=== PATIENT | male | born 1970 | race Hispanic/Latino ===

== ENCOUNTER 2021-11-17 19:24 | Emergency (ER) | payer OTHER, SELFPAY ==
[2021-11-17 19:37] VITALS: BP 149/87; PULSE 86; RESP 18; TEMP 38.2; O2SAT 100
--- NOTE | 2021-11-17 20:00 | ED.URI ---
HPI - URI/Sore Throat General Chief Complaint: Upper Respiratory Infection Stated Complaint: Sore Throat Time Seen by Provider: 11/17/21 20:00 History of Present Illness HPI Narrative: Efrain Gonzalez is a 51 yo male with no PMH who comes to [facility] with complaints of ear pain and throat pain and a fever 105. He is not drinking because his throat hurts and he has been sick for the last 2 to 3 days Related Data Home Medications Medication Instructions Recorded Confirmed empagliflozin 10 mg tablet 10 mg PO DAILY 11/17/21 11/17/21 (Jardiance) loratadine 10 mg tablet 10 mg PO DAILY 11/17/21 11/17/21 losartan 50 mg tablet 50 mg PO DAILY 11/17/21 11/17/21 metformin 1,000 mg tablet 1,000 mg PO BID 11/17/21 11/17/21 Allergies Allergy/AdvReac Type Severity Reaction Status Date / Time No Known Allergies Allergy Verified 11/17/21 20:02 Review of Systems Review of Systems: CONSTITUTIONAL: Has fever, chills, sweats. EYES: Denies visual changes, redness, discharge. ENT: Denies rhinorrhea, congestion, has sore throat, bilateral otalgia. CARDIOVASCULAR: Denies chest pain, palpitations, edema. RESPIRATORY: Denies dyspnea, wheezing, cough GASTROINTESTINAL: Denies abdominal pain, nausea, vomiting, diarrhea. GENITOURINARY: Denies dysuria, hematuria, abnormal discharge SKIN: Denies rash or itching. NEUROLOGIC: Denies numbness, or focal weakness. PSYCHIATRIC: Denies anxiety or depression. PMFSH Comments At time of signature, I agree with nursing past medical, surgical, social and family history. There is no relevant family history pertinent to the presenting complaint. Exam Narrative: GENERAL: This is a well-nourished, well-developed patient, in moderate distress. He is febrile and looks ill HEAD: normocephalic, atraumatic. EYES: Sclera clear/white. Vision is grossly intact. EARS: External ears normal, auditory canals erythema and without drainage, TMs normal without perforation. Hearing grossly intact. NOSE: External nose normal without nasal discharge, nares without redness, has rhinorrhea. THROAT: Mucous membranes moist, posterior pharynx erythema with 1+ edema NECK: Neck supple, non-tender CARDIOVASCULAR: Regular rate and rhythm without murmurs, gallops, or rubs. RESPIRATORY: Clear to auscultation. Breath sounds equal bilaterally. No wheezes, rales, or rhonchi. GASTROINTESTINAL: Not done, SKIN: warm, intact with no suspicious lesions or rash, good texture and turgor. NEURO: awake, alert, and oriented to person, place and time. There were no obvious focal neurologic abnormalities. Steady gait EXTREMITIES: Normal range of motion. BACK: Nontender without deformity Course Course Level of Care: Express Care Visit Vital Signs Vital signs: Vital Signs Temperature 100.8 F H 11/17/21 19:37 Pulse Rate 86 11/17/21 19:37 Respiratory Rate 18 11/17/21 19:37 Blood Pressure 149/87 H 11/17/21 19:37 Pulse Oximetry 100 11/17/21 19:37 Oxygen Delivery Room Air 11/17/21 19:37 Temperature 100.8 F H 11/17/21 19:37 Pulse Rate 86 11/17/21 19:37 Respiratory Rate 18 11/17/21 19:37 Blood Pressure 149/87 H 11/17/21 19:37 Pulse Oximetry 100 11/17/21 19:37 Oxygen Delivery Room Air 11/17/21 19:37 MDM - URI/Sore Throat Differential Diagnosis Differential diagnosis: Likely upper respiratory infection, otitis media, sinusitis, viral infection, bronchitis, influenza, pharyngitis and other Critical Care Time Critical Care Time Critical Care Time: No Discharge Plan Discharge Clinical Impression: Bacterial pharyngitis Patient Disposition: Home, Self-Care Condition: Stable Instructions: Pharyngitis (ED) Additional Instructions: Drink fluids and rest Take medications as prescribed Prescriptions: New amoxicillin 500 mg capsule 500 mg PO Q8H Qty: 30 0RF prednisone 20 mg tablet 40 mg PO DAILY Qty: 6 0RF amoxicillin 500 mg capsule 500 mg PO Q8H Qty: 30 0RF
== END 2021-11-17 20:26 | disposition home or self-care (01) ==
PROVIDERS: Emergency Provider Nurse Practitioner; PCP Registered Nurse
DX: J02.9 Acute pharyngitis, unspecified (principal); I10 Essential (primary) hypertension; E11.9 Type 2 diabetes mellitus without complications
CPT/HCPCS: 99203; G0463

== ENCOUNTER 2024-03-16 11:50 | Emergency (ER) | payer OTHER, SELFPAY ==
--- NOTE | ~2024-03-16 | XR_ITS ---
EXAMINATION: XR chest 2V 03/16/2024 12:58 INDICATION: Productive cough PROCEDURE: 2 view chest COMPARISON: No prior studies for comparison. FINDINGS: The lungs are clear. The cardiomediastinal silhouette is within normal limits. There are no pleural effusions. There is no pneumothorax suspected. IMPRESSION: 1: NO ACUTE CARDIOPULMONARY DISEASE. Reviewed, dictated and finalized at location B. 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
--- NOTE | 2024-03-16 12:00 | ED.URI ---
HPI - URI/Sore Throat General Chief Complaint: Upper Respiratory Infection Stated Complaint: sore throat,bone aches,fever,cough Time Seen by Provider: 03/16/24 12:17 Source: patient, RN notes reviewed and old records reviewed Mode of arrival: ambulatory Limitations: no limitations History of Present Illness HPI Narrative: Patient presents with 2 day history of runny nose, body aches, chills, sweats. He reports a dry cough. Denies shortness of breath. He has been taking ibuprofen for his symptoms with moderate relief. He is not in any distress, including respiratory distress. Denies any injury or trauma. Voices no other concerns or complaints at this time Related Data Home Medications ?Medication ?Instructions ?Recorded ?Confirmed ?Last Taken ?Type empagliflozin 10 mg tablet 10 mg PO DAILY 11/17/21 03/16/24 Unknown History (Jardiance) loratadine 10 mg tablet 10 mg PO DAILY 11/17/21 03/16/24 Unknown History losartan 50 mg tablet 50 mg PO DAILY 11/17/21 03/16/24 Unknown History metformin 1,000 mg tablet 1,000 mg PO BID 11/17/21 03/16/24 Unknown History ammonium lactate 12 % lotion 1 applic topical DAILY 03/16/24 03/16/24 Unknown History fenofibrate 160 mg tablet mg 03/16/24 Unknown History fluticasone propionate 50 1 spray intranasal DAILY 03/16/24 03/16/24 Unknown History mcg/actuation nasal spray,suspension pravastatin 20 mg tablet 20 mg PO DAILY 03/16/24 03/16/24 Unknown History tamsulosin 0.4 mg capsule 0.4 mg PO Q24H 03/16/24 03/16/24 Unknown History Allergies Allergy/AdvReac Type Severity Reaction Status Date / Time No Known Allergies Allergy Verified 03/16/24 12:10 Review of Systems Review of Systems: All systems reviewed & are unremarkable except as noted in HPI and below Constitutional: Constitutional: Reports no additional constitutional complaints, Reports body ache(s), Reports chills and Reports lethargy ENT: Reports system reviewed and no additional complaints, except as documented, Reports nasal congestion, Reports nasal discharge and Reports sore throat Cardiovascular: Cardiovascular: Reports no additional cardiovascular complaints Respiratory: Respiratory: Reports no additional respiratory complaints and Reports cough Gastrointestinal: Gastrointestinal: Reports no additional gastrointestinal complaints PMFSH Comments At the time of my signature, I reviewed and agree with the nursing past medical, surgical, social, and family history. There is no relevant family history pertinent to the patient complaint. Exam Const: General: cooperative, no acute distress, alert, awake and uncomfortable Orientation/consciousness: oriented to person, oriented to place and oriented to time HENMT: Head: normal to inspection Ears: TM's normal bilaterally Mouth: Yes moist mucous membranes Throat: posterior oropharynx normal Resp: Effort & Inspection: normal respiratory effort and able to speak in complete sentences Auscultation: clear to auscultation bilaterally, no crackles, no rales, no rhonchi and no wheezes Cardio: Palpation: normal PMI Rate: regular rate Rhythm: regular rhythm Heart sounds: S1 normal heart sound present and S2 normal heart sound present Neuro: General: oriented to person, oriented to place and oriented to time Cranial nerves: Yes CN's II-XII intact bilaterally Psych: Appearance: grossly normal Thought process: Normal thought process present Insight: Good insight present (Psych) Judgement: Good judgement present (Psych) Course Course Level of Care: Express Care Visit Vital Signs Vital signs: Reviewed MDM - URI/Sore Throat MDM Narrative Medical decision making narrative: Negative COVID, negative flu, negative strep. Culture pending. Negative chest x-ray. Reassuring physical exam. Symptoms likely viral in origin, treat symptomatically. Patient nontoxic and stable for discharge home. Discharge instructions reviewed with patient, as well as provided in writing per nursing staff. The instructions also include specific and strict return/GO TO THE ER as well as f/u information. All questions have been answered, and the patient deny any further questions with discharge and discharge plan. Some parts of this dictation were generated by voice recognition software and may contain typographical and/or grammatical inaccuracies. Differential Diagnosis Differential diagnosis: Likely upper respiratory infection, sinusitis, viral infection, bronchitis, influenza and pharyngitis Medical Records Attestation: I reviewed the patient's medical records. Lab Data Attestation: I reviewed the patient's lab results. Imaging Data Attestation: I personally reviewed and interpreted this imaging study as follows: My impression: no acute findings Radiologist's impression: [facility] [address] [place] [address] XRay Report Signed Patient: Efrain Gonzalez : 1970 MR#: [id number] Age: 53 Acct:[id number] Loc: [facility] ADM Date: 03/16/24Attending Dr: Ordering Physician: Sandie Wei FNP Date of Service: 03/16/24 Procedure(s): XR chest 2V Accession Number(s): [id number] cc: Sandie Wei FNP; Carolina, Ajith JUAREZ~ EXAMINATION: XR chest 2V 03/16/2024 12:58 INDICATION: Productive cough PROCEDURE: 2 view chest COMPARISON: No prior studies for comparison. FINDINGS: The lungs are clear. The cardiomediastinal silhouette is within normal limits. There are no pleural effusions. There is no pneumothorax suspected. IMPRESSION: 1: NO ACUTE CARDIOPULMONARY DISEASE. Reviewed, dictated and finalized at location B. 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 It is intended for [id number] communication. It is written in medical language and may contain unfamiliar abbreviations or verbiage. Medical documents are intended to carry relevant information, facts as evident, and the clinical opinion of the practitioner at the time of the encounter. This report may have been done utilizing a voice recognition system. Attempts have been made to correct errors. However, there may be uncorrected grammatical, spelling, and recognition errors present. The file time of this note does not necessarily represent the time the patient was seen. Dictated By: Demetrius Coffey MD 03/16/24 1316 Signed By: <Electronically signed by Demetrius Coffey MD in OV> 03/16/24 1318 Discharge Plan Discharge Clinical Impression: Upper respiratory infection Qualifiers: URI type: unspecified viral URI Qualified Code(s): J06.9 - Acute upper respiratory infection, unspecified Patient Disposition: Home, Self-Care Condition: Stable Instructions: Antibiotic Form, Cold Symptoms (ED) Additional Instructions: Take medications as prescribed. Follow with primary care provider. Emergency department for any new or worse symptoms Patient Language: Telugu Prescriptions: New albuterol sulfate [Ventolin HFA] 90 mcg/actuation HFA aerosol inhaler 2 puff inhalation QID PRN (Reason: shortness of breath or wheezing) Qty: 8.5 0RF benzonatate 200 mg capsule 200 mg PO TID PRN (Reason: cough) Qty: 30 0RF No Action losartan 50 mg tablet 50 mg PO DAILY metformin 1,000 mg tablet 1,000 mg PO BID loratadine 10 mg tablet 10 mg PO DAILY Jardiance 10 mg tablet 10 mg PO DAILY ammonium lactate 12 % lotion 1 applic TOPICAL DAILY fluticasone propionate 50 mcg/actuation spray,suspension 1 spray INTRANASAL DAILY fenofibrate 160 mg tablet pravastatin 20 mg tablet 20 mg PO DAILY tamsulosin 0.4 mg capsule 0.4 mg PO Q24H Follow-up/Referrals: Carolina,DINAH Canseco [Primary Care Provider] - 2 Weeks Stand Alone Forms: Work/School Release IP Time of Disposition: 13:26
[2024-03-16 12:01] VITALS: BP 128/77; PULSE 70; RESP 16; TEMP 36.6; O2SAT 99
[2024-03-16 12:32] LABS: Glucose Point of Care 181 mg/dl (65-105)
[2024-03-16 12:41] LABS: EDINFLUASCREEN Negative (Negative); EDINFLUBSCREEN Negative (Negative); EDSTREPNEGPOS1 Negative (Negative)
[2024-03-16 13:57] LABS: EDCOVIDSCREEN Negative (Negative)
== END 2024-03-16 13:34 | disposition home or self-care (01) ==
PROVIDERS: Emergency Provider Nurse Practitioner Family; PCP Registered Nurse
DX: J06.9 Acute upper respiratory infection, unspecified (principal); Z79.899 Other long term (current) drug therapy; Z79.84 Long term (current) use of oral hypoglycemic drugs; Z20.822 Contact with and (suspected) exposure to COVID-19
CPT/HCPCS: 71046; 82948; 87081; 87426; 87804; 87880; 99213; G0463

== ENCOUNTER 2025-01-01 21:39 | Emergency (ER) | payer OTHER, SELFPAY ==
--- NOTE | ~2025-01-01 | XR_ITS ---
Examination: XR chest 1V portable Clinical History: sob, cough Comparison: 03/16/2024 Technique: Portable AP Findings: Heart size normal. Mild bibasilar opacities. No acute bony abnormality. IMPRESSION: 1. Suspect bibasilar atelectasis and/or airspace disease. Recommend PA and lateral films with deep inspiration. Reviewed, dictated and finalized at location R. IMPRESSION: 1. Suspect bibasilar atelectasis and/or airspace disease. Recommend PA and lat eral films with deep inspiration.
--- NOTE | 2025-01-01 21:47 | ECG_ITS ---
Test Date: 2025-01-01 22:00:28 Measurements Intervals [place] Rate: 105 P: 23 NH: 142 QRS: 15 QRSD: 89 T: 11 QT: 317 QTc: 420 Interpretive Statements SINUS TACHYCARDIA DELAYED PRECORDIAL R/S TRANSITION BORDERLINE ECG No previous ECG available for comparison Electronically Signed On 01-02-2025 05:56:04 CDT by Bobby Ding D.O.
--- OUTSIDE RECORDS SUMMARY | 2025-01-01 21:54 | XMS_ITS | Clinical Summary ---
Author Organization [facility] Address [address] [place] [address] Care Team Providers Care 3D Modeler Name Role Phone Ajith Figueroa ZIPPER SLIDE ATTACHER Primary Care Provider [phone] Allergies No known active allergies Medications alcohol swabs (Alcohol Prep Pads) pads, medicated Alcohol Prep Pads clean area prior to blood sugar testing Active lancets (OneTouch Delica Plus Lancet) 33 gauge misc OneTouch Delica Plus Lancet 33 gauge USE DIRECTED Active ammonium lactate (LAC-HYDRIN) 12 % lotion ammonium lactate 12 % lotion Active clotrimazole 1 % cream Apply topically 3 (three) times a day Active fenofibrate (TRIGLIDE) 160 mg tablet Take 160 mg by mouth daily 2 Active loratadine (CLARITIN) 10 mg tablet Take 10 mg by mouth daily 2 Active losartan (COZAAR) 50 mg tablet losartan 50 mg tablet Active metFORMIN (GLUCOPHAGE) 1,000 mg tablet metformin 1,000 mg tablet TAKE 1 TABLET BY MOUTH TWICE DAILY WITH MEALS Active pravastatin (PRAVACHOL) 20 mg tablet pravastatin 20 mg tablet TAKE 1 TABLET BY MOUTH ONCE DAILY IN THE EVENING Active tamsulosin (FLOMAX) 0.4 mg extended release capsule Take 0.4 mg by mouth daily 7 Active erythromycin (ILOTYCIN) ophthalmic ointment Place 1/2 inch ribbon in both eyes four times a day. 3.5 g 2 Active naproxen (NAPROSYN) 500 mg tablet Take 1 tablet (500 mg total) by mouth 2 (two) times a day with meals 30 tablet 3 Active ketorolac (TORADOL) 10 mg tablet Take 1 tablet (10 mg total) by mouth every 6 (six) hours as needed for pain 20 tablet 3 Active methylPREDNISol one (Medrol, Jim,) 4 mg Dosepack follow package directions 1 packet 3 Active Active Problems No known active problems Immunizations Immunization Administration Dates Next Due Tdap 06/02/2021 Surgical History Surgery Date Site/Laterality Comments NO PAST SURGERIES Medical History Medical History Date Comments Diabetes mellitus Uses Qatari as primary spoken language Social History Tobacco Use Types Packs/Day Years Used Date Smoking Tobacco: Never Smokeless Tobacco: Never Tobacco Cessation:Counseling Given: Not Answered Alcohol Use Standard Drinks/Week Comments Never 0 (1 standard drink = 0.6 oz pur e alcohol) Personal Safety Answer Date Recorded Have you ever been in or are you currently in a harmful physical or emotional relationship or is someone making you feel afraid or unsafe? 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 Gender Identity Not on file Sexual Orientation Not on file Obstetrics History Last Filed Vital Signs Vital Sign Reading Time Taken Comments Blood Pressure 148/98 03/01/2023 2:02 PM FLAT SPRING ASSEMBLER Pulse 76 03/01/2023 2:02 PM FLAT SPRING ASSEMBLER Temperature 37.1 C (98.7 F) 03/01/2023 2:02 PM FLAT SPRING ASSEMBLER Respiratory Rate 15 03/01/2023 2:02 PM FLAT SPRING ASSEMBLER Oxygen Saturation 99% 03/01/2023 2:02 PM FLAT SPRING ASSEMBLER Inhaled Oxygen Concentration - - Weight 81.6 kg (180 lb) 03/01/2023 2:02 PM FLAT SPRING ASSEMBLER Height 165.1 cm (5' 5) 03/01/2023 2:02 PM FLAT SPRING ASSEMBLER Body Mass Index 29.95 03/01/2023 2:02 PM FLAT SPRING ASSEMBLER Plan of Treatment Health Maintenance Due Date Last Done Comments Colon Cancer Screening-Colonoscopy 1970 Depression Screening 1970 Hepatitis C Screening 1970 Prostate Cancer Screening-PSA 1970 Regular Well Visit/Exam 18-64 05/06/1987 Zoster Vaccine (1 of 2) 05/06/2019 Covid-19 Vaccine ( - season) 2024 03/14/2021, 06/24/2020, 05/27/2020 Influenza Vaccine (#1) 2024 3, 02/09/2022, 11/18/2020, Additional history exists DTaP/Tdap/Td Vaccine (3 - Td or Tdap) 06/03/2031 06/02/2021, 02/10/2016 Hepatitis B Screening Completed 12/16/2022, 023 Pneumococcal vaccine <65 Aged Out 12/16/2022, 03/07 No longer eligible based on patient's age to complete this topic Insurance Care Teams 3D Modeler Relationship Specialty Start Date End Date Ajith Figueroa NP [address] [place] [address] PCP - General Nurse Practitioner 03/01/23
--- OUTSIDE RECORDS SUMMARY | 2025-01-01 21:55 | XMS_ITS | Data Portability ---
Author Organization Shirin CONNER Address [address] [place] [address] Care Team Providers Care Personal Care Service Provider Name Role Phone AJITH VERAS Primary Care Provider Assessment No assessment recorded. 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 Veras, [facility] KNITTER-Bc Not available Not available Not available Lab CBC w/ auto diff 2024 025 [facility], [address] [place] [address], [address], [place], [address], 11/21/2024 12:12:58 albumi n/crea tinine , mass ratio, urine 2024 025 [facility], [address] [facility], [address], [place], [address], 11/21/2024 12:20:20 lipid panel, serum 2024 025 [facility], [address] [facility], [address], [place], [address], 11/21/2024 12:12:58 TSH, ultra- sensit lauri, serum 2024 025 [facility], [address] [facility], [address], [place], [address], 11/21/2024 12:20:22 urinal ysis, comple te 2024 [facility], [address], [address], [place], [address], 11/21/2024 12:20:21 PSA, total, serum or plasma 2024 [facility], [address], [address], [place], [address], 11/21/2024 12:20:23 CBC w/ auto diff 2024 [facility], [address] [facility] [address], [address], [place], [address], 11/20/2024 13:17:24 albumi n/crea tinine , mass ratio, urine 2024 [email or web address], [address], [address], [place], [address], 11/20/2024 13:17:52 lipid panel, serum 2024 [email or web address], [address], [address], [place], [address], 11/20/2024 13:18:01 TSH, ultra- sensit lauri, serum 2024 [employer] [facility], [address], [address], [place], [address], 11/20/2024 13:18:08 urinal ysis, comple te 2024 [email or web address], [address], [address], [place], [address], 11/20/2024 13:18:23 HbA1c (hemog lobin A1c), blood 2024 025 [facility] In-Office Order, Internal Use Only DO Not Attach Compendium DO Not Attach Compendium, Do Not Delete/merge, 11/14/2024 15:33:27 glucos e, finger stick, blood 2024 025 [facility] In-Office Order, Internal Use Only DO Not Attach Compendium DO Not Attach Compendium, Do Not Delete/merge, 11/14/2024 15:33:27 PSA, total, serum or plasma 2024 025 [facility], [address] [place] [address], [address], [place], [address], 11/20/2024 13:18:16 HbA1c (hemog lobin A1c), blood 2024 025 [email or web address] In-Office Order, Internal Use Only DO Not Attach Compendium DO Not Attach Compendium, Do Not Delete/merge, 06/20/2024 15:57:02 glucos e, finger stick, blood 2024 025 [email or web address] In-Office Order, Internal Use Only DO Not Attach Compendium DO Not Attach Compendium, Do Not Delete/merge, 06/20/2024 15:57:02 HbA1c (hemog lobin A1c), blood 2024 025 [facility] In-Office Order, Internal Use Only DO Not Attach Compendium DO Not Attach Compendium, Do Not Delete/merge, 03/09/2024 16:25:28 glucos e, finger stick, blood 2024 025 [facility] In-Office Order, Internal Use Only DO Not Attach Compendium DO Not Attach Compendium, Do Not Delete/merge, 03/09/2024 16:25:27 HbA1c (hemog lobin A1c), blood 2023 024 yar[facility]z In-Office Order, Internal Use Only DO Not Attach Compendium DO Not Attach Compendium, Do Not Delete/merge, [id number] 12/06/2023 16:58:08 glucos e, finger stick, blood 2023 024 maria m In-Office Order, Internal Use Only DO Not Attach Compendium DO Not Attach Compendium, Do Not Delete/merge, [id number] 12/06/2023 16:58:10 Referral None record ed. Procedures None record ed. Surgeries None record ed. Imaging XR, should er, 2 or more view 2023 [facility] ([facility]), [address] [facility] , [place], [address], 11/06/2024 09:55:12 Medication Orders flutic asone propio gina 50 mcg/ac tuatio n nasal spray, suspen kinjal 2024 025 [facility], [facility], [address] [place] [address], [address], 11/14/2024 15:33:22 lorata dine 10 mg tablet 2024 025 [facility], [facility], [facility] [place], [address], 11/14/2024 15:33:23 fenofi brate 160 mg tablet 2024 025 [facility], [facility], [facility] [place], [address], 11/14/2024 15:33:23 pravas tatin 20 mg tablet 2024 025 [facility], [facility], [facility] [place], [address], 11/14/2024 15:33:23 losart an 50 mg tablet 2024 025 [facility], [facility], [facility] [place], [address], 11/14/2024 15:33:22 tamsul osin 0.4 mg capsul e 2024 [place] [address], [address] [place] [address], [address], 11/14/2024 15:33:22 seleni um sulfid e 2.5 % lotion 2024 [place] [address], [address] [place] [address], [address], 11/14/2024 15:33:23 Bactri m DS 800 mg-160 mg tablet [address] [place] [address], [address] [place] [address], [address], 12/01/2024 05:02:00 fluoro uracil 5 % topica l cream [address] [place] [address], [address] [place] [address], [address], 11/14/2024 15:33:23 silden afil 100 mg tablet [address] [place] [address], [address] [place], [place], [id number], 11/14/2024 15:51:02 ammoni um lactat e 12 % lotion 2024 025 [place] [address], [address] [place] [address], [address], 11/14/2024 15:33:22 metfor min 1,000 mg tablet [address] [place] [address], [address] [place] [address], [address], 11/14/2024 15:33:23 Jardia nce 10 mg tablet [address] [place] [address], [address] [place] [address], [address], 11/14/2024 15:33:23 flutic asone propio gina 50 mcg/ac tuatio n nasal spray, suspen kinjal 2024 [facility], [address] [place] [address], [address], 06/20/2024 15:57:11 lorata dine 10 mg tablet 2024 [facility], [address] [place] [address], [address], 06/20/2024 15:57:12 hydroc ortiso ne 2.5 % topica l cream 2024 [facility], [address] [place] [address], [address], 06/20/2024 15:57:12 fenofi brate 160 mg tablet 2024 025 [facility], [address] [place] [address], [address], 06/20/2024 15:57:13 pravas tatin 20 mg tablet 2024 025 [facility], [address] [place] [address], [address], 06/20/2024 15:57:09 losart an 50 mg tablet 2024 025 [facility], [address] [place] [address], [address], 06/20/2024 15:57:11 Jardia nce 10 mg tablet 2024 025 [facility], [address] [place] [address], [address], 06/20/2024 15:57:13 metfor min 1,000 mg tablet 2024 [facility], [address] [place], [address], 06/20/2024 15:57:11 tamsul osin 0.4 mg capsul e 2024 [facility], [address] [place], [address], 06/20/2024 15:57:13 flutic asone propio gina 50 mcg/ac tuatio n nasal spray, suspen kinjal 2024 [facility], [address] [place] [address], [address], 03/09/2024 16:25:39 lorata dine 10 mg tablet 2024 [facility], [address] [place] [address], [address], 03/09/2024 16:25:40 silden afil 100 mg tablet 2024 025 [facility], [address] [place], [place], [id number], 03/09/2024 17:01:16 fenofi brate 160 mg tablet 2024 [facility], [address] [place] [address], [address], 03/09/2024 16:25:38 pravas tatin 20 mg tablet 2024 025 [facility], [address] [place] [address], [address], 03/09/2024 16:25:36 ammoni um lactat e 12 % lotion 2024 025 [facility], [address] [place] [address], [address], 03/09/2024 16:25:37 metfor min 1,000 mg tablet 2024 [facility], [address] [place], [address], 03/09/2024 16:25:41 Jardia nce 10 mg tablet 2024 maria m [facility], [address] [place], [address], 03/09/2024 16:26:41 losart an 50 mg tablet 2024 [facility], [address] [place] [address], [address], 03/09/2024 16:25:41 tamsul osin 0.4 mg capsul e 2024 [facility], [address] [place] [address], [address], 03/09/2024 16:25:40 flutic asone propio gina 50 mcg/ac tuatio n nasal spray, suspen kinjal 2023 024 [facility], [address] [place] [address], [address], 12/06/2023 16:58:17 lorata dine 10 mg tablet 2023 024 [facility], [address] [place] [address], [address], 12/06/2023 16:58:16 flucon azole 150 mg tablet 2023 025 [facility], [address] [place] [address], [address], 03/09/2024 16:04:19 ketoco nazole 2 % topica l cream 2023 024 [facility], [address] [place] [address], [address], 12/06/2023 16:58:16 fenofi brate 160 mg tablet 2023 [facility], [address] [place] [address], [address], 12/06/2023 16:58:16 pravas tatin 20 mg tablet 2023 [facility], [address] [place] [address], [address], 12/06/2023 16:58:15 Medrol (Jim) 4 mg tablet s in a dose pack 2023 025 [facility], [address] [place] [address], [address], 03/09/2024 16:04:24 losart an 50 mg tablet 2023 [facility] [address], [address] [place] [address], [address], 12/06/2023 16:58:14 tamsul osin 0.4 mg capsul e 2023 024 [facility], [address] [place] [address], [address], 12/06/2023 16:58:16 silden afil 100 mg tablet 2023 [facility], [address] [place], [place], [id number], 12/06/2023 17:23:33 ammoni um lactat e 12 % lotion 2023 024 [facility], [address] [place] [address], [address], 12/06/2023 16:58:15 metfor min 1,000 mg tablet 2023 024 [facility], [address] [place] [address], [address], 12/06/2023 16:58:13 Jardia nce 10 mg tablet 2023 024 maria m [facility], [address] [facility], [place], [address], 12/06/2023 17:24:57 Patient TargetsNo targets recorded. Patient Instructions Encounter Date Encounter Id Patient Instructions Last Modified By Organization Details Last Modified Time 12/06/2023 [id number] aprenda sobre la presi n arterial jose - [learning about high blood pressure] y[facility]auz Not available 12/06/2023 16:58:02 hiperplasia pros t vahe benigna: instrucciones de cuidado - [benign prostatic hyperplasia: care instructions] yarauz Not available 12/06/2023 16:58:01 vacuna contra la influenza (gripe): instrucciones de cuidado - [influenza (flu) vaccine: care instructions] yarauz Not available 12/06/2023 16:58:01 enfermedad de reflujo gastroesof gico (GERD): instrucciones de cuidado - [gastroesophageal reflux disease (GERD): care instructions] yarauz Not available 12/06/2023 16:58:01 aprenda acerca del peso saludable - [learning about healthy weight] yarauz Not available 12/06/2023 16:58:01 Diabetes de tipo 2: Instrucciones de cuidado - [Type 2 Diabetes: Care Instructions] yarauz Not available 12/06/2023 16:58:02 aprenda acerca del peso saludable - [learning about healthy weight] yarauz Not available 12/06/2023 16:58:01 ndice de masa corporal: instrucciones de cuidado - [body mass index: care instructions] yarauz Not available 12/06/2023 16:58:02 Uncontrolled Diabetes Mellitus complications , blindness, kidney failure, amputations etc. Take your diabetes medication daily check blood sugars fasting and post prandial --keep a log--bring to next appointment stop concentrated sugars--follow 1500 meal plan exercise 50-60 minutes daily on most days check your feet for sores, cuts, etc., see eye doctor once a year see dentist every 6 months make appointment with inverter and clipper DIRECTOR OF COMMUNICATIONS test results vaccine yarauz Not available 12/06/2023 16:55:21 03/09/2024 [id number] enfermedad de reflujo gastroesof gico (GERD): instrucciones de cuidado - [gastroesophageal reflux disease (GERD): care instructions] yarauz Not available 03/09/2024 16:25:28 Diabetes de tipo 2: Instrucciones de cuidado - [Type 2 Diabetes: Care Instructions] yarauz Not available 03/09/2024 16:25:28 aprenda sobre la presi n arterial jose - [learning about high blood pressure] yarauz Not available 03/09/2024 16:25:28 hiperplasia pros t vahe benigna: instrucciones de cuidado - [benign prostatic hyperplasia: care instructions] yarauz Not available 03/09/2024 16:25:28 aprenda acerca del peso saludable - [learning about healthy weight] yarauz Not available 03/09/2024 16:25:28 ndice de masa corporal: instrucciones de cuidado - [body mass index: care instructions] yarauz Not available 03/09/2024 16:25:28 Uncontrolled Diabetes Mellitus complications , blindness, kidney failure, amputations etc. Take your diabetes medication daily check blood sugars fasting and post prandial --keep a log--bring to next appointment stop concentrated sugars--follow 1500 meal plan exercise 50-60 minutes daily on most days check your feet for sores, cuts, etc., see eye doctor once a year see dentist every 6 months make appointment with inverter and clipper DIRECTOR OF COMMUNICATIONS yarauz Not available 03/09/2024 16:30:43 06/20/2024 [id number] aprenda sobre la presi n arterial jose - [learning about high blood pressure] [email or web address] Not available 06/20/2024 15:57:01 Diabetes de tipo 2: Instrucciones de cuidado - [Type 2 Diabetes: Care Instructions] [email or web address] Not available 06/20/2024 15:57:02 hiperplasia pros t vahe benigna: instrucciones de cuidado - [benign prostatic hyperplasia: care instructions] [email or web address] Not available 06/20/2024 15:57:02 aprenda acerca del peso saludable - [learning about healthy weight] [email or web address] Not available 06/20/2024 15:57:01 ndice de masa corporal: instrucciones de cuidado - [body mass index: care instructions] [email or web address] Not available 06/20/2024 15:57:02 11/14/2024 [id number] aprenda sobre la presi n arterial jose - [learning about high blood pressure] yarauz Not available 11/14/2024 15:33:22 hiperplasia pros t vahe benigna: instrucciones de cuidado - [benign prostatic hyperplasia: care instructions] yarauz Not available 11/14/2024 15:33:22 enfermedad de reflujo gastroesof gico (GERD): instrucciones de cuidado - [gastroesophageal reflux disease (GERD): care instructions] yarauz Not available 11/14/2024 15:33:22 Diabetes de tipo 2: Instrucciones de cuidado - [Type 2 Diabetes: Care Instructions] yarauz Not available 11/14/2024 15:33:22 detecci n del c ncer de pr stata: instrucciones de cuidado - [prostate cancer screening: care instructions] yarauz Not available 11/14/2024 15:33:23 prueba del ANT gabbie prost mattie espec fico: acerca de esta prueba - [prostate-specifi c antigen (PSA) test: about this test] yarauz Not available 11/14/2024 15:33:23 aprenda acerca del peso saludable - [learning about healthy weight] yarauz Not available 11/14/2024 15:33:22 ndice de masa corporal: instrucciones de cuidado - [body mass index: care instructions] yarauz Not available 11/14/2024 15:33:22 Uncontrolled Diabetes Mellitus complications , blindness, kidney failure, amputations etc. Take your diabetes medication daily check blood sugars fasting and post prandial --keep a log--bring to next appointment stop concentrated sugars--follow 1500 meal plan exercise 50-60 minutes daily on most days check your feet for sores, cuts, etc., see eye doctor once a year see dentist every 6 months make appointment with inverter and clipper DINAH franz Not available 11/14/2024 15:08:54 Reason for Referral None Reported. Results Created Date Observation Date Name Description Value Unit Range Abnormal Flag Note LastModifiedBy Organization Detail LastModifiedTime 12/06/1912/06/2023 HbA1c (hemo globi n A1c), blood HbA1c 6.7 Not Available In-Office Order Internal Use Only DO Not Attach Compendium DO Not Attach Compendium, Do Not Delete/merge, 12/06/2023 16:07:45 12/06/1912/06/2023 gluco se, finge rstic k, blood Blood Glucose: mg/dl 104 Not Available In-Off ice Order Internal Use Only DO Not Attach Compendium DO Not Attach Compendium, Do Not Delete/merge, 12/06/2023 16:07:45 03/09/1903/09/2024 HbA1c (hemo globi n A1c), blood HbA1c 7.3 Not Available In-Office Order Internal Use Only DO Not Attach Compendium DO Not Attach Compendium, Do Not Delete/merge, 03/09/2024 15:54:57 03/09/1903/09/2024 gluco se, finge rstic k, blood Blood Glucose: mg/dl 145 Not Available In-Off ice Order Internal Use Only DO Not Attach Compendium DO Not Attach Compendium, Do Not Delete/merge, 03/09/2024 15:54:58 06/21/1906/20/2024 HbA1c (hemo globi n A1c), blood HbA1c 7.7 Not Available In-Office Order Internal Use Only DO Not Attach Compendium DO Not Attach Compendium, Do Not Delete/merge, 06/20/2024 15:25:05 06/21/19 25 06/20/2024 gluco se, finge rstic k, blood Blood Glucose: mg/dl 177 Not Available In-Off ice Order Internal Use Only DO Not Attach Compendium DO Not Attach Compendium, Do Not Delete/merge, [id number] 06/20/2024 15:25:06 11/15/1911/14/2024 HbA1c (hemo globi n A1c), blood HbA1C 7.7 % Not Available In-Office Order Internal Use Only DO Not Attach Compendium DO Not Attach Compendium, Do Not Delete/merge, 11/14/2024 14:45:43 11/15/1911/14/2024 gluco se, finge rstic k, blood Blood Glucose: mg/dl 146 Not Available In-Off ice Order Internal Use Only DO Not Attach Compendium DO Not Attach Compendium, Do Not Delete/merge, 11/14/2024 14:45:50 11/21/1911/20/2024 LIPID PANEL cholesterol, total 153 mg/dL 100-[address] [facility] [address] [place], [address], 11/20/2024 21:08:57 11/21/1911/20/2024 LIPID PANEL triglyceride s 150 mg/dL 0-149 above high normal Not Available [facility] [address] [place], [address], 11/20/2024 21:08:57 11/21/1911/20/2024 LIPID PANEL HDL cholesterol 40 mg/dL 40-999 Not Available [facility] [address] [place], [address], 11/20/2024 21:08:57 11/21/1911/20/2024 LIPID PANEL VLDL cholesterol delfina 30 mg/dL 5-40 Not Available [facility] [address] [place], [address], 11/20/2024 21:08:57 11/21/1911/20/2024 LIPID PANEL LDL chol calc ([facility]) 105 mg/dL 0-99 above high normal Not Available [facility] [address] [place], [address], 11/20/2024 21:08:57 11/21/1911/20/2024 CBC WITH DIFFE RENTI AL/PL ATELE T WBC 5.3 x10e3 /uL 3.4-[address] [facility] [address] [place], [address], 11/20/2024 21:08:58 11/21/1911/20/2024 CBC WITH DIFFE RENTI AL/PL ATELE T RBC 5.03 x10e6 /uL 4.14-[address] [facility] [address] [place], [address], 11/20/2024 21:08:58 11/21/1911/20/2024 CBC WITH DIFFE RENTI AL/PL ATELE T hemoglobin 15.6 g/dL 13.0-[address] [facility] [address] [place], [address], 11/20/2024 21:08:58 11/21/1911/20/2024 CBC WITH DIFFE RENTI AL/PL ATELE T hematocrit 46.4 % 37.5-[address] [facility] [address] [place], [address], 11/20/2024 21:08:58 11/21/1911/20/2024 CBC WITH DIFFE RENTI AL/PL ATELE T MCV 92 fL 79-[address] [facility] [address] [place], [address], 11/20/2024 21:08:58 11/21/1911/20/2024 CBC WITH DIFFE RENTI AL/PL ATELE T MCH 31.0 pg 26.6-[address] [facility] [address] [place], [address], 11/20/2024 21:08:58 11/21/1911/20/2024 CBC WITH DIFFE RENTI AL/PL ATELE T MCHC 33.6 g/dL 31.5-[address] [facility] [address] [place], [address], 11/20/2024 21:08:58 11/21/1911/20/2024 CBC WITH DIFFE RENTI AL/PL ATELE T RDW 12.2 % 11.5-[address] [facility] [address] [place], [address], 11/20/2024 21:08:58 11/21/1911/20/2024 CBC WITH DIFFE RENTI AL/PL ATELE T platelets 218 x10e3 /uL 150-[address] [facility] [address] [place], [address], 11/20/2024 21:08:58 11/21/1911/20/2024 CBC WITH DIFFE RENTI AL/PL ATELE T neutrophils 53 % notest b. Not Available [facility] [address] [place], [address], 11/20/2024 21:08:58 11/21/1911/20/2024 CBC WITH DIFFE RENTI AL/PL ATELE T lymphs 35 % notest b. Not Available [facility] [address] [place], [address], 11/20/2024 21:08:58 11/21/1911/20/2024 CBC WITH DIFFE RENTI AL/PL ATELE T monocytes 8 % notest b. Not Available [facility] [address] [place], [address], 11/20/2024 21:08:58 11/21/1911/20/2024 CBC WITH DIFFE RENTI AL/PL ATELE T eos 3 % notest b. Not Available [facility] [address] [place], [address], 11/20/2024 21:08:58 11/21/19 25 11/20/2024 CBC WITH DIFFE RENTI AL/PL ATELE T basos 1 % notest b. Not Available [facility] [address] [place], [address], 11/20/2024 21:08:58 11/21/19 25 11/20/2024 CBC WITH DIFFE RENTI AL/PL ATELE T neutrophils (absolute) 2.8 x10e3 /uL 1.4-7. [address] [facility] [address] [place], [address], 11/20/2024 21:08:58 11/21/1911/20/2024 CBC WITH DIFFE RENTI AL/PL ATELE T lymphs (absolute) 1.8 x10e3 /uL 0.7-3. [address] [facility] [address] [place], [address], 11/20/2024 21:08:58 11/21/19 25 11/20/2024 CBC WITH DIFFE RENTI AL/PL ATELE T monocytes(ab solute) 0.4 x10e3 /uL 0.1-0. [address] [facility] [address] [place], [address], 11/20/2024 21:08:58 11/21/1911/20/2024 CBC WITH DIFFE RENTI AL/PL ATELE T eos (absolute) 0.2 x10e3 /uL 0.0-0. [address] [facility] [address] [place], [address], 11/20/2024 21:08:58 11/21/19 25 11/20/2024 CBC WITH DIFFE RENTI AL/PL ATELE T baso (absolute) 0.1 x10e3 /uL 0.0-0. [address] [facility] [address] [place], [address], 11/20/2024 21:08:58 11/21/19 25 11/20/2024 CBC WITH DIFFE RENTI AL/PL ATELE T immature granulocytes 0.4 % notest b. Not Available [facility] [address] [place], [address], 11/20/2024 21:08:58 11/21/19 25 11/20/2024 CBC WITH DIFFE RENTI AL/PL ATELE T immature grans (abs) 0.0 x10e3 /uL 0.0-0. [address] [facility] [address] [place], [address], 11/20/2024 21:08:58 11/21/19 25 11/20/2024 CBC WITH DIFFE RENTI AL/PL ATELE T NRBC 0 % 0-[address] [facility] [address] [place], [address], 11/20/2024 21:08:58 11/21/19 25 11/21/2024 ALBUM IN/CR EATIN INE RATIO ,URIN E creatinine, urine 132.8 mg/dL notest ab. Not Available [facility] ([facility]) [address] [place], [address], 11/21/2024 12:20:20 11/21/19 25 11/21/2024 ALBUM IN/CR EATIN INE RATIO ,URIN E albumin, urine 10.8 ug/mL notest ab. Not Available [facility] ([facility]) [address] [place], [address], 11/21/2024 12:20:20 11/21/19 25 11/21/2024 ALBUM IN/CR EATIN INE RATIO ,URIN E alb/creat ratio 8 mg/g_ creat 0-29 Celia l: 0 - 29 Moder ately incre ased: 30 - 300 Sever colton incre ased: >300 Not Available [facility] ([facility]) [address] [place], [address], 11/21/2024 12:20:20 11/21/19 25 11/21/2024 URINA LYSIS , COMPL ETE specific gravity 1.020 1.005- 1.030 Not Available [facility] ([facility]) [address] [place], [address], 11/21/2024 12:20:21 11/21/19 25 11/21/2024 URINA LYSIS , COMPL ETE pH 5.5 5.0-7. 5 Not Available [facility] ([facility]) [address] [place], [address], 11/21/2024 12:20:21 11/21/19 25 11/21/2024 URINA LYSIS , COMPL ETE urine-color YELLOW yellow Not Available [facility] ([facility]) [address] [place], [address], 11/21/2024 12:20:21 11/21/19 25 11/21/2024 URINA LYSIS , COMPL ETE appearance CLEAR clear Not Available [facility] ([facility]) [address] [place], [address], 11/21/2024 12:20:21 11/21/19 25 11/21/2024 URINA LYSIS , COMPL ETE WBC esterase NEGATI VE negati ve Not Available [facility] ([facility]) [address] [place], [address], 11/21/2024 12:20:21 11/21/19 25 11/21/2024 URINA LYSIS , COMPL ETE protein NEGATI VE negati ve/tra ce Not Available [facility] ([facility]) [address] [place], [address], 11/21/2024 12:20:21 11/21/19 25 11/21/2024 URINA LYSIS , COMPL ETE glucose NEGATI VE negati ve Not Available [facility] ([facility]) [address] [facility], [place], [address], 11/21/2024 12:20:21 11/21/19 25 11/21/2024 URINA LYSIS , COMPL ETE ketones NEGATI VE negati ve Not Available [facility] ([facility]) [address] [facility], [place], [address], 11/21/2024 12:20:21 11/21/19 25 11/21/2024 URINA LYSIS , COMPL ETE occult blood NEGATI VE negati ve Not Available [facility] ([facility]) [address] [facility], [place], [address], 11/21/2024 12:20:21 11/21/19 25 11/21/2024 URINA LYSIS , COMPL ETE bilirubin NEGATI VE negati ve Not Available [facility] ([facility]) [address] [facility], [place], [address], 11/21/2024 12:20:21 11/21/19 25 11/21/2024 URINA LYSIS , COMPL ETE urobilinogen ,semi-qn 0.2 mg/dL 0.2-1. 0 Not Available [facility] ([facility]) [address] [facility], [place], [address], 11/21/2024 12:20:21 11/21/1911/21/2024 URINA LYSIS , COMPL ETE nitrite, urine NEGATI VE negati ve Not Available [facility] ([facility]) [address] [facility], [place], [address], 11/21/2024 12:20:21 11/21/19 25 11/21/2024 URINA LYSIS , COMPL ETE microscopic examination COMMEN T Micro scopi c follo ws if indic ated. Not Available [facility] ([facility]) [address] [place], [address], 11/21/2024 12:20:21 11/21/19 25 11/21/2024 URINA LYSIS , COMPL ETE microscopic examination SEE BELOW: Micro scopi c was indic ated and was perfo rmed. Not Available [facility] ([facility]) [address] [facility], [place], [address], 11/21/2024 12:20:21 11/21/19 25 11/21/2024 MICRO SCOPI C EXAMI NATIO N WBC None seen /hpf 0-5 Not Available [facility] ([facility]) [address] [facility], [place], [address], 11/21/2024 12:20:21 11/21/19 25 11/21/2024 MICRO SCOPI C EXAMI NATIO N RBC None seen /hpf 0-2 Not Available [facility] ([facility]) [address] [facility], [place], [address], 11/21/2024 12:20:21 11/21/19 25 11/21/2024 MICRO SCOPI C EXAMI NATIO N epithelial cells (non renal) None seen /hpf 0-10 Not Available [facility] ([facility]) [address] [facility], [place], [address], 11/21/2024 12:20:21 11/21/19 25 11/21/2024 MICRO SCOPI C EXAMI NATIO N casts None seen /lpf nonese en Not Available [facility] ([facility]) [address] [facility], [place], [address], 11/21/2024 12:20:21 11/21/19 25 11/21/2024 MICRO SCOPI C EXAMI NATIO N bacteria None seen nonese en/few Not Available [facility] ([facility]) [address] [facility], [place], [address], 11/21/2024 12:20:21 11/21/19 25 11/21/2024 TSH RFX ON ABNOR MAL TO FREE T4 TSH 1.590 uIU/m L 0.450- 4.500 Not Available [facility] ([facility]) [address] [facility], [place], [address], 11/21/2024 12:20:22 11/21/19 25 11/21/2024 PROST ATE-S PECIF IC AG prostate specific Ag 0.9 NG/mL 0.0-4. 0 Vivian ECLIA metho dolog y. Accor ding to the Ameri can [employer]o g[employer] Ass[employer] iatio n, Serum PSA shoul d decre ase and remai n at undet ectab le level s after radic al prost atect can. The AUA defin es bioch emica l recur rence as an initi al PSA value 0.2 ng/mL or great er follo wed by a subse quent confi rmato ry PSA value 0.2 ng/mL or great er. Value s obtai suraj with diffe rent assay metho ds or kits canno t be used inter hawthorne eably . Resul ts canno t be inter prete d as absol qasim evide nce of the prese nce or absen ce of fortunato saab se. Not Available [facility] ([facility]) [address] [facility], [place], [address], 11/21/2024 12:20:23 03/16/19 25 03/16/2024 XR, chest , 2 view No observ ation record ed. [facility] [address], [place], [address], 03/20/2024 10:57:06 Result Notes None recorded. 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 32173510 Active Not Available [facility] 4 22:50:17 Neuropath y due to diabetes mellitus 045217794 Active Not Available [facility] 4 22:50:17 Gastroeso phageal reflux disease 755476692 Active Not Available [facility] 4 22:50:17 Serous otitis media 03751346 Completed 06/30/2016 Abbey Graham RN null, [place] - [facility] 7 14:33:37 Complaini ng of nasal congestio n Completed 08/18/2020 Abbey Graham [place] [facility] 1 16:25:44 Onychomyc osis 556936560 Completed 03/17/2018 Abbey Graham [place] [facility] 9 15:46:57 Backache 098883675 Completed 06/30/2016 Abbey Graham [place] [facility] 7 14:33:41 Reduced libido 3219416 Completed 201608/18/2020 Abbey Graham [place] [facility] 1 16:26:03 Testoster one level below reference range 727405617 Completed 201608/18/2020 Abbey Graham [place] [facility] 1 16:25:52 Benign prostatic hyperplas ia 092653189 Active 2017 Not Available [facility] 4 22:50:17 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 242293400 Active 2017 Not Available [facility] 4 22:50:17 Scalp folliculi tis 455204818 Active 2021 Not Available [facility] 4 22:50:17 Vitamin D deficienc y 85588826 Active 2021 Not Available [facility] 4 22:50:17 Body mass index 30+ - obesity 808694038 Active 2021 RAMU Yu Attn: [place], [address] , [facility] 4 16:02:43 Screening for malignant neoplasm of colon Active 2022 Not Available [facility] 4 22:50:17 Fall from ladder Active 2022 Not Available [facility] 4 22:50:17 Obesity 763364045 [facility]: Accounting ,[address] [facility], [place], [address] , [facility] 4 16:50:40 Pain of left shoulder joint 29632498662 804685 Active 2023 [facility]: Accounting ,[address] [facility], [place], [address] , [facility] 4 16:52:26 Problem Notes None recorded. Medical Equipment None Reported. Allergies No known drug allergies Medications Name Sig Start Date Stop Date Status Note LastModified by Organization Details LastModified Time losartan 50 mg tablet TAKE 1 TABLET BY MOUTH ONCE DAILY active Not Available Not Available No t Available amoxicillin 500 mg capsule TAKE 1 CAPSULE BY MOUTH EVERY 8 HOURS 01/12 completed Not Available Not Available Not Available metformin 500 mg tablet Take 1 tablet twice a day by oral route. 11/29 completed Not Available Not Available Not Available ammonium lactate 12 % lotion APPLY LOTION TOPICALLY ONCE DAILY active Not Available Not Available No t Available pravastatin 40 mg tablet Take 1 tablet every day by oral route. 03/11 completed Not Available Not Available Not Available fluconazole 150 mg tablet TAKE 1 TABLET BY MOUTH ONCE DAILY 03/09 completed Not Available Not Available Not Available prednisone 20 mg tablet TAKE 3 TABS BY MOUTH ONCE DAILY FOR 3 DAYS, THEN TAKE 2 TABS BY MOUTH ONCE DAILY FOR 3 DAYS, THEN TAKE 1 TAB BY MOUTH ONCE DAILY FOR 3 DAYS 04/15 completed Not Available Not Available Not Available fluorouraci l 5 % topical cream Apply by topical route for 20 days. 2024 active Not Available Not Available Not Avai lable ciprofloxac in 500 mg tablet Take 1 tablet every 12 hours by oral route as directed. 07/11 completed Not Available Not Available Not Available sildenafil 100 mg tablet Take 1 tablet as needed by oral route as needed, for ED. 2024 active Not Available Not Available Not Avai lable ondansetron 8 mg disintegrat ing tablet Place 1 tablet twice a day by transling ual route. 03/18 completed Not Available Not Available Not Available ketorolac 10 mg tablet TAKE 1 TABLET BY MOUTH EVERY 6 HOURS NEEDED FOR PAIN 03/01 completed Not Available Not Available Not Available terbinafine HCl 250 mg tablet Take 1 tablet every day by oral route. 07/11 completed Not Available Not Available Not Available amoxicillin 875 mg tablet Take 1 tablet every 12 hours by oral route for 10 days. 03/18 completed Not Available Not Available Not Available tamsulosin 0.4 mg capsule TAKE 1 CAPSULE BY MOUTH ONCE DAILY active Not Available Not Available No t Available Anterra EnergyTouch Ultra Test strips USE 1 STRIP TO CHECK GLUCOSE TWICE DAILY active Not Available Not Available No t Available erythromyci n 5 mg/gram (0.5 %) eye ointment PLACE 1/2 INCH RIBBON INTO EACH EYE 4 TIMES DAILY 09/14 completed Not Available Not Available Not Available metformin 1,000 mg tablet TAKE 1 TABLET BY MOUTH TWICE DAILY WITH MEALS FOR 30 DAYS active Not Available Not Available No t Available Gentle Laxative (bisacodyl) 5 mg tablet,nanci yed release AT 2 PM THE DAY BEFORE THE COLONOSCO PY, TAKE ALL 4 TABLETS OF DULCOLAX BY MOUTH AT ONE TIME WITH 8 OUNCES OF WATER 12/05 completed Not Available Not Available Not Available ibuprofen 400 mg tablet Take 1 tablet every 4 hours by oral route. 11/17 completed Not Available Not Available Not Available hydrocortis one 2.5 % topical cream APPLY THIN LAYER TO AFFECTED AREA TWICE DAILY active Not Available Not Available No t Available pravastatin 20 mg tablet TAKE 1 TABLET BY MOUTH ONCE DAILY IN THE EVENING active Not Available Not Available No t Available ergocalcife rol (vitamin D2) 1,250 mcg (50,000 unit) capsule TAKE 1 CAPSULE BY MOUTH ONCE A WEEK 01/12 completed Not Available Not Available Not Available Pepcid 20 mg tablet Take 1 tablet twice a day by oral route. 12/05 completed Not Available Not Available Not Available polyethylen e glycol 3350 17 gram/dose oral powder IN A PITCHER, MIX ENTIRE BOTTLE OF MIRALAX IN ONE 64 OUNCE BOTTLE OF YELLOW OR GREEN GATORADE. BEGINNING AT 5 PM THE EVENING BEFORE COLONOSCO PY, DRINK ONE 8 OUNCE GLASS EVERY 15 MINUTES UNTIL COMPLETED . DRINK 4 GLASSES OF WATER AFTER FINISHING THIS 12/05 completed Not Available Not Available Not Available methylpredn isolone 4 mg tablets in a dose pack TAKE BY MOUTH DIRECTED ON INSIDE OF PACKAGE 03/09 completed Not Available Not Available Not Available albuterol sulfate HFA 90 mcg/actuati on aerosol inhaler active Not Available Not Available Not Available ketoconazol e 2 % topical cream APPLY 1 GRAM TOPICALLY TO GROIN ONCE DAILY active Not Available Not Available No t Available fluocinonid e 0.05 % topical cream APPLY CREAM EXTERNALL Y TO AFFECTED AREA TWICE DAILY active Not Available Not Available No t Available fluticasone propionate 50 mcg/actuati on nasal spray,suspe nsion USE 1 SPRAY(S) IN EACH NOSTRIL ONCE DAILY FOR NASAL CONGESTIO N active Not Available Not Available No t Available metformin ER 500 mg tablet,exte nded release 24 hr TAKE 2 TABLETS BY MOUTH ONCE DAILY 03/14 completed Not Available Not Available Not Available clotrimazol e 1 % topical cream APPLY TO THE AFFECTED AND SURROUNDI NG AREAS OF SKIN BY TOPICAL ROUTE 2 TIMES PER DAY IN THE MORNING AND EVENING 11/17 completed Not Available Not Available Not Available loratadine 10 mg tablet TAKE 1 TABLET BY MOUTH ONCE DAILY FOR NASAL CONGESTIO N active Not Available Not Available No t Available naproxen 500 mg tablet TAKE 1 TABLET BY MOUTH TWICE DAILY WITH MEALS 06/20 completed Not Available Not Available Not Available Microlet Lancet inject 1 by topical route every day 08/18 completed Not Available Not Available Not Available amoxicillin 875 mg-potassiu m clavulanate 125 mg tablet Take 1 tablet every 12 hours by oral route. active Not Available Not Available No t Available Bactrim DS 800 mg-160 mg tablet Take 1 tablet every 12 hours by oral route for 10 days. 12/01 completed Not Available Not Available Not Available fenofibrate 160 mg tablet TAKE 1 TABLET BY MOUTH ONCE DAILY active Not Available Not Available No t Available Alcohol Prep Pads clean area prior to blood sugar testing active Not Available Not Available No t Available diclofenac 1 % topical gel Apply by topical route for 20 days. active Not Available Not Available No t Available Jardiance 10 mg tablet TAKE 1 TABLET BY MOUTH ONCE DAILY active Not Available Not Available No t Available selenium sulfide 2.5 % lotion APPLY TO WET SCALP TOPICALLY ONCE WEEKLY. WORK INTO A FULL LATHER, LEAVE ON SCALP FOR 2-3 MINUTES, RINSE THOROUGHL Y, THEN PAT DRY active Not Available Not Available No t Available Procto-Med HC 2.5 % topical cream perineal applicator APPLY A THIN LAYER OF CREAM TOPICALLY TO AFFECTED AREA(S) 2 4 TIMES DAILY 03/18 completed Not Available Not Available Not Available OneTouch Ultra Blue Test Strip USE 1 STRIP TO CHECK GLUCOSE TWICE DAILY 03/18 completed Not Available Not Available Not Available OneTouch Delica Plus Lancet 33 gauge USE DIRECTED active Not Available Not Available No t Available Vitals Date Recorded Body height Provider Name an d Address Organization Details Last Updated DateTime 03/09/2024 165.1 cm Abbey Graham RN [facility] 2024 15:48:08 Date Recorded Body temperature Body mass index (BMI) Body weight Oxygen saturation Oxygen saturation in Arterial blood by Pulse oximetry Heart rate Systolic And Diastolic Provider Name and Address Organization Details Last Updated DateTime 5 98.3 [degF] 29.5 kg/m2 95826.6 5 g 98 % 98 % 68 /min 112/70 mm[Hg] Larissa pepper MA [place] - [facility] 5 16:00:04 Date Recorded Body height Body temperature Heart rate Oxygen saturation Oxygen saturation in Arterial blood by Pulse oximetry Body mass index (BMI) Body weight Systolic And Diastolic Provider Name and Address Organization Details Last Updated DateTime 5 165.1 cm 97.7 [degF] 68 /min 97 % 97 % 29.5 kg/m2 96795.6 5 g 110/74 mm[Hg] Abbey Graham RN [place] - [facility] 15:32:51 Date Recorded Body height Body mass index (BMI) Body weight Oxygen saturation Oxygen saturation in Arterial blood by Pulse oximetry Heart rate Body temperature Systolic And Diastolic Provider Name and Address Organization Details Last Updated DateTime 5 165.1 cm 29.1 kg/m2 52901.6 6 g 96 % 96 % 70 /min 98.5 [degF] 120/80 mm[Hg] Larissa pepper MA [facility] 5 14:51:40 Date Recorded Body height Provider Name an d Address Organization Details Last Updated DateTime 11/20/2024 165.1 cm Rodrickaxel [facility] 11/20/2024 13:15:25 Date Recorded Body height Provider Name an d Address Organization Details Last Updated DateTime 12/06/2023 165.1 cm [facility] 12/06/2023 16:06:50 Date Recorded Body mass index (BMI) Body weight Body temperature Oxygen saturation Oxygen saturation in Arterial blood by Pulse oximetry Heart rate Systolic And Diastolic Provider Name and Address Organization Details Last Updated DateTime 28.1 kg/m2 28452.7 1 g 98.2 [degF] 98 % 98 % 70 /min 102/70 mm[Hg] Larissa pepper MA [facility] 16:14:59 Social History Question Answer Notes LastModified by Organizat ion Details LastModified Time Tobacco Smoking Status Never Smoker KAZ Chavarria, [facility] 07/11/2014 16:23:26 Do You Have An Advance Directive? No Information not available 04/13/2019 Are You Blind Or Do You Have Difficulty Seeing? No Information not available 08/18/2020 What Is Your Level Of Caffeine Consumption? Occasional [email or web address] Information not available 07/11/2014 How Much Tobacco Do You Chew? None [email or web address] Information not available 07/11/2014 In The 14 Days Before Symptom Onset, Have You Had Close Contact With A Laboratory-confir med COVID-19 While That Case Was Ill? No Information not available 04/13/2019 If Patient Spent Time In [facility] - Does The Patient Live In [facility]? No Information not available 04/13/2019 In The 14 Days Before Symptom Onset, Have You Had Close Contact With A Person Who Is Under Investigation For COVID-19 While That Person Was Ill? No Information not available 04/13/2019 In The 14 Days Before Symptom Onset, Did The Patient Spend Time In [facility]? No Information not available 04/13/2019 Have You Been To An Area Known To Be High Risk For COVID-19? No Information not available 08/18/2020 Are You Deaf Or Do You Have Serious Difficulty Hearing? No Information not available 08/18/2020 What Type Of Diet Are You Following? REGULAR [email or web address] Information not available 07/11/2014 Education Less Than 8th Grade [email or web address] Information not available 07/11/2014 Are There Any Guns Present In Your Home? No [email or web address] Information not available 07/11/2014 Hard Of Hearing Or Deaf In One Or Both Ears? No [email or web address] Information not available 07/11/2014 Legally Blind In One Or Both Eyes? No Information no t available 07/11/2014 Marital Status [email or web address] Informatio n not available 07/11/2014 What Was The Date Of Your Most Recent Tobacco Screening? 11/14/2024 Information not available 11/14/2024 Do You Use Protection During Sex? No Information not available 05/14/2022 What Is Your Relationship Status? Information not available 11/18/2020 Do You Use Your Seat Belt Or Car Seat Routinely? Yes Information not available 08/18/2020 Seat Belts Used Routinely Yes [email or web address] Information not available 07/11/2014 Are You Sexually Active? Yes Information not available 05/14/2022 Smoke Alarm In Home Yes Information not available 07/11/2014 Do You Have Smoke And Carbon Monoxide Detectors In Your Home? Yes Information not available 08/18/2020 Are You Passively Exposed To Smoke? No Information no t available 08/18/2020 How Much Tobacco Do You Smoke? No [email or web address] Information not available 07/11/2014 General Stress Level Low [email or web address] Information not available 09/05/2015 Do You Use Sunscreen Routinely? No Information not available 11/18/2020 Has Tobacco Cessation Counseling Been Provided? No Information not available 08/05/2023 Sex: Male Functional Status Question Answer Note LastModified by Organizat ion Details LastModified Time Do you use any illicit or recreational drugs? No Information not available 08/18/2020 Do you or have you ever used any other forms of tobacco or nicotine? No Information not available 08/18/2020 What is your level of alcohol consumption? None [email or web address] Information not available 07/11/2014 Do you or have you ever used smokeless tobacco? Never used smokeless tobacco Information not available 04/13/2019 Are you currently employed? Yes Information not available 11/18/2020 Are you able to care for yourself independently? 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 Never used electronic cigarettes Information not available 04/13/2019 What is your exercise level? Occasional [email or web address] Information not available 07/11/2014 Mental Status Question Answer Note LastModified by Organization D etails LastModified Time Do you feel stressed (tense, restless, nervous, or anxious, or unable to sleep at night)? [id number] Information not available 05/14/2022 Family History Relationship Description Onset Age of this Age Resolved Age Notes LastModified by Organization Details LastModified Time Sister Diabetes mellitus Not available 2015 15:01:39 Daughter Suicide 21 22 [email or web address] Not available 07/11/2017 16:12:07 Daughter Depressive disorder 21 [email or web address] Not available 2017 12:38:01 Notes:Mother giving bir th to him. Medical History Condition Response Other High Blood Pressure Y Diabetes Y Allergies Y High Cholesterol Y Immunizations Vaccine Type Date Status Note Provider Nam e and Address Organization Details Recorded Time COVID-19, mRNA, LNP-S, PF, 100 mcg/0.5mL dose or 50 mcg/0.25mL dose 2 completed Not Available [facility] 04/27/2023 22:50:17 Influenza, split virus, quadrivalent, preservative 6 completed Not Available [facility] 03/24/2019 02:42:30 Tdap 6 completed Not Available [facility] 03/24/2019 02:40:27 pneumococcal polysaccharide PPV23 2 completed Not Available [facility] 04/27/2023 22:50:17 Influenza, split virus, quadrivalent, preservative 7 completed Not Available [facility] 03/24/2019 02:33:58 Tdap 2 completed Not Available [facility] 11/14/2024 14:40:56 Influenza, split virus, quadrivalent, PF 8 completed Not Available [facility] 03/24/2019 02:35:59 Influenza, split virus, quadrivalent, preservative 9 completed Not Available [facility] 03/24/2019 02:42:38 Influenza, split virus, quadrivalent, preservative 0 completed Reynold [place], [place] [facility] 02/15/2020 10:36:23 COVID-19, mRNA, LNP-S, PF, 100 mcg/0.5mL dose or 50 mcg/0.25mL dose 1 completed Simon Todd RN [place], [place] [facility] 05/27/2020 12:28:39 COVID-19, mRNA, LNP-S, PF, 100 mcg/0.5mL dose or 50 mcg/0.25mL dose 1 completed Marcus Medina [place], [place] [facility] 06/24/2020 15:58:30 Influenza, split virus, quadrivalent, PF 1 completed Reynold Cronin [place] [facility] 11/19/2020 10:33:48 Influenza, recombinant, quadrivalent, PF 2 completed Larissa Whitting[place], [place] [facility] 02/09/2022 17:41:16 Hep B, adult 3 completed RAMU Yu Attn: Accounting,[address] [facility], [place], [address], [facility] 08/24/2022 14:38:02 Hep B, adult 3 completed RAMU Yu Attn: Accounting[address] [facility], [place], [place], [address] [place] [address], [facility] - [facility] 12/16/2022 17:59:52 Influenza, split virus, quadrivalent, preservative 3 completed RAMU Yu Attn: Accounting[address] [facility], [place], [address], [facility] - [facility] 12/16/2022 17:59:52 Pneumococcal conjugate PCV 13 3 completed RAMU Yu Attn: Accounting[address] [facility], [place], [address], [facility] - [facility] 12/16/2022 17:59:52 Influenza, split virus, trivalent, preservative 4 completed BERE [place], [place] - [facility] 12/06/2023 17:05:22 Influenza, split virus, trivalent, PF 5 completed BERE [place], [place] - [facility] 11/14/2024 15:37:33 Past Encounters Encounter ID Performer Location Encounter Start Date Encounter Closed Date Diagnosis/Indication Diagnosis SNOMED-CT Code Diagnosis ICD10 Code Diagnosis IMO Codes Diagnosis Note [id number] Aleksander Diaz MD [facility] [address] [address] 07/11/2014 16:07:54 07/19/2014 16:24:37 Obstructive sleep apnea of adult 2279666747 103 Essential hypertension 00068821 Type 2 ab betes mellitus without complication 397983560 Gastroesop hageal reflux disease 145540226 Has noticed some nausea after taking medication s Advised to take medication s with a cracker or something solid Advised not to lay down immediatel y after taking medication s Serous otitis media 35807949 Complainin g of nasal congestion 956206456 Neuropathy due to diabetes mellitus 453923579 He is not taking Gabapentin as it made him sleepy [id number] [facility] [address] [address] 4 10/11/2014 15:09:30 10/18/2014 11:24:30 Essential hypertension 27491107 Neuropathy due to diabetes mellitus 752223910 Reolved for now, reports feeling well Type 2 ab betes mellitus without complication 456402889 see opthalmolo gist Complainin g of nasal congestion 971034709 Obstructiv e sleep apnea of adult 2275819110 103 stable Onychomycosis 467113877 no alcohol [id number] [facility] [address] [address] 4 09/05/2015 14:40:09 09/09/2015 18:07:29 Essential hypertension 31124956 I10 Type 2 ab betes mellitus without complication 957013524 E11.9 see opthalmolo gist Complainin g of nasal congestion 078372096 R09.81 Obstructiv e sleep apnea of adult 1582252118 103 G47.33 stable Onychomycosis 309211634 B35.1 resolved Backache 439904868 M54.9 [id number] [facility] [address] [address] 4 09/09/2015 09:41:03 09/09/2015 18:13:02 Type 2 diabetes mellitus without complication 267993076 E11.9 [id number] Aleksander Diaz MD [facility] [address] [place] [address] 4 02/10/2016 16:02:30 02/13/2016 13:59:11 Essential hypertension 27380575 I10 Polyneurop athy due to diabetes mellitus 83954855 E11.42 maintain blood sugars wnl Type 2 ab betes mellitus without complication 901340065 E11.9 see eye doctor--gi ve eye list Gastroesop hageal reflux disease 859685687 K21.9 Has noticed some nausea after taking medication s Advised to take medication s with a cracker or something solid Advised not to lay down immediatel y after taking medication s Obstructiv e sleep apnea of adult 1309591729 103 G47.33 stable Tinea cruris 251034784 B 35.6 Reduced libido 2110241 R 68.82 Xerosis du e to atopic dermatitis 064947109 L85.3 Onychomycosis 621578673 B35.1 resolved Allergic rhinitis 849630 04 J30.9 Delay when starting to pass urine 8186300 R39.11 Patient agrees to Prostate screening [id number] Aleksander Diaz MD [facility] [address] [place] [address] 06/30/2016 14:23:49 07/02/2016 16:00:28 Obesity 229540783 E66.9 HIV screening 006418743 Z11.4 Reduced libido 5369469 R 68.82 patient to see Urology Testostero ne level below reference range 428303979 R79.89 patient to see Urology Obstructiv e sleep apnea of adult 0090439362 103 G47.33 stable Essential hypertension 94281167 I10 Type 2 ba betes mellitus without complication 849596737 E11.9 see eye doctor--gi ve eye list Allergic rhinitis 397757 04 J30.9 [id number] Aleksander Diaz MD [facility] [address] [place] [address] 11/05/2016 16:04:13 11/25/2016 14:25:39 Essential hypertension 16265652 I10 Obesity 572641940 E66.9 Type 2 ab betes mellitus without complication 310011743 E11.9 see eye doctor--gi ve eye list Reduced libido 7484699 R 68.82 patient to see Urology Testostero ne level below reference range 601079475 R79.89 patient to see Urology Obstructiv e sleep apnea of adult 7120877911 103 G47.33 stable Allergic rhinitis 839673 04 J30.9 Low back pain 315057261 M54.5 Dysuria 15722917 R30.0 [id number] Aleksander Diaz MD [facility] [address] [place] [address] 03/11/2017 15:03:04 03/11/2017 16:16:57 Xerosis due to atopic dermatitis 981331283 L85.3 Type 2 ab betes mellitus without complication 535963730 E11.9 continue to monitor blood sugars patient to continue Metformin 1000mg 1/2 tab daily keep bs logs Obstructiv e sleep apnea of adult 2669481250 103 G47.33 stable Essential hypertension 70965566 I10 Gastroesop hageal reflux disease 563062889 K21.9 Has noticed some nausea after taking medication s Advised to take medication s with a cracker or something solid Advised not to lay down immediatel y after taking medication s Allergic rhinitis 066273 04 J30.9 Benign pro static hyperplasia 820318083 N40.0 continue Tamsulosin 0.4mg per urology follow up with urology as directed Reduced libido 8964986 R 68.82 patient to see Urology T level is 244 will give patient urologists phone number to make f/u appt [phone] Dr. Brittany Thakkar Otitis media 09654761 H6 5.02 [id number] Aleksander Diaz MD [facility] [address] [address] 07/11/2017 15:35:00 07/13/2017 12:46:07 Type 2 diabetes mellitus without complication 119740438 E11.9 continue to monitor blood sugars patient to continue Metformin 500mg tab daily keep bs logs Essential hypertension 69111302 I10 Gastroesop hageal reflux disease 065432413 K21.9 Has noticed some nausea after taking medication s Advised to take medication s with a cracker or something solid Advised not to lay down immediatel y after taking medication s Obstructiv e sleep apnea of adult 1105120380 103 G47.33 stable Testostero ne level below reference range 315046779 R79.89 patient voices feeling better will not return to Urology Benign pro static hyperplasia 088440200 N40.0 continue Tamsulosin 0.4mg per urology Allergic rhinitis 822849 04 J30.9 Xerosis du e to atopic dermatitis 332784780 L85.3 [id number] Aleksander Diaz MD [facility] [address] [address] 11/17/2017 15:28:48 11/18/2017 17:45:57 Type 2 diabetes mellitus without complication 289783202 E11.9 last HA1C 7.1 continue to monitor blood sugars patient to continue Metformin 500mg tab twice daily keep bs logs Essential hypertension 39384848 I10 Gastroesop hageal reflux disease 320886509 K21.9 Has noticed some nausea after taking medication s Advised to take medication s with a cracker or something solid Advised not to lay down immediatel y after taking medication s Obstructiv e sleep apnea of adult 7705181583 103 G47.33 stable Testostero ne level below reference range 246064577 R79.89 patient voices feeling better will not return to Urology Benign pro static hyperplasia 185657511 N40.0 continue Tamsulosin 0.4mg per urology Allergic rhinitis 512924 04 J30.9 Xerosis du e to atopic dermatitis 890636922 L85.3 Mixed hypercholesterolemia and hypertriglyceridemia 508178797 E78.2 Hemorrhoids 00466912 K64 .9 [id number] Aleksander Diaz MD [facility] [address] [address] 03/17/2018 15:34:03 03/24/2018 12:18:05 Type 2 diabetes mellitus without complication 246479285 E11.9 last HA1C 7.5 continue to monitor blood sugars patient to continue Metformin 500mg tab twice daily keep bs logs Obstructiv e sleep apnea of adult 9617986006 103 G47.33 stable continue to use CPAP Essential hypertension 48229474 I10 Gastroesop hageal reflux disease 476080152 K21.9 Has noticed some nausea after taking medication s Advised to take medication s with a cracker or something solid Advised not to lay down immediatel y after taking medication s Testostero ne level below reference range 433442402 R79.89 patient voices feeling better will not return to Urology Benign pro static hyperplasia 023128841 N40.0 continue Tamsulosin 0.4mg per urology Allergic rhinitis 088801 04 J30.9 Xerosis du e to atopic dermatitis 236062092 L85.3 Mixed hypercholesterolemia and hypertriglyceridemia 996332524 E78.2 Hemorrhoids 34518072 K64 .9 [id number] Aleksander Diaz MD [facility] [address] [place] [address] 07/14/2018 16:22:25 07/17/2018 10:22:50 Type 2 diabetes mellitus without complication 811433330 E11.9 last HA1C 8.7 continue to monitor blood sugars-was only taking one pill at noon patient to increase Metformin ER 500mg 2 tab once daily in the am keep bs logs Essential hypertension 71282290 I10 Obstructiv e sleep apnea of adult 3853929963 103 G47.33 stable continue to use CPAP Gastroesop hageal reflux disease 270197183 K21.9 Has noticed some nausea after taking medication s Advised to take medication s with a cracker or something solid Advised not to lay down immediatel y after taking medication s Benign pro static hyperplasia 039145414 N40.0 continue Tamsulosin 0.4mg per urology Allergic rhinitis 398409 04 J30.9 Xerosis du e to atopic dermatitis 037038634 L85.3 Mixed hypercholesterolemia and hypertriglyceridemia 294593791 E78.2 Diabetic p eripheral neuropathy 059864054 E11.40 Body mass index 30+ - obesity 740351493 Z68.31 BMI 31 [id number] Aleksander Diaz MD [facility] [address] [place], [place] [address] 11/29/2018 14:42:07 11/30/2018 18:09:01 Essential hypertension 11839634 I10 Type 2 ab betes mellitus without complication 298902662 E11.9 last HA1C 6.9 continue to monitor blood sugars patient to continue Metformin ER 500mg 2 tab once daily in the am keep bs logs Gastroesop hageal reflux disease 884810864 K21.9 Has noticed some nausea after taking medication s Advised to take medication s with a cracker or something solid Advised not to lay down immediatel y after taking medication s Obstructiv e sleep apnea of adult 3432032629 103 G47.33 stable continue to use CPAP Benign pro static hyperplasia 695726447 N40.0 continue Tamsulosin 0.4mg per urology Allergic rhinitis 318535 04 J30.9 Xerosis du e to atopic dermatitis 594234277 L85.3 Mixed hypercholesterolemia and hypertriglyceridemia 891908416 E78.2 Hemorrhoids 78677325 K64 .9 [id number] Aleksander Diaz MD [facility] [address] [place] [address] 04/13/2019 15:10:48 04/16/2019 08:56:02 Mixed hypercholesterolemia and hypertriglyceridemia 268981728 E78.2 Type 2 ab betes mellitus without complication 231290439 E11.9 last HA1C 8.3 continue to monitor blood sugars patient to continue Metformin ER 500mg 2 tab once daily in the am keep bs logs Essential hypertension 46041476 I10 Gastroesop hageal reflux disease 750681249 K21.9 Has noticed some nausea after taking medication s Advised to take medication s with a cracker or something solid Advised not to lay down immediatel y after taking medication s Obstructiv e sleep apnea of adult 3388230709 103 G47.33 stable continue to use CPAP Has been on CPAP for 10 years same machine Benign pro static hyperplasia 441328569 N40.0 continue Tamsulosin 0.4mg per urology Allergic rhinitis 868811 04 J30.9 Xerosis du e to atopic dermatitis 712291397 L85.3 Hemorrhoids 53415194 K64 .9 [id number] Trey [address] [facility] [address] [place] [address] 07/16/2019 08:04:22 08/01/2019 15:41:30 Obstructive sleep apnea syndrome 36234084 G47.33 Continue using cpap nightlyOrd ering new cpap machine and compliancy reportCurr ently at 9 cm H2O, Cpap titration to assess if he requires a change in pressure Essential hypertension 60337749 I10 Managed in primary care. Continue to monitor blood pressure. Encourage low salt diet and exercise. Gastroesop hageal reflux disease 776698274 K21.9 Continue medication s as prescribed -Educated pt on importance of dietary modificati ons: Raise the head of the bed, avoid acid-reflu x inducing foods, avoid late meals. [id number] Aleksander Diaz MD [facility] [address] [place] [address] 10/10/2019 15:34:19 10/11/2019 07:04:18 Type 2 diabetes mellitus without complication 315279823 E11.9 last HA1C 8.3 continue to monitor blood sugars voices polyghagia patient to stop Metformin ER 500mg as pharmacy not covering it and start metformin 1000 mg bid-- keep bs logs Essential hypertension 02451620 I10 Mixed hypercholesterolemia and hypertriglyceridemia 587720596 E78.2 Gastroesop hageal reflux disease 240037198 K21.9 Has noticed some nausea after taking medication s Advised to take medication s with a cracker or something solid Advised not to lay down immediatel y after taking medication s Obstructiv e sleep apnea of adult 6734467542 103 G47.33 stable continue to use CPAP Has been on CPAP for 10 years same machine Has now seen DIRECTOR OF COMMUNICATIONS at [facility]-had new machine ordered Benign pro static hyperplasia 635570708 N40.0 continue Tamsulosin 0.4mg per urology Allergic rhinitis 177888 04 J30.9 Xerosis du e to atopic dermatitis 041054516 L85.3 Hemorrhoids 65805898 K64 .9 [id number] Riya Da Silva MD [facility] [address] [place] [address] 02/13/2020 15:19:32 02/14/2020 14:54:12 Type 2 diabetes mellitus without complication 780116826 E11.9 last HA1C 8.3 continue to monitor blood sugars Essential hypertension 04378312 I10 Mixed hypercholesterolemia and hypertriglyceridemia 128582840 E78.2 Gastroesop hageal reflux disease 413492208 K21.9 Has noticed some nausea after taking medication s Advised to take medication s with a cracker or something solid Advised not to lay down immediatel y after taking medication s Benign pro static hyperplasia 830299426 N40.0 continue Tamsulosin 0.4mg per urology Allergic rhinitis 386746 04 J30.9 Needs infl uenza immunization 882663391 Z28.3 [id number] Riya Da Silva MD [facility] [address] [address] 02/15/2020 10:12:34 02/19/2020 16:21:24 Type 2 diabetes mellitus without complication 615711921 E11.9 last HA1C 8.3 continue to monitor blood sugars Administra tion of influenza vaccine 30415004 Z23 [id number] Trey Razo MD [facility] [address] [place] [address] 03/14/2020 14:23:18 03/17/2020 10:49:47 Obstructive sleep apnea syndrome 82769989 G47.33 Continue using cpap nightly . Currently at 9 cm H2O, Clinically benefittin g from usage. Essential hypertension 04861522 I10 Managed in primary care. Continue to monitor blood pressure. Encourage low salt diet and exercise. Gastroesop hageal reflux disease 434794577 K21.9 Continue medication s as prescribed -Educated pt on importance of dietary modificati ons: Raise the head of the bed, avoid acid-reflu x inducing foods, avoid late meals. [id number] MD Linda Alonso [address] [facility] [place] [address] 05/27/2020 10:02:47 05/28/2020 12:48:24 Administration of SARS-CoV-2 antigen vaccine 391378911 Z23 [id number] MD Linda Alonso 14 IM [address] [facility] [place] [address] 06/24/2020 15:40:57 06/25/2020 09:45:20 Administration of SARS-CoV-2 antigen vaccine 815706986 Z23 [id number] Aleksander Diaz MD [facility] [address] [address] 08/18/2020 16:18:48 08/19/2020 14:11:49 Type 2 diabetes mellitus without complication 054741508 E11.9 last HA1C 6.9 continue to monitor blood sugars voices polyghagia patient to continue metformin 1000 mg bid-- keep bs logs Essential hypertension 48945304 I10 Mixed hypercholesterolemia and hypertriglyceridemia 194453688 E78.2 Gastroesop hageal reflux disease 536770993 K21.9 Has noticed some nausea after taking medication s Advised to take medication s with a cracker or something solid Advised not to lay down immediatel y after taking medication s Obstructiv e sleep apnea of adult 0245639470 103 G47.33 stable continue to use CPAP Has been on CPAP for 10 years same machine Has now seen DIRECTOR OF COMMUNICATIONS at [facility]-had new machine ordered Benign pro static hyperplasia 787594733 N40.0 continue Tamsulosin 0.4mg was started per urology has not returned to urology feels med helps him Allergic rhinitis 626152 04 J30.9 Xerosis du e to atopic dermatitis 022228871 L85.3 Hemorrhoids 45888014 K64 .9 Screening for malignant neoplasm of colon 469150429 Z12.11 50 y/o HM needs a screening colonoscop y . Depression screening 171 490199 Z13.31 negative [id number] Aleksander Diaz MD [facility] [address] [place] [address] 11/18/2020 16:01:54 11/19/2020 09:47:05 Essential hypertension 02315488 I10 BP Goal: Less than 150/90BP Controlled : yes; per the JNC8 guidelines in the absence of renal disease and DMHealthy Weight: 5'5= 115-149 lbsDiscuss ed: Low sodium balanced diet, moderate exercise at least 3-4 times per week for an average of 40 minutesNex t Visit: 3month(s) Type 2 ab betes mellitus without complication 888541621 E11.9 HA1C 7 continue to monitor blood sugars voices polyghagia patient to continue metformin 1000 mg bid-- keep bs logs Mixed hypercholesterolemia and hypertriglyceridemia 725865290 E78.2 Gastroesop hageal reflux disease 515098863 K21.9 Has noticed some nausea after taking medication s Advised to take medication s with a cracker or something solid Advised not to lay down immediatel y after taking medication s Obstructiv e sleep apnea of adult 7261470871 103 G47.33 stable continue to use CPAP Has been on CPAP for 10 years same machine Has now seen DIRECTOR OF COMMUNICATIONS at [facility]-had new machine ordered Benign pro static hyperplasia 561609265 N40.0 continue Tamsulosin 0.4mg was started per urology has not returned to urology feels med helps him Allergic rhinitis 088899 04 J30.9 Xerosis du e to atopic dermatitis 300020515 L85.3 Hemorrhoids 61312331 K64 .9 Screening for malignant neoplasm of colon 660099937 Z12.11 50 y/o HM needs a screening colonoscop y . Administra tion of influenza vaccine 26352312 Z23 Scalp folliculitis 08246 8003 L73.8 [id number] Aleksander Diaz MD [facility] [address] [place] [address] 02/02/2021 12:04:27 02/03/2021 06:34:56 Acute otitis media 5346374 H66.92 take tylenol 325mg 2 tabs every 4-6 hours for discomfort Acute gastroenteritis 69 271685 K52.9 [id number] MADHURI SIMONS [facility] [address] [place] [address] 03/18/2021 14:55:37 03/19/2021 06:06:21 Type 2 diabetes mellitus without complication 265773244 E11.9 -Most recent A1C: 7-Today's POC A1C: 7-Manageme nt as outlined-A 1C borderline ; Discussed TLCs during visit Essential hypertension 09203044 I10 BP Goal: Less than 140/90BP Controlled : yesHealthy Weight: 5'5= 115-149 lbsDiscuss ed: Low sodium balanced diet, moderate exercise at least 3-4 times per week for an average of 40 minutesNex t Visit: 3month(s) Mixed hypercholesterolemia and hypertriglyceridemia 758121436 E78.2 -Current regimen maintained -Pt reports symptoms controlled -Lipid panel to follow; ordered today Allergic rhinitis 280546 04 J30.9 -Current regimen maintained -Pt reports symptoms controlled -RFs as appropriat e [id number] Aleksander Diaz MD [facility] [address] [place] [address] 06/15/2021 15:37:55 06/16/2021 13:23:31 Essential hypertension 83932290 I10 BP Goal: Less than 150/90BP Controlled : yes; per the JNC8 guidelines in the absence of renal disease and DMHealthy Weight: 5'5= 115-149 lbsDiscuss ed: Low sodium balanced diet, moderate exercise at least 3-4 times per week for an average of 40 minutesNex t Visit: 3month(s) Type 2 ab betes mellitus without complication 933003219 E11.9 HA1C 7 continue to monitor blood sugars voices polyghagia patient to continue metformin 1000 mg bid-- keep bs logs Gastroesop hageal reflux disease 575879898 K21.9 Has noticed some nausea after taking medication s Advised to take medication s with a cracker or something solid Advised not to lay down immediatel y after taking medication s Mixed hypercholesterolemia and hypertriglyceridemia 623537215 E78.2 Obstructiv e sleep apnea of adult 8681648289 103 G47.33 stable continue to use CPAP Has been on CPAP for 10 years same machine Has now seen DIRECTOR OF COMMUNICATIONS at [facility]-had new machine ordered Benign pro static hyperplasia 202838916 N40.0 continue Tamsulosin 0.4mg was started per urology has not returned to urology feels med helps him Allergic rhinitis 275208 04 J30.9 Xerosis du e to atopic dermatitis 653936952 L85.3 Hemorrhoids 80049088 K64 .9 resolved for now Screening for malignant neoplasm of colon 068481660 Z12.11 50 y/o HM needs a screening colonoscop y .-sent at last visit Scalp folliculitis 99391 8003 L73.8 [id number] Aleksander Diaz MD [facility] [address] [place] [address] 09/14/2021 15:45:38 09/15/2021 14:51:43 Essential hypertension 41858290 I10 BP Goal: Less than 140/90BP Controlled : yes; per the JNC8 guidelines in the absence of renal disease and DMHealthy Weight: 5'5= 115-149 lbsDiscuss ed: Low sodium balanced diet, moderate exercise at least 3-4 times per week for an average of 40 minutesNex t Visit: 3month(s) Type 2 ba betes mellitus without complication 819874336 E11.9 HA1C 7.7 continue to monitor blood sugars voices polyphagia patient to continue metformin 1000 mg bid-- keep bs logswill add jardiance 10mg daily Gastroesop hageal reflux disease 984087098 K21.9 Has noticed some nausea after taking medication s Advised to take medication s with a cracker or something solid Advised not to lay down immediatel y after taking medication s Mixed hypercholesterolemia and hypertriglyceridemia 415539080 E78.2 06/15/2021 cho 157Trig 383HDL 35.3LDL 82Avoid all breads, potatoes, cereal, pasta, rice, margarine, refined sugars, milk yogurt, ice cream, juices, soda (including diet), beer, and man-made or manufactur ed desserts. Enjoy steak, fish, chicken (no skin), pork, butter, vegetables , beans, nuts, whole eggs, cheese (low fat or skim), cream in your coffee.con tinue pravachol 20mg dailyconti nue fenofibrat e 160mg daily Obstructiv e sleep apnea of adult 7133598780 103 G47.33 stable continue to use CPAP Has been on CPAP for 10 years same machine Has now seen DIRECTOR OF COMMUNICATIONS at [facility]-had new machine ordered Benign pro static hyperplasia 165004312 N40.0 continue Tamsulosin 0.4mg was started per urology has not returned to urology feels med helps him Allergic rhinitis 974434 04 J30.9 Xerosis du e to atopic dermatitis 438411059 L85.3 Screening for malignant neoplasm of colon 955592912 Z12.11 51 y/o HM needs a screening colonoscop y .-sent at last visitPer GI office noteThank you for the referral to [employer]. We have called your patient three times and lvm, plus sent a letter asking them to call so that we can schedule. To date the patient has not returned our calls. Please contact your patient and ask them to call [employer] at and press option 1 to schedule. Scalp folliculitis 48859 8003 L73.8 Vitamin D deficiency 347 13699 E55.9 Vitamin D 14.8buy otc vitamin D3 1000 IU once daily Body mass index 30+ - obesity 150516775 Z68.31 BMI 30Ht 5' 5 Healthy weight 115-149 Acute cont act dermatitis 807474929 L25.9 [id number] Aleksander Diaz MD [facility] [address] [address] 02/09/2022 15:03:01 02/10/2022 14:37:50 Type 2 diabetes mellitus without complication 938664515 E11.9 HA1C 7.2 continue to monitor blood sugars voices polyphagia patient to continue metformin 1000 mg bid-- keep bs logswill continue jardiance 10mg daily Essential hypertension 62705191 I10 BP Goal: Less than 140/90BP Controlled : yes; per the JNC8 guidelines in the absence of renal disease and DMHealthy Weight: 5'5= 115-149 lbsDiscuss ed: Low sodium balanced diet, moderate exercise at least 3-4 times per week for an average of 40 minutesNex t Visit: 3month(s) Mixed hypercholesterolemia and hypertriglyceridemia 947599096 E78.2 06/15/2021 cho 157Trig 383HDL 35.3LDL 82Avoid all breads, potatoes, cereal, pasta, rice, margarine, refined sugars, milk yogurt, ice cream, juices, soda (including diet), beer, and man-made or manufactur ed desserts. Enjoy steak, fish, chicken (no skin), pork, butter, vegetables , beans, nuts, whole eggs, cheese (low fat or skim), cream in your coffee.con tinue pravachol 20mg dailyconti nue fenofibrat e 160mg daily Gastroesop hageal reflux disease 258798320 K21.9 Has noticed some nausea after taking medication s Advised to take medication s with a cracker or something solid Advised not to lay down immediatel y after taking medication s Obstructiv e sleep apnea of adult 3001630141 103 G47.33 stable continue to use CPAP Has been on CPAP for 10 years same machine Has now seen DIRECTOR OF COMMUNICATIONS at [facility]-had new machine ordered Benign pro static hyperplasia 471485375 N40.0 continue Tamsulosin 0.4mg was started per urology has not returned to urology feels med helps him Allergic rhinitis 367833 04 J30.9 Xerosis du e to atopic dermatitis 574108581 L85.3 Vitamin D deficiency 347 45120 E55.9 Vitamin D 14.8buy otc vitamin D3 1000 IU once daily Screening for malignant neoplasm of colon 051111918 Z12.11 51 y/o HM needs a screening colonoscop y .-sent at last visitPer GI office noteThank you for the referral to [facility]. We have called your patient three times and lvm, plus sent a letter asking them to call so that we can schedule. To date the patient has not returned our calls. Please contact your patient and ask them to call [employer] at and press option 1 to schedule. Scalp folliculitis 94204 8003 L73.8 Body mass index 30+ - obesity 269292339 Z68.31 BMI 30Ht 5' 5 Healthy weight 115-149 Acute cont act dermatitis 090523330 L25.9 Administra tion of influenza vaccine 91348977 Z23 [id number] Aleksander Diaz MD [facility] [address] [address] 05/14/2022 15:49:39 05/19/2022 14:18:17 Body mass index 30+ - obesity 134214026 Z68.31 BMI 30.5Ht 5' 5 Healthy weight 115-149 Type 2 ab betes mellitus without complication 585987857 E11.9 HA1C 7.6 continue to monitor blood sugars voices polyphagia patient to continue metformin 1000 mg bid-- keep bs logswill continue jardiance 10mg daily Essential hypertension 92875446 I10 BP Goal: Less than 140/90BP Controlled : yes; per the JNC8 guidelines in the absence of renal disease and DMHealthy Weight: 5'5= 115-149 lbsDiscuss ed: Low sodium balanced diet, moderate exercise at least 3-4 times per week for an average of 40 minutesNex t Visit: 3month(s) Obesity 107755081 E66.9 Mixed hypercholesterolemia and hypertriglyceridemia 315936685 E78.2 06/15/2021 cho 157Trig 383HDL 35.3LDL 82Avoid all breads, potatoes, cereal, pasta, rice, margarine, refined sugars, milk yogurt, ice cream, juices, soda (including diet), beer, and man-made or manufactur ed desserts. Enjoy steak, fish, chicken (no skin), pork, butter, vegetables , beans, nuts, whole eggs, cheese (low fat or skim), cream in your coffee.con tinue pravachol 20mg dailyconti nue fenofibrat e 160mg daily Gastroesop hageal reflux disease 376732797 K21.9 Has noticed some nausea after taking medication s Advised to take medication s with a cracker or something solid Advised not to lay down immediatel y after taking medication s Obstructiv e sleep apnea of adult 0353270397 103 G47.33 stable continue to use CPAP Has been on CPAP for 10 years same machine Has now seen DIRECTOR OF COMMUNICATIONS at [facility]-had new machine ordered Benign pro static hyperplasia 044073915 N40.0 continue Tamsulosin 0.4mg was started per urology has not returned to urology feels med helps him Allergic rhinitis 412261 04 J30.9 Xerosis du e to atopic dermatitis 921519606 L85.3 Vitamin D deficiency 347 82006 E55.9 Vitamin D 14.8buy otc vitamin D3 1000 IU once daily Scalp folliculitis 95839 8003 L73.8 Acute cont act dermatitis 266158199 L25.9 Depression screening 171 721168 Z13.31 negative Mental hea [facility] screening 103073575 Z13.39 negative [id number] Aleksander Diaz MD [facility] [address] [place] [address] 05/19/2022 09:59:44 05/20/2022 13:36:13 Mixed hypercholesterolemia and hypertriglyceridemia 604555703 E78.2 06/15/2021 cho 157Trig 383HDL 35.3LDL 82Avoid all breads, potatoes, cereal, pasta, rice, margarine, refined sugars, milk yogurt, ice cream, juices, soda (including diet), beer, and man-made or manufactur ed desserts. Enjoy steak, fish, chicken (no skin), pork, butter, vegetables , beans, nuts, whole eggs, cheese (low fat or skim), cream in your coffee.con tinue pravachol 20mg dailyconti nue fenofibrat e 160mg daily [id number] Aleksander Diaz MD [facility] [address] [address] 08/17/2022 15:38:50 08/18/2022 13:35:53 Body mass index 30+ - obesity 497294371 Z68.31 BMI 30.5Ht 5' 5 Healthy weight 115-149 Type 2 ab betes mellitus without complication 555703538 E11.9 HA1C 7.6 continue to monitor blood sugars voices polyphagia patient to continue metformin 1000 mg bid-- keep bs logswill continue jardiance 10mg daily Vitamin D deficiency 347 00802 E55.9 Vitamin D 14.8buy otc vitamin D3 1000 IU once daily Essential hypertension 03943219 I10 BP Goal: Less than 140/90BP Controlled : yes; per the JNC8 guidelines in the absence of renal disease and DMHealthy Weight: 5'5= 115-149 lbsDiscuss ed: Low sodium balanced diet, moderate exercise at least 3-4 times per week for an average of 40 minutesNex t Visit: 3month(s) Obesity 386567662 E66.9 BMI 29.7Health y Weight: 5'5= 115-149 lbs Mixed hypercholesterolemia and hypertriglyceridemia 448352716 E78.2 06/15/2021 cho 157Trig 383HDL 35.3LDL 82 05/19/2022 ho 141trig 79HDL 49LDL 76Avoid all breads, potatoes, cereal, pasta, rice, margarine, refined sugars, milk yogurt, ice cream, juices, soda (including diet), beer, and man-made or manufactur ed desserts. Enjoy steak, fish, chicken (no skin), pork, butter, vegetables , beans, nuts, whole eggs, cheese (low fat or skim), cream in your coffee.con tinue pravachol 20mg dailyconti nue fenofibrat e 160mg daily Gastroesop hageal reflux disease 235886398 K21.9 Has noticed some nausea after taking medication s Advised to take medication s with a cracker or something solid Advised not to lay down immediatel y after taking medication s Obstructiv e sleep apnea of adult 0175465270 103 G47.33 stable continue to use CPAP Has been on CPAP for 10 years same machine Has now seen DIRECTOR OF COMMUNICATIONS at [facility]-had new machine ordered Benign pro static hyperplasia 880800785 N40.0 continue Tamsulosin 0.4mg was started per urology has not returned to urology feels med helps himrefuses PEPE or PSA labs Allergic rhinitis 669398 04 J30.9 Xerosis du e to atopic dermatitis 033092870 L85.3 Scalp folliculitis 66400 8003 L73.8 Acute cont act dermatitis 891249757 L25.9 Depression screening 171 740202 Z13.31 negative Mental hea lth screening 709778983 Z13.39 negative Requires c ourse of hepatitis B vaccination 675042861 Z28.39 Patient has DM2Hep B1 08/17/2022 [id number] Aleksander Diaz MD [facility] [address] [place] [address] 12/16/2022 16:02:22 01/04/2023 11:29:56 Essential hypertension 06566509 I10 BP Goal: Less than 140/90BP Controlled : yes; per the JNC8 guidelines in the absence of renal disease and DMHealthy Weight: 5'5= 115-149 lbsDiscuss ed: Low sodium balanced diet, moderate exercise at least 3-4 times per week for an average of 40 minutesNex t Visit: 3month(s) Type 2 ab betes mellitus without complication 595232560 E11.9 HA1C 7.2 continue to monitor blood sugars voices polyphagia patient to continue metformin 1000 mg bid-- keep bs logswill continue jardiance 10mg daily Mixed hypercholesterolemia and hypertriglyceridemia 309600133 E78.2 06/15/2021 cho 157Trig 383HDL 35.3LDL 82 05/19/2022 ho 141trig 79HDL 49LDL 76Avoid all breads, potatoes, cereal, pasta, rice, margarine, refined sugars, milk yogurt, ice cream, juices, soda (including diet), beer, and man-made or manufactur ed desserts. Enjoy steak, fish, chicken (no skin), pork, butter, vegetables , beans, nuts, whole eggs, cheese (low fat or skim), cream in your coffee.con tinue pravachol 20mg dailyconti nue fenofibrat e 160mg daily Body mass index 30+ - obesity 577139061 Z68.31 BMI 30.5Ht 5' 5 Healthy weight 115-149 Benign pro static hyperplasia 532039371 N40.0 continue Tamsulosin 0.4mg was started per urology has not returned to urology feels med helps himrefuses PEPE or PSA labs Obesity 777839793 E66.9 BMI 29.7Health y Weight: 5'5= 115-149 lbs Vitamin D deficiency 347 42329 E55.9 Vitamin D 42buy otc vitamin D3 1000 IU once daily Gastroesop hageal reflux disease 270856269 K21.9 Has noticed some nausea after taking medication sAdvised to take medication s with a cracker or something solidAdvis ed not to lay down immediatel y after taking medication s Obstructiv e sleep apnea of adult 0250895741 103 G47.33 stable continue to use CPAP Has been on CPAP for 10 years same machine Has now seen DIRECTOR OF COMMUNICATIONS at [facility]-had new machine ordered Allergic rhinitis 615748 04 J30.9 Xerosis du e to atopic dermatitis 163770590 L85.3 Scalp folliculitis 47861 8003 L73.8 Acute cont act dermatitis 361718647 L25.9 Requires c ourse of hepatitis B vaccination 191732141 Z28.39 Patient has DM2Hep B1 08/17/2022 Depression screening 171 Z13.31 negative Mental hea lth screening 646210170 Z13.39 negative Administra tion of influenza vaccine 95704040 Z23 Administra tion of pneumococcal vaccine 77831041 Z23 [id number] Aleksander Diaz MD [facility] [address] [address] 02/15/2023 16:27:01 02/16/2023 12:28:34 Follow-up visit 737125672 Z09 52 y/o HM presents for follow up ER visit on 01/23/2023 following fall from an 8 foot ladder while cleaning his gutters. The patient fell from the 8th rung and landed on his chest. He was c/o submandibu lar pain, anterior chest wall pain, bilateral shoulder pain, abdominal pain and distal right pre-tibial pain. The patient had multiple xrays and labs. He was diagnosed with multiple contusions and sent home with naprosyn 2 tabs bid and tylenol prn.The patient voices concern as he continues to have qi shoulder pain and deltoid area pain which is worse at night interferin g with his sleep. He voices R facial cheek nodularity and swelling but other facial swelling is now gone. Reports pain is 3/10. Fall from ladder 4467343 8 W11.XXXD on 01/23/2023 while cleaning gutters and landed on chest Contusion of multiple sites 733297010 T07.XXXD Better Chest wall pain 36153236 6 R07.89 Better Abdominal pain 00015250 R10.9 resolved Facial swelling 96607416 6 R22.0 R cheek swelling and erythema Pain in ri ght lower limb 694093712 M79.604 resolved Bilateral shoulder joint pain 8788171965 5085401 M25.511 ongoing Depression screening 171 Z13.31 negative Mental hea lth screening 837579627 Z13.39 negative [id number] Aleksander Diaz MD [facility] [address] [address] 04/15/2023 16:12:40 04/18/2023 16:08:38 Type 2 diabetes mellitus without complication 292543813 E11.9 HA1C 9.2 was only taking Metformin 1000mg once daily and lost Jardiance bottle continue to monitor blood sugars voices polyphagia patient to continue metformin 1000 mg bid-- keep bs logswill continue jardiance 10mg daily Essential hypertension 64209185 I10 BP Goal: Less than 140/90BP Controlled : yes; per the JNC8 guidelines in the absence of renal disease and DMHealthy Weight: 5'5= 115-149 lbsDiscuss ed: Low sodium balanced diet, moderate exercise at least 3-4 times per week for an average of 40 minutesNex t Visit: 3month(s) Mixed hypercholesterolemia and hypertriglyceridemia 682897523 E78.2 06/15/2021 cho 157Trig 383HDL 35.3LDL 82 05/19/2022 ho 141trig 79HDL 49LDL 76Avoid all breads, potatoes, cereal, pasta, rice, margarine, refined sugars, milk yogurt, ice cream, juices, soda (including diet), beer, and man-made or manufactur ed desserts. Enjoy steak, fish, chicken (no skin), pork, butter, vegetables , beans, nuts, whole eggs, cheese (low fat or skim), cream in your coffee.con tinue pravachol 20mg dailyconti nue fenofibrat e 160mg daily Gastroesop hageal reflux disease 827389737 K21.9 Has noticed some nausea after taking medication sAdvised to take medication s with a cracker or something solidAdvis ed not to lay down immediatel y after taking medication s Benign pro static hyperplasia 072959824 N40.0 continue Tamsulosin 0.4mg was started per urology has not returned to urology feels med helps himrefuses PEPE agrees to PSA lab test Obesity 493248131 E66.9 BMI 29.6Health y Weight: 5'5= 115-149 lbs Body mass index 30+ - obesity 587019042 Z68.31 BMI 29.6Ht 5' 5 Healthy weight 115-149 Vitamin D deficiency 347 17134 E55.9 Vitamin D 42buy otc vitamin D3 1000 IU once daily Obstructiv e sleep apnea of adult 8741733498 103 G47.33 stable continue to use CPAP Has been on CPAP for 10 years same machine Has now seen DIRECTOR OF COMMUNICATIONS at [facility] office-had new machine ordered Allergic rhinitis 656458 04 J30.9 Xerosis du e to atopic dermatitis 242951828 L85.3 Scalp folliculitis 53738 8003 L73.8 Acute cont act dermatitis 103209006 L25.9 Depression screening 171 249442 Z13.31 negative Mental hea lt screening 626485126 Z13.39 negative [id number] Aleksander Diaz MD [facility] [address] [place] [address] 05/20/2023 10:18:37 05/30/2023 16:17:41 Mixed hypercholesterolemia and hypertriglyceridemia 926911349 E78.2 06/15/2021 cho 157Trig 383HDL 35.3LDL 82 05/19/2022 ho 141trig 79HDL 49LDL 76Avoid all breads, potatoes, cereal, pasta, rice, margarine, refined sugars, milk yogurt, ice cream, juices, soda (including diet), beer, and man-made or manufactur ed desserts. Enjoy steak, fish, chicken (no skin), pork, butter, vegetables , beans, nuts, whole eggs, cheese (low fat or skim), cream in your coffee.con tinue pravachol 20mg dailyconti nue fenofibrat e 160mg daily Benign pro static hyperplasia 889566111 N40.0 continue Tamsulosin 0.4mg was started per urology has not returned to urology feels med helps himrefuses PEPE agrees to PSA lab test [id number] Aleksander Diaz MD [facility] [address] [address] 08/05/2023 15:29:51 08/08/2023 11:28:13 Type 2 diabetes mellitus without complication 244382995 E11.9 HA1C 6.1 much better continue to monitor blood sugars patient to continue metformin 1000 mg bid-- keep bs logswill continue jardiance 10mg daily Essential hypertension 93723233 I10 BP Goal: Less than 140/90BP Controlled : yes; per the JNC8 guidelines in the absence of renal disease and DMHealthy Weight: 5'5= 115-149 lbsDiscuss ed: Low sodium balanced diet, moderate exercise at least 3-4 times per week for an average of 40 minutesNex t Visit: 3month(s) Vitamin D deficiency 347 36038 E55.9 Vitamin D 42buy otc vitamin D3 1000 IU once daily Mixed hypercholesterolemia and hypertriglyceridemia 232615949 E78.2 06/15/2021 cho 157Trig 383HDL 35.3LDL 82 05/19/2022 ho 141trig 79HDL 49LDL 76 4c ho 165trig 133HDL 47LDL 111Avoid all breads, potatoes, cereal, pasta, rice, margarine, refined sugars, milk yogurt, ice cream, juices, soda (including diet), beer, and man-made or manufactur ed desserts. Enjoy steak, fish, chicken (no skin), pork, butter, vegetables , beans, nuts, whole eggs, cheese (low fat or skim), cream in your coffee.con tinue pravachol 20mg dailyconti nue fenofibrat e 160mg daily Gastroesop hageal reflux disease 266548445 K21.9 Has noticed some nausea after taking medication sAdvised to take medication s with a cracker or something solidAdvis ed not to lay down immediatel y after taking medication s Benign pro static hyperplasia 333232572 N40.0 continue Tamsulosin 0.4mg was started per urology has not returned to urology feels med helps himrefuses DRE05/20/19 24 PSA 0.6 Obesity 209188691 E66.9 BMI 28.3Health y Weight: 5'5= 115-149 lbs Body mass index 30+ - obesity 591686532 Z68.31 BMI 28.3Ht 5' 5 Healthy weight 115-149 Obstructiv e sleep apnea of adult 0841768614 103 G47.33 stable continue to use CPAP Has been on CPAP for 10 years same machine Has now seen DIRECTOR OF COMMUNICATIONS at [facility] office-had new machine ordered Allergic rhinitis 052409 04 J30.9 Xerosis du e to atopic dermatitis 993430063 L85.3 Scalp folliculitis 63256 8003 L73.8 Acute cont act dermatitis 323005818 L25.9 Depression screening 171 499878 Z13.31 negative Screening for malignant neoplasm of colon 446024562 Z12.11 53 y/o HM needs a screening colonoscop y .-sent at last visitPer GI office noteThank you for the [facility] We have called your patient three times and lvm, plus sent a letter asking them to call so that we can schedule. To date the patient has not returned our calls. Please contact your patient and ask them to call [employer] at and press option 1 to schedule. Erectile dysfunction 860 954391 F52.[id number] [facility] [address] [place] [address] 08/23/2023 09:29:48 08/26/2023 08:42:39 Screening for malignant neoplasm of colon 345985806 Z12.11 First colonoscop y. No FH of colon cancer.CBC and CMP in chart 05/20/2023 [id number] Aleksander Diaz MD [facility] [address] [place] [address] 12/06/2023 16:00:55 12/09/2023 14:12:56 Essential hypertension 99573063 I10 BP Goal: Less than 140/90BP Controlled : yes; per the JNC8 guidelines in the absence of renal disease and DMHealthy Weight: 5'5= 115-149 lbsDiscuss ed: Low sodium balanced diet, moderate exercise at least 3-4 times per week for an average of 40 minutesNex t Visit: 3month(s) Type 2 ab betes mellitus without complication 662132207 E11.9 HA1C 6.7much better continue to monitor blood sugars patient to continue metformin 1000 mg bid-- keep bs logswill continue jardiance 10mg daily Body mass index 30+ - obesity 610980023 Z68.31 BMI 28.1Ht 5' 5 Healthy weight 115-149 Benign pro static hyperplasia 479889320 N40.0 continue Tamsulosin 0.4mg was started per urology has not returned to urology feels med helps himrefuses DRE05/20/19 24 PSA 0.6 Mixed hypercholesterolemia and hypertriglyceridemia 913330610 E78.2 06/15/2021 cho 157Trig 383HDL 35.3LDL 82 05/19/2022 ho 141trig 79HDL 49LDL 76 05/20/2023 ho 165trig 133HDL 47LDL 111Avoid all breads, potatoes, cereal, pasta, rice, margarine, refined sugars, milk yogurt, ice cream, juices, soda (including diet), beer, and man-made or manufactur ed desserts. Enjoy steak, fish, chicken (no skin), pork, butter, vegetables , beans, nuts, whole eggs, cheese (low fat or skim), cream in your coffee.con tinue pravachol 20mg dailyconti nue fenofibrat e 160mg daily Vitamin D deficiency 347 20840 E55.9 Vitamin D 42buy otc vitamin D3 1000 IU once daily Gastroesop hageal reflux disease 666297007 K21.9 stable no need for pepcid nowHas noticed some nausea after taking medication sAdvised to take medication s with a cracker or something solidAdvis ed not to lay down immediatel y after taking medication s Obstructiv e sleep apnea of adult 4045036376 103 G47.33 stable continue to use CPAP Has been on CPAP for 10 years same machine Has now seen DIRECTOR OF COMMUNICATIONS at [facility] office-had new machine ordered Allergic rhinitis 770798 04 J30.9 Xerosis du e to atopic dermatitis 431682179 L85.3 Scalp folliculitis 96909 8003 L73.8 resolved Erectile dysfunction 860 533747 F52.21 Pain of le ft shoulder joint 7999137972 2990812 M25.512 deltoid area painwakes him up at nighthad a fall 9 months ago from a ladder Body mass index 25-29 - overweight 469379978 Z68.28 BMI 28.3Health y Weight: 5'5= 115-149 lbs Candidal balanitis 69828 007 B37.42 Administra tion of influenza vaccine 19671768 Z23 [id number] Aleksander Diaz MD [facility] [address] [place] [address] 03/09/2024 15:36:14 03/12/2024 11:51:44 Essential hypertension 20554204 I10 BP Goal: Less than 140/90BP Controlled : yes; per the JNC8 guidelines in the absence of renal disease and DMHealthy Weight: 5'5= 115-149 lbsDiscuss ed: Low sodium balanced diet, moderate exercise at least 3-4 times per week for an average of 40 minutesNex t Visit: 3month(s) Type 2 ab betes mellitus without complication 407640363 E11.9 HA1C 6.7much better continue to monitor blood sugars patient to continue metformin 1000 mg bid-- keep bs logswill continue jardiance 10mg daily Body mass index 30+ - obesity 141939343 Z68.31 BMI 29.5Ht 5' 5 Healthy weight 115-149 Benign pro static hyperplasia 153155505 N40.0 continue Tamsulosin 0.4mg was started per urology has not returned to urology feels med helps himrefuses DRE05/20/19 24 PSA 0.6 Mixed hypercholesterolemia and hypertriglyceridemia 540070883 E78.2 06/15/2021 cho 157Trig 383HDL 35.3LDL 82 05/19/2022 ho 141trig 79HDL 49LDL 76 05/20/2023 ho 165trig 133HDL 47LDL 111Avoid all breads, potatoes, cereal, pasta, rice, margarine, refined sugars, milk yogurt, ice cream, juices, soda (including diet), beer, and man-made or manufactur ed desserts. Enjoy steak, fish, chicken (no skin), pork, butter, vegetables , beans, nuts, whole eggs, cheese (low fat or skim), cream in your coffee.con tinue pravachol 20mg dailyconti nue fenofibrat e 160mg daily Vitamin D deficiency 347 14388 E55.9 Vitamin D 42buy otc vitamin D3 1000 IU once daily Gastroesop hageal reflux disease 856079920 K21.9 stable no need for pepcid nowHas noticed some nausea after taking medication sAdvised to take medication s with a cracker or something solidAdvis ed not to lay down immediatel y after taking medication s Obstructiv e sleep apnea of adult 7874146841 103 G47.33 stable continue to use CPAP Has been on CPAP for 10 years same machine Has now seen DIRECTOR OF COMMUNICATIONS at [facility] office-had new machine ordered Allergic rhinitis 968353 04 J30.9 Pain of le ft shoulder joint 3743501783 3802121 M25.512 deltoid area painwakes him up at nighthad a fall 9 months ago from a ladder Erectile dysfunction 860 344449 F52.21 Xerosis du e to atopic dermatitis 232076897 L85.3 Body mass index 25-29 - overweight 292549380 Z68.28 BMI 29.5Health y Weight: 5'5= 115-149 lbs Pain of le ft shoulder region 7900515988 M25.512 Has resolved for nowdid not get xray [id number] Zach Rios MD [facility] [address] [place] [address] 06/20/2024 15:20:39 06/21/2024 15:46:04 Body mass index 30+ - obesity 483347930 Z68.31 Type 2 ab betes mellitus without complication 524802015 E11.9 I stress the importance of taking medication [id number] is up from 7.3 to 7.7 Essential hypertension 04489464 I10 B/P 110/74 today Benign pro static hyperplasia 007952619 N40.0 continue Tamsulosin 0.4mg was started per urology Mixed hypercholesterolemia and hypertriglyceridemia 703387428 E78.2 Avoid all breads, potatoes, cereal, pasta, rice, margarine, refined sugars, milk yogurt, ice cream, juices, soda (including diet), beer, and man-made or manufactur ed desserts. Enjoy steak, fish, chicken (no skin), pork, butter, vegetables , beans, nuts, whole eggs, cheese (low fat or skim), cream in your coffee.con tinue pravachol 20mg dailyconti nue fenofibrat e 160mg daily Allergic rhinitis 674355 04 J30.9 Body mass index 25-29 - overweight 100567455 Z68.28 BMI 29.5Health y Weight: 5'5= 115-149 lbs Acute cont act dermatitis 313075544 L25.9 [id number] Aleksander Diaz MD [facility] [address] [place] [address] 11/14/2024 14:40:30 11/16/2024 11:18:26 Body mass index 30+ - obesity 107865638 Z68.31 BMI 29.1Ht 5' 5 Healthy weight 115-149 Benign pro static hyperplasia 160745970 N40.0 continue Tamsulosin 0.4mg was started per urology has not returned to urology feels med helps himrefuses DRE05/20/19 24 PSA 0.6 Vitamin D deficiency 347 90668 E55.9 Vitamin D 42buy otc vitamin D3 1000 IU once daily Essential hypertension 85597574 I10 BP Goal: Less than 140/90BP Controlled : yes; per the JNC8 guidelines in the absence of renal disease and DMHealthy Weight: 5'5= 115-149 lbsDiscuss ed: Low sodium balanced diet, moderate exercise at least 3-4 times per week for an average of 40 minutesNex t Visit: 3month(s) Type 2 ab betes mellitus without complication 216250543 E11.9 HA1C 7.7worse continue to monitor blood sugars patient to continue metformin 1000 mg bid-- keep bs logswill continue jardiance 10mg daily Mixed hypercholesterolemia and hypertriglyceridemia 328573978 E78.2 06/15/2021 cho 157Trig 383HDL 35.3LDL 82 05/19/2022 ho 141trig 79HDL 49LDL 76 4c ho 165trig 133HDL 47LDL 111Avoid all breads, potatoes, cereal, pasta, rice, margarine, refined sugars, milk yogurt, ice cream, juices, soda (including diet), beer, and man-made or manufactur ed desserts. Enjoy steak, fish, chicken (no skin), pork, butter, vegetables , beans, nuts, whole eggs, cheese (low fat or skim), cream in your coffee.con tinue pravachol 20mg dailyconti nue fenofibrat e 160mg daily Gastroesop hageal reflux disease 464454509 K21.9 stable no need for pepcid nowHas noticed some nausea after taking medication sAdvised to take medication s with a cracker or something solidAdvis ed not to lay down immediatel y after taking medication s Obstructiv e sleep apnea of adult 9016275942 103 G47.33 stable continue to use CPAP Has been on CPAP for 10 years same machine Has now seen DIRECTOR OF COMMUNICATIONS at [facility] office-had new machine ordered Allergic rhinitis 661103 04 J30.9 Pain of le ft shoulder joint 0627324595 1093959 M25.512 deltoid area painwakes him up at nighthad a fall 9 months ago from a ladderbett er now Erectile dysfunction 860 980241 F52.21 Xerosis du e to atopic dermatitis 904818348 L85.3 Body mass index 25-29 - overweight 129197378 Z68.28 BMI 29.1Health y Weight: 5'5= 115-149 lbs Pain of le ft shoulder region 4325697961 M25.512 Has resolved for nowdid not get xray Requires i nfluenza virus vaccination 014618910 Z23 966042 Prostate s pecific antigen measurement 60002742 Z12.5 673450 05/20/2023 PSA 0.6 Scalp folliculitis 59293 8003 L73.8 return Seborrheic keratosis 394 794305 L82.1 27423 [id number] Aleksander Diaz MD [facility] [address] [address] 11/20/2024 09:51:16 11/22/2024 15:20:19 Essential hypertension 76580033 I10 03139 BP Goal: Less than 140/90BP Controlled : yes; per the JNC8 guidelines in the absence of renal disease and DMHealthy Weight: 5'5= 115-149 lbsDiscuss ed: Low sodium balanced diet, moderate exercise at least 3-4 times per week for an average of 40 minutesNex t Visit: 3month(s) Prostate s pecific antigen measurement [id number] Z12.5 [id number] 05/20/2023 PSA 0.6 Health Concerns Section Related Observation LastModified by Organization Detai ls LastModified Time None Recorded Concern Status LastModified by Organization Details LastModified Time None Recorded Advance Directives Directive N: Payers Insurance Date Sequence Insurance Name Policy Number Policy Marshall Covered Member ID Marshall Member ID Guarantor Name 06/20/2024 3 [place] [employer] [employer] Efrain Gonzalez [id number] Efrain Gonzalez 11/20/2024 1 [facility] - DOS ON OR AFTER 20 (MEDICAID REPLACEMENT - HMO) Efrain Gonzalez [id number] Efrain Gonzalez 06/20/2024 [facility] (MEDICAID HMO) [facility] Efrain Gonzalez [id number] Efrain Gonzalez 02/15/2023 SLIDING FEE SCHEDULE - DISCOUNT Efrain Gonzalez 06/15/2021 2 *SELF PAY* Ro tyrese Gonzalez 06/20/2024 1 [employer] (MEDICAID REPLACEMENT - HMO) Efrain Gonzalez [id number] Efrain Gonzalez 06/20/2024 1 [facility] - DOS PRIOR TO 2020 (MEDICAID REPLACEMENT - HMO) Efrain Gonzalez [id number] Efrain Gonzalez 06/20/2024 1 [facility] (MEDICAID HMO) [facility] Efrain Gonzalez [id number] Efrain Gonzalez 06/20/2024 1 [facility] - DOS ON OR AFTER 2020 (MEDICAID REPLACEMENT - HMO) Efrain Gonzalez [id number] Efrain Gonzalez 06/20/2024 2 [facility] (MEDICAID HMO) [id number] Efrain Gonzalez [id number] Efrain Gonzalez 06/20/2024 2 [place] [facility] Efrain Gonzalez [id number] Efrain Gonzalez Notes Date Note Type Note Provider Name and Address Organization Details Recorded Time 4 text/html Erectile DysfunctionReported by PatientHPIFor associated symptoms, patient reportsdecreased libidobut reportsno dysuriaandno penile discharge. For severity, patient reportsimproving. For context, patient reportsable to maintain a hard erectionandable to achieve penetration 100% of the time. Diabetes F/UReported by PatientHPIFor associated symptoms, patient reportsweight loss (8 lbs)but reportsno dizziness,no sweats,no headaches,no confusion,no increased thirst,no increased appetite,no increased urination,no blurred vision,no numbness of feet, andno calluses on feet. For review finger sticks, patient reportsfastin,post breakfast: 180, andpost dinner: ___. For labs, patient reportslast a1c result: 6.7. For context, patient reportsnormal range of home blood sugars (in the low 100s),seeing eye doctor regularly,checking feet regularly,taking aspirin daily,not missing doses of medications, andno side effects from medications. Hypertension F/UReported by PatientHPIFor associated symptoms, patient reportsno dizziness,no lightheadedness,no chest pain,no shortness of breath,no palpitations,no edema, andno calf pain with exertion. For lifestyle, patient reportsregular exerciseandlimiting/avoi ding salt. For medications, patient reportstaking medications as directedandno side effects from medication. Voiding DysfunctionReported by PatientHPIFor onset/timing, patient reportsepisodic,new onset, and>1 year. For quality, patient reportssensation of incomplete emptying,strain to empty, andsplit stream/spraying. For context, (improved with flomax).ROS as noted in the HPI 53y/o HM here because he needs refill medications. He is using CPAP machine without problems. He is still working days--He takes his antidiabetic pills as directed now. He is getting all his CPAP machine supplies without problems. He notices difference in his energy when he uses his cpap consistently. He occasionally feels right hand and RLE numbness and tingling. He is aware its diabetic neuropathy doesnt want to try Neurontin will try to get better bs control. The Lac Hydrin has helped with the skin dryness of his hands. He is requesting more rx . His hemorrhoids are stable there is no bleeding per rectum. Saw eye doctor no retinopathy. Reports the little red bumps on scalp have improved with shampoo ordered previously. He has not seen eye doctor this year. His BS have been a little elevated. He is c/o ED wants to continue viagra. He doesnt use nitroglycerine. He has been having penile itching and redness. He used his clotrimazole cream it helps but symptoms return. He has been having left deltoid area pain for a few months now. It wakes him up at night. He denies any injury but does remember falling off a ladder about 8-9 months ago and gripping onto a ladder step quite harshly as he came down. Reports he has crepitus of the L shoulder too. Patient wants influenza vaccine. He has no contraindications. JUAN Yu Attn: Accounting,[address] [facility], [place], [address], [facility] 12/06/2023 17:31:24 5 text/html Erectile DysfunctionReported by PatientHPIFor associated symptoms, patient reportsdecreased libidobut reportsno dysuriaandno penile discharge. For severity, patient reportsimproving. For context, patient reportsable to maintain a hard erectionandable to achieve penetration 100% of the time. Diabetes F/UReported by PatientHPIFor associated symptoms, patient reportsweight loss (8 lbs)but reportsno dizziness,no sweats,no headaches,no confusion,no increased thirst,no increased appetite,no increased urination,no blurred vision,no numbness of feet, andno calluses on feet. For review finger sticks, patient reportsfastin,post breakfast: 180, andpost dinner: ___. For labs, patient reportslast a1c result: 6.7. For context, patient reportsnormal range of home blood sugars (in the low 100s),seeing eye doctor regularly,checking feet regularly,taking aspirin daily,not missing doses of medications, andno side effects from medications. Hypertension F/UReported by PatientHPIFor associated symptoms, patient reportsno dizziness,no lightheadedness,no chest pain,no shortness of breath,no palpitations,no edema, andno calf pain with exertion. For lifestyle, patient reportsregular exerciseandlimiting/avoi ding salt. For medications, patient reportstaking medications as directedandno side effects from medication. Voiding DysfunctionReported by PatientHPIFor onset/timing, patient reportsepisodic,new onset, and>1 year. For quality, patient reportssensation of incomplete emptying,strain to empty, andsplit stream/spraying. For context, (improved with flomax).ROS as noted in the HPI 53y/o HM here because he needs refill medications. He is using CPAP machine without problems. He is still working days--He takes his antidiabetic pills as directed now. He is getting all his CPAP machine supplies without problems. He notices difference in his energy when he uses his cpap consistently. He occasionally feels right hand and RLE numbness and tingling. He is aware its diabetic neuropathy doesnt want to try Neurontin will try to get better bs control. The Lac Hydrin has helped with the skin dryness of his hands. He is requesting more rx . His hemorrhoids are stable there is no bleeding per rectum. Saw eye doctor no retinopathy. Reports the little red bumps on scalp have improved with shampoo ordered previously. He has not seen eye doctor this year. His BS have been a little elevated. He is c/o ED wants to continue viagra. He doesnt use nitroglycerine. He has been having penile itching and redness. He used his clotrimazole cream it helps but symptoms return. He has been having left deltoid area pain for a few months now. It wakes him up at night. He denies any injury but does remember falling off a ladder about 8-9 months ago and gripping onto a ladder step quite harshly as he came down. Reports he has crepitus of the L shoulder too. Ajith Veras, TOP KNITTER- Attn: Accounting,[address] [facility], [place], [address], [facility] 03/09/2024 16:31:05 5 text/html Diabetes F/UReported by PatientHPIFor associated symptoms, patient reportsweight loss (8 lbs)but reportsno dizziness,no sweats,no headaches,no confusion,no increased thirst,no increased appetite,no increased urination,no blurred vision,no numbness of feet, andno calluses on feet. For review finger sticks, patient reportsfastin,post breakfast: 180, andpost dinner: ___. For labs, patient reportslast a1c result: 6.7. For context, patient reportsnormal range of home blood sugars (in the low 100s),seeing eye doctor regularly,checking feet regularly,taking aspirin daily,not missing doses of medications, andno side effects from medications. Hypertension F/UReported by PatientHPIFor associated symptoms, patient reportsno dizziness,no lightheadedness,no chest pain,no shortness of breath,no palpitations,no edema, andno calf pain with exertion. For lifestyle, patient reportsregular exerciseandlimiting/avoi ding salt. For medications, patient reportstaking medications as directedandno side effects from medication. Voiding DysfunctionReported by PatientHPIFor onset/timing, patient reportsepisodic,new onset, and>1 year. For quality, patient reportssensation of incomplete emptying,strain to empty, andsplit stream/spraying. For context, (improved with flomax).ROS as noted in the HPI 54 yo male presented today for medication refill, patient is non compliant to medication regimen and diet, stats that he tries to take diabetes medication but it make him sick to his stomach. ALESHA Land NP Attn: Accounting,[address], [place], [address], [place] [facility] 06/20/2024 16:27:05 5 text/html Erectile DysfunctionReported by PatientHPIFor associated symptoms, patient reportsdecreased libidobut reportsno dysuriaandno penile discharge. For severity, patient reportsimproving. For context, patient reportsable to maintain a hard erectionandable to achieve penetration 100% of the time. Diabetes F/UReported by PatientHPIFor associated symptoms, patient reportsweight loss (8 lbs)but reportsno dizziness,no sweats,no headaches,no confusion,no increased thirst,no increased appetite,no increased urination,no blurred vision,no numbness of feet, andno calluses on feet. For review finger sticks, patient reportsfastin,post breakfast: 180, andpost dinner: ___. For labs, patient reportslast a1c result: 6.7. For context, patient reportsnormal range of home blood sugars (in the low 100s),seeing eye doctor regularly,checking feet regularly,taking aspirin daily,not missing doses of medications, andno side effects from medications. Hypertension F/UReported by PatientHPIFor associated symptoms, patient reportsno dizziness,no lightheadedness,no chest pain,no shortness of breath,no palpitations,no edema, andno calf pain with exertion. For lifestyle, patient reportsregular exerciseandlimiting/avoi ding salt. For medications, patient reportstaking medications as directedandno side effects from medication. Voiding DysfunctionReported by PatientHPIFor onset/timing, patient reportsepisodic,new onset, and>1 year. For quality, patient reportssensation of incomplete emptying,strain to empty, andsplit stream/spraying. For context, (improved with flomax).ROS as noted in the HPI 54y/o HM here because he needs refill medications. He is using CPAP machine without problems. He is still working days--He takes his antidiabetic pills as directed now. He is getting all his CPAP machine supplies without problems. He notices difference in his energy when he uses his cpap consistently. He occasionally feels right hand and RLE numbness and tingling. He is aware its diabetic neuropathy doesnt want to try Neurontin will try to get better bs control. The Lac Hydrin has helped with the skin dryness of his hands. He is requesting more rx . His hemorrhoids are stable there is no bleeding per rectum. Saw eye doctor no retinopathy. Reports the little red bumps on scalp have improved with shampoo ordered previously. He needs refill of this shampoo. He has not seen eye doctor this year. His BS have been a little elevated. He is c/o ED wants to continue viagra. He doesnt use nitroglycerine. He has been having left deltoid area pain for a few months now. It wakes him up at night. He denies any injury but does remember falling off a ladder about 8-9 months ago and gripping onto a ladder step quite harshly as he came down. Reports he has crepitus of the L shoulder too. Rerports shoulder pain better. He did not get xray done.He wants to get influenza vaccine. He has no contraindications. His stuck on R spiritism area brown wart is growing. He wants to try cream and if it doesnt work he will go to derm. Ajith Veras, TOP KNITTER- Attn: Accounting,[address] [facility], [place], [address], [place] [facility] 11/14/2024 15:34:47
--- OUTSIDE RECORDS SUMMARY | 2025-01-01 21:55 | XMS_ITS | Clinical Summary ---
Author Organization [facility] Address [address] [place] [address] Phone Care Team Providers Care [facility] Assist[facility] Teacher Name Role Phone Ajith Figueroa APRN Primary Care Provider [phone] Allergies No known active allergies Medications ammonium lactate (LAC-HYDRIN) 12 % Lotion Apply as needed. rub in to affected area well Active clotrimazole (LOTRIMIN) 1 % Cream Apply 3 times daily. Apply to affected area as directed. Active fluticasone (FLONASE) 50 MCG/ACT Suspension 1-2 Sprays by Nasal route daily. Use in each nostril as directed. Active ibuprofen (MOTRIN) 400 MG Tablet Take 400 mg by mouth every 8 hours as needed. Active losartan (COZAAR) 50 MG Tablet Take 50 mg by mouth daily. Active metFORMIN (GLUCOPHAGE) 1000 MG Tablet Take 1,000 mg by mouth 2 times daily (with meals). Active pravastatin (PRAVACHOL) 20 MG Tablet Take 20 mg by mouth daily. Active tamsulosin (FLOMAX) 0.4 MG CapsuleIndicati ons:BPH loc w urin obs/LUTS Take 1 Cap by mouth daily. 90 Cap 3 07/12/2016 Active Active Problems Problem Noted Date Diagnosed Date BPH loc w urin obs/LUTS 07/12/2016 Immunizations Immunization Administration Dates Next Due Influenza Vaccine greater than 3 yrs 02/10/2016 Pneumococcal Vaccine Adult - 23 Valent 2 TDAP Vaccine 02/10/2016 Family History Medical History Relation Name Comments Diabetes Neg Hx Social History Tobacco Use Types Packs/Day Years Used Date Smoking Tobacco: Never Smokeless Tobacco: Never Alcohol Use Standard Drinks/Week Comments No 0 (1 standard drink = 0.6 oz pur e alcohol) Sexually Active Control Partners Comments Never Female Sex and Gender Information Value Date Recorded Sex Assigned at Not on file 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 Gender Identity Not on file Sexual Orientation Not on file Last Filed Vital Signs Vital Sign Reading Time Taken Comments Blood Pressure 152/92 07/12/2016 3:35 PM CDT Pulse 77 07/12/2016 3:35 PM CDT Temperature 37.4 C (99.4 F) 07/12/2016 3:35 PM CDT Respiratory Rate 16 07/12/2016 3:35 PM CDT Oxygen Saturation 98% 07/12/2016 3:35 PM CDT Inhaled Oxygen Concentration - - Weight 81.6 kg (180 lb) 07/12/2016 3:35 PM CDT Height 165.1 cm (5' 5) 07/12/2016 3:35 PM CDT Body Mass Index 29.95 07/12/2016 3:35 PM CDT Plan of Treatment Health Maintenance Due Date Last Done Comments Hepatitis C Virus (HCV) Screening 1969 Hepatitis B Immunization (1 of 3 - 19+ 3-dose series) 1988 Cologuard 2014 Colonoscopy 2014 Colorectal Cancer Screening 2014 Immunochemical Fecal Occult Blood 2014 Pneumococcal Immunization (5 0+ years) (2 of 2 - PCV) 05/06/2019 03/23/2011 Zoster Immunization (1 of 2) 05/06/2019 Influenza Immunization (#1) 2024 02/10/2016 SARS-COV-2 Immunization ( season) 2024 Respiratory Syncytial Virus (RSV) Immunization (Adult) (1 - 1-dose 75+ series) 2044 Pneumococcal Immunization Combined Discontinued 2011 DTaP/Tdap/Td Immunization Discontinued 02/10/2016 Human Papillomavirus (HPV) Immunization Aged Out No longer eligible b ased on patient's age to complete this topic Meningococcal Immunization (ACWY) Aged Out No longer eligible based on patient's age to complete this topic Rotavirus Immunization Aged Out No lo nger eligible based on patient's age to complete this topic Insurance MEDICAID [place] [facility] Assist[facility] Teacher Relationship Specialty Start Date End Date Ajith Figueroa APRN [facility], [place] [address] PCP - General Advanced Practice Nurse 03/02/16
--- NOTE | 2025-01-01 21:57 | ED.GENADULT ---
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 Patient states that for the past day, he has been having diffuse body aches. Denies cough, shortness of breath. He believes he has been around some sick contacts at work. Denies nausea vomiting, chest pain. He does not check his blood sugar regularly. Related Data Home Medications ?Medication ?Instructions ?Recorded ?Confirmed ?Last Taken ?Type empagliflozin 10 mg tablet 10 mg PO DAILY 11/17/21 03/16/24 Unknown History (Jardiance) loratadine 10 mg tablet 10 mg PO DAILY 11/17/21 03/16/24 Unknown History losartan 50 mg tablet 50 mg PO DAILY 11/17/21 03/16/24 Unknown History metformin 1,000 mg tablet 1,000 mg PO BID 11/17/21 03/16/24 Unknown History ammonium lactate 12 % lotion 1 applic topical DAILY 03/16/24 03/16/24 Unknown History fenofibrate 160 mg tablet mg 03/16/24 Unknown History fluticasone propionate 50 1 spray intranasal DAILY 03/16/24 03/16/24 Unknown History mcg/actuation nasal spray,suspension pravastatin 20 mg tablet 20 mg PO DAILY 03/16/24 03/16/24 Unknown History tamsulosin 0.4 mg capsule 0.4 mg PO Q24H 03/16/24 03/16/24 Unknown History Allergies Allergy/AdvReac Type Severity Reaction Status Date / Time No Known Allergies Allergy Verified 03/16/24 12:10 Review of Systems Review of Systems: Gen.: As per HPI Eyes: Denies eye pain or visual change ENT: Denies congestion Respiratory: Denies shortness of breath or cough CV: Denies chest pain or palpitations GI: Denies abdominal pain nausea, emesis or diarrhea denies burning, urgency, frequency or hematuria Musculoskeletal: Denies back pain or muscle pain Neuro: Denies numbness, tingling, weakness or focal weakness Skin: Denies rash Except as documented, all other systems reviewed and negative Exam Narrative: APPEARANCE: No acute distress, nontoxic, resting in bed EYES: EOMI HEENT: Normocephalic, atraumatic, OMM RESPIRATORY: No respiratory distress Clear to auscultation bilaterally with no rhonchi wheezing or rales. CARDIOVASCULAR: Regular rate and rhythm without murmurs rubs or gallops. ABDOMINAL: Soft, nontender, nondistended, no rebound or guarding MUSCULOSKELETAl: Moves all extremities. No clubbing, cyanosis or edema. NEURO: Awake and alert. Following commands, speech normal, no focal deficits SKIN:: Warm, dry. No rashes lesions or abrasions PSYCHIATRIC: Normal affect/mood, Course Vital Signs Vital signs: Vital Signs Temperature 100.7 F H 01/01/25 22:05 Pulse Rate 102 H 01/01/25 22:05 Respiratory Rate 22 H 01/01/25 22:05 Blood Pressure 135/73 01/01/25 22:05 Pulse Oximetry 99 01/01/25 22:05 Oxygen Delivery Room Air 01/01/25 22:05 Temperature 98.6 F 01/01/25 23:56 Pulse Rate 97 01/01/25 23:56 Respiratory Rate 23 H 01/01/25 23:56 Blood Pressure 132/92 H 01/01/25 23:56 Pulse Oximetry 97 01/01/25 23:56 Oxygen Delivery Room Air 01/01/25 22:05 Medical Decision Making [facility] Narrative Medical decision making narrative: 54-year-old male Presenting for body pain with dysuria. On initial evaluation patient was in no acute distress afebrile, hemodynamic stable. Differentials include but are not limited to: UTI, viral syndrome, influenza, COVID Notable exam findings: Heart and lungs clear. Abdomen soft and nontender. Notable lab findings: CBC and CMP without significant abnormalities. UA consistent with a UTI. COVID/flu/RSV negative. Notable imaging findings: Chest x-ray showed no acute process. Patient was given Tylenol and 1st dose of Keflex here in the ED. symptoms are most consistent with a UTI. Patient was deemed appropriate for discharge at this time. Patient was given a prescription for Keflex. Patient was educated on Tylenol and ibuprofen use. Patient was advised follow-up with their PCP in the next week for re-evaluation. Patient was agreeable to this plan. Given strict return precautions. Vital Signs Vital Signs: Vital Signs Temperature 100.7 F H 01/01/25 22:05 Pulse Rate 102 H 01/01/25 22:05 Respiratory Rate 22 H 01/01/25 22:05 Blood Pressure 135/73 01/01/25 22:05 Pulse Oximetry 99 01/01/25 22:05 Oxygen Delivery Room Air 01/01/25 22:05 Temperature 98.6 F 01/01/25 23:56 Pulse Rate 97 01/01/25 23:56 Respiratory Rate 23 H 01/01/25 23:56 Blood Pressure 132/92 H 01/01/25 23:56 Pulse Oximetry 97 01/01/25 23:56 Oxygen Delivery Room Air 01/01/25 22:05 Lab Data 01/01/25 22:10 01/01/25 22:10 Labs: Lab Results 01/01/25 01/01/25 Range/Units 22:10 22:22 WBC 6.3 (4.5-10.0) K/mm3 RBC 4.51 L (4.6-6.20) M/mm3 Hgb 13.9 L (14.0-18.0) g/dL Hct 39.3 L (42.0-52.0) % MCV 87.1 (80-100) fl MCH 30.8 (26-34) pg MCHC 35.4 (32-36) g/dl RDW 11.9 (11.5-14.5) % Plt Count 165 (150-375) k/mm3 MPV 10.6 H (7.4-10.4) fl Immature Gran % (Auto) 0.5 (0-0.5) % Neut % (Auto) 90.7 H (45.5-73.1) % Lymph % (Auto) 6.7 L (18.3-44.2) % [place] % (Auto) 1.0 L (2.6-8.5) % Eos % (Auto) 0.6 (0-4.4) % Baso % (Auto) 0.5 (0.2-1.2) % Lymph # (Auto) 0.42 L (0.9-3.2) K/mm3 [place] # (Auto) 0.1 (0.1-0.6) K/mm3 Eos # (Auto) 0.0 (0-0.3) K/mm3 Baso # (Auto) 0.0 (0.0-0.1) K/mm3 Abs Immat Gran (auto) 0.03 (0.00-0.031) K/mm3 Absolute Neuts (auto) 5.7 (1.3-6.7) K/mm3 Absolute Nucleated RBC 0.000 (0.0-0.012) K/mm3 Nucleated RBC % 0.0 (0.0-0.2) % Sodium 137 (137-145) mmol/L Potassium 3.6 (3.4-5.0) mmol/L Chloride 105 (98-107) mmol/L Carbon Dioxide 23 (22-30) mmol/L Anion Gap 9 (4-12) mmol/L BUN 14 (9-20) mg/dL Creatinine 1.17 (0.7-1.3) mg/dL Estim Creat Clear Calc 55 ml/min Estimated GFR > 60 (59 - ) Glucose 202 H (65-110) mg/dL Calcium 9.2 (8.4-10.2) mg/dL Total Bilirubin 1.5 H (0.2-1.3) mg/dL AST 31 (17-59) U/L ALT 31 (6-50) U/L Alkaline Phosphatase 84 (38-126) U/L Troponin I < 0.012 (0.000-0.034) ng/mL Total Protein 7.2 (6.3-8.2) g/dL Albumin 4.2 (3.5-5.1) g/dL Urine Color Yellow (Yellow) Urine Appearance Clear (Clear) Urine pH 8.0 (5.0-9.0) Ur Specific [place] 1.016 (1.001-1.035) Urine Protein Negative (Negative) mg/dL Urine Glucose (UA) 2+ H (Negative) mg/dL Urine Ketones Negative (Negative) mg/dL Ur Blood (Man) Negative (Negative) Urine Nitrate Negative (Negative) Urine Bilirubin Negative (Negative) Urine Urobilinogen 1.0 (<2.0) mg/dL Leukocyte Esterase Rfl 2+ H (Negative) CHRISTINA/UL Urine RBC 0-2 (0-2) /hpf Urine WBC 21-50 H (0-3) /hpf Ur Squamous Epith Cells None seen (Few) /hpf Urine Bacteria Trace /hpf Urine Casts 0-2 Influenza A (RT-PCR) Negative (Negative) Influenza B (RT-PCR) Negative (Negative) RSV (RT-PCR) Negative (Negative) SARS-CoV-2 RNA (RT-PCR) Negative (Negative) ECG Data EKG #1: Attestation: I personally reviewed and interpreted this ECG as follows: ECG completion date: 01/01/25 ECG completion time: 22:00 Interpretation: Sinus tachycardia rate of 105, normal axis, normal intervals, no acute ST or T-wave changes Discharge Plan Discharge Clinical Impression: Acute UTI Patient Disposition: Home Condition: Stable Instructions: Antibiotic Form, Cephalexin (By mouth), Urinary Tract Infection in Men (ED) Additional Instructions: Se le diagnostic? jose infecci?n urinaria. Se le recet? Keflex; t?raya seg?n las indicaciones. Acuda a marie m?dico de cabecera la pr?xima semana para jose reevaluaci?n. Para el dolor, malestar o temperatura igual o superior a 38.2 ?C (100.8 ?F), alterne los siguientes dos medicamentos seg?n sea necesario. Primer medicamento: acetaminof?n (Tylenol) 1000 mg cada 6 a 8 horas seg?n sea necesario para las indicaciones mencionadas. Fernando medicamento: ibuprofeno (Motrin) 600 mg cada 6 a 8 horas seg?n sea necesario para las indicaciones mencionadas. Patient Language: Malagasy Prescriptions: New cephalexin 500 mg capsule 500 mg PO Q12H 7 Days Qty: 14 0RF No Action losartan 50 mg tablet 50 mg PO DAILY metformin 1,000 mg tablet 1,000 mg PO BID loratadine 10 mg tablet 10 mg PO DAILY Jardiance 10 mg tablet 10 mg PO DAILY ammonium lactate 12 % lotion 1 applic TOPICAL DAILY fluticasone propionate 50 mcg/actuation spray,suspension 1 spray INTRANASAL DAILY fenofibrate 160 mg tablet pravastatin 20 mg tablet 20 mg PO DAILY tamsulosin 0.4 mg capsule 0.4 mg PO Q24H albuterol sulfate [Ventolin HFA] 90 mcg/actuation HFA aerosol inhaler 2 puff inhalation QID PRN (Reason: shortness of breath or wheezing) Qty: 8.5 0RF benzonatate 200 mg capsule 200 mg PO TID PRN (Reason: cough) Qty: 30 0RF albuterol sulfate [Ventolin HFA] 90 mcg/actuation HFA aerosol inhaler 2 puff inhalation QID PRN (Reason: shortness of breath or wheezing) Qty: 8.5 0RF benzonatate 200 mg capsule 200 mg PO TID PRN (Reason: cough) Qty: 30 0RF Follow-up/Referrals: [place],Ajith HEEL SEAT LASTER [Primary Care Provider] Stand Alone Forms: Work/School Release IP
[2025-01-01 22:05] VITALS: BP 135/73; PULSE 102; RESP 22; TEMP 38.2; O2SAT 99
[2025-01-01 22:13] VITALS: PULSE 102
[2025-01-01] MEDS: GABAPENTIN 100 MG CAPSULE PO (22:21)
[2025-01-01 22:23] LABS: Hematocrit 39.3 % (42.0-52.0); Hemoglobin 13.9 g/dL (14.0-18.0); Immature Granulocyte Percent A 0.5 % (0-0.5); Lymphocytes Absolute Auto 0.42 K/mm3 (0.9-3.2); Mean Corpuscular HGB Conc 35.4 g/dl (32-36); Mean Corpuscular Hemoglobin 30.8 pg (26-34); Mean Corpuscular Volume 87.1 fl (80-100); Nucleated Red Blood Cells Absolute Auto 0.000 K/mm3 (0.0-0.012); Nucleated Red Blood Cells Perc 0.0 % (0.0-0.2); Platelet Count Result 165 k/mm3 (150-375); Red Blood Count 4.51 M/mm3 (4.6-6.20); White Blood Count 6.3 K/mm3 (4.5-10.0)
[2025-01-01] MEDS: ACETAMINOPHEN 500 MG TABLET 1000 MG PO (22:32)
[2025-01-01 22:34] LABS: Add Urine Microscopic? YES; Appearance Urine Clear (Clear); Glucose Urine UA 2+ mg/dL (Negative); Leukocyte Esterase Ur 2+ LEU/UL (Negative); Nitrate Urine Negative (Negative); Non Pathogenic Casts 0-2; Specific Grav Ur 1.016 (1.001-1.035)
[2025-01-01 22:35] LABS: Alanine Aminotransferase 31 U/L (6-50); Albumin Level 4.2 g/dL (3.5-5.1); Alkaline Phosphatase 84 U/L (38-126); Anion Gap 9 mmol/L (4-12); Aspartate Amino Transferase 31 U/L (17-59); Bilirubin,Total 1.5 mg/dL (0.2-1.3); Blood Urea Nitrogen 14 mg/dL (9-20); Calcium 9.2 mg/dL (8.4-10.2); Carbon Dioxide 23 mmol/L (22-30); Chloride 105 mmol/L (98-107); Estimated CRCL calculation 55 ml/min; Estimated Glomerular Filt Rate > 60; Glucose 202 mg/dL (65-110); Potassium 3.6 mmol/L (3.4-5.0); Sodium 137 mmol/L (137-145); Total Protein 7.2 g/dL (6.3-8.2)
[2025-01-01 22:45] LABS: Troponin I < 0.012 ng/mL (0.000-0.034)
[2025-01-01] MEDS: CEPHALEXIN 500 MG CAPSULE PO (22:53)
[2025-01-01 23:00] LABS: Influenza A QL RT-PCR Negative (Negative); Influenza B QL RT-PCR Negative (Negative); RSV RNA, RT-PCR Negative (Negative); SARS-CoV-2 RNA PCR Negative (Negative)
[2025-01-01 23:56] VITALS: BP 132/92; PULSE 97; RESP 23; TEMP 37; O2SAT 97
== END 2025-01-01 23:57 | disposition home or self-care (01) ==
PROVIDERS: Emergency Provider Student in an Organized Health Care Education/Training Program; PCP Registered Nurse
DX: N39.0 Urinary tract infection, site not specified (principal); Z20.822 Contact with and (suspected) exposure to COVID-19; E11.9 Type 2 diabetes mellitus without complications; Z79.84 Long term (current) use of oral hypoglycemic drugs; R00.0 Tachycardia, unspecified
CPT/HCPCS: 36415; 71045; 80053; 81001; 84484; 85025; 87040; 87086; 87186; 87637; 93005; 99284; A9270

== ENCOUNTER 2025-01-03 21:29 | Inpatient (IN) | payer OTHER, SELFPAY ==
--- NOTE | ~2025-01-03 | US_ITS ---
LIMITED ABDOMINAL ULTRASOUND INDICATION: Cholelithiasis. Elevated LFTs COMPARISON: None. FINDINGS: Liver: Echogenic with attenuation of the sound beam, consistent with fatty infiltrate Common bile duct: Normal in size. Gallbladder: The gallbladder wall is mildly thickened. There is cholelithiasis. There is trace pericholecystic fluid. The technologist describes a positive sonographic Godoy's sign. Godoy's sign: Negative Right kidney: Right kidney appears normal on the images provided. IMPRESSION: Cholelithiasis. Findings suggestive of acute cholecystitis. Reviewed, dictated and finalized at location A.
--- NOTE | ~2025-01-03 | XR_ITS ---
XR chest 1V portable INDICATION:sepsis w/u . REFERENCE: None FINDINGS: A single AP of the chest demonstrates normal heart size. Mild interstitial thickening within the lower lobes bilaterally. There is no evidence of pneumothorax or pleural effusion. IMPRESSION: Interstitial prominence in the lower lobes bilaterally. Reviewed, dictated and finalized at location S.
--- NOTE | ~2025-01-03 | CT_ITS ---
EXAMINATION: CT chest abdomen pelvis w con DATE: 01/03/2025 23:26 INDICATION: Sepsis. TECHNIQUE: Computed tomography (CT) of the chest, abdomen, and pelvis was performed with 100 mL Omnipaque 350 intravenous contrast. Automated exposure control and iterative reconstruction technique were employed. The dose-length product was 500.38 mGy-cm. COMPARISON: None FINDINGS: CHEST CT: The lungs demonstrate mild atelectasis. There are trace pleural effusions. The heart size is normal. No pericardial effusion. There is mild cervical and thoracic spondylosis. ABDOMEN/PELVIS CT: The liver and spleen are normal. There is a gallstone in the gallbladder, which is normal in size. The pancreas, adrenal glands, and kidneys are normal. The prostate is moderately enlarged. The bladder is distended. There are no dilated loops of bowel. The appendix is normal. There are no pathologically enlarged lymph nodes. There is no free intraperitoneal fluid. There is fat stranding in the pelvis, consistent with edema. There is mild lumbar spondylosis. IMPRESSION: 1. No specific etiology for the patient's symptoms. Reviewed, dictated and finalized at location E.
--- OUTSIDE RECORDS SUMMARY | 2025-01-03 21:32 | XMS_ITS | Clinical Summary ---
Author Organization 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 Gender Identity Not on file Sexual Orientation Not on file Obstetrics History Last Filed Vital Signs Vital Sign Reading Time Taken Comments Blood Pressure 148/98 03/01/2023 2:02 PM TOWER OPERATOR Pulse 76 03/01/2023 2:02 PM TOWER OPERATOR Temperature 37.1 C (98.7 F) 03/01/2023 2:02 PM TOWER OPERATOR Respiratory Rate 15 03/01/2023 2:02 PM TOWER OPERATOR Oxygen Saturation 99% 03/01/2023 2:02 PM TOWER OPERATOR Inhaled Oxygen Concentration - - Weight 81.6 kg (180 lb) 03/01/2023 2:02 PM TOWER OPERATOR Height 165.1 cm (5' 5) 03/01/2023 2:02 PM TOWER OPERATOR Body Mass Index 29.95 03/01/2023 2:02 PM TOWER OPERATOR Plan of Treatment Health Maintenance Due Date [...] to complete this topic Insurance Care Teams Sales Representative Printing Paper Relationship Specialty Start Date End Date Ajith Figueroa NP [address] [place] [address] PCP - General Nurse Practitioner 03/01/23
--- OUTSIDE RECORDS SUMMARY | 2025-01-03 21:32 | XMS_ITS | Clinical Summary ---
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
--- NOTE | 2025-01-03 21:37 | ECG_ITS ---
Test Date: 2025-01-03 22:01:25 Measurements Intervals [place] Rate: 77 P: 30 MI: 161 QRS: 19 QRSD: 101 T: 17 QT: 336 QTc: 382 Interpretive Statements SINUS RHYTHM NORMAL ECG Compared to ECG 01/01/2025 22:00:28 HEART RATE HAS DECREASED Electronically Signed On 01-04-2025 06:17:51 CDT by Bobby Ding D.O.
[2025-01-03 21:41] VITALS: BP 116/73; PULSE 84; RESP 14; TEMP 37; O2SAT 100
[2025-01-03 22:04] LABS: Add Urine Microscopic? YES; Appearance Urine Clear (Clear); Glucose Urine UA 1+ mg/dL (Negative); Leukocyte Esterase Ur 2+ LEU/UL (Negative); Nitrate Urine Negative (Negative); Non Pathogenic Casts 0-2; Specific Grav Ur 1.011 (1.001-1.035)
--- NOTE | 2025-01-03 22:44 | ED.GENADULT ---
HPI - General Adult General Chief complaint: Unspecified <Kely Diehl PA-C - Last Filed: 01/04/25 00:47> Stated complaint: Was seen 01/01-reports no improvement <Kely Diehl PA-C - Last Filed: 01/04/25 00:47> Time Seen by Provider: 01/03/25 21:36 <Kely Diehl PA-C - Last Filed: 01/04/25 00:47> Source: patient and old records reviewed <Kely Diehl PA-C - Last Filed: 01/04/25 00:47> Mode of arrival: ambulatory <NIKKI Awad Last Filed: 01/04/25 00:47> Limitations: no limitations <NIKKI Awad Last Filed: 01/04/25 00:47> History of Present Illness HPI narrative: Patient is a 54-year-old male, with PMH of DM on metformin and jardiance, who presents the ED with report of dysuria and fever. Patient is primarily Danish-speaking. [employer] professor of rhetoric was utilized for assistance with translation. Reports he has seen in the ED here 2 days ago for dysuria, fevers, general malaise. Was diagnosed with a urinary tract infection, discharged on Keflex. Reports he continues to feel very ill. Reports generalized weakness, diffuse myalgias, headache, fever last night and today, continued dysuria. Denies abdominal pain, back pain. Denies cough. Denies previous history of UTI or kidney stones. <Kely Diehl PA-C - Last Filed: 01/04/25 00:47> Related Data Home medications: Home Medications ?Medication ?Instructions ?Recorded ?Confirmed ?Last Taken ?Type losartan 50 mg tablet 50 mg PO DAILY 11/17/21 01/04/25 Unknown History metformin 1,000 mg tablet 1,000 mg PO BID 11/17/21 01/04/25 Unknown History fluticasone propionate 50 1 spray intranasal DAILY 03/16/24 01/04/25 Unknown History mcg/actuation nasal spray,suspension <NIKKI Awad Last Filed: 01/04/25 00:47> Allergies/adverse reactions: Allergies Allergy/AdvReac Type Severity Reaction Status Date / Time No Known Allergies Allergy Verified 01/04/25 03:49 <Kely Diehl PA-C - Last Filed: 01/04/25 00:47> Review of Systems Review of Systems: All systems reviewed & are unremarkable except as noted in HPI. <Kely Diehl PA-C - Last Filed: 01/04/25 00:47> All systems reviewed & are unremarkable except as noted in HPI and below <Kely Diehl PA-C - Last Filed: 01/04/25 00:47> [facility] Family History Family History: Family History (Updated 01/04/25 @ 03:52 by Vanessa Bolaños RN) Sibling Diabetes mellitus <Kely Diehl PA-C - Last Filed: 01/04/25 00:47> Social History Social History: Social History Alcohol intake: never Substance use: never Substance use type: does not use Lack of Transportation: No Lack of Food: Never True Current Housing: I Have Housing Concerned About Future Housing: No Difficulty Paying Gas/Electric Bills: YES Difficulty Paying for Meds: No Currently Unemployed: No Education: Grade School Difficulty w/ Childcare or Family Care: No Spiritual care concerns: No <Kely Diehl PA-C - Last Filed: 01/04/25 00:47> Exam Narrative: GENERAL: Mildly ill appearing, well-nourished, non-toxic, in no acute distress. HEAD: Normocephalic, atraumatic. NECK: No meningeal signs. RESPIRATORY: Airway patent, respirations nonlabored. Clear to auscultation bilaterally, no rales, rhonchi, wheezing. No significant focal lung sounds CARDIOVASCULAR: Regular rate and rhythm without murmurs, rubs, or gallops. ABDOMINAL: Soft, nontender, nondistended. Normoactive BS. MUSCULOSKELETAL: Moves all extremities. No gross deformities. SKIN: Warm, dry, normal color. NEURO: A&O X3. Speech clear. Cranial nerves II-XII grossly intact. Steady gait. No ataxic movements. No focal deficits. PSYCHIATRIC: Appropriate mood and affect. Normal interaction. <Kely Diehl PA-C - Last Filed: 01/04/25 00:47> Course UTILITY MECHANIC SUPERVISOR/PA Physician Supervision This visit was performed by both a physician and an APC. I performed all aspects of the MDM as documented. <Efrain Hernandez MD - Last Filed: 01/04/25 03:57> Vital Signs Vital signs: Vital Signs Temperature 37.0 C 01/03/25 21:41 Pulse Rate 84 01/03/25 21:41 Respiratory Rate 14 01/03/25 21:41 Blood Pressure 116/73 01/03/25 21:41 Pulse Oximetry 100 01/03/25 21:41 Oxygen Delivery Room Air 01/03/25 21:41 Temperature 36.6 C 01/04/25 02:47 Pulse Rate 89 01/04/25 02:47 Respiratory Rate 22 H 01/04/25 02:47 Blood Pressure 142/88 H 01/04/25 02:47 Pulse Oximetry 98 01/04/25 02:47 Oxygen Delivery Room Air 01/04/25 03:39 <Kely Diehl PA-C - Last Filed: 01/04/25 00:47> Vital Signs Temperature 37.0 C 01/03/25 21:41 Pulse Rate 84 01/03/25 21:41 Respiratory Rate 14 01/03/25 21:41 Blood Pressure 116/73 01/03/25 21:41 Pulse Oximetry 100 01/03/25 21:41 Oxygen Delivery Room Air 01/03/25 21:41 Temperature 36.6 C 01/04/25 02:47 Pulse Rate 89 01/04/25 02:47 Respiratory Rate 22 H 01/04/25 02:47 Blood Pressure 142/88 H 01/04/25 02:47 Pulse Oximetry 98 01/04/25 02:47 Oxygen Delivery Room Air 01/04/25 03:39 <Efrain Hernandez MD - Last Filed: 01/04/25 03:57> Medical Decision Making MDM Narrative Medical decision making narrative: Patient presented to ED with continued urinary complaints, fevers, and general malaise/weakness. Patient was seen in the ED here 2 days ago, diagnosed with urinary tract infection, started on Keflex, also diagnosed with viral syndrome. Discharged home. Per records, patient's blood cultures did result positive for gram negative bacilli. Sepsis workup initiated today. Vital signs are stable here. He is afebrile currently. 30 cc/kilogram fluid bolus ordered. Blood cultures obtained. Cefepime and vancomycin initiated for broad spectrum abx coverage. UA does still appear infectious with 2+ leuk esterase, 51-100 WBC. Sent for culture again. Previous urine culture from 2 days ago still pending. Cbc without leukocytosis. 74% neutrophil predominance. 6% bands. Stable H&H. New thrombocytopenia from 2 days ago, plt count 89. CMP with blood glucose 203. Total bilirubin 4.5. This is also new from 2 days ago. AST/ALT 70. Alk-phos 178. Lipase WNL. Hepatitis panel added on. Inflammatory markers elevated Lactic WNL Procal 28.8 CXR w/interstitial prominence in the lower lobe. No focal consolidation. CT scan of chest/abdomen/pelvis was obtained without acute abnormalities. No PNA. No surgical abnormalities. Does show evidence of cholelithiasis, no comment on cholecystitis. Will obtain right upper quadrant ultrasound in the a.m. Discussed case with GI, Dr. Khan, will consult. Discussed case with Dayana Madera, UTILITY MECHANIC SUPERVISOR hospitalist, accepted patient for admission. Patient and family in agreement with plan and need for admission. <Kely Diehl PA-C - Last Filed: 01/04/25 00:47> Medical Records Medical records reviewed: Yes I reviewed the external patient's medical records. <Kely Diehl PA-C - Last Filed: 01/04/25 00:47> Vital Signs Vital Signs: Vital Signs Temperature 37.0 C 01/03/25 21:41 Pulse Rate 84 01/03/25 21:41 Respiratory Rate 14 01/03/25 21:41 Blood Pressure 116/73 01/03/25 21:41 Pulse Oximetry 100 01/03/25 21:41 Oxygen Delivery Room Air 01/03/25 21:41 Temperature 36.6 C 01/04/25 02:47 Pulse Rate 89 01/04/25 02:47 Respiratory Rate 22 H 01/04/25 02:47 Blood Pressure 142/88 H 01/04/25 02:47 Pulse Oximetry 98 01/04/25 02:47 Oxygen Delivery Room Air 01/04/25 03:39 <Kely Diehl PA-C - Last Filed: 01/04/25 00:47> Vital Signs Temperature 37.0 C 01/03/25 21:41 Pulse Rate 84 01/03/25 21:41 Respiratory Rate 14 01/03/25 21:41 Blood Pressure 116/73 01/03/25 21:41 Pulse Oximetry 100 01/03/25 21:41 Oxygen Delivery Room Air 01/03/25 21:41 Temperature 36.6 C 01/04/25 02:47 Pulse Rate 89 01/04/25 02:47 Respiratory Rate 22 H 01/04/25 02:47 Blood Pressure 142/88 H 01/04/25 02:47 Pulse Oximetry 98 01/04/25 02:47 Oxygen Delivery Room Air 01/04/25 03:39 <Efrain Hernandez MD - Last Filed: 01/04/25 03:57> Lab Data Lab results reviewed: Yes I reviewed the patient's lab results. <Kely Diehl PA-C - Last Filed: 01/04/25 00:47> Result diagrams: 01/03/25 22:50 01/03/25 22:50 <Kely Diehl PA-C - Last Filed: 01/04/25 00:47> Labs: Lab Results 01/03/25 01/03/25 Range/Units 21:56 22:50 WBC 5.7 (4.5-10.0) K/mm3 RBC 4.58 L (4.6-6.20) M/mm3 Hgb 13.9 L (14.0-18.0) g/dL Hct 39.6 L (42.0-52.0) % MCV 86.5 (80-100) fl MCH 30.3 (26-34) pg MCHC 35.1 (32-36) g/dl RDW 12.1 (11.5-14.5) % Plt Count 89 L (150-375) k/mm3 MPV 10.6 H (7.4-10.4) fl Immature Gran % (Auto) Not Reportable Neut % (Auto) Not Reportable Lymph % (Auto) Not Reportable [place] % (Auto) Not Reportable Eos % (Auto) Not Reportable Baso % (Auto) Not Reportable Lymph # (Auto) Not Reportable [place] # (Auto) Not Reportable Eos # (Auto) Not Reportable Baso # (Auto) Not Reportable Abs Immat Gran (auto) Not Reportable Absolute Neuts (auto) Not Reportable Absolute Nucleated RBC Not Reportable Total Counted 100 Neutrophils % (Manual) 74 H (46-73) % Band Neutrophils % 6 (0-6) % Lymphocytes % (Manual) 15.0 L (18-44) % Monocytes % (Manual) 4 (3-9) % Eosinophils % (Manual) 1 (0-4) % Nucleated RBC % Not Reportable Abs Neuts (Manual) 4.56 (1.3-6.7) K/mm3 Abs Lymphs (Manual) 0.85 L (1.1-4.5) K/mm3 Abs Monocytes (Manual) 0.22 (0.1-0.90) K/mm3 Absolute Eos (Manual) 0.05 (0.02-0.50) K/mm3 Platelet Estimate Decreased (Adequate) % Immature Plt Fraction 4.3 (0.9-11.2) % Schistocytes None seen PT 16.0 H (11.1-14.7) Seconds INR 1.3 APTT 35.5 (22.3-36.8) Seconds Sodium 132 L (137-145) mmol/L Potassium 4.0 (3.4-5.0) mmol/L Chloride 102 (98-107) mmol/L Carbon Dioxide 24 (22-30) mmol/L Anion Gap 6 (4-12) mmol/L BUN 14 (9-20) mg/dL Creatinine 0.91 (0.7-1.3) mg/dL Estim Creat Clear Calc 79 ml/min Estimated GFR > 60 (59 - ) Glucose 203 H (65-110) mg/dL Lactic Acid 1.0 (0.7-2.0) mmol/L Calcium 9.2 (8.4-10.2) mg/dL Total Bilirubin 4.5 H (0.2-1.3) mg/dL Direct Bilirubin 0.7 H (0-0.3) mg/dL AST 70 H (17-59) U/L ALT 70 H (6-50) U/L Alkaline Phosphatase 178 H (38-126) U/L C-Reactive Protein 30.9 H (<1.0) mg/dL Total Protein 7.4 (6.3-8.2) g/dL Albumin 3.9 (3.5-5.1) g/dL Lipase 142 (23-300) U/L Procalcitonin 28.8 ng/mL Urine Color Dark yellow (Yellow) Urine Appearance Clear (Clear) Urine pH 6.0 (5.0-9.0) Ur Specific Lily 1.011 (1.001-1.035) Urine Protein 1+ H (Negative) mg/dL Urine Glucose (UA) 1+ H (Negative) mg/dL Urine Ketones Negative (Negative) mg/dL Ur Blood (Man) 1+ H (Negative) Urine Nitrate Negative (Negative) Urine Bilirubin Negative (Negative) Urine Urobilinogen 2.0 H (<2.0) mg/dL Leukocyte Esterase Rfl 2+ H (Negative) CHRISTINA/UL Urine RBC 0-2 (0-2) /hpf Urine WBC 51-100 H (0-3) /hpf Ur Squamous Epith Cells None seen (Few) /hpf Urine Bacteria None seen /hpf Urine Casts 0-2 Hepatitis A IgM Ab Negative (Negative) Hep Bs Antigen Negative (Negative) Hep B Core IgM Ab Negative (Negative) Hepatitis C Ab Screen Negative (Negative) <Kely Diehl PA-C - Last Filed: 01/04/25 00:47> Lab Results 01/03/25 01/03/25 Range/Units 21:56 22:50 WBC 5.7 (4.5-10.0) K/mm3 RBC 4.58 L (4.6-6.20) M/mm3 Hgb 13.9 L (14.0-18.0) g/dL Hct 39.6 L (42.0-52.0) % MCV 86.5 (80-100) fl MCH 30.3 (26-34) pg MCHC 35.1 (32-36) g/dl RDW 12.1 (11.5-14.5) % Plt Count 89 L (150-375) k/mm3 MPV 10.6 H (7.4-10.4) fl Immature Gran % (Auto) Not Reportable Neut % (Auto) Not Reportable Lymph % (Auto) Not Reportable [place] % (Auto) Not Reportable Eos % (Auto) Not Reportable Baso % (Auto) Not Reportable Lymph # (Auto) Not Reportable [place] # (Auto) Not Reportable Eos # (Auto) Not Reportable Baso # (Auto) Not Reportable Abs Immat Gran (auto) Not Reportable Absolute Neuts (auto) Not Reportable Absolute Nucleated RBC Not Reportable Total Counted 100 Neutrophils % (Manual) 74 H (46-73) % Band Neutrophils % 6 (0-6) % Lymphocytes % (Manual) 15.0 L (18-44) % Monocytes % (Manual) 4 (3-9) % Eosinophils % (Manual) 1 (0-4) % Nucleated RBC % Not Reportable Abs Neuts (Manual) 4.56 (1.3-6.7) K/mm3 Abs Lymphs (Manual) 0.85 L (1.1-4.5) K/mm3 Abs Monocytes (Manual) 0.22 (0.1-0.90) K/mm3 Absolute Eos (Manual) 0.05 (0.02-0.50) K/mm3 Platelet Estimate Decreased (Adequate) % Immature Plt Fraction 4.3 (0.9-11.2) % Schistocytes None seen PT 16.0 H (11.1-14.7) Seconds INR 1.3 APTT 35.5 (22.3-36.8) Seconds Sodium 132 L (137-145) mmol/L Potassium 4.0 (3.4-5.0) mmol/L Chloride 102 (98-107) mmol/L Carbon Dioxide 24 (22-30) mmol/L Anion Gap 6 (4-12) mmol/L BUN 14 (9-20) mg/dL Creatinine 0.91 (0.7-1.3) mg/dL Estim Creat Clear Calc 79 ml/min Estimated GFR > 60 (59 - ) Glucose 203 H (65-110) mg/dL Lactic Acid 1.0 (0.7-2.0) mmol/L Calcium 9.2 (8.4-10.2) mg/dL Total Bilirubin 4.5 H (0.2-1.3) mg/dL Direct Bilirubin 0.7 H (0-0.3) mg/dL AST 70 H (17-59) U/L ALT 70 H (6-50) U/L Alkaline Phosphatase 178 H (38-126) U/L C-Reactive Protein 30.9 H (<1.0) mg/dL Total Protein 7.4 (6.3-8.2) g/dL Albumin 3.9 (3.5-5.1) g/dL Lipase 142 (23-300) U/L Procalcitonin 28.8 ng/mL Urine Color Dark yellow (Yellow) Urine Appearance Clear (Clear) Urine pH 6.0 (5.0-9.0) Ur Specific Lily 1.011 (1.001-1.035) Urine Protein 1+ H (Negative) mg/dL Urine Glucose (UA) 1+ H (Negative) mg/dL Urine Ketones Negative (Negative) mg/dL Ur Blood (Man) 1+ H (Negative) Urine Nitrate Negative (Negative) Urine Bilirubin Negative (Negative) Urine Urobilinogen 2.0 H (<2.0) mg/dL Leukocyte Esterase Rfl 2+ H (Negative) CHRISTINA/UL Urine RBC 0-2 (0-2) /hpf Urine WBC 51-100 H (0-3) /hpf Ur Squamous Epith Cells None seen (Few) /hpf Urine Bacteria None seen /hpf Urine Casts 0-2 Hepatitis A IgM Ab Negative (Negative) Hep Bs Antigen Negative (Negative) Hep B Core IgM Ab Negative (Negative) Hepatitis C Ab Screen Negative (Negative) <Efrain Hernandez MD - Last Filed: 01/04/25 03:57> Imaging Data Attestation: I personally reviewed and interpreted this imaging study as follows: <Kely Diehl PA-C - Last Filed: 01/04/25 00:47> Radiologist's impression: STAT RAD CT chest/abd/pelvis: No pneumonia. Lungs are clear. No pleural effusions. Cardiovascular structures are unremarkable. Osseous structures are intact. Degenerative changes of the spine. Cholelithiasis. No other acute findings within the abdomen/pelvis. <Kely Diehl PA-C - Last Filed: 01/04/25 00:47> ECG Data EKG #1: Attestation: I personally reviewed and interpreted this ECG as follows: <Kely Diehl PA-C - Last Filed: 01/04/25 00:47> ECG completion date: 01/03/25 <Kely Diehl PA-C - Last Filed: 01/04/25 00:47> ECG completion time: 22:01 <Kely Diehl PA-C - Last Filed: 01/04/25 00:47> EKG Interpretation: normal rate (77), sinus rhythm and no ST changes <Kely Diehl PA-C - Last Filed: 01/04/25 00:47> Critical Care Time Critical Care Time Critical Care Time: Yes <Efrain Hernandez MD - Last Filed: 01/04/25 03:57> Total Critical Care Time: 75 <Efrain Hernandez MD - Last Filed: 01/04/25 03:57> Discharge Plan Discharge Clinical Impression: Bacteremia due to Gram-negative bacteria, UTI (urinary tract infection), Hyperbilirubinemia, Transaminitis, Thrombocytopenia, Cholelithiasis <Kely Diehl PA-C - Last Filed: 01/04/25 00:47> Patient Disposition: Still a Patient <NIKKI Awad Last Filed: 01/04/25 00:47> Condition: Serious <NIKKI Awad Last Filed: 01/04/25 00:47>
[2025-01-03 22:56] VITALS: BP 123/79; PULSE 83; RESP 20; TEMP 36.7; O2SAT 98
[2025-01-03 22:58] VITALS: BP 123/79; PULSE 82; RESP 26; O2SAT 100
[2025-01-03 22:59] LABS: Hematocrit 39.6 % (42.0-52.0); Hemoglobin 13.9 g/dL (14.0-18.0); Immature Platelet Fraction Pct 4.3 % (0.9-11.2); Mean Corpuscular HGB Conc 35.1 g/dl (32-36); Mean Corpuscular Hemoglobin 30.3 pg (26-34); Mean Corpuscular Volume 86.5 fl (80-100); Red Blood Count 4.58 M/mm3 (4.6-6.20); White Blood Count 5.7 K/mm3 (4.5-10.0)
[2025-01-03 23:01] VITALS: BP 127/76; PULSE 80; RESP 32; O2SAT 98
[2025-01-03 23:06] LABS: INR 1.3; Prothrombin Time 16.0 Seconds (11.1-14.7)
[2025-01-03] MEDS: CEFEPIME 2 GM in SODIUM CHLORIDE 0.9% IV 50 ML 100 ML IVPB (23:06)
[2025-01-03] MEDS: SODIUM CHLORIDE 0.9% IV 1,000 ML 999 ML IV CONT ×2 (23:06→23:41)
[2025-01-03 23:07] LABS: Partial Thromboplastin Time 35.5 Seconds (22.3-36.8)
[2025-01-03 23:11] LABS: Alanine Aminotransferase 70 U/L (6-50); Albumin Level 3.9 g/dL (3.5-5.1); Alkaline Phosphatase 178 U/L (38-126); Anion Gap 6 mmol/L (4-12); Aspartate Amino Transferase 70 U/L (17-59); Bilirubin,Total 4.5 mg/dL (0.2-1.3); Blood Urea Nitrogen 14 mg/dL (9-20); Calcium 9.2 mg/dL (8.4-10.2); Carbon Dioxide 24 mmol/L (22-30); Chloride 102 mmol/L (98-107); Estimated CRCL calculation 79 ml/min; Estimated Glomerular Filt Rate > 60; Glucose 203 mg/dL (65-110); Potassium 4.0 mmol/L (3.4-5.0); Sodium 132 mmol/L (137-145); Total Protein 7.4 g/dL (6.3-8.2)
[2025-01-03 23:14] LABS: Platelet Count Result 89 k/mm3 (150-375)
[2025-01-03 23:21] LABS: Band Neutrophils Percent 6 % (0-6); Eosinophils Absolute Manual 0.05 K/mm3 (0.02-0.50); Eosinophils Percent Manual 1 % (0-4); Lymphocytes Absolute Manual 0.85 K/mm3 (1.1-4.5); Lymphocytes Percent Manual 15.0 % (18-44); Monocytes Absolute Manual 0.22 K/mm3 (0.1-0.90); Monocytes Percent Manual 4 % (3-9); Neutrophils Absolute Manual 4.56 K/mm3 (1.3-6.7); Neutrophils Percent Manual 74 % (46-73); Schistocytes None Seen; Total Cells Counted 100
[2025-01-03 23:42] LABS: CRP 30.9 mg/dL (<1.0)
[2025-01-03] MEDS: VANCOMYCIN 2,000 MG/NS 500 ML 2,000 MG/500 ML BAG 250 MG IVPB (23:44)
[2025-01-03 23:45] VITALS: BP 112/71; PULSE 78; RESP 27; O2SAT 100
[2025-01-03] MEDS: ACETAMINOPHEN 500 MG TABLET 1000 MG PO (23:59)
[2025-01-04] VITALS (15 sets, daily range): BP systolic 117–153; BP diastolic 71–88; PULSE 73–99; RESP 16–26; TEMP 36.4–38; O2SAT 95–100; BMI 29.9
[2025-01-04 00:13] LABS: Procalcitonin 28.8 ng/mL
[2025-01-04 00:23] LABS: Lipase 142 U/L (23-300)
[2025-01-04 00:33] LABS: Hepatitis B Surface Antigen Negative (Negative)
[2025-01-04 00:38] LABS: HAV RESULT Negative (Negative); Hepatitis B Core IgM Result Negative (Negative)
[2025-01-04] MEDS: SODIUM CHLORIDE 0.9% IV 500 ML 999 ML IV CONT (01:05)
[2025-01-04] MEDS: SODIUM CHLORIDE 0.9% IV 1,000 ML 125 ML IV CONT ×3 (02:50→22:16)
--- NOTE | 2025-01-04 02:50 | ADMGEN ---
This patient, Efrain Gonzalez, was admitted to Medical Room 244-. Patient/family oriented to hospital policies and general routines including ID bracelet, bed and alarms, visiting hours, pain management, procedures, bathroom and other care routines, personal items, smoking policy, room service/diet, and visiting hours. Information on how to activate the Rapid Response Team has been discussed. Patient/Family are encouraged to report perceived risks to care and to ask questions if they do not understand what they are told or what they should do.
[2025-01-04 05:17] LABS: Hematocrit 35.5 % (42.0-52.0); Hemoglobin 12.4 g/dL (14.0-18.0); Immature Platelet Fraction Pct 4.4 % (0.9-11.2); Mean Corpuscular HGB Conc 34.9 g/dl (32-36); Mean Corpuscular Hemoglobin 30.5 pg (26-34); Mean Corpuscular Volume 87.2 fl (80-100); Red Blood Count 4.07 M/mm3 (4.6-6.20); White Blood Count 5.5 K/mm3 (4.5-10.0)
[2025-01-04 05:26] LABS: Anion Gap 7 mmol/L (4-12); Blood Urea Nitrogen 12 mg/dL (9-20); Calcium 8.1 mg/dL (8.4-10.2); Carbon Dioxide 21 mmol/L (22-30); Chloride 109 mmol/L (98-107); Estimated CRCL calculation 84 ml/min; Estimated Glomerular Filt Rate > 60; Glucose 201 mg/dL (65-110); Potassium 3.9 mmol/L (3.4-5.0); Sodium 137 mmol/L (137-145)
[2025-01-04 05:36] LABS: Hemoglobin A1C 7.1 % (<5.7)
[2025-01-04 05:45] LABS: Band Neutrophils Percent 3 % (0-6); Basophils Absolute Manual 0.05 K/mm3 (0.0-0.1); Basophils Percent Manual 1 % (0-1); Burr Cells 1+; Eosinophils Absolute Manual 0.05 K/mm3 (0.02-0.50); Eosinophils Percent Manual 1 % (0-4); Lymphocytes Absolute Manual 0.22 K/mm3 (1.1-4.5); Lymphocytes Percent Manual 4.0 % (18-44); Monocytes Absolute Manual 0.16 K/mm3 (0.1-0.90); Monocytes Percent Manual 3 % (3-9); Neutrophils Absolute Manual 5.00 K/mm3 (1.3-6.7); Neutrophils Percent Manual 88 % (46-73); Schistocytes None Seen; Smudge Cells PRESENT; Total Cells Counted 100
[2025-01-04 05:46] LABS: Platelet Count Result 81 k/mm3 (150-375)
[2025-01-04] MEDS: CEFEPIME 2 GM in SODIUM CHLORIDE 0.9% IV 50 ML 100 ML IVPB ×3 (06:02→22:12)
[2025-01-04] MEDS: INSULIN ASPART (*BKC) 100 UNITS/ML SUB-Q (06:04)
--- NOTE | 2025-01-04 08:04 | PM.IMHP ---
H&P: HPI History of Present Illness Date/Time: 01/04/25 08:04 Chief Complaint: Fever Narrative: This is 54-year-old male who presents to the ED with complaints of dysuria and fever. Primarily Amharic-speaking. He was seen in the ED 2 days ago for dysuria fever and generalized malaise. Was diagnosed with UTI and was discharged on Keflex. Patient continued to feel very weak ill with generalized weakness diffuse myalgia headache fever and continued dysuria and hence presented back to the ED. In the ED he was afebrile vitals were unremarkable. His blood culture from ED did come back positive for Gram-negative bacilli. He received IV fluid bolus blood cultures were reobtained. He was started on vancomycin and cefepime. Laboratory workup showed WBC of 5.7 hemoglobin of 13.9 platelet count of 89. Chem panel showed sodium 132 potassium 4 chloride 102 bicarbonate 24 BUN 14 creatinine 0.9 blood glucose of 203. INR 1.3 PTT of 35.5 lactic acid was 1. LFTs showed total bilirubin of 4.5 direct bilirubin of 0.7 suggesting predominantly indirect hyperbilirubinemia. AST of 70 ALT 70 alkaline phosphatase of 178. C-reactive protein was 30.9 lipase is normal at 142 procalcitonin 28.8. Urinalysis showed 51-100 urine WBC. Hepatitis panel was negative for a B and C. CT chest abdomen pelvis was obtained which showed lungs clear with no pleural effusion degenerate changes of the spine cholelithiasis with no acute findings in the abdomen and pelvis. EKG showed normal rhythm with no acute ST-T changes. He is admitted in this setting for further treatment. Review of Systems Review of Systems: - CONSTITUTIONAL: Denies weight loss, reports fever and chills. - HEENT: Denies changes in vision and hearing - RESPIRATORY: Denies SOB and cough. - CV: Denies palpitations and CP. - GI: Denies abdominal pain, nausea, vomiting and diarrhea. - : Reports dysuria and urinary frequency. - MSK: Denies myalgia and joint pain. - SKIN: Denies rash and pruritus. - NEUROLOGICAL: Denies headache and syncope. - PSYCHIATRIC: Denies recent changes in mood. Denies anxiety and depression. [facility] Family History Family History (Updated 01/04/25 @ 03:52 by Vanessa Bolaños RN) Sibling Diabetes mellitus Social History Social History Smoking status: Never smoker Alcohol intake: never Substance use: never Substance use type: does not use Lack of Transportation: No Lack of Food: Never True Current Housing: I Have Housing Concerned About Future Housing: No Difficulty Paying Gas/Electric Bills: YES Difficulty Paying for Meds: No Currently Unemployed: No Education: Grade School Difficulty w/ Childcare or Family Care: No Spiritual care concerns: No Meds Home Medications and Allergies Home Medications ?Medication ?Instructions ?Recorded ?Confirmed ?Type losartan 50 mg tablet 50 mg PO DAILY 11/17/21 01/04/25 History metformin 1,000 mg tablet 1,000 mg PO BID 11/17/21 01/04/25 History fluticasone propionate 50 1 spray intranasal DAILY 03/16/24 01/04/25 History mcg/actuation nasal spray,suspension cephalexin 500 mg capsule 500 mg PO Q12H 7 days #14 caps 01/01/25 01/04/25 Rx Allergies Allergy/AdvReac Type Severity Reaction Status Date / Time No Known Allergies Allergy Verified 01/04/25 03:49 Vital Signs Vital Signs - 24 hr 01/03/25 21:41 01/03/25 22:56 01/03/25 22:58 Temperature 98.6 F 98.1 F Pulse Rate 84 83 82 Respiratory Rate 14 20 26 H Blood Pressure 116/73 123/79 123/79 Pulse Oximetry 100 98 100 Oxygen Delivery Room Air Fraction of Inspired Oxygen 01/03/25 23:01 01/03/25 23:45 01/04/25 01:02 Temperature Pulse Rate 80 78 82 Respiratory Rate 32 H 27 H 16 Blood Pressure 127/76 112/71 117/72 Pulse Oximetry 98 100 100 Oxygen Delivery Fraction of Inspired Oxygen 01/04/25 02:47 01/04/25 03:05 01/04/25 03:39 Temperature 98 F Pulse Rate 89 92 Respiratory Rate 22 H Blood Pressure 142/88 H Pulse Oximetry 98 Oxygen Delivery Room Air Fraction of Inspired Oxygen 01/04/25 04:00 01/04/25 05:03 01/04/25 05:03 Temperature Pulse Rate 96 87 87 Respiratory Rate Blood Pressure Pulse Oximetry 95 95 Oxygen Delivery Autopap Autopap Fraction of Inspired Oxygen 21 01/04/25 05:30 Temperature 98.2 F Pulse Rate 73 Respiratory Rate 18 Blood Pressure 142/71 H Pulse Oximetry 100 Oxygen Delivery Fraction of Inspired Oxygen Exam Narrative: GENERAL: The patient is well developed, not in acute distress HEENT: Nonicteric sclerae, PERRLA, EOMI. Oropharynx clear. Moist mucous membranes. Conjunctivae appear well perfused. CHEST: Chest wall is nontender. HEART: Regular rate and rhythm without murmur, rubs, or gallops LUNGS: Clear to auscultation bilaterally. no respiratory distress ABDOMEN: Soft, positive bowel sounds, non-tender, no organomegaly. SKIN: No rash, no excessive bruising, petechiae, or purpura. NEUROLOGIC: Cranial nerves II-XII intact, alert and oriented x 3, no gross motor deficits EXTREMITIES: no edema, cyanosis or clubbing H&P: Results Labs Labs: Short CBC 01/03/25 01/04/25 Range/Units 22:50 04:35 WBC 5.7 5.5 (4.5-10.0) K/mm3 Hgb 13.9 L 12.4 L (14.0-18.0) g/dL Hct 39.6 L 35.5 L (42.0-52.0) % Plt Count 89 L 81 L (150-375) k/mm3 BMP 01/03/25 01/04/25 22:50 04:35 Sodium 132 L 137 Potassium 4.0 3.9 Chloride 102 109 H Carbon Dioxide 24 21 L BUN 14 12 Creatinine 0.91 0.85 Glucose 203 H 201 H Calcium 9.2 8.1 L Liver Function 01/03/25 Range/Units 22:50 Total Bilirubin 4.5 H (0.2-1.3) mg/dL Direct Bilirubin 0.7 H (0-0.3) mg/dL AST 70 H (17-59) U/L ALT 70 H (6-50) U/L Alkaline Phosphatase 178 H (38-126) U/L Albumin 3.9 (3.5-5.1) g/dL Urine 01/03/25 Range/Units 21:56 Urine Color Dark yellow (Yellow) Urine Appearance Clear (Clear) Urine pH 6.0 (5.0-9.0) Ur Specific [place] 1.011 (1.001-1.035) Urine Protein 1+ H (Negative) mg/dL Urine Glucose (UA) 1+ H (Negative) mg/dL Assessment and Plan Assessment and plan (1) Thrombocytopenia: Code(s): D69.6 - Thrombocytopenia, unspecified Status: Acute (2) Hyperbilirubinemia: Code(s): E80.6 - Other disorders of bilirubin metabolism Status: Acute (3) Transaminitis: Code(s): R74.01 - Elevation of levels of liver transaminase levels Status: Acute (4) Cholelithiasis: Code(s): K80.20 - Calculus of gallbladder without cholecystitis without obstruction Status: Acute (5) UTI (urinary tract infection): Qualifiers: Hematuria presence: without hematuria Urinary tract infection type: acute cystitis Qualified Code(s): N30.00 - Acute cystitis without hematuria Code(s): N39.0 - Urinary tract infection, site not specified Status: Acute (6) Bacteremia due to Gram-negative bacteria: Code(s): R78.81 - Bacteremia Status: Acute (7) Sepsis: Code(s): A41.9 - Sepsis, unspecified organism Status: Acute Plan This is 54-year-old male who presents to the ED with complaints of dysuria and fever. Primarily Amharic-speaking. He was seen in the ED 2 days ago for dysuria fever and generalized malaise. Was diagnosed with UTI and was discharged on Keflex. Patient continued to feel very weak ill with generalized weakness diffuse myalgia headache fever and continued dysuria and hence presented back to the ED. In the ED he was afebrile vitals were unremarkable. His blood culture from ED did come back positive for Gram-negative bacilli. He received IV fluid bolus blood cultures were reobtained. He was started on vancomycin and cefepime. Laboratory workup showed WBC of 5.7 hemoglobin of 13.9 platelet count of 89. Chem panel showed sodium 132 potassium 4 chloride 102 bicarbonate 24 BUN 14 creatinine 0.9 blood glucose of 203. INR 1.3 PTT of 35.5 lactic acid was 1. LFTs showed total bilirubin of 4.5 direct bilirubin of 0.7 suggesting predominantly indirect hyperbilirubinemia. AST of 70 ALT 70 alkaline phosphatase of 178. C-reactive protein was 30.9 lipase is normal at 142 procalcitonin 28.8. Urinalysis showed 51-100 urine WBC. Hepatitis panel was negative for a B and C. CT chest abdomen pelvis was obtained which showed mild atelectasis with trace pleural effusion no pericardial effusion normal liver and spleen. A gallstone in gallbladder which is normal in size. Bladder is distended no dilated loops of bowel no pathology coli enlarged lymph nodes. No free intraperitoneal fluid. Fat stranding in the pelvis consistent with edema. Mild cervical and thoracic and lumbar spondylosis EKG showed normal rhythm with no acute ST-T changes. He is admitted in this setting for further treatment. Sepsis with bacteremia likely source UTI normal WBC count however neutrophilia noted. Elevated procalcitonin and CRP Thrombocytopenia likely due to sepsis as well. Continue to monitor. Check DIC panel Hyperbilirubinemia predominantly indirect. Likely hemolytic. Will check [place] panel likely due to underlying sepsis and bacteremia Elevated liver enzymes hepatitis panel is negative. Recent influenza COVID and RSV swab was negative Type 2 diabetes hemoglobin A1c 7.1 Hospitalist [facility] Advance Care Plan I have confirmed that the patient's Advanced Care Plan is present, code status is documented, or surrogate decision maker is listed in patient medical record.: Yes Medication Reconciliation I have utilized all available resources to obtain, update and review the patients current medications (includes all prescriptions, OTC, herbals, cannabis, and nutritional supplements).: Yes
--- NOTE | 2025-01-04 08:48 | WPDGICN ---
Assessment and Plan Assessment and plan (1) Elevated LFTs: Code(s): R79.89 - Other specified abnormal findings of blood chemistry <Anjelicajuan Brandt APRN - Last Filed: 01/07/25 12:17> Status: Acute <Anjelica MehtaJef Brandt APRN - Last Filed: 01/07/25 12:17> Assessment and Plan: most likely this is from sepsis/bacteremia, also noted predominantly elevated indirect bilirubin- does not seem biliary source, pending ultrasound continue with supportive care in the form of antibiotic, fluids, etc will start diet <Omar Ch MD - Last Filed: 01/04/25 15:33> (2) Hyperbilirubinemia: Code(s): E80.6 - Other disorders of bilirubin metabolism <Anjelica Brandt APRN - Last Filed: 01/07/25 12:17> Status: Acute <Anjelica Brandt APRN - Last Filed: 01/07/25 12:17> Assessment and Plan: trend labs and monitor <Omar Ch MD - Last Filed: 01/04/25 15:33> (3) Thrombocytopenia: Code(s): D69.6 - Thrombocytopenia, unspecified <Anjelica Brandt APRN - Last Filed: 01/07/25 12:17> Status: Acute <Anjelicajuan Brandt APRN - Last Filed: 01/07/25 12:17> Assessment and Plan: could be response from sepsis, trend labs no history of cirrhosis of previous thrombocytopenia <Omar Ch MD - Last Filed: 01/04/25 15:33> (4) UTI (urinary tract infection): Qualifiers: Hematuria presence: without hematuria Urinary tract infection type: acute cystitis Qualified Code(s): N30.00 - Acute cystitis without hematuria <Anjelica Brandt APRN - Last Filed: 01/07/25 12:17> Code(s): N39.0 - Urinary tract infection, site not specified <Anjelica Brandt APRN - Last Filed: 01/07/25 12:17> Status: Acute <Anjelica Brandt APRN - Last Filed: 01/07/25 12:17> (5) Bacteremia due to Gram-negative bacteria: Code(s): R78.81 - Bacteremia <Anjelica Brandt APRN - Last Filed: 01/07/25 12:17> Status: Acute <Anjelica Brandt APRN - Last Filed: 01/07/25 12:17> Assessment and Plan: iv antibiotics <Omar Ch MD - Last Filed: 01/04/25 15:33> Assessment and Plan: 1. Elevated LFT's/thrombocytopenia/hyperbilirubinemia/sepsis/UTI: Patient was seen at [place] [facility] 01/01 at which time he was diagnosed with an acute UTI and started on Keflex. Patient then presented back to the emergency room yesterday with complaints of dysuria and fever. Patient was admitted for sepsis with bacteremia and elevated LFTs. On 01/01 labs showed WBC 6 0.3, HGB 14, HCT 39, total bilirubin 1.5, AST 31, ALT 31, alkaline phosphatase 84. LFT's have increased since then to total bilirubin 4.5, direct bilirubin 0.7, AST 70, ALT 70, alkaline phosphatase 178, albumin 3.9, INR 1.3, CRP 30.9, lipase 142. CT chest/abdomen/pelvis w/contrast done today showed no acute findings especially no mention of biliary obstruction, biliary ductal dilation but he was noted to have a gallstone in the gallbladder. Hepatitis panel was negative. Etiology likely multifactorial including sepsis, DILI secondary to Keflex, drug induced thrombocytopenia vs secondary to sepsis, possible underlying Gilbert's exacerbated by illness and possible biliary obstruction or cholelithiasis. RUQ ultrasound pending Repeat LFT's ordered including INR Consider alternative antibiotic to Vancomycin which could cause further LFT elevation and possibly worsening thrombocytopenia Thank you very much for allowing me to share in the care of this very nice patient. This report may have been done utilizing a voice recognition system. Attempts have been made to correct errors. However, there may be uncorrected grammatical, spelling, and recognition errors present. <Anjelica Brandt APRN - Last Filed: 01/07/25 12:17> GI Consult Note Consult date/time: 01/04/25 08:48 <Anjelica Brandt APRN - Last Filed: 01/07/25 12:17> Reason for consult: Sepsis, hyperbilirubinemia and cholelithiasis <Anjelica Brandt APRN - Last Filed: 01/07/25 12:17> HPI: Efrain Gonzalez is a 54 year old male Patient was seen at [place] [facility] 01/01/2025 with complaints of weakness and flu-like symptoms, patient was diagnosed with an acute UTI and started on a course of Keflex. He presented back to the ER for dysuria and fever. GI has been consulted for sepsis, elevated bilirubin and cholelithiasis?. ENDOSCOPY HISTORY: No known prior Hx of EGD or colonoscopy LABS AND STOOL STUDIES: Labs 01/04/2025: Sodium 137, potassium 3.9, BUN 12, creatinine 0.85, GFR >60, calcium 8.1, A1c 7.1 WBC 6, Hgb 12, Hct 36, MCV 87, platelets 81 Labs 01/03/2025: Sodium 132, potassium 4.0, BUN 14, creatinine 0.91, GFR >60, calcium 9.2 WBC 6, Hgb 14, Hct 40, MCV 87, platelets 89, INR 1.3 Total bilirubin 4.5, direct bilirubin 0.7, AST 70, ALT 70, Alkaline Phos 178, albumin 3.9 CRP 30.9, lipase 142, procalcitonin 28.8 Hepatitis panel negative Labs 01/01/2025: WBC 6, Hgb 14, Hct 39, MCV 87, platelets 165 Sodium 137, potassium 3.6, BUN 14, creatinine 1.17, GFR >60, calcium 9.2 Total bilirubin 1.5, AST 31, ALT 31, Alkaline Phos 84, albumin 4.2 IMAGING: CT chest/abd/pelvis w/contrast 01/04/2025: FINDINGS: CHEST CT: The lungs demonstrate mild atelectasis. There are trace pleural effusions. The heart size is normal. No pericardial effusion. There is mild cervical and thoracic spondylosis. ABDOMEN/PELVIS CT: The liver and spleen are normal. There is a gallstone in the gallbladder, which is normal in size. The pancreas, adrenal glands, and kidneys are normal. The prostate is moderately enlarged. The bladder is distended. There are no dilated loops of bowel. The appendix is normal. There are no pathologically enlarged lymph nodes. There is no free intraperitoneal fluid. There is fat stranding in the pelvis, consistent with edema. There is mild lumbar spondylosis. IMPRESSION: 1. No specific etiology for the patient's symptoms. <Anjelica Brandt, SENIOR DRAFTER - Last Filed: 01/07/25 12:17> Efrain Gonzalez is a 54 year old male Patient was seen at [place] [facility] 01/01/2025 with complaints of weakness and flu-like symptoms, patient was diagnosed with an acute UTI and started on a course of Keflex. He presented back to the ER for dysuria and fever. GI has been consulted for sepsis, elevated bilirubin. He denies history of liver disease, no alcohol use. After he went home with oral antibiotic did not get any better actually more malaise, persistent fever, dysuria and lack of appetite. Denies any abdominal pain, no emesis. He came back to ER, this time blood cultures from recent visit showed GN bacteremia and admitted to hospital for iv abx, also noted new onset of elevated bili 3 (predominant indirect), also new thrombocytopenia. CT scan showed cholelithiasis with normal bile duct size. ENDOSCOPY HISTORY: No known prior Hx of EGD or colonoscopy LABS AND STOOL STUDIES: Labs 01/04/2025: Sodium 137, potassium 3.9, BUN 12, creatinine 0.85, GFR >60, calcium 8.1, A1c 7.1 WBC 6, Hgb 12, Hct 36, MCV 87, platelets 81 Labs 01/03/2025: Sodium 132, potassium 4.0, BUN 14, creatinine 0.91, GFR >60, calcium 9.2 WBC 6, Hgb 14, Hct 40, MCV 87, platelets 89, INR 1.3 Total bilirubin 4.5, direct bilirubin 0.7, AST 70, ALT 70, Alkaline Phos 178, albumin 3.9 CRP 30.9, lipase 142, procalcitonin 28.8 Hepatitis panel negative Labs 01/01/2025: WBC 6, Hgb 14, Hct 39, MCV 87, platelets 165 Sodium 137, potassium 3.6, BUN 14, creatinine 1.17, GFR >60, calcium 9.2 Total bilirubin 1.5, AST 31, ALT 31, Alkaline Phos 84, albumin 4.2 IMAGING: CT chest/abd/pelvis w/contrast 01/04/2025: FINDINGS: CHEST CT: The lungs demonstrate mild atelectasis. There are trace pleural effusions. The heart size is normal. No pericardial effusion. There is mild cervical and thoracic spondylosis. ABDOMEN/PELVIS CT: The liver and spleen are normal. There is a gallstone in the gallbladder, which is normal in size. The pancreas, adrenal glands, and kidneys are normal. The prostate is moderately enlarged. The bladder is distended. There are no dilated loops of bowel. The appendix is normal. There are no pathologically enlarged lymph nodes. There is no free intraperitoneal fluid. There is fat stranding in the pelvis, consistent with edema. There is mild lumbar spondylosis. IMPRESSION: 1. No specific etiology for the patient's symptoms. <Omar Ch MD - Last Filed: 01/04/25 15:33> Review of Systems Constitutional: Constitutional: Reports chills and Reports fatigue <Omar Ch MD - Last Filed: 01/04/25 15:33> Comments: fever <Omar Ch MD - Last Filed: 01/04/25 15:33> Eyes: Eyes: Denies blurry vision <Omar Ch MD - Last Filed: 01/04/25 15:33> ENT: Reports Normal hearing present <Omar Ch MD - Last Filed: 01/04/25 15:33> Cardiovascular: Cardiovascular: Denies chest pain <Omar Ch MD - Last Filed: 01/04/25 15:33> Respiratory: Respiratory: Denies cough <Omar Ch MD - Last Filed: 01/04/25 15:33> Gastrointestinal: Gastrointestinal: Denies abdominal pain <Omar Ch MD - Last Filed: 01/04/25 15:33> Genitourinary: Genitourinary: Reports dysuria and Reports urinary frequency <Omar Ch MD - Last Filed: 01/04/25 15:33> Musculoskeletal: Musculoskeletal: Denies neck pain <Omar Ch MD - Last Filed: 01/04/25 15:33> Integumentary/Breasts: Skin/Breast: Denies rash <Omar Ch MD - Last Filed: 01/04/25 15:33> Neurologic: Denies Abnormal speech present <Omar Ch MD - Last Filed: 01/04/25 15:33> Psychiatric: Psychiatric: Denies behavioral changes <Omar Ch MD - Last Filed: 01/04/25 15:33> [facility] Past Medical History Medical History: Medical History (Updated 01/06/25 @ 12:20 by Colten Reina MD) Diabetes Essential hypertension <Anjelica Brandt APRN - Last Filed: 01/07/25 12:17> Family History Family History: Family History Sibling Diabetes mellitus <Anjelica Brandt APRN - Last Filed: 01/07/25 12:17> Social History Social History: Social History Smoking status: Never smoker Alcohol intake: never Substance use: never Substance use type: does not use Lack of Transportation: No Lack of Food: Never True Current Housing: I Have Housing Concerned About Future Housing: No Difficulty Paying Gas/Electric Bills: YES Difficulty Paying for Meds: No Currently Unemployed: No Education: Grade School Difficulty w/ Childcare or Family Care: No Spiritual care concerns: No <Anjelica Brandt APRN - Last Filed: 01/07/25 12:17> Meds Home Medications and Allergies Home medications: Home Medications ?Medication ?Instructions ?Recorded ?Confirmed ?Type losartan 50 mg tablet 50 mg PO DAILY 11/17/21 01/04/25 History metformin 1,000 mg tablet 1,000 mg PO BID 11/17/21 01/04/25 History fluticasone propionate 50 1 spray intranasal DAILY 03/16/24 01/04/25 History mcg/actuation nasal spray,suspension finasteride 5 mg tablet (Proscar) 5 mg PO QAM #30 tabs 01/06/25 Rx levofloxacin 500 mg tablet 500 mg PO DAILY #30 tabs 01/06/25 Rx <Anjelica Brandt APRN - Last Filed: 01/07/25 12:17> Allergies/Adverse reactions: Allergies Allergy/AdvReac Type Severity Reaction Status Date / Time No Known Allergies Allergy Verified 01/04/25 03:49 <Anjelica Brandt APRN - Last Filed: 01/07/25 12:17> Vital Signs Vital Signs - 24 hr 01/03/25 21:41 01/03/25 22:56 01/03/25 22:58 Temperature 98.6 F 98.1 F Pulse Rate 84 83 82 Respiratory Rate 14 20 26 H Blood Pressure 116/73 123/79 123/79 Pulse Oximetry 100 98 100 Oxygen Delivery Room Air Fraction of Inspired Oxygen 01/03/25 23:01 01/03/25 23:45 01/04/25 01:02 Temperature Pulse Rate 80 78 82 Respiratory Rate 32 H 27 H 16 Blood Pressure 127/76 112/71 117/72 Pulse Oximetry 98 100 100 Oxygen Delivery Fraction of Inspired Oxygen 01/04/25 02:47 01/04/25 03:05 01/04/25 03:39 Temperature 98 F Pulse Rate 89 92 Respiratory Rate 22 H Blood Pressure 142/88 H Pulse Oximetry 98 Oxygen Delivery Room Air Fraction of Inspired Oxygen 01/04/25 04:00 01/04/25 05:03 01/04/25 05:03 Temperature Pulse Rate 96 87 87 Respiratory Rate Blood Pressure Pulse Oximetry 95 95 Oxygen Delivery Autopap Autopap Fraction of Inspired Oxygen 21 01/04/25 05:30 01/04/25 08:44 Temperature 98.2 F Pulse Rate 73 Respiratory Rate 18 Blood Pressure 142/71 H Pulse Oximetry 100 98 Oxygen Delivery Room Air Fraction of Inspired Oxygen <Anjelica Brandt APRN - Last Filed: 01/07/25 12:17> Exam Const: General: comfortable and no acute distress <Omar Ch MD - Last Filed: 01/04/25 15:33> HENMT: Face/Nose/Sinus: Normal nares present <Omar Ch MD - Last Filed: 01/04/25 15:33> Eyes: General: appearance normal, both eyes and all related structures <Omar Ch MD - Last Filed: 01/04/25 15:33> Neck: Neck: supple <Omar Ch MD - Last Filed: 01/04/25 15:33> Resp: Auscultation: clear to auscultation bilaterally <Omar Ch MD - Last Filed: 01/04/25 15:33> Cardio: Rate: regular rate <Omar Ch MD - Last Filed: 01/04/25 15:33> Rhythm: regular rhythm <Omar Ch MD - Last Filed: 01/04/25 15:33> GI: Inspection: non-distended <Omar Ch MD - Last Filed: 01/04/25 15:33> GI Palp: Yes Soft to palpation and No Tenderness to palpation present (GI) <Omar Ch MD - Last Filed: 01/04/25 15:33> Auscultation: normal bowel sounds <Omar Ch MD - Last Filed: 01/04/25 15:33> Skin: General skin exam: normal color <Omar Ch MD - Last Filed: 01/04/25 15:33> Neuro: Speech: normal speech <Omar Ch MD - Last Filed: 01/04/25 15:33> Extrem: General: normal to inspection <Omar Ch MD - Last Filed: 01/04/25 15:33> Psych: Mental Status: mental status grossly normal <Omar Ch MD - Last Filed: 01/04/25 15:33> Results Labs CBC & Chem 7: 01/06/25 04:36 01/06/25 04:36 <Anjelica Brandt APRN - Last Filed: 01/07/25 12:17> Labs: Short CBC 01/03/25 01/04/25 Range/Units 22:50 04:35 WBC 5.7 5.5 (4.5-10.0) K/mm3 Hgb 13.9 L 12.4 L (14.0-18.0) g/dL Hct 39.6 L 35.5 L (42.0-52.0) % Plt Count 89 L 81 L (150-375) k/mm3 BMP 01/03/25 01/04/25 22:50 04:35 Sodium 132 L 137 Potassium 4.0 3.9 Chloride 102 109 H Carbon Dioxide 24 21 L BUN 14 12 Creatinine 0.91 0.85 Glucose 203 H 201 H Calcium 9.2 8.1 L Liver Function 01/03/25 Range/Units 22:50 Total Bilirubin 4.5 H (0.2-1.3) mg/dL Direct Bilirubin 0.7 H (0-0.3) mg/dL AST 70 H (17-59) U/L ALT 70 H (6-50) U/L Alkaline Phosphatase 178 H (38-126) U/L Albumin 3.9 (3.5-5.1) g/dL Urine 01/03/25 Range/Units 21:56 Urine Color Dark yellow (Yellow) Urine Appearance Clear (Clear) Urine pH 6.0 (5.0-9.0) Ur Specific [place] 1.011 (1.001-1.035) Urine Protein 1+ H (Negative) mg/dL Urine Glucose (UA) 1+ H (Negative) mg/dL <Anjelica Brandt, SENIOR DRAFTER - Last Filed: 01/07/25 12:17>
[2025-01-04 08:49] LABS: Immature Reticulocyte Fraction 11.9 % (3.0-15.9); Reticulocyte Hemoglobin Conten 29.5 pg (28.2-36.6); Reticulocytes Absolute 0.04 10^6/uL (0.02-0.10)
[2025-01-04 09:26] LABS: Hematocrit 37.4 % (42.0-52.0); Hemoglobin 13.1 g/dL (14.0-18.0); Immature Platelet Fraction Pct 4.5 % (0.9-11.2); Mean Corpuscular HGB Conc 35.0 g/dl (32-36); Mean Corpuscular Hemoglobin 30.6 pg (26-34); Mean Corpuscular Volume 87.4 fl (80-100); Platelet Count Result 87 k/mm3 (150-375); Red Blood Count 4.28 M/mm3 (4.6-6.20); White Blood Count 5.9 K/mm3 (4.5-10.0)
[2025-01-04 09:36] LABS: INR 1.2; Prothrombin Time 15.1 Seconds (11.1-14.7)
[2025-01-04 09:37] LABS: Fibrinogen 647 mg/dl (215-510); Partial Thromboplastin Time 31.5 Seconds (22.3-36.8)
[2025-01-04 10:06] LABS: Magnesium 1.8 mg/dL (1.6-2.3)
[2025-01-04 10:45] LABS: Alanine Aminotransferase 53 U/L (6-50); Albumin Level 3.2 g/dL (3.5-5.1); Alkaline Phosphatase 158 U/L (38-126); Aspartate Amino Transferase 58 U/L (17-59); Bilirubin,Total 3.1 mg/dL (0.2-1.3); Total Protein 6.0 g/dL (6.3-8.2)
[2025-01-04] MEDS: FLUTICASONE PROPIONATE 0.05% NA SPR 16 GM BTL (*BKC) 2 SPRAY NASAL (10:50)
[2025-01-04] MEDS: VANCOMYCIN 1,500 MG/NS 500 ML 1,500 MG/500 ML BAG 250 MG IVPB (10:52)
[2025-01-04] MEDS: IBUPROFEN IV 400 MG in SODIUM CHLORIDE 0.9% IV 100 ML 208 MG IVPB (11:26)
[2025-01-04] MEDS: metroNIDAZOLE 500 MG/ISO 100ML 500 MG/100 ML BAG 100 MG IVPB (17:17)
[2025-01-04] MEDS: ACETAMINOPHEN 325 MG TABLET 650 MG PO (22:10)
[2025-01-05] VITALS (9 sets, daily range): BP systolic 123–152; BP diastolic 75–78; PULSE 57–96; RESP 12–18; TEMP 36.4–36.7; O2SAT 96–100
[2025-01-05] MEDS: metroNIDAZOLE 500 MG/ISO 100ML 500 MG/100 ML BAG 100 MG IVPB ×2 (00:03→08:23)
[2025-01-05 05:45] LABS: Estimated CRCL calculation 97 ml/min; Estimated Glomerular Filt Rate > 60
[2025-01-05] MEDS: CEFEPIME 2 GM in SODIUM CHLORIDE 0.9% IV 50 ML 100 ML IVPB ×2 (06:02→13:47)
[2025-01-05] MEDS: SODIUM CHLORIDE 0.9% IV 1,000 ML 125 ML IV CONT ×2 (06:05→16:29)
[2025-01-05] MEDS: INSULIN ASPART (*BKC) 100 UNITS/ML SUB-Q ×2 (11:45→16:38)
--- NOTE | 2025-01-05 13:22 | PM.CNGS ---
Assessment and Plan Assessment and plan (1) Sepsis: Qualifiers: Sepsis type: sepsis due to unspecified organism Sepsis acute organ dysfunction status: with acute organ dysfunction Severe sepsis acute organ dysfunction type: critical illness myopathy Severe sepsis shock status: without septic shock Qualified Code(s): A41.9 - Sepsis, unspecified organism; R65.20 - Severe sepsis without septic shock; G72.81 - Critical illness myopathy Code(s): A41.9 - Sepsis, unspecified organism Status: Acute Assessment and Plan: improving (2) Bacteremia due to Gram-negative bacteria: Code(s): R78.81 - Bacteremia Status: Acute Assessment and Plan: both blood and urinary cultures growing Morganella makes the likelihood of urinary source substantial (3) UTI (urinary tract infection): Qualifiers: Hematuria presence: without hematuria Urinary tract infection type: acute cystitis Qualified Code(s): N30.00 - Acute cystitis without hematuria Code(s): N39.0 - Urinary tract infection, site not specified Status: Acute Assessment and Plan: improving with antibiotics (4) Cholelithiasis: Qualifiers: Cholelithiasis location: gallbladder Cholecystitis presence: without cholecystitis Biliary obstruction: without biliary obstruction Qualified Code(s): K80.20 - Calculus of gallbladder without cholecystitis without obstruction Code(s): K80.20 - Calculus of gallbladder without cholecystitis without obstruction Status: Chronic Assessment and Plan: incidentally noted gallstones. Patient had no symptoms of gallbladder disease prior to his present illness. He did not have any symptoms or physical findings of cholecystitis during his present illness. I explained the symptoms that typically occur with gallbladder disease. If those should develop, he should seek medical care. Currently, I do not feel his gallstones are playing any role in his present illness and do not require any surgical follow-up. No further testing is indicated either. We will go ahead and sign off. Please call if we can be of further assistance. History of Present Illness Consult details Consult date: 01/05/25 Reason for consult: gallstones Requesting physician: Alexis Leal MD Narrative: patient is a 54-year-old man with limited Telugu proficiency. his son Eloy was his specification writer of preference. Patient's was also present during my evaluation but also has limited Telugu proficiency. Patient initially came to the emergency room on 01/01/2025. He was complaining of dysuria body aches fever. He had a normal white count. His UA showed pyuria. He was felt to have a UTI and discharged on Keflex. Unfortunately, he did not improve. He came back to the emergency room on 01/03/2025. His complaints were nearly the same - weakness, diffuse muscle pain, headache, fever, and dysuria. Significantly, when he came back to the emergency room, he was noted to have a positive blood culture for Gram-negative rods from his blood cultures drawn on 01/01. He was admitted with sepsis and urinary source was felt to be most likely. However, patient also had a bump in his total bilirubin from normal to 4.5. CT scan was done of the chest abdomen and pelvis which did show cholelithiasis. Bilirubin elevation however was noted to be primarily the indirect bilirubin, making obstructive jaundice unlikely. Hepatitis panel was negative. CRP was 31. He was also noted to have low platelets. Once admitted, he had an ultrasound of the gallbladder which showed the gallbladder wall to be mildly thickened, there was trace pericholecystic fluid, turkey boner noted a positive Godoy sign and gallstones were noted. Seeing the patient today, he feels much better. The dysuria is gone. He had some fever yesterday morning but has been afebrile since then. He had lunch today, tuna fish sandwich and others, and tolerated it well. Patient denies having had any abdominal pain associated with his present illness. He further denies any history of postprandial abdominal pain, nausea, or vomiting. It has been noted since admission that his blood cultures as well as his urinary cultures from 01/01/2025 are both growing Morganella. Review of Systems Review of Systems: All systems reviewed & are unremarkable except as noted in HPI and below ( HPI) [facility] Family History Family History Sibling Diabetes mellitus Social History Social History Smoking status: Never smoker Alcohol intake: never Substance use: never Substance use type: does not use Lack of Transportation: No Lack of Food: Never True Current Housing: I Have Housing Concerned About Future Housing: No Difficulty Paying Gas/Electric Bills: YES Difficulty Paying for Meds: No Currently Unemployed: No Education: Grade School Difficulty w/ Childcare or Family Care: No Spiritual care concerns: No Meds Home Medications and Allergies Home Medications ?Medication ?Instructions ?Recorded ?Confirmed ?Type losartan 50 mg tablet 50 mg PO DAILY 11/17/21 01/04/25 History metformin 1,000 mg tablet 1,000 mg PO BID 11/17/21 01/04/25 History fluticasone propionate 50 1 spray intranasal DAILY 03/16/24 01/04/25 History mcg/actuation nasal spray,suspension cephalexin 500 mg capsule 500 mg PO Q12H 7 days #14 caps 01/01/25 01/04/25 Rx Allergies Allergy/AdvReac Type Severity Reaction Status Date / Time No Known Allergies Allergy Verified 01/04/25 03:49 Vital Signs Vital Signs - 24 hr 01/04/25 16:00 01/04/25 20:00 01/04/25 20:00 Temperature Pulse Rate 73 76 Respiratory Rate Blood Pressure Pulse Oximetry Oxygen Delivery Room Air 01/04/25 20:05 01/05/25 00:00 01/05/25 04:00 Temperature 36.4 C Pulse Rate 99 96 69 Respiratory Rate 20 Blood Pressure 139/82 Pulse Oximetry 95 Oxygen Delivery 01/05/25 04:01 01/05/25 08:00 01/05/25 08:28 Temperature 36.7 C Pulse Rate 67 60 Respiratory Rate 18 Blood Pressure 123/77 Pulse Oximetry 96 Oxygen Delivery Room Air Exam Const: General: comfortable, no acute distress, alert and awake Orientation/consciousness: No confusion HENMT: Head: normocephalic and atraumatic Mouth: Yes Normal oral and palatal mucosa present Eyes: General: appearance normal, both eyes and all related structures ( wears eyeglasses) Conjunctivae: conjunctivae normal Pupils: Equal, round and reactive pupils present EOM: EOMs intact bilaterally Neck: Neck: normal visual inspection, no lymphadenopathy and nontender Resp: Effort & Inspection: normal respiratory effort Auscultation: clear to auscultation bilaterally Cardio: Rate: regular rate Rhythm: regular rhythm Heart sounds: no gallops, no murmurs and no rubs GI: Inspection: non-distended, scaphoid, no scars and no visible herniation GI Palp: Yes Soft to palpation, No Tenderness to palpation present (GI), No Hepatomegaly present, No Splenomegaly present, No Hernia present and No Palpable mass present Auscultation: normoactive bowel sounds Skin: Lesions: no lesions Rashes: no rashes Neuro: General: no focal motor deficits and CN's II-XI intact bilaterally Cranial nerves: Yes Equal, round and reactive pupils present, Yes Bilaterally intact EOM present, Yes facial symmetry and Yes Midline tongue present Speech: normal speech Motor exam (neuro): 5/5 motor strength present throughout and Motor abnormalities not present Extrem: General: no clubbing, cyanosis or edema and edema Psych: Affect: normal affect Thought process: Normal thought process present Insight: Good insight present (Psych) Results Labs 01/04/25 09:13 01/05/25 04:36 Labs: Abnormal lab results 01/04/25 01/04/25 01/05/25 Range/Units 18:06 23:57 07:36 POC Capillary Glucose 186 H 175 H 172 H (65-105) mg/dl 01/05/25 Range/Units 11:15 POC Capillary Glucose 202 H (65-105) mg/dl Diabetes panel 01/05/25 Range/Units 04:36 Creatinine 0.73 (0.7-1.3) mg/dL Pituitary panel 01/05/25 Range/Units 04:36 Creatinine 0.73 (0.7-1.3) mg/dL Adrenal panel 01/05/25 Range/Units 04:36 Creatinine 0.73 (0.7-1.3) mg/dL All other labs normal. Imaging Chest x-ray: report reviewed and image reviewed Abdomen CT scan report/results: report reviewed CT scan - chest: report reviewed CT scan - pelvis: report reviewed Abdominal ultrasound report/results: report reviewed
--- NOTE | 2025-01-05 13:49 | WPDGIPROGNO ---
Progress Note: A&P Assessment and Plan (1) Bacteremia due to Gram-negative bacteria: Code(s): R78.81 - Bacteremia Status: Acute Assessment and Plan: - The patient's presentation is confirmed as urosepsis with blood and urine cultures growing Morganella morganii .The current antibiotic regimen of metronidazole and cefepime needs immediate modification: metronidazole should be discontinued as it is ineffective against this organism, and the continuation or modification of cefepime must be guided by the sensitivity report and a formal Infectious Disease consultation - Elevated liver biochemistry, including indirect hyperbilirubinemia, is considered consistent with cholestasis of sepsis and is not indicative of primary hepatobiliary disease. - Finally, to ensure source control, a Urology consultation is mandatory to evaluate the underlying cause, given the patient's reported long history of urinary stream difficulties, which is highly suggestive of prostatic hyperplasia leading to urinary tract obstruction . 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 switching to Zosyn which is in the sensitivity report) - Urology consultation to evaluate prostate hyperplasia as the cause of urosepsis Subjective Date/time seen: 01/05/25 13:49 Interval history: The patient feels much better, able to tolerate food, no nausea no abdominal pain. Exam Narrative: Alert and oriented x3, cooperative. Anicteric. Abdomen: Soft, nontender, nondistended, Godoy sign negative. No hepatosplenomegaly. Objective Data Vital Signs Vital Signs: Vital Signs - 24 hr 01/04/25 16:00 01/04/25 20:00 01/04/25 20:00 Temperature Pulse Rate 73 76 Respiratory Rate Blood Pressure Pulse Oximetry Oxygen Delivery Room Air 01/04/25 20:05 01/05/25 00:00 01/05/25 04:00 Temperature 97.6 F Pulse Rate 99 96 69 Respiratory Rate 20 Blood Pressure 139/82 Pulse Oximetry 95 Oxygen Delivery 01/05/25 04:01 01/05/25 08:00 01/05/25 08:28 Temperature 98.1 F Pulse Rate 67 60 Respiratory Rate 18 Blood Pressure 123/77 Pulse Oximetry 96 Oxygen Delivery Room Air Intake/Output Intake/Output: Intake & Output 01/02/25 01/03/25 01/04/25 01/05/25 23:59 23:59 23:59 23:59 Intake Total 50 4719.2 2230 Output Total 3050 1605 Balance 50 1669.2 625 Meds/Results Medications: Active Medications Generic Name Dose Route Start Last Admin Trade Name Freq PRN Reason Stop Dose Admin Acetaminophen 650 mg 01/04/25 00:33 01/04/25 22:10 Acetaminophen 325 Mg Tablet PO 650 mg Q4H PRN Administration Mild Pain (1-3) or Fever Dextrose 12.5 gm 01/04/25 04:26 Dextrose 50% 25 Gm/50 Ml Syringe IV PUSH PRN PRN Hypoglycemia Protocol Fluticasone Propionate 2 spray 01/04/25 09:00 01/05/25 11:44 Fluticasone Propionate 0.05% Na Spr 16 Gm Btl (*Bkc) NASAL Not Given DAILY MARY JANE Glucagon 1 mg 01/04/25 04:26 Glucagon For Inj 1 Mg Vial IM PRN PRN Hypoglycemia Protocol Glucose 15 gm 01/04/25 04:26 Glucose Oral Gel 15 Gm Of Glucse In 37.5 Gm Tube PO PRN PRN Hypoglycemia Protocol Cefepime HCl 2 gm/ Sodium 50 mls @ 100 mls/hr 01/04/25 07:00 01/05/25 13:47 Chloride IVPB 100 mls/hr Q8H MARY JANE Administration Sodium Chloride 1,000 mls @ 125 mls/hr 01/04/25 00:40 01/05/25 06:05 Normal Saline Iv IV CONT 125 mls/hr .Q8H MARY JANE Administration Dextrose 1,000 mls @ 100 mls/hr 01/04/25 04:26 Dextrose 5% 1,000 Ml IVPB PRN PRN Hypoglycemia Protocol Metronidazole 500 mg in 100 mls @ 100 mls/hr 01/04/25 16:00 01/05/25 08:23 Flagyl 500 Mg/Iso Soln 100 Ml IVPB 100 mls/hr Q8H MARY JANE Administration Insulin Aspart 2 - 5 units 01/05/25 08:00 01/05/25 11:45 Insulin Aspart (*Bkc) 100 Units/Ml SUB-Q 2 units TIDWM MARY JANE Administration Protocol Morphine Sulfate 4 mg 01/04/25 00:33 Morphine Sulfate (*Crx) 4 Mg/Ml Inj IV PUSH Q2H PRN Pain Rated 7-10 Ondansetron HCl 4 mg 01/04/25 00:33 Ondansetron Inj 4 Mg/2 Ml Vial IV PUSH Q4H PRN Nausea Radiology Results: ITS Impressions Chest X-Ray 01/03/25 21:59 IMPRESSION: Interstitial prominence in the lower lobes bilaterally. Chest/Abdomen/Pelvis CT 01/04/25 07:36 IMPRESSION: 1. No specific etiology for the patient's symptoms. Abdomen Ultrasound 01/04/25 14:15 IMPRESSION: Cholelithiasis. Findings suggestive of acute cholecystitis. Labs Labs: Laboratory Results - last 24 hr 01/04/25 01/04/25 01/04/25 09:13 18:06 23:57 Haptoglobin 197 Creatinine Estim Creat Clear Calc Estimated GFR POC Capillary Glucose 186 H 175 H 01/05/25 01/05/25 01/05/25 04:36 07:36 11:15 Haptoglobin Creatinine 0.73 Estim Creat Clear Calc 97 Estimated GFR > 60 POC Capillary Glucose 172 H 202 H
--- NOTE | 2025-01-05 14:41 | P.PNIM_ITS ---
Progress Note: A&P Assessment and Plan (1) Thrombocytopenia: Code(s): D69.6 - Thrombocytopenia, unspecified Status: Acute (2) Hyperbilirubinemia: Code(s): E80.6 - Other disorders of bilirubin metabolism Status: Acute (3) Transaminitis: Code(s): R74.01 - Elevation of levels of liver transaminase levels Status: Acute (4) Cholelithiasis: Qualifiers: Biliary obstruction: without biliary obstruction Cholecystitis presence: without cholecystitis Cholelithiasis location: gallbladder Qualified Code(s): K80.20 - Calculus of gallbladder without cholecystitis without obstruction Code(s): K80.20 - Calculus of gallbladder without cholecystitis without obstruction Status: Chronic (5) UTI (urinary tract infection): Qualifiers: Hematuria presence: without hematuria Urinary tract infection type: acute cystitis Qualified Code(s): N30.00 - Acute cystitis without hematuria Code(s): N39.0 - Urinary tract infection, site not specified Status: Acute (6) Bacteremia due to Gram-negative bacteria: Code(s): R78.81 - Bacteremia Status: Acute (7) Sepsis: Qualifiers: Sepsis type: sepsis due to unspecified organism Sepsis acute organ dysfunction status: with acute organ dysfunction 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 Primarily [place] Islander-speaking. He was seen in the ED 2 days ago for dysuria fever and generalized malaise. Was diagnosed with UTI and was discharged on Keflex. Patient continued to feel very weak ill with generalized weakness diffuse myalgia headache fever and continued dysuria and hence presented back to the ED. In the ED he was afebrile vitals were unremarkable. His blood culture from ED did come back positive for Gram-negative bacilli. He received IV fluid bolus blood cultures were reobtained. He was started on vancomycin and cefepime. Laboratory workup showed WBC of 5.7 hemoglobin of 13.9 platelet count of 89. Chem panel showed sodium 132 potassium 4 chloride 102 bicarbonate 24 BUN 14 creatinine 0.9 blood glucose of 203. INR 1.3 PTT of 35.5 lactic acid was 1. LFTs showed total bilirubin of 4.5 direct bilirubin of 0.7 suggesting predominantly indirect hyperbilirubinemia. AST of 70 ALT 70 alkaline phosphatase of 178. C-reactive protein was 30.9 lipase is normal at 142 procalcitonin 28.8. Urinalysis showed 51-100 urine WBC. Hepatitis panel was negative for a B and C. CT chest abdomen pelvis was obtained which showed mild atelectasis with trace pleural effusion no pericardial effusion normal liver and spleen. A gallstone in gallbladder which is normal in size. Bladder is distended no dilated loops of bowel no pathology coli enlarged lymph nodes. No free intraperitoneal fluid. Fat stranding in the pelvis consistent with edema. Mild cervical and thoracic and lumbar spondylosis EKG showed normal rhythm with no acute ST-T changes. He is admitted in this setting for further treatment. Sepsis with bacteremia likely source UTI normal WBC count however neutrophilia noted. Elevated procalcitonin and CRP. blood culutre positive for morganella morganni. urine positive for the same. will switch antibiotics to levofloxacin per sensitivity report. stop metronidazole, which was added for possibility of acute cholecystitis with anaerobic coverage. Thrombocytopenia likely due to sepsis as well. Continue to monitor. DIC panel negative. this is stable today. Hyperbilirubinemia predominantly indirect. Likely hemolytic. Nikkie test negative. likely due to underlying sepsis and bacteremia. recehck in am. Elevated liver enzymes hepatitis panel is negative. Recent influenza COVID and RSV swab was negative cholelithiasis noted. us ruq with possible acute cholecystitis. consulted general surgery. his ruq is much tender so unsure of the us findings. fu with general surgery as suggested. Type 2 diabetes hemoglobin A1c 7.1 DVT proph: SCDs code status: full code Subjective Date/time seen: 01/05/25 14:41 Interval history: no overnight events, ruq discomfort very mild reported. no nasuea, vomiting. no fever, chill. Review of Systems Review of Systems: All systems reviewed & are unremarkable except as noted in HPI and below Exam Narrative: GENERAL: The patient is well developed, not in acute distress HEENT: Nonicteric sclerae, PERRLA, EOMI. Oropharynx clear. Moist mucous membranes. Conjunctivae appear well perfused. CHEST: Chest wall is nontender. HEART: Regular rate and rhythm without murmur, rubs, or gallops LUNGS: Clear to auscultation bilaterally. no respiratory distress ABDOMEN: Soft, positive bowel sounds, non-tender, no organomegaly. SKIN: No rash, no excessive bruising, petechiae, or purpura. NEUROLOGIC: Cranial nerves II-XII intact, alert and oriented x 3, no gross motor deficits EXTREMITIES: no edema, cyanosis or clubbing Objective Data Vital Signs Vital Signs: Vital Signs - 24 hr 01/04/25 16:00 01/04/25 20:00 01/04/25 20:00 Temperature Pulse Rate 73 76 Respiratory Rate Blood Pressure Pulse Oximetry Oxygen Delivery Room Air 01/04/25 20:05 01/05/25 00:00 01/05/25 04:00 Temperature 97.6 F Pulse Rate 99 96 69 Respiratory Rate 20 Blood Pressure 139/82 Pulse Oximetry 95 Oxygen Delivery 01/05/25 04:01 01/05/25 08:00 01/05/25 08:28 Temperature 98.1 F Pulse Rate 67 60 Respiratory Rate 18 Blood Pressure 123/77 Pulse Oximetry 96 Oxygen Delivery Room Air 01/05/25 14:00 Temperature 97.8 F Pulse Rate 65 Respiratory Rate 12 Blood Pressure 135/75 Pulse Oximetry 100 Oxygen Delivery Intake/Output Intake/Output: Intake & Output 01/02/25 01/03/25 01/04/25 01/05/25 23:59 23:59 23:59 23:59 Intake Total 50 4719.2 2470 Output Total 3050 3580 Balance 50 1669.2 -1110 Meds/Results Medications: Active Medications Generic Name Dose Route Start Last Admin Trade Name Freq PRN Reason Stop Dose Admin Acetaminophen 650 mg 01/04/25 00:33 01/04/25 22:10 Acetaminophen 325 Mg Tablet PO 650 mg Q4H PRN Administration Mild Pain (1-3) or Fever Dextrose 12.5 gm 01/04/25 04:26 Dextrose 50% 25 Gm/50 Ml Syringe IV PUSH PRN PRN Hypoglycemia Protocol Fluticasone Propionate 2 spray 01/04/25 09:00 01/05/25 11:44 Fluticasone Propionate 0.05% Na Spr 16 Gm Btl (*Bkc) NASAL Not Given DAILY MARY JANE Glucagon 1 mg 01/04/25 04:26 Glucagon For Inj 1 Mg Vial IM PRN PRN Hypoglycemia Protocol Glucose 15 gm 01/04/25 04:26 Glucose Oral Gel 15 Gm Of Glucse In 37.5 Gm Tube PO PRN PRN Hypoglycemia Protocol Cefepime HCl 2 gm/ Sodium 50 mls @ 100 mls/hr 01/04/25 07:00 01/05/25 13:47 Chloride IVPB 100 mls/hr Q8H MARY JANE Administration Sodium Chloride 1,000 mls @ 125 mls/hr 01/04/25 00:40 01/05/25 06:05 Normal Saline Iv IV CONT 125 mls/hr .Q8H MARY JANE Administration Dextrose 1,000 mls @ 100 mls/hr 01/04/25 04:26 Dextrose 5% 1,000 Ml IVPB PRN PRN Hypoglycemia Protocol Insulin Aspart 2 - 5 units 01/05/25 08:00 01/05/25 11:45 Insulin Aspart (*Bkc) 100 Units/Ml SUB-Q 2 units TIDWM MARY JANE Administration Protocol Morphine Sulfate 4 mg 01/04/25 00:33 Morphine Sulfate (*Crx) 4 Mg/Ml Inj IV PUSH Q2H PRN Pain Rated 7-10 Ondansetron HCl 4 mg 01/04/25 00:33 Ondansetron Inj 4 Mg/2 Ml Vial IV PUSH Q4H PRN Nausea Radiology Results: ITS Impressions Chest X-Ray 01/03/25 21:59 IMPRESSION: Interstitial prominence in the lower lobes bilaterally. Chest/Abdomen/Pelvis CT 01/04/25 07:36 IMPRESSION: 1. No specific etiology for the patient's symptoms. Abdomen Ultrasound 01/04/25 14:15 IMPRESSION: Cholelithiasis. Findings suggestive of acute cholecystitis. Labs Labs: Laboratory Results - last 24 hr 01/04/25 01/04/25 01/04/25 09:13 18:06 23:57 Haptoglobin 197 Creatinine Estim Creat Clear Calc Estimated GFR POC Capillary Glucose 186 H 175 H 01/05/25 01/05/25 01/05/25 04:36 07:36 11:15 Haptoglobin Creatinine 0.73 Estim Creat Clear Calc 97 Estimated GFR > 60 POC Capillary Glucose 172 H 202 H
[2025-01-05] MEDS: levoFLOXacin 750 MG/D5W 150 ML 750 MG/150 ML BAG 100 MG IVPB (16:37)
[2025-01-06] VITALS (7 sets, daily range): BP systolic 142–150; BP diastolic 77–82; PULSE 59–68; RESP 16–18; TEMP 36.2–36.5; O2SAT 98–100
--- NOTE | 2025-01-06 01:59 | PC.NURSE ---
Daylight savings time change
[2025-01-06] MEDS: SODIUM CHLORIDE 0.9% IV 1,000 ML 125 ML IV CONT (03:00)
[2025-01-06 05:13] LABS: Hematocrit 34.9 % (42.0-52.0); Hemoglobin 12.1 g/dL (14.0-18.0); Immature Granulocyte Percent A 2.4 % (0-0.5); Immature Platelet Fraction Pct 3.9 % (0.9-11.2); Lymphocytes Absolute Auto 1.29 K/mm3 (0.9-3.2); Mean Corpuscular HGB Conc 34.7 g/dl (32-36); Mean Corpuscular Hemoglobin 30.4 pg (26-34); Mean Corpuscular Volume 87.7 fl (80-100); Nucleated Red Blood Cells Absolute Auto 0.000 K/mm3 (0.0-0.012); Nucleated Red Blood Cells Perc 0.0 % (0.0-0.2); Platelet Count Result 112 k/mm3 (150-375); Red Blood Count 3.98 M/mm3 (4.6-6.20); White Blood Count 5.0 K/mm3 (4.5-10.0)
[2025-01-06 05:18] LABS: Alanine Aminotransferase 54 U/L (6-50); Albumin Level 3.3 g/dL (3.5-5.1); Alkaline Phosphatase 232 U/L (38-126); Anion Gap 4 mmol/L (4-12); Aspartate Amino Transferase 58 U/L (17-59); Bilirubin,Total 1.1 mg/dL (0.2-1.3); Blood Urea Nitrogen 11 mg/dL (9-20); Calcium 8.4 mg/dL (8.4-10.2); Carbon Dioxide 25 mmol/L (22-30); Chloride 107 mmol/L (98-107); Estimated CRCL calculation 95 ml/min; Estimated Glomerular Filt Rate > 60; Glucose 172 mg/dL (65-110); Magnesium 1.8 mg/dL (1.6-2.3); Potassium 3.7 mmol/L (3.4-5.0); Sodium 136 mmol/L (137-145); Total Protein 6.4 g/dL (6.3-8.2)
[2025-01-06] MEDS: FLUTICASONE PROPIONATE 0.05% NA SPR 16 GM BTL (*BKC) 2 SPRAY NASAL (08:33)
--- NOTE | 2025-01-06 10:12 | WPDURCON ---
Assessment and Plan Assessment and plan (1) Acute prostatitis: Code(s): N41.0 - Acute prostatitis Status: Acute (2) BPH loc w urin obs/LUTS: Code(s): N40.1 - Benign prostatic hyperplasia with lower urinary tract symptoms Status: Acute Assessment and Plan: Acute prostatitis that was probably precipitated by a a markedly enlarged prostate with incomplete bladder emptying I have spoken with patient and I would highly recommend starting finasteride given the markedly enlarged prostate seen on CT (128 g) Urology Consult Note HPI Date Seen: 01/06/25 Requesting Physician: Bam Freedman MD Primary Care Provider: Ajith Figueroa, CUSTOMER RETENTION REPRESENTATIVE Consult Narrative Narrative: Efrain Gonzalez is a 54 year old male previously unknown to our practice who speaks essentially no Urdu but I was able to interview via his son interpreting. In reviewing his chart it appears as if he was admitted with a fairly typical presentation of acute prostatitis (acute dysuria, arthralgias malaise etc.). Blood in urine cultures are both positive for Gram-negative bacteria. He is responding to IV antibiotics. Prior to this episode it seems as if he had moderate prostatism with some slowing of his stream and nocturia of 2-3 times per night. In reviewing his CT scan he has a markedly enlarged prostate (128 g). Review of Systems Review of Systems: All systems reviewed & are unremarkable except as noted in HPI and below PMFSH Family History Family History Sibling Diabetes mellitus Social History Social History Smoking status: Never smoker Alcohol intake: never Substance use: never Substance use type: does not use Lack of Transportation: No Lack of Food: Never True Current Housing: I Have Housing Concerned About Future Housing: No Difficulty Paying Gas/Electric Bills: YES Difficulty Paying for Meds: No Currently Unemployed: No Education: Grade School Difficulty w/ Childcare or Family Care: No Spiritual care concerns: No Meds Home Medications and Allergies Home Medications ?Medication ?Instructions ?Recorded ?Confirmed ?Type losartan 50 mg tablet 50 mg PO DAILY 11/17/21 01/04/25 History metformin 1,000 mg tablet 1,000 mg PO BID 11/17/21 01/04/25 History fluticasone propionate 50 1 spray intranasal DAILY 03/16/24 01/04/25 History mcg/actuation nasal spray,suspension cephalexin 500 mg capsule 500 mg PO Q12H 7 days #14 caps 01/01/25 01/04/25 Rx Allergies Allergy/AdvReac Type Severity Reaction Status Date / Time No Known Allergies Allergy Verified 01/04/25 03:49 Vital Signs Vital Signs - 24 hr 01/05/25 14:00 01/05/25 16:00 01/05/25 20:00 Temperature 97.8 F Pulse Rate 65 57 L 64 Respiratory Rate 12 Blood Pressure 135/75 Pulse Oximetry 100 Oxygen Delivery 01/05/25 20:06 01/05/25 21:50 01/06/25 00:00 Temperature 97.5 F L Pulse Rate 65 61 Respiratory Rate 17 Blood Pressure 152/78 H Pulse Oximetry 100 99 Oxygen Delivery Room Air 01/06/25 04:00 01/06/25 04:56 01/06/25 08:00 Temperature 97.7 F Pulse Rate 60 60 59 L Respiratory Rate 18 Blood Pressure 150/82 H Pulse Oximetry 98 Oxygen Delivery 01/06/25 08:00 Temperature Pulse Rate Respiratory Rate Blood Pressure Pulse Oximetry Oxygen Delivery Room Air Exam Const: General: no acute distress Resp: Effort & Inspection: normal respiratory effort GI: Inspection: non-distended GI Palp: No abdominal tenderness and No Guarding due to palpation present (GI) Auscultation: normal bowel sounds Results Labs 01/06/25 04:36 01/06/25 04:36 Labs: Short CBC 01/06/25 Range/Units 04:36 WBC 5.0 (4.5-10.0) K/mm3 Hgb 12.1 L (14.0-18.0) g/dL Hct 34.9 L (42.0-52.0) % Plt Count 112 L (150-375) k/mm3 BMP 01/06/25 04:36 Sodium 136 L Potassium 3.7 Chloride 107 Carbon Dioxide 25 BUN 11 Creatinine 0.75 Glucose 172 H Calcium 8.4 Liver Function 01/06/25 Range/Units 04:36 Total Bilirubin 1.1 (0.2-1.3) mg/dL AST 58 (17-59) U/L ALT 54 H (6-50) U/L Alkaline Phosphatase 232 H (38-126) U/L Albumin 3.3 L (3.5-5.1) g/dL
--- NOTE | 2025-01-06 12:05 | PM.DS ---
DS: Admitting Diagnosis Discharge Date 01/06/2025 Admitting Diagnosis Acute prostatitis with gram negative bacteremia DS: Discharge Diagnosis Discharge Diagnosis (1) UTI (urinary tract infection): Qualifiers: Hematuria presence: without hematuria Urinary tract infection type: acute cystitis Qualified Code(s): N30.00 - Acute cystitis without hematuria Code(s): N39.0 - Urinary tract infection, site not specified Status: Acute Assessment and Plan: acute prostatitis complete 30 additional days of po levofloxacin f/u with urology and primary care (2) Bacteremia due to Gram-negative bacteria: Code(s): R78.81 - Bacteremia Status: Acute Assessment and Plan: morganella (3) Thrombocytopenia: Code(s): D69.6 - Thrombocytopenia, unspecified Status: Acute Assessment and Plan: likely secondary to sepsis (4) Hyperbilirubinemia: Code(s): E80.6 - Other disorders of bilirubin metabolism Status: Acute Assessment and Plan: secondary to sepsis (5) Transaminitis: Code(s): R74.01 - Elevation of levels of liver transaminase levels Status: Acute Assessment and Plan: secondary to sepsis (6) Cholelithiasis: Qualifiers: Biliary obstruction: without biliary obstruction Cholecystitis presence: without cholecystitis Cholelithiasis location: gallbladder Qualified Code(s): K80.20 - Calculus of gallbladder without cholecystitis without obstruction Code(s): K80.20 - Calculus of gallbladder without cholecystitis without obstruction Status: Chronic Assessment and Plan: w/o symptoms (7) Sepsis: Qualifiers: Sepsis acute organ dysfunction status: with acute organ dysfunction Sepsis type: sepsis due to unspecified organism Severe sepsis acute organ dysfunction type: critical illness myopathy Severe sepsis shock status: without septic shock Qualified Code(s): A41.9 - Sepsis, unspecified organism; R65.20 - Severe sepsis without septic shock; G72.81 - Critical illness myopathy Code(s): A41.9 - Sepsis, unspecified organism Status: Acute Assessment and Plan: Resolved (8) Acute prostatitis: Code(s): N41.0 - Acute prostatitis Status: Acute (9) BPH loc w urin obs/LUTS: Code(s): N40.1 - Benign prostatic hyperplasia with lower urinary tract symptoms Status: Acute (10) Essential hypertension: Code(s): I10 - Essential (primary) hypertension Status: Acute (11) Diabetes: Code(s): E11.9 - Type 2 diabetes mellitus without complications Status: Acute DS: Summary Hospital Course Hospital Course: Mr. Gonzalez was admitted to the hospital January 03 due to dysuria, fever, and difficulty urinating. He has a history of hypertension and type 2 diabetes followed with his primary care nurse practitioner and [place]. He has no prior history of urinary tract infections. He does have some chronic slow stream and frequency. His urinalysis is abnormal upon admission and he was treated empirically with cefepime. His urine and blood cultures grew Morganella sensitive to 3rd generation cephalosporins Levaquin and sulfa. On January 05 his IV antibiotic was changed to Levaquin. He tolerated that well. He received a 2nd dose of Levaquin prior to discharge on January 06. His last documented fever was January 04. He had no fevers or chills since that time. He was up and about independently urinating without dysuria and tolerating his diet. He was having no orthostatic dizziness. He did feel tired with some generalized weakness. Therefore he was instructed to stay home from work for at least 1 week and to see his primary care nurse practitioner to determine the appropriate time for him to return to work. He did have some elevated liver enzymes and low platelets during hospitalization, both presumably due to bacteremia and sepsis. Platelets improved from [id number] prior to discharge. ALT improved from 70-54 and bilirubin from 4.5-1.1 prior to discharge. In addition to antibiotics he received IV saline for hydration during discharge. His white count improved from 6.3-5.0 prior to discharge. Neutrophils improved from 90.7% to 54.3% prior to discharge. His hospitalization and findings and discharge plans were discussed in detail with the patient at bedside and with his son on the phone simultaneously mostly in Enlish but and in Setswana as well. Time Spent with Patient Time attestation: Total time spent providing and/or coordinating discharge services: Exam Narrative: GENERAL: The patient is well developed, not in acute distress HEENT: Nonicteric sclerae, PERRLA, EOMI. Oropharynx clear. Moist mucous membranes. Conjunctivae appear well perfused. CHEST: Chest wall is nontender. HEART: Regular rate and rhythm without murmur, rubs, or gallops LUNGS: Clear to auscultation bilaterally. no respiratory distress ABDOMEN: Soft, positive bowel sounds, non-tender, no organomegaly. SKIN: No rash, no excessive bruising, petechiae, or purpura. NEUROLOGIC: Cranial nerves II-XII intact, alert and oriented x 3, no gross motor deficits EXTREMITIES: no edema, cyanosis or clubbing DS: Data Data Completed and Pending Labs on day of discharge: Labs from last 24 hours 01/06/25 01/06/25 01/05/25 07:38 04:36 19:42 WBC 5.0 RBC 3.98 L Hgb 12.1 L Hct 34.9 L MCV 87.7 MCH 30.4 MCHC 34.7 RDW 12.4 Plt Count 112 L MPV 10.8 H Immature Gran % (Auto) 2.4 H Neut % (Auto) 54.3 Lymph % (Auto) 25.6 Morrill % (Auto) 15.3 H Eos % (Auto) 1.8 Baso % (Auto) 0.6 Lymph # (Auto) 1.29 Morrill # (Auto) 0.8 H Eos # (Auto) 0.1 Baso # (Auto) 0.0 Abs Immat Gran (auto) 0.12 H Absolute Neuts (auto) 2.7 Absolute Nucleated RBC 0.000 Nucleated RBC % 0.0 % Immature Plt Fraction 3.9 Sodium 136 L Potassium 3.7 Chloride 107 Carbon Dioxide 25 Anion Gap 4 BUN 11 Creatinine 0.75 Estim Creat Clear Calc 95 Estimated GFR > 60 Glucose 172 H POC Capillary Glucose 161 H 206 H Calcium 8.4 Magnesium 1.8 Total Bilirubin 1.1 AST 58 ALT 54 H Alkaline Phosphatase 232 H Total Protein 6.4 Albumin 3.3 L 01/05/25 16:08 WBC RBC Hgb Hct MCV MCH MCHC RDW Plt Count MPV Immature Gran % (Auto) Neut % (Auto) Lymph % (Auto) Morrill % (Auto) Eos % (Auto) Baso % (Auto) Lymph # (Auto) Morrill # (Auto) Eos # (Auto) Baso # (Auto) Abs Immat Gran (auto) Absolute Neuts (auto) Absolute Nucleated RBC Nucleated RBC % % Immature Plt Fraction Sodium Potassium Chloride Carbon Dioxide Anion Gap BUN Creatinine Estim Creat Clear Calc Estimated GFR Glucose POC Capillary Glucose 201 H Calcium Magnesium Total Bilirubin AST ALT Alkaline Phosphatase Total Protein Albumin Discharge Plan Discharge Consulting providers: Reid Tesfaye Discharging Clinician: Colten Reina Patient Disposition: Home Activity: no straining and other - see discharge instructions Diet: heart healthy and diabetic Discharge Instructions: See analytical lead for release back to work Patient Instructions: Antibiotic Form Patient Language: Setswana Stand Alone Forms: General Discharge Information, Work/School Release IP Follow-up/Referrals: NicoleAjith NP [Primary Care Provider] - 1 Week Referral Note: Needs repeat lab as ordered in one week Reid Tesfaye MD [Physician, Urology] - Call for Appointment Referral Note: F/u BPH, prostatitis Discharge Medications: New finasteride [Proscar] 5 mg Tablet 5 mg PO QAM Qty: 30 0RF levofloxacin 500 mg tablet 500 mg PO DAILY Qty: 30 0RF Continued losartan 50 mg tablet 50 mg PO DAILY metformin 1,000 mg tablet 1,000 mg PO BID fluticasone propionate 50 mcg/actuation spray,suspension 1 spray INTRANASAL DAILY Discontinued cephalexin 500 mg capsule 500 mg PO Q12H 7 Days Qty: 14 0RF Other Ambulatory Orders: Complete Blood Count with Diff (Routine) Timeframe: 1 Week Facility: [facility] - Location: [facility] Outpatient Ordered By: Colten Reina Comprehensive Metabolic Panel (Routine) Timeframe: 1 Week Facility: [facility] - Location: [facility] Ordered By: Colten Reina Date of admission: 01/05/25 09:29 Primary Care Provider: CarolinaAjith Admitting Provider: Bam Freedman Attending physician on admission: Bam Freedman Condition: Improved
[2025-01-06] MEDS: INSULIN ASPART (*BKC) 100 UNITS/ML SUB-Q ×2 (12:21→17:05)
[2025-01-06] MEDS: levoFLOXacin 750 MG/D5W 150 ML 750 MG/150 ML BAG 100 MG IVPB (14:26)
--- NOTE | 2025-01-07 13:48 | PC.NURSE ---
Patient asked me on the phone during courtesy phone call if he was supposed to be taking his antibiotics for seven or 30 days. I was only able to read him what was transmitted to the pharmacy and advised him to call his doctor for clarification.
== END 2025-01-06 17:40 | disposition home or self-care (01) | DRG 720 ==
LOC: ANHED 23:53 → ANH2MED 01-04 03:35
PROVIDERS: Internal Medicine; Internal Medicine Gastroenterology; Nurse Practitioner; Nurse Practitioner Family; Admitting Provider Internal Medicine; Emergency Provider Physician Assistant; PCP Registered Nurse; Visit Provider Internal Medicine
DX: A41.59 Other Gram-negative sepsis (principal); G72.81 Critical illness myopathy; N39.0 Urinary tract infection, site not specified; R65.20 Severe sepsis without septic shock; D69.6 Thrombocytopenia, unspecified; E80.6 Other disorders of bilirubin metabolism; E11.9 Type 2 diabetes mellitus without complications; K80.20 Calculus of gallbladder without cholecystitis without obstruction; N41.0 Acute prostatitis; N40.1 Benign prostatic hyperplasia with lower urinary tract symptoms; R39.14 Feeling of incomplete bladder emptying; R74.01 Elevation of levels of liver transaminase levels; Z79.84 Long term (current) use of oral hypoglycemic drugs
CPT/HCPCS: 36415; 71045; 71260; 74177; 76705; 80048; 80053; 80074; 80076; 81001; 82248; 82565; 82948; 83010; 83036; 83605; 83615; 83690; 83735; 84145; 85025; 85027; 85046; 85055; 85380; 85384; 85610; 85730; 86140; 86880; 87040; 87086; 93005; 96361; 96365; 96367; 96376; 99285; A9270; G0378; G0379; J0692; J1741; J1815; J1836; J1956; J3373; J7030; Q9967

== ENCOUNTER 2025-02-10 15:40 | Emergency (ER) | payer OTHER, SELFPAY ==
--- OUTSIDE RECORDS SUMMARY | 2025-02-10 15:43 | XMS_ITS | Clinical Summary ---
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
--- OUTSIDE RECORDS SUMMARY | 2025-02-10 15:43 | XMS_ITS | Continuity of Care Document ---
Author Organization [facility] Address [address] [place] [address] Care Team Providers Care Shot Bagger Name Role Phone AJITH VERAS Primary Care Provider Assessment No assessment recorded. Plan of Treatment Reminders Order Date Submit Date Provider Last Modified By Organization Details Last Modified Time Details Appointments ANY 15 2024 03:15P Luis Veras, [employer] FI[employer] OPERATOR- Not available Not available Not available Lab CBC w/ auto diff 2024 025 [email or web address], [address], [address], [place], [address], 11/20/2024 13:17:24 albumi n/crea tinine , mass ratio, urine 2024 025 [employer] [facility], [address], [address], [place], [address], 11/20/2024 13:17:52 lipid panel, serum 2024 025 [employer] [facility], [address], [address], [place], [address], 11/20/2024 13:18:01 TSH, ultra- sensit lauri, serum 2024 025 [employer] [facility], [address], [address], [place], [address], 11/20/2024 13:18:08 urinal ysis, comple te 2024 025 [facility], [address], [address], [place], [address], 01/02/2025 11:25:12 HbA1c (hemog lobin A1c), blood 2024 025 [email or web address] In-Office Order, Internal Use Only DO Not Attach Compendium DO Not Attach Compendium, Do Not Delete/merge, [id number] 11/14/2024 15:33:27 glucos e, finger stick, blood 2024 025 [email or web address] In-Office Order, Internal Use Only DO Not Attach Compendium DO Not Attach Compendium, Do Not Delete/merge, [id number] 11/14/2024 15:33:27 PSA, total, serum or plasma 2024 025 [facility], [address], [address], [place], [address], 11/20/2024 13:18:16 Referral None record ed. Procedures None record ed. Surgeries None record ed. Imaging None record ed. Medication Orders flutic asone propio gina 50 mcg/ac tuatio n nasal spray, suspen kijnal 2024 025 [facility], [address] [place], [address], 11/14/2024 15:33:22 lorata dine 10 mg tablet 2024 025 [facility], [facility] [place], [address], 11/14/2024 15:33:23 fenofi brate 160 mg tablet 2024 025 [facility], [address] [place], [address], 11/14/2024 15:33:23 pravas tatin 20 mg tablet [address] [place] [address] [address], [address] [place] [address], [address], 11/14/2024 15:33:23 losart an 50 mg tablet 2024 025 [facility] [address], [address] [place] [address], [address], 11/14/2024 15:33:22 tamsul osin 0.4 mg capsul e [address] [place] [address], [address] [place] [address], [address], 11/14/2024 15:33:22 seleni um sulfid e 2.5 % lotion [address] [place] [address], [address] [place] [address], [address], 11/14/2024 15:33:23 Bactri m DS 800 mg-160 mg tablet [address] [place] [address], [address] [place] [address], [address], 12/01/2024 05:02:00 fluoro uracil 5 % topica l cream 2024 025 [facility] [address], [address] [place] [address], [address], 11/14/2024 15:33:23 silden afil 100 mg tablet 2024 025 [facility], [address] [place], [place], [id number], 11/14/2024 15:51:02 ammoni um lactat e 12 % lotion [address] [place] [address] 361, [address] [place] [address], [address], 11/14/2024 15:33:22 metfor min 1,000 mg tablet 2024 025 [facility], [address], [place], [address], 11/14/2024 15:33:23 Jardia nce 10 mg tablet 2024 025 [facility], [address], [place], [address], 11/14/2024 15:33:23 Patient TargetsNo targets recorded. Patient Instructions Encounter Date Encounter Id Patient Instructions Last Modified By Organization Details Last Modified Time 11/14/2024 [id number] aprenda sobre la presi n arterial jose [...] espec fico: acerca de esta prueba - [prostate-specific antigen (PSA) test: about this test] yarauz Not available 11/14/2024 15:33:23 aprenda acerca d el peso saludable - [learning about healthy weight] yarauz Not available 11/14/2024 15:33:22 ndice de masa corporal: instrucciones de cuidado - [body mass index: care instructions] maria m Not available 11/14/2024 15:33:22 Uncontrolled Diabetes Mellitus [...] dentist every 6 months make appointment with burr bench operator APPLE TURNER maria m Not available 11/14/2024 15:08:54 Reason for Referral None Reported. Results Created Date Observation Date Name Description Value Unit Range Abnormal Flag Note LastModifiedBy Organization Detail LastModifiedTime 11/15/1911/14/2024 HbA1c (hemo globi n A1c), blood HbA1C 7.7 % Not Available In-Office Order Internal Use Only DO Not Attach Compendium DO Not Attach Compendium, Do Not Delete/merge, [id number] 11/14/2024 14:45:43 11/15/1911/14/2024 gluco semindy rslior k, blood Blood Glucose: mg/dl 146 Not Available In-Off ice Order Internal Use Only DO Not Attach Compendium DO Not Attach Compendium, Do Not Delete/merge, [id number] 11/14/2024 14:45:50 01/03/2001/01/2025 XR, chest , 2 view No observ ation record ed. [address], [address], 01/15/2025 10:56:44 01/05/2001/03/2025 CT, chest + abdom en + pelvi s, w/ contr ast No observ ation record ed. [address], [address], 01/15/2025 10:56:43 01/05/2001/04/2025 US, abdom en No observ ation record ed. [address], [address], 01/15/2025 10:56:43 Result Notes None recorded. 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 35649407 Active Not Available [facility] 4 22:50:17 Neuropath y due to diabetes mellitus 705728326 Active Not Available [facility] 22:50:17 Gastroeso phageal reflux disease 308685492 Active Not Available [facility] 4 22:50:17 Serous otitis media 01133865 Completed 06/30/2016 SEBASTIAN [place], [place] [facility] 7 14:33:37 Complaini ng of nasal congestio n Completed 08/18/2020 Abbey Graham RN null, [place] [facility] 1 16:25:44 Onychomyc osis 455268776 Completed 03/17/2018 SEBASTIAN [place], [place] [facility] 9 15:46:57 Backache 444020792 Completed 06/30/2016 SEBASTIAN [place] [facility] 7 14:33:41 Reduced libido 6709387 Completed 201608/18/2020 SEBASTIAN [place] [facility] 1 16:26:03 Testoster one level below reference range 010205230 Completed 201608/18/2020 SEBASTIAN [place] [facility] 16:25:52 Benign prostatic hyperplas ia 252024841 Active 2017 Not Available [facility] 4 22:50:17 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 621664742 Active 2017 Not Available [facility] 4 22:50:17 Scalp folliculi tis 158225947 Active 2021 Not Available [facility] 4 22:50:17 Vitamin D deficienc y 78835776 Active 2021 Not Available [facility] 4 22:50:17 Body mass index 30+ - obesity 712458918 Active 2021 RAMU Yu Attn: Accounting ,[address] [place], [address] , [place] [facility] 4 16:02:43 Screening for malignant neoplasm of colon Active 2022 Not Available [facility] 4 22:50:17 Fall from ladder Active 2022 Not Available [facility] 4 22:50:17 Obesity 432999643 Active 2023 RAMU Yu Attn: Accounting ,[address] [place], [address] , [place] [facility] 4 16:50:40 Pain of left shoulder joint 75917540144 844249 Active 2023 RAMU Yu Attn: Accounting ,[address] [place], [address] , [place] [facility] 4 16:52:26 Acute bacterial prostatit is Active 2024 RAMU Yu Attn: Accounting ,[address] [place], [address] , [place] [facility] 5 11:27:32 Body mass index 25-29 - overweigh t 054249747 Active 2024 RAMU Yu Attn: Accounting ,[address] [place], [address] , [place] [facility] 5 17:35:45 Problem Notes None recorded. Medical Equipment None [...] Not Available Not Available No t Available OneTouch Ultra Test strips USE 1 STRIP TO CHECK GLUCOSE TWICE DAILY active Not Available Not Available No t Available cephalexin 500 mg capsule TAKE 1 CAPSULE BY MOUTH EVERY 12 HOURS FOR 7 DAYS 11/11 /2025 completed Not Available Not Available Not Available erythromyci n 5 mg/gram (0.5 %) [...] completed Not Available Not Available Not Available levofloxaci n 500 mg tablet TAKE 1 TABLET BY MOUTH ONCE DAILY 01/15 completed Not Available Not Available Not Available [...] completed Not Available Not Available Not Available finasteride 5 mg tablet Take 1 tablet every day by oral route, for BPH. 2024 active Not Available Not Available Not Avai lable loratadine 10 mg tablet TAKE 1 TABLET [...] t Available Vitals Date Recorded Body height Body mass index (BMI) Body weight Oxygen saturation Heart rate Body temperature Systolic And Diastolic Provider Name and Address Organization Details Last Updated DateTime 5 165.1 cm 29.1 kg/m2 60121.6 6 g 96 % 70 /min 98.5 [degF] 120/80 mm[Hg] Larissa pepper [place] [facility] 5 14:51:40 Social History Question Answer Notes LastModified by Organizat ion Details LastModified Time Tobacco Smoking Status Never Smoker KAZ Chavarria, [facility] 07/11/2014 16:23:26 Do You Have An Advance Directive? No Information not available 04/13/2019 Are You Blind Or Do You Have Difficulty Seeing? No Information not available 08/18/2020 What Is Your Level Of Caffeine Consumption? Occasional [email or web address] Information not available 07/11/2014 How Much Tobacco Do You Chew? None [email or web address] Information not available 07/11/2014 In The 14 Days Before Symptom Onset, Have You Had Close Contact With A Laboratory-confir med COVID-19 While That Case Was Ill? No Information not available 04/13/2019 If Patient Spent Time In [facility] - Does The Patient Live In [facility]? No Information not available 04/13/2019 In The 14 Days Before Symptom Onset, Have You Had Close Contact With A Person Who Is Under Investigation For COVID-19 While That Person Was Ill? No Information not available 04/13/2019 In The 14 Days Before Symptom Onset, Did The Patient Spend Time In [facility]? No Information not available 04/13/2019 Have You Been To An Area Known To Be High Risk For COVID-19? No Information not available 08/18/2020 Are You Deaf Or Do You Have Serious Difficulty Hearing? No Information not available 08/18/2020 What Type Of Diet Are You Following? REGULAR [email or web address] Information not available 07/11/2014 Education Less Than 8th Grade [email or web address] Information not available 07/11/2014 Are There Any Guns Present In Your Home? No [email or web address] Information not available 07/11/2014 Hard Of Hearing Or Deaf In One Or Both Ears? No Information not available 07/11/2014 Legally Blind In One Or Both Eyes? No Information no t available 07/11/2014 Marital Status [email or web address] Informatio n not available 07/11/2014 What Was The Date Of Your Most Recent Tobacco Screening? 01/15/2025 Information not available 01/15/2025 Do You Use Protection During Sex? No Information not available 05/14/2022 What Is Your Relationship Status? Information not available 11/18/2020 Do You Use Your Seat Belt Or Car Seat Routinely? Yes Information not available 08/18/2020 Seat Belts Used Routinely Yes [email or web address] Information not available 07/11/2014 Are You Sexually Active? Yes Information not available 05/14/2022 Smoke Alarm In Home Yes Information not available 07/11/2014 Do You Have Smoke And Carbon Monoxide Detectors In Your Home? Yes Information not available 08/18/2020 Are You Passively Exposed To Smoke? No Information no t available 08/18/2020 How Much Tobacco Do You Smoke? No [email or web address] Information not available 07/11/2014 General Stress Level Low [email or web address] Information not available 09/05/2015 Do You Use [...] is your level of alcohol consumption? None Information not available 07/11/2014 Do you or have you ever used smokeless tobacco? Never used smokeless tobacco Information not available 04/13/2019 Are you currently employed? Yes Information not available 11/18/2020 Are you able to care for yourself independently? 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 Never used electronic cigarettes Information not available 04/13/2019 What is your exercise level? Occasional [email or web address] Information not available 07/11/2014 Mental Status Question Answer Note LastModified by Organization D etails LastModified Time Do you feel stressed (tense, restless, nervous, or anxious, or unable to sleep at night)? [id number] Information not available 05/14/2022 Family History Relationship Description Onset Age of this Age Resolved Age Notes LastModified by Organization Details LastModified Time Sister Diabetes mellitus [email or web address] Not available 2015 15:01:39 Daughter Suicide 22 [...] 50 mcg/0.25mL dose 2 completed Not Available [facility] 04/27/2023 22:50:17 Influenza, split virus, quadrivalent, preservative 6 completed Not Available [facility] 03/24/2019 02:42:30 Tdap 6 completed Not Available [facility] 03/24/2019 02:40:27 pneumococcal polysaccharide PPV23 2 completed Not Available [facility] 04/27/2023 22:50:17 Influenza, split virus, quadrivalent, preservative 7 completed Not Available [facility] 03/24/2019 02:33:58 Tdap 2 completed Not Available [facility] 01/15/2025 10:30:33 Influenza, split virus, quadrivalent, PF 8 completed Not Available [facility] 03/24/2019 02:35:59 Influenza, split virus, quadrivalent, preservative 9 completed Not Available [facility] 03/24/2019 02:42:38 Influenza, split virus, quadrivalent, [...] 3 completed RAMU Yu Attn: Accounting,[address] [place], [address], [place] [facility] 08/24/2022 14:38:02 Hep B, adult 3 completed RAMU Yu Attn: Accounting[address] [place], [address], [place] [facility] 12/16/2022 17:59:52 Influenza, split virus, quadrivalent, preservative 3 completed KRISTINA YuCHICO Attn: Accounting[address] [facility], [place], [address], [place] [facility] 12/16/2022 17:59:52 Pneumococcal conjugate PCV 13 3 completed RAMU Yu Attn: Accounting[address] [facility], [place], [address], [place] [facility] 12/16/2022 17:59:52 Influenza, split virus, trivalent, preservative 4 completed BERE [place], [place] [facility] 12/06/2023 17:05:22 Influenza, split virus, trivalent, PF 5 completed BERE [place], [place] [facility] 11/14/2024 15:37:33 Past Encounters Encounter ID Performer Location Encounter Start Date Encounter Closed Date Diagnosis/Indication Diagnosis SNOMED-CT Code Diagnosis ICD10 Code Diagnosis IMO Codes Diagnosis Note [id number] Aleksander Diaz MD [facility] [address] [place] [address] 11/14/2024 14:40:30 11/16/2024 11:18:26 Body mass index 30+ - obesity 652837168 Z68.31 BMI 29.1Ht 5' 5 Healthy weight 115-149 Benign pro static hyperplasia 609651579 N40.0 continue Tamsulosin 0.4mg was started per urology has not returned to urology feels med helps himrefuses DRE05/20/19 24 PSA 0.6 Vitamin D deficiency 347 41862 E55.9 Vitamin D 42buy otc vitamin D3 1000 IU once daily Essential hypertension 39119034 I10 BP Goal: Less than 140/90BP Controlled : yes; per the JNC8 guidelines in the absence of renal disease and DMHealthy Weight: 5'5= 115-149 lbsDiscuss ed: Low sodium balanced diet, moderate exercise at least 3-4 times per week for an average of 40 minutesNex t Visit: 3month(s) Type 2 ab betes mellitus without complication 202364133 E11.9 HA1C 7.7worse continue to monitor blood sugars patient to continue metformin 1000 mg bid-- keep bs logswill continue jardiance 10mg daily Mixed hypercholesterolemia and hypertriglyceridemia 667277334 E78.2 06/15/2021 cho 157Trig 383HDL 35.3LDL 82 [...] e 160mg daily Gastroesop hageal reflux disease 985655815 K21.9 stable no need for pepcid nowHas noticed some nausea after taking medication sAdvised to take medication s with a cracker or something solidAdvis ed not to lay down immediatel y after taking medication s Obstructiv e sleep apnea of adult 7813656784 103 G47.33 stable continue to use CPAP Has been on CPAP for 10 years same machine Has now seen APPLE TURNER at pulmonolog ist office-had new machine ordered Allergic rhinitis 139301 04 J30.9 Pain of le ft shoulder joint 9204964898 1012973 M25.512 deltoid area painwakes him up at nighthad a fall 9 months ago from a ladderbett er now Erectile dysfunction 860 776991 F52.21 Xerosis du e to atopic dermatitis 278173010 L85.3 Body mass index 25-29 - overweight 349116144 Z68.28 BMI 29.1Health y Weight: 5'5= 115-149 lbs Pain of le ft shoulder region 5615535045 M25.512 Has resolved for nowdid not get xray Requires i nfluenza virus vaccination 599500553 Z23 357908 Prostate s pecific antigen measurement 03034869 Z12.5 [id number] 05/20/2023 PSA 0.6 Scalp folliculitis 30714 8003 L73.8 return Seborrheic keratosis 394 989222 L82.1 92571 Health Concerns Section Related Observation LastModified by Organization Detai ls LastModified Time None Recorded Concern Status LastModified by Organization Details LastModified Time None Recorded Payers Encounter Date Sequence Insurance Name Policy Number Policy Marshall Covered Member ID Marshall Member ID Guarantor Name 11/14/2024 2 *SELF PAY* Zaira Gonzalez 11/14/2024 1 [facility] - DOS ON OR AFTER 20 (MEDICAID REPLACEMENT - HMO) Efrain Gonzalez [id number] Efrain Gonzalez Notes Date Note Type Note Provider Name and Address Organization Details Recorded Time 5 text/html Erectile DysfunctionReported by PatientHPIFor associated [...] has no contraindications. His stuck on R jehovah's witness area brown wart is growing. He wants to try cream and if it doesnt work he will go to derm. 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
--- OUTSIDE RECORDS SUMMARY | 2025-02-10 15:43 | XMS_ITS | Continuity of Care Document ---
Author Organization [facility] Address [address] [place] [address] Care Team Providers Care Youth Services Specialist Name Role Phone AJITH VERAS Primary Care Provider Assessment No assessment recorded. 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 Veras, SOUND ENGINEER-Bc Not available Not available Not available Lab CBC w/ auto diff 2024 025 [facility], [address] [place] [address], [address], [place], [address], 01/15/2025 22:08:16 CMP, serum or plasma 2024 025 [facility], [address] [place] [address], [address], [place], [address], 01/15/2025 22:08:15 urinalysi s, dipstick 2024 025 maria m In-Office Order, Internal Use Only DO Not Attach Compendium DO Not Attach Compendium, Do Not Delete/merge, [id number] 01/15/2025 11:23:52 culture, urine 2024 025 [facility], [address] [facility], [address], [place], [address], 01/17/2025 23:08:36 Referral None recorded. Procedures None recorded. Surgeries None recorded. Imaging None recorded. Medication Orders finasteri de 5 mg tablet 2024 025 [facility], [address] [facility], [place], [address], 01/15/2025 11:24:31 Patient TargetsNo targets recorded. Patient Instructions Encounter Date Encounter Id Patient Instructions Last Modified By Organization Details Last Modified Time 01/15/2025 [id number] aprenda acerca del pes[employer] saludable - [learning about healthy weight] maria m Not available 01/15/2025 17:35:48 drink more water will get labs ordered that have not been done yet i have refilled finasteride 5mg continue flomax as well note to return to work next week monitor for fever chills dysuria etc seek care maria m Not available 01/15/2025 11:26:55 Reason for Referral None Reported. Results Created Date Observation Date Name Description Value Unit Range Abnormal Flag Note LastModifiedBy Organization Detail LastModifiedTime 01/16/2001/15/2025 COMP. METAB OLIC PANEL (14) glucose 185 mg/dL 70-99 above high normal Not Available [facility] [address] [place], [address], 01/15/2025 22:08:15 01/16/20 25 01/15/2025 COMP. METAB OLIC PANEL (14) BUN 15 mg/dL 6-24 Not Available [facility] [address] [place], [address], 01/15/2025 22:08:15 01/16/20 25 01/15/2025 COMP. METAB OLIC PANEL (14) creatinine 0.81 mg/dL 0.76-1 .27 Not Available [facility] [address] [place], [address], 01/15/2025 22:08:15 01/16/20 25 01/15/2025 COMP. METAB OLIC PANEL (14) eGFR 104 >=60 Units for eGFR value s are mL/mi n/1.7 3 The eGFR Calcu latio n has not been valid ated for patie nts under the age of 18. If test resul ts are displ ayed for a patie nt under the age of 18, disre apolinar that value . Not Available [facility] [address] [place] [address], [address], 01/15/2025 22:08:15 01/16/20 25 01/15/2025 COMP. METAB OLIC PANEL (14) BUN/creatini ne ratio 18 9-20 Not Available [facility] [address] [place] [address], [address], 01/15/2025 22:08:15 01/16/20 25 01/15/2025 COMP. METAB OLIC PANEL (14) sodium 139 mmol/ L 134-14 4 Not Available [facility] [address] [place] [address], [address], 01/15/2025 22:08:15 01/16/20 25 01/15/2025 COMP. METAB OLIC PANEL (14) potassium 5.1 mmol/ L 3.5-5. 9 Not Available [facility] [address] [place] [address], [address], 01/15/2025 22:08:15 01/16/20 25 01/15/2025 COMP. METAB OLIC PANEL (14) chloride 101 mmol/ L 96-106 Not Available [facility] [address] [place] [address], [address], 01/15/2025 22:08:15 01/16/20 25 01/15/2025 COMP. METAB OLIC PANEL (14) carbon dioxide, total 26 mmol/ L 20-29 Not Available [facility] [address] [place] [address], [address], 01/15/2025 22:08:15 01/16/20 25 01/15/2025 COMP. METAB OLIC PANEL (14) calcium 9.5 mg/dL 8.7-10 .2 Not Available [facility] [address] [place] [address], [address], 01/15/2025 22:08:15 01/16/20 25 01/15/2025 COMP. METAB OLIC PANEL (14) protein, total 7.3 g/dL 6.0-8. 5 Not Available [facility] [address] [place], [address], 01/15/2025 22:08:15 01/16/20 25 01/15/2025 COMP. METAB OLIC PANEL (14) albumin 4.4 g/dL 3.8-4. 9 Not Available [facility] [address] [place], [address], 01/15/2025 22:08:15 01/16/20 25 01/15/2025 COMP. METAB OLIC PANEL (14) globulin, total 2.9 g/dL 1.5-4. 5 Not Available [facility] [address] [place], [address], 01/15/2025 22:08:15 01/16/20 25 01/15/2025 COMP. METAB OLIC PANEL (14) A/G ratio 1.0 1.2-2. 2 below low normal Not Available [facility] [address] [place], [address], 01/15/2025 22:08:15 01/16/20 25 01/15/2025 COMP. METAB OLIC PANEL (14) bilirubin, total 1.1 mg/dL 0.0-1. 2 Not Available [facility] [address] [place], [address], 01/15/2025 22:08:15 01/16/20 25 01/15/2025 COMP. METAB OLIC PANEL (14) alkaline phosphatase 147 IU/L 44-121 above high normal Not Available [facility] [address] [place], [address], 01/15/2025 22:08:15 01/16/20 25 01/15/2025 COMP. METAB OLIC PANEL (14) AST (SGOT) 19 U/L 0-40 Not Available [facility] [address] [place], [address], 01/15/2025 22:08:15 01/16/20 25 01/15/2025 COMP. METAB OLIC PANEL (14) ALT (SGPT) 30 IU/L 0-44 Not Available [facility] [address] [place], [address], 01/15/2025 22:08:15 01/16/20 25 01/15/2025 CBC WITH DIFFE RENTI AL/PL ATELE T WBC 5.4 x10e3 /uL 3.4-10 .8 Not Available [facility] [address] [place], [address], 01/15/2025 22:08:16 01/16/20 25 01/15/2025 CBC WITH DIFFE RENTI AL/PL ATELE T RBC 4.73 x10e6 /uL 4.14-5 .80 Not Available [facility] [address] [place], [address], 01/15/2025 22:08:16 01/16/20 25 01/15/2025 CBC WITH DIFFE RENTI AL/PL ATELE T hemoglobin 14.6 g/dL 13.0-1 7.7 Not Available [facility] [address] [place], [address], 01/15/2025 22:08:16 01/16/20 25 01/15/2025 CBC WITH DIFFE RENTI AL/PL ATELE T hematocrit 43.1 % 37.5-5 1.0 Not Available [facility] [address] [place], [address], 01/15/2025 22:08:16 01/16/20 25 01/15/2025 CBC WITH DIFFE RENTI AL/PL ATELE T MCV 91 fL 79-97 Not Available [facility] [address] [place], [address], 01/15/2025 22:08:16 01/16/20 25 01/15/2025 CBC WITH DIFFE RENTI AL/PL ATELE T MCH 30.9 pg 26.6-3 3.0 Not Available [facility] [address] [place], [address], 01/15/2025 22:08:16 01/16/20 25 01/15/2025 CBC WITH DIFFE RENTI AL/PL ATELE T MCHC 33.9 g/dL 31.5-3 5.7 Not Available [facility] [address] [place], [address], 01/15/2025 22:08:16 01/16/20 25 01/15/2025 CBC WITH DIFFE RENTI AL/PL ATELE T RDW 12.2 % 11.5-1 4.5 Not Available [facility] [address] [place], [address], 01/15/2025 22:08:16 01/16/20 25 01/15/2025 CBC WITH DIFFE RENTI AL/PL ATELE T platelets 368 x10e3 /uL 150-45 0 Not Available [facility] [address] [place], [address], 01/15/2025 22:08:16 01/16/20 25 01/15/2025 CBC WITH DIFFE RENTI AL/PL ATELE T neutrophils 57 % notest b. Not Available [facility] [address] [place], [address], 01/15/2025 22:08:16 01/16/20 25 01/15/2025 CBC WITH DIFFE RENTI AL/PL ATELE T lymphs 29 % notest b. Not Available [facility] [address] [place], [address], 01/15/2025 22:08:16 01/16/20 25 01/15/2025 CBC WITH DIFFE RENTI AL/PL ATELE T monocytes 11 % notest b. Not Available [facility] [address] [place], [address], 01/15/2025 22:08:16 01/16/20 25 01/15/2025 CBC WITH DIFFE RENTI AL/PL ATELE T eos 2 % notest b. Not Available [facility] [address] [place], [address], 01/15/2025 22:08:16 01/16/20 25 01/15/2025 CBC WITH DIFFE RENTI AL/PL ATELE T basos 1 % notest b. Not Available [facility] [address] [place], [address], 01/15/2025 22:08:16 01/16/20 25 01/15/2025 CBC WITH DIFFE RENTI AL/PL ATELE T neutrophils (absolute) 3.1 x10e3 /uL 1.4-7. 0 Not Available [facility] [address] [place], [address], 01/15/2025 22:08:16 01/16/20 25 01/15/2025 CBC WITH DIFFE RENTI AL/PL ATELE T lymphs (absolute) 1.6 x10e3 /uL 0.7-3. 1 Not Available [facility] [address] [place], [address], 01/15/2025 22:08:16 01/16/20 25 01/15/2025 CBC WITH DIFFE RENTI AL/PL ATELE T monocytes(ab solute) 0.6 x10e3 /uL 0.1-0. 9 Not Available [facility] [address] [place], [address], 01/15/2025 22:08:16 01/16/20 25 01/15/2025 CBC WITH DIFFE RENTI AL/PL ATELE T eos (absolute) 0.1 x10e3 /uL 0.0-0. 4 Not Available [facility] [address] [place], [address], 01/15/2025 22:08:16 01/16/20 25 01/15/2025 CBC WITH DIFFE RENTI AL/PL ATELE T baso (absolute) 0.1 x10e3 /uL 0.0-0. 2 Not Available [facility] [address] [place], [address], 01/15/2025 22:08:16 01/16/20 25 01/15/2025 CBC WITH DIFFE RENTI AL/PL ATELE T immature granulocytes 0.4 % notest b. Not Available [facility] [address] [place], [address], 01/15/2025 22:08:16 01/16/20 25 01/15/2025 CBC WITH DIFFE RENTI AL/PL ATELE T immature grans (abs) 0.0 x10e3 /uL 0.0-0. 1 Not Available [facility] [address] [place], [address], 01/15/2025 22:08:16 01/16/20 25 01/15/2025 CBC WITH DIFFE RENTI AL/PL ATELE T NRBC 0 % 0-0 Not Available [facility] [address] [place], [address], 01/15/2025 22:08:16 01/16/20 25 01/17/2025 URINE CULTU WILI RAVI urine culture, routine FINAL REPORT abnormal Not Available [facility] ([facility]) [address] [facility], [place], [address], 01/17/2025 23:08:36 01/16/20 25 01/17/2025 URINE CULTU WILI RAVI result 1 CANDID A ALBICA NS abnormal 10,00 0-25, 000 colon y formi ng units per mL Not Available [facility] ([facility]) [address] [facility], [place], [address], 01/17/2025 23:08:36 01/16/2001/15/2025 urina lysis , dipst ick Leukocytes Trace Not Available In-Offi ce Order Internal Use Only DO Not Attach Compendium DO Not Attach Compendium, Do Not Delete/merge, 01/15/2025 10:34:44 01/16/2001/15/2025 urina lysis , dipst ick Nitrite negati ve Not Available In-Office Order Internal Use Only DO Not Attach Compendium DO Not Attach Compendium, Do Not Delete/merge, 01/15/2025 10:34:44 01/16/2001/15/2025 urina lysis , dipst ick Urobilinogen .2 Not Available In-Of fice Order Internal Use Only DO Not Attach Compendium DO Not Attach Compendium, Do Not Delete/merge, 01/15/2025 10:34:44 01/16/2001/15/2025 urina lysis , dipst ick Protein Trace Not Available In-Office Order Internal Use Only DO Not Attach Compendium DO Not Attach Compendium, Do Not Delete/merge, 01/15/2025 10:34:44 01/16/2001/15/2025 urina lysis , dipst ick pH 5.5 Not Available In-Office Order Internal Use Only DO Not Attach Compendium DO Not Attach Compendium, Do Not Delete/merge, 01/15/2025 10:34:44 01/16/2001/15/2025 urina lysis , dipst ick Blood Negati ve Not Available In-Office Order Internal Use Only DO Not Attach Compendium DO Not Attach Compendium, Do Not Delete/merge, 01/15/2025 10:34:44 01/16/20 25 01/15/2025 urina lysis , dipst ick Specific [place] 1.025 Not Available In-Off ice Order Internal Use Only DO Not Attach Compendium DO Not Attach Compendium, Do Not Delete/merge, [id number] 01/15/2025 10:34:44 01/16/2001/15/2025 urina lysis , dipst ick Ketone Negati ve Not Available In-Office Order Internal Use Only DO Not Attach Compendium DO Not Attach Compendium, Do Not Delete/merge, [facility] 01/15/2025 10:34:44 01/16/2001/15/2025 urina lysis , dipst ick Bilirubin Negati ve Not Available In-Office Order Internal Use Only DO Not Attach Compendium DO Not Attach Compendium, Do Not Delete/merge, [facility] 01/15/2025 10:34:44 01/16/2001/15/2025 urina lysis , dipst ick Glucose Negati ve Not Available In-Office Order Internal Use Only DO Not Attach Compendium DO Not Attach Compendium, Do Not Delete/merge, [facility] 01/15/2025 10:34:44 01/16/2001/15/2025 urina lysis , dipst ick Appearance Clear Not Available In-Offi ce Order Internal Use Only DO Not Attach Compendium DO Not Attach Compendium, Do Not Delete/merge, [facility] 01/15/2025 10:34:44 01/16/2001/15/2025 urina lysis , dipst ick Color Dark Yellow Not Available In-Office Order Internal Use Only DO Not Attach Compendium DO Not Attach Compendium, Do Not Delete/merge, [facility] 01/15/2025 10:34:44 01/03/2001/01/2025 XR, chest , 2 view No observ ation record ed. [facility] [address], [place], [address], 01/15/2025 10:56:44 01/05/2001/03/2025 CT, chest + abdom en + pelvi s, w/ contr ast No observ ation record ed. [facility] [address], [place], [address], 01/15/2025 10:56:43 01/05/2001/04/2025 US, abdom en No observ ation record ed. [facility] [address], [place], [address], 01/15/2025 10:56:43 Result Notes None recorded. 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 37866775 Active Not Available [facility] 22:50:17 Neuropath y due to diabetes mellitus 140213580 Active Not Available [facility] 22:50:17 Gastroeso phageal reflux disease 526501909 Active Not Available [facility] 22:50:17 Serous otitis media 05786787 Completed 06/30/2016 Abbey Graham RN null, [place] [facility] 7 14:33:37 Complaini ng of nasal congestio n Completed 08/18/2020 Abbey [place] [facility] 16:25:44 Onychomyc osis 037378374 Completed 03/17/2018 Abbey [place] [facility] 9 15:46:57 Backache 674582516 Completed 06/30/2016 Abbey [place] [facility] 7 14:33:41 Reduced libido 9283173 Completed 201608/18/2020 SEBASTIAN [place], [place] [facility] 16:26:03 Testoster one level below reference range 822972208 Completed 201608/18/2020 SEBAST[place] [facility] 16:25:52 Benign prostatic hyperplas ia 479385975 Active 2017 Not Available [facility] 4 22:50:17 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 121649592 Active 2017 Not Available [facility] 4 22:50:17 Scalp folliculi tis 229313606 Active 2021 Not Available [facility] 4 22:50:17 Vitamin D deficienc y 38906099 Active 2021 Not Available [facility] 4 22:50:17 Body mass index 30+ - obesity 176767566 Active 2021 RAMU Yu Attn: Accounting ,[address] [place], [address] , [place] [facility] 4 16:02:43 Screening for malignant neoplasm of colon Active 2022 Not Available [facility] 4 22:50:17 Fall from ladder Active 2022 Not Available [facility] 4 22:50:17 Obesity 021434120 Active 2023 KRISTINA Yu-CHICO Attn: Accounting ,[address] [place], [address] , [place] [facility] 4 16:50:40 Pain of left shoulder joint 17934790200 900422 Active 2023 RAMU Yu Attn: Accounting ,[address] [place], [address] , [place] [facility] 4 16:52:26 Acute bacterial prostatit is Active 2024 KRISTINA Yu-CHICO Attn: Accounting ,[address] [place], [address] , [place] [facility] 5 11:27:32 Body mass index 25-29 - overweigh t 624283237 Active 2024 RAMU Yu Attn: Accounting ,[address] [place], [address] , [place] [facility] 17:35:45 Problem Notes None recorded. Medical Equipment [...] MOUTH EVERY 12 HOURS FOR 7 DAYS 01/15 completed Not Available Not Available Not [...] No t Available Vitals Date Recorded Body mass index (BMI) Body weight Body temperature Oxygen saturation Heart rate Systolic And Diastolic Provider Name and Address Organization Details Last Updated DateTime 28 kg/m2 01599.3 2 g 97.8 [degF] 100 % 68 /min 120/82 mm[Hg] Reynold Cronin MA [facility] 5 10:41:38 Date Recorded Body height Provider Name an d Address Organization Details Last Updated DateTime 01/15/2025 165.1 cm Larissa pepper MA [facility] 01/15/2025 10:31:40 Social History Question Answer Notes LastModified by Organizat ion Details LastModified Time Tobacco Smoking Status Never Smoker KAZ Chavarria, [facility] 07/11/2014 16:23:26 Do You Have An Advance Directive? No Information not available 04/13/2019 Are You Blind Or Do You Have Difficulty Seeing? No Information not available 08/18/2020 What Is Your Level Of Caffeine Consumption? Occasional [email or web address] Information not available 07/11/2014 How Much Tobacco Do You Chew? None [email or web address] Information not available 07/11/2014 In The 14 Days Before Symptom Onset, Have You Had Close Contact With A Laboratory-confir med COVID-19 While That Case Was Ill? No Information not available 04/13/2019 If Patient Spent Time In [facility] - Does The Patient Live In [facility]? No Information not available 04/13/2019 In The 14 Days Before Symptom Onset, Have You Had Close Contact With A Person Who Is Under Investigation For COVID-19 While That Person Was Ill? No Information not available 04/13/2019 In The 14 Days Before Symptom Onset, Did The Patient Spend Time In [facility]? No Information not available 04/13/2019 Have You Been To An Area Known To Be High Risk For COVID-19? No Information not available 08/18/2020 Are You Deaf Or Do You Have Serious Difficulty Hearing? No Information not available 08/18/2020 What Type Of Diet Are You Following? REGULAR [email or web address] Information not available 07/11/2014 Education Less Than 8th Grade [email or web address] Information not available 07/11/2014 Are There Any Guns Present In Your Home? No [email or web address] Information not available 07/11/2014 Hard Of Hearing Or Deaf In One Or Both Ears? No [email or web address] Information not available 07/11/2014 Legally Blind In One Or Both Eyes? No [email or web address] Information no t available 07/11/2014 Marital Status [email or web address] Informatio n not available 07/11/2014 What Was The Date Of Your Most Recent Tobacco Screening? 01/15/2025 Information not available 01/15/2025 Do You Use Protection During Sex? No Information not available 05/14/2022 What Is Your Relationship Status? Information not available 11/18/2020 Do You Use Your Seat Belt Or Car Seat Routinely? Yes Information not available 08/18/2020 Seat Belts Used Routinely Yes [email or web address] Information not available 07/11/2014 Are You Sexually Active? Yes Information not available 05/14/2022 Smoke Alarm In Home Yes [email or web address] Information not available 07/11/2014 Do You Have Smoke And Carbon Monoxide Detectors In Your Home? Yes Information not available 08/18/2020 Are You Passively Exposed To Smoke? No Information no t available 08/18/2020 How Much Tobacco Do You Smoke? No Information not available 07/11/2014 General Stress Level Low [email or web address] Information not available 09/05/2015 Do You Use [...] is your level of alcohol consumption? None [email or web address] Information not available 07/11/2014 Do you or have you ever used smokeless tobacco? Never used smokeless tobacco Information not available 04/13/2019 Are you currently employed? Yes Information not available 11/18/2020 Are you able to care for yourself independently? 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 Never used electronic cigarettes Information not available 04/13/2019 What is your exercise level? Occasional [email or web address] Information not available 07/11/2014 Mental Status Question Answer Note LastModified by Organization D etails LastModified Time Do you feel stressed (tense, restless, nervous, or anxious, or unable to sleep at night)? [id number] Information not available 05/14/2022 Family History Relationship Description Onset Age of this Age Resolved Age Notes LastModified by Organization Details LastModified Time Sister Diabetes mellitus [email or web address] Not available 2015 15:01:39 Daughter Suicide 22 [...] virus, quadrivalent, preservative 6 completed Not Available [facility] 03/24/2019 02:42:30 Tdap 6 completed Not Available [facility] 03/24/2019 02:40:27 pneumococcal polysaccharide PPV23 2 completed Not Available [facility] 04/27/2023 22:50:17 Influenza, split virus, quadrivalent, preservative 7 completed Not Available [facility] 03/24/2019 02:33:58 Tdap 2 completed Not Available [facility] 01/15/2025 10:30:33 Influenza, split virus, quadrivalent, PF 8 completed Not Available [facility] 03/24/2019 02:35:59 Influenza, split virus, quadrivalent, preservative 9 completed Not Available [facility] 03/24/2019 02:42:38 Influenza, split virus, quadrivalent, preservative [...] 3 completed RAMU Yu Attn: Accounting[address] [facility], [place], [address], [place] [facility] 08/24/2022 14:38:02 Hep B, adult 3 completed [facility] Att[facility]: Accounting[address] [facility], [place], [address], [facility] 12/16/2022 17:59:52 Influenza, split virus, quadrivalent, preservative 3 completed Ajith Veras [facility] Attn: Accounting[address] [place], [address], [facility] 12/16/2022 17:59:52 Pneumococcal conjugate PCV 13 3 completed [facility]: [facility]ing[address] [facility], [place], [address], [facility] 12/16/2022 17:59:52 Influenza, split virus, trivalent, preservative 4 completed [place]ERE [place], [place] [facility] 12/06/2023 17:05:22 Influenza, split virus, trivalent, PF 5 completed [place] [facility] 11/14/2024 15:37:33 Past Encounters Encounter ID Performer Location Encounter Start Date Encounter Closed Date Diagnosis/Indication Diagnosis SNOMED-CT Code Diagnosis ICD10 Code Diagnosis IMO Codes Diagnosis Note [id number] Aleksander Diaz MD [facility] [address] [place] [address] 01/15/2025 10:29:20 01/16/2025 13:12:50 Follow-up encounter [id number] Z09 [id number] 54 y/o HM presents for follow up ER visit to [facility] on 01/01/2025 with complaints of weakness and flu-like symptoms. The patient was diagnosed with acute UTI and started on a course of keflex. He presented back to the ER for fever and urinary burning. His blood cultures from his recent ER visit showed GN bacteremia . Patient had weakness, lack of appetite and dysuria. Hence, he was admitted. GI was consulted for sepsis, elevated bilirubin, abnormal Lft's and cholelithi asis. The patient has no history of liver disease or alcohol use. He was seen by urologist and started on finasterid e. He was diagnosed with acute prostatiti s. He needs refill of Rx and labs that were ordered but patient did not go get yet. He feels better but does feel some weakness. He denies any fever or chills. He needs a note to return to work. As he is still feeling weak, will give the note for patient to return next week. He is to monitor for chills and fever and drink more water. Bacterial urinary infection 181712407 N39.0 A49.9 [id number] Bacteremia 1189191 R78.8 1 38584 Benign pro static hyperplasia without outflow obstruction 147072362 N40.7 [id number] continue Tamsulosin 0.4mg was started per urology has not returned to urology feels med helps him started [facility] e [facility] Acute bact erial prostatitis 4386895446 N41.0 [id number] treated with IV antibiotic s and 7 days of levaquin which pt has now completed Body mass index 25-29 - overweight [id number] E66.3 [id number] BMI 28Healthy Weight: 5'5= 115-149 lbs Health Concerns Section Related Observation LastModified by Organization Detai ls LastModified Time None Recorded Concern Status LastModified by Organization Details LastModified Time None Recorded Payers Encounter Date Sequence Insurance Name Policy Number Policy Marshall Covered Member ID Marshall Member ID Guarantor Name 01/15/2025 2 *SELF PAY* Zaira Gonzalez 01/15/2025 1 [facility] ON OR AFTER 09/04/20 (MEDICAID REPLACEMENT - HMO) Efrain Gonzalez [id number] Efrain Gonzalez Notes Date Note Type Note Provider Name and Address Organization Details Recorded Time 01/15/2025 text/html ROS as noted in the HPI 54 y/o HM presents for follow up ER visit to [facility] on 01/01/2025 with complaints of weakness and flu-like symptoms. The patient was diagnosed with acute UTI and started on a course of keflex. He presented back to the ER for fever and urinary burning. His blood cultures from his recent ER visit showed GN bacteremia. Patient had weakness, lack of appetite and dysuria. Hence, he was admitted. GI was consulted for sepsis, elevated bilirubin, abnormal Lft's and cholelithiasis. The patient has no history of liver disease or alcohol use. He was seen by urologist and started on finasteride. He was diagnosed with acute prostatitis. He needs refill of Rx and labs that were ordered but patient did not go get yet. He feels better but does feel some weakness. He denies any fever or chills. He needs a note to return to work. As he is still feeling weak, will give the note for patient to return next week. He is to monitor for chills and fever and drink more water. RAMU Yu Attn: [address] [place], [address], [facility] 01/15/2025 17:36:02
--- OUTSIDE RECORDS SUMMARY | 2025-02-10 15:43 | XMS_ITS | Clinical Summary ---
Author Organization [facility] Address [address] [place] [address] Care Team Providers Care Barrel Rifler Hook Name Role Phone Ajith Figueroa FLIGHT ENGINEER Primary Care Provider [phone] Allergies No known active allergies Medications alcohol [...] Medical History Date Comments Diabetes mellitus Uses [place]er as primary spoken language Social History Tobacco [...] on file Legal Sex Male 8:56 PM GENERAL OFFICE ASSOCIATE Gender Identity Not on file Sexual Orientation Not on file Last Filed Vital Signs Vital Sign Reading Time Taken Comments Blood Pressure 148/98 03/01/2023 2:02 PM GENERAL OFFICE ASSOCIATE Pulse 76 03/01/2023 2:02 PM GENERAL OFFICE ASSOCIATE Temperature 37.1 C (98.7 F) 03/01/2023 2:02 PM GENERAL OFFICE ASSOCIATE Respiratory Rate 15 03/01/2023 2:02 PM GENERAL OFFICE ASSOCIATE Oxygen Saturation 99% 03/01/2023 2:02 PM GENERAL OFFICE ASSOCIATE Inhaled Oxygen Concentration - - Weight 81.6 kg (180 lb) 03/01/2023 2:02 PM GENERAL OFFICE ASSOCIATE Height 165.1 cm (5' 5) 03/01/2023 2:02 PM GENERAL OFFICE ASSOCIATE Body Mass Index 29.95 03/01/2023 2:02 PM GENERAL OFFICE ASSOCIATE Plan of Treatment Health Maintenance Due Date [...] to complete this topic Insurance Care Teams Barrel Rifler Hook Relationship Specialty Start Date End Date Ajith Figueroa NP [address] [place] [address] PCP - General Nurse Practitioner 03/01/23
--- OUTSIDE RECORDS SUMMARY | 2025-02-10 15:44 | XMS_ITS | Continuity of Care Document ---
Author Organization [facility] Address [address] [place] [address] Care Team Providers Care Assistant To The Dean Name Role Phone FIFI VERAS Primary Care Provider [phone] Assessment No assessment recorded. Plan of Treatment Reminders Order Date Submit Date Provider Last Modified By Organization Details Last Modified Time Details Appointments ANY 15 2024 03:15P Luis Veras, TRUCK [employer]IKER-Bc Not available Not available Not available Lab CBC w/ auto diff 2024 025 [facility], [address], [address], [place], [address], 11/21/2024 12:12:58 albumin/c reatinine , mass ratio, urine 2024 025 [facility], [address], [address], [place], [address], 11/21/2024 12:20:20 lipid panel, serum 2024 025 [facility], [address], [address], [place], [address], 11/21/2024 12:12:58 TSH, ultra-sen sitive, serum 2024 025 JON[facility], [address], [address], [place], [address], 11/21/2024 12:20:22 urinalysi s, complete 2024 025 [facility], [address], [address], [place], [address], 11/21/2024 12:20:21 PSA, total, serum or plasma 2024 025 [facility], [address], [address], [place], [address], 11/21/2024 12:20:23 Referral None recorded. Procedures None recorded. Surgeries None recorded. Imaging None recorded. Medication Orders None recorded. Patient TargetsNo targets recorded. Patient InstructionsNo instructions recorded. Reason for Referral None Reported. Results Created Date Observation Date Name Description Value Unit Range Abnormal Flag Note LastModifiedBy Organization Detail LastModifiedTime 11/15/1911/14/2024 HbA1c (hemo globi n A1c), blood HbA1C 7.7 % Not Available In-Office Order Internal Use Only DO Not Attach Compendium DO Not Attach Compendium, Do Not Delete/merge, 11/14/2024 14:45:43 11/15/1911/14/2024 gluco mindy espana k, blood Blood Glucose: mg/dl 146 Not Available In-Off ice Order Internal Use Only DO Not Attach Compendium DO Not Attach Compendium, Do Not Delete/merge, 11/14/2024 14:45:50 11/21/1911/20/2024 LIPID PANEL cholesterol, total 153 mg/dL 100-19 9 Not Available [facility] Department [address] [place], [address], 11/20/2024 21:08:57 11/21/1911/20/2024 LIPID PANEL triglyceride s 150 mg/dL 0-149 above high normal Not Available [facility] Department [address], [place], [address], 11/20/2024 21:08:57 11/21/1911/20/2024 LIPID PANEL HDL cholesterol 40 mg/dL 40-999 Not Available [facility] Department [address] [place], [address], 11/20/2024 21:08:57 11/21/1911/20/2024 LIPID PANEL VLDL cholesterol delfina 30 mg/dL 5-40 Not Available [facility] Department [address] [place], [address], 11/20/2024 21:08:57 11/21/1911/20/2024 LIPID PANEL LDL chol calc ([facility]) 105 mg/dL 0-99 above high normal Not Available [facility] Department [address] [place], [address], 11/20/2024 21:08:57 11/21/1911/20/2024 CBC WITH DIFFE RENTI AL/PL ATELE T WBC 5.3 x10e3 /uL 3.4-10 .8 Not Available [facility] Department [address] [place], [address], 11/20/2024 21:08:58 11/21/1911/20/2024 CBC WITH DIFFE RENTI AL/PL ATELE T RBC 5.03 x10e6 /uL 4.14-5 .80 Not Available [facility] Department [address] [place], [address], 11/20/2024 21:08:58 11/21/1911/20/2024 CBC WITH DIFFE RENTI AL/PL ATELE T hemoglobin 15.6 g/dL 13.0-1 7.7 Not Available [facility] Department [address] [place], [address], 11/20/2024 21:08:58 11/21/1911/20/2024 CBC WITH DIFFE RENTI AL/PL ATELE T hematocrit 46.4 % 37.5-5 1.0 Not Available [facility] Department [address] [place], [address], 11/20/2024 21:08:58 11/21/19 25 11/20/2024 CBC WITH DIFFE RENTI AL/PL ATELE T MCV 92 fL 79-97 Not Available [facility] Department [address] [place], [address], 11/20/2024 21:08:58 11/21/1911/20/2024 CBC WITH DIFFE RENTI AL/PL ATELE T MCH 31.0 pg 26.6-3 3.0 Not Available [facility] Department [address] [place], [address], 11/20/2024 21:08:58 11/21/1911/20/2024 CBC WITH DIFFE RENTI AL/PL ATELE T MCHC 33.6 g/dL 31.5-3 5.7 Not Available [facility] Department [address] [place], [address], 11/20/2024 21:08:58 11/21/19 25 11/20/2024 CBC WITH DIFFE RENTI AL/PL ATELE T RDW 12.2 % 11.5-1 4.5 Not Available [facility] Department [address] [place], [address], 11/20/2024 21:08:58 11/21/1911/20/2024 CBC WITH DIFFE RENTI AL/PL ATELE T platelets 218 x10e3 /uL 150-45 0 Not Available [facility] Department [address] [place], [address], 11/20/2024 21:08:58 11/21/1911/20/2024 CBC WITH DIFFE RENTI AL/PL ATELE T neutrophils 53 % notest b. Not Available [facility] Department [address] [place], [address], 11/20/2024 21:08:58 11/21/19 25 11/20/2024 CBC WITH DIFFE RENTI AL/PL ATELE T lymphs 35 % notest b. Not Available [facility] Department [address] [place] [address], [address], 11/20/2024 21:08:58 11/21/1911/20/2024 CBC WITH DIFFE RENTI AL/PL ATELE T monocytes 8 % notest b. Not Available [facility] Department [address] [place] [address], [address], 11/20/2024 21:08:58 11/21/1911/20/2024 CBC WITH DIFFE RENTI AL/PL ATELE T eos 3 % notest b. Not Available [facility] Department [address] [place] [address], [address], 11/20/2024 21:08:58 11/21/19 25 11/20/2024 CBC WITH DIFFE RENTI AL/PL ATELE T basos 1 % notest b. Not Available [facility] Department [address] [place] [address], [address], 11/20/2024 21:08:58 11/21/1911/20/2024 CBC WITH DIFFE RENTI AL/PL ATELE T neutrophils (absolute) 2.8 x10e3 /uL 1.4-7. 0 Not Available [facility] Department [address] [place] [address], [address], 11/20/2024 21:08:58 11/21/1911/20/2024 CBC WITH DIFFE RENTI AL/PL ATELE T lymphs (absolute) 1.8 x10e3 /uL 0.7-3. 1 Not Available [facility] Department [address] [place] [address], [address], 11/20/2024 21:08:58 11/21/1911/20/2024 CBC WITH DIFFE RENTI AL/PL ATELE T monocytes(ab solute) 0.4 x10e3 /uL 0.1-0. 9 Not Available [facility] Department [address] [place], [address], 11/20/2024 21:08:58 11/21/1911/20/2024 CBC WITH DIFFE RENTI AL/PL ATELE T eos (absolute) 0.2 x10e3 /uL 0.0-0. 4 Not Available [facility] Department [address] [place], [address], 11/20/2024 21:08:58 11/21/1911/20/2024 CBC WITH DIFFE RENTI AL/PL ATELE T baso (absolute) 0.1 x10e3 /uL 0.0-0. 2 Not Available [facility] Department [address] [place], [address], 11/20/2024 21:08:58 11/21/19 25 11/20/2024 CBC WITH DIFFE RENTI AL/PL ATELE T immature granulocytes 0.4 % notest b. Not Available [facility] Department [address] [place], [address], 11/20/2024 21:08:58 11/21/1911/20/2024 CBC WITH DIFFE RENTI AL/PL ATELE T immature grans (abs) 0.0 x10e3 /uL 0.0-0. 1 Not Available [facility] Department [address] [place], [address], 11/20/2024 21:08:58 11/21/1911/20/2024 CBC WITH DIFFE RENTI AL/PL ATELE T NRBC 0 % 0-0 Not Available [facility] Department [address] [place], [address], 11/20/2024 21:08:58 11/21/1911/21/2024 ALBUM IN/CR EATIN INE RATIO ,URIN E creatinine, urine 132.8 mg/dL notest ab. Not Available [facility] ([facility]) [address], [place], [address], 11/21/2024 12:20:20 11/21/19 25 11/21/2024 ALBUM IN/CR EATIN INE RATIO ,URIN E albumin, urine 10.8 ug/mL notest ab. Not Available [facility] ([facility]) [address], [place], [address], 11/21/2024 12:20:20 11/21/19 25 11/21/2024 ALBUM IN/CR EATIN INE RATIO ,URIN E alb/creat ratio 8 mg/g_ creat 0-29 Celia l: 0 - 29 Moder ately incre ased: 30 - 300 Sever cotlon incre ased: >300 Not Available [facility] ([facility]) [address] [place], [address], 11/21/2024 12:20:20 11/21/19 25 11/21/2024 URINA LYSIS , COMPL ETE specific gravity 1.020 1.005- 1.030 Not Available [facility] ([facility]) [address] [place], [address], 11/21/2024 12:20:21 11/21/19 25 11/21/2024 URINA LYSIS , COMPL ETE pH 5.5 5.0-7. 5 Not Available [facility] ([facility]) [address] [place], [address], 11/21/2024 12:20:21 11/21/1911/21/2024 URINA LYSIS , COMPL ETE urine-color YELLOW yellow Not Available [facility] ([facility]) [address] [place], [address], 11/21/2024 12:20:21 11/21/19 25 11/21/2024 URINA LYSIS , COMPL ETE appearance CLEAR clear Not Available [facility] ([facility]) [address] [place], [address], 11/21/2024 12:20:21 11/21/19 25 11/21/2024 URINA LYSIS , COMPL ETE WBC esterase NEGATI VE negati ve Not Available [facility] ([facility]) [address] [place], [address], 11/21/2024 12:20:21 11/21/19 25 11/21/2024 URINA LYSIS , COMPL ETE protein NEGATI VE negati ve/tra ce Not Available [facility] ([facility]) [address] [place], [address], 11/21/2024 12:20:21 11/21/19 25 11/21/2024 URINA LYSIS , COMPL ETE glucose NEGATI VE negati ve Not Available [facility] ([facility]) [address] [place], [address], 11/21/2024 12:20:21 11/21/19 25 11/21/2024 URINA LYSIS , COMPL ETE ketones NEGATI VE negati ve Not Available [facility] ([facility]) [address] [place], [address], 11/21/2024 12:20:21 11/21/19 25 11/21/2024 URINA LYSIS , COMPL ETE occult blood NEGATI VE negati ve Not Available [facility] ([facility]) [address] [place], [address], 11/21/2024 12:20:21 11/21/19 25 11/21/2024 URINA LYSIS , COMPL ETE bilirubin NEGATI VE negati ve Not Available [facility] ([facility]) [address] [place], [address], 11/21/2024 12:20:21 11/21/19 25 11/21/2024 URINA LYSIS , COMPL ETE urobilinogen ,semi-qn 0.2 mg/dL 0.2-1. 0 Not Available [facility] ([facility]) [address], [place], [address], 11/21/2024 12:20:21 11/21/19 25 11/21/2024 URINA LYSIS , COMPL ETE nitrite, urine NEGATI VE negati ve Not Available [facility] ([facility]) [address], [place], [address], 11/21/2024 12:20:21 11/21/19 25 11/21/2024 URINA LYSIS , COMPL ETE microscopic examination COMMEN T Micro scopi c follo ws if indic ated. Not Available [facility] ([facility]) [address], [place], [address], 11/21/2024 12:20:21 11/21/19 25 11/21/2024 URINA LYSIS , COMPL ETE microscopic examination SEE BELOW: Micro scopi c was indic ated and was perfo rmed. Not Available [facility] ([facility]) [address], [place], [address], 11/21/2024 12:20:21 11/21/19 25 11/21/2024 MICRO SCOPI C EXAMI NATIO N WBC NONE SEEN /hpf 0-5 Not Available [facility] ([facility]) [address], [place], [address], 11/21/2024 12:20:21 11/21/19 25 11/21/2024 MICRO SCOPI C EXAMI NATIO N RBC NONE SEEN /hpf 0-2 Not Available [facility] ([facility]) [address], [place], [address], 11/21/2024 12:20:21 11/21/19 25 11/21/2024 MICRO SCOPI C EXAMI NATIO N epithelial cells (non renal) NONE SEEN /hpf 0-10 Not Available [facility] ([facility]) [address], [place], [address], 11/21/2024 12:20:21 11/21/1911/21/2024 MICRO SCOPI C EXAMI NATIO N casts NONE SEEN /lpf nonese en Not Available [facility] ([facility]) [address], [place], [address], 11/21/2024 12:20:21 11/21/1911/21/2024 MICRO SCOPI C EXAMI NATIO N bacteria NONE SEEN nonese en/few Not Available [facility] ([facility]) [address], [place], [address], 11/21/2024 12:20:21 11/21/1911/21/2024 TSH RFX ON ABNOR MAL TO FREE T4 TSH 1.590 uIU/m L 0.450- 4.500 Not Available [facility] ([facility]) [address], [place], [address], 11/21/2024 12:20:22 11/21/1911/21/2024 PROST ATE-S PECIF IC AG prostate specific [...] kits canno t be used inter [place] eahenry . Resul ts canno t be inter prete d as absol qasim evide nce of the prese nce or absen ce of fortunato saaba se. Not Available [facility] ([facility]) [address], [place], [address], 11/21/2024 12:20:23 01/03/20 25 01/01/2025 XR, chest , 2 view No observ ation record ed. [facility] [address], [place], [address], 01/15/2025 10:56:44 01/05/20 25 01/03/2025 CT, chest + abdom en + pelvi s, w/ contr ast No observ ation record ed. [facility] [address], [place], [address], 01/15/2025 10:56:43 01/05/20 25 01/04/2025 US, abdom en No observ ation record ed. [facility] [address], [place], [address], 01/15/2025 10:56:43 Result Notes None recorded. 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 95245316 Active Not Available [facility] 4 22:50:17 Neuropath y due to diabetes mellitus 082574753 Active Not Available [facility] 4 22:50:17 Gastroeso phageal reflux disease 600096854 Active Not Available [facility] 4 22:50:17 Serous otitis media 01794882 Completed 06/30/2016 SEBASTIAN Pina, GENEVIEVE Mcarthur [facility] 7 14:33:37 Complaini ng of nasal congestio n Completed 08/18/2020 SEBASTIAN Pina, GENEVIEVE Mcarthur [facility] 1 16:25:44 Onychomyc osis 074244474 Completed 03/17/2018 SEBASTIAN Pina, GENEVIEVE Mcarthur [facility] 9 15:46:57 Backache 041446597 Completed 06/30/2016 Abbey Graham RN null, [place] [facility] 7 14:33:41 Reduced libido 1647722 Completed 201608/18/2020 Abbey Graham [place], [place] [facility] 1 16:26:03 Testoster one level below reference range 154104373 Completed 201608/18/2020 Abbey Graham RN [place], [place] [facility] 1 16:25:52 Benign prostatic hyperplas ia 078755768 Active 2017 Not Available [facility] 4 22:50:17 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 103090304 Active 2017 Not Available [facility] 4 22:50:17 Scalp folliculi tis 901981610 Active 2021 Not Available [facility] 4 22:50:17 Vitamin D deficienc y 42644974 Active 2021 Not Available [facility] 4 22:50:17 Body mass index 30+ - obesity 135272833 Active 2021 RAMU Yu Attn: Accounting ,[address] [place], [address] , [place] [facility] 4 16:02:43 Screening for malignant neoplasm of colon Active 2022 Not Available [facility] 4 22:50:17 Fall from ladder Active 2022 Not Available [facility] 4 22:50:17 Obesity 792458522 Active 2023 RAMU Yu Attn: Accounting ,[address] [place], [address] , [place] [facility] 4 16:50:40 Pain of left shoulder joint 82112764135 974927 Active 2023 RAMU Yu Attn: Accounting ,[address] [place], [address] , [place] [facility] 4 16:52:26 Acute bacterial prostatit is Active 2024 RAMU Yu Attn: Accounting ,[address] [facility], [place], [address] , [place] [facility] 5 11:27:32 Body mass index 25-29 - overweigh t 647104357 Active 2024 RAMU Yu Attn: Accounting ,[address] [facility], [place], [address] , [place] [facility] 5 17:35:45 Problem Notes None recorded. Medical [...] Not Available Not Available No t Available [employer]ouleTouch Ultra Test strips USE 1 STRIP TO [...] Details Last Updated DateTime 11/20/2024 165.1 cm Reynold mcguire MA [facility] 11/20/2024 13:15:25 Social History Question Answer Notes LastModified by Organizat ion Details LastModified Time Tobacco Smoking Status Never Smoker KAZ Chavarria, [facility] 07/11/2014 16:23:26 Do You Have An Advance Directive? No Information not available 04/13/2019 Are You Blind Or Do You Have Difficulty Seeing? No Information not available 08/18/2020 What Is Your Level Of Caffeine Consumption? Occasional [email or web address] Information not available 07/11/2014 How Much Tobacco Do You Chew? None Information not available 07/11/2014 In The 14 Days Before Symptom Onset, Have You Had Close Contact With A Laboratory-confir med COVID-19 While That Case Was Ill? No Information not available 04/13/2019 If Patient Spent Time In [facility] - Does The Patient Live In [facility]? No Information not available 04/13/2019 In The 14 Days Before Symptom Onset, Have You Had Close Contact With A Person Who Is Under Investigation For COVID-19 While That Person Was Ill? No Information not available 04/13/2019 In The 14 Days Before Symptom Onset, Did The Patient Spend Time In [facility]? No Information not available 04/13/2019 Have You Been To An Area Known To Be High Risk For COVID-19? No Information not available 08/18/2020 Are You Deaf Or Do You Have Serious Difficulty Hearing? No Information not available 08/18/2020 What Type Of Diet Are You Following? REGULAR Information not available 07/11/2014 Education Less Than 8th Grade [email or web address] Information not available 07/11/2014 Are There Any Guns Present In Your Home? No [email or web address] Information not available 07/11/2014 Hard Of Hearing Or Deaf In One Or Both Ears? No [email or web address] Information not available 07/11/2014 Legally Blind In One Or Both Eyes? No [email or web address] Information no t available 07/11/2014 Marital Status [email or web address] Informatio n not available 07/11/2014 What Was The Date Of Your Most Recent Tobacco Screening? 01/15/2025 Information not available 01/15/2025 Do You Use Protection During Sex? No Information not available 05/14/2022 What Is Your Relationship Status? Information not available 11/18/2020 Do You Use Your Seat Belt Or Car Seat Routinely? Yes Information not available 08/18/2020 Seat Belts Used Routinely Yes [email or web address] Information not available 07/11/2014 Are You Sexually Active? Yes Information not available 05/14/2022 Smoke Alarm In Home Yes [email or web address] Information not available 07/11/2014 Do You Have Smoke And Carbon Monoxide Detectors In Your Home? Yes Information not available 08/18/2020 Are You Passively Exposed To Smoke? No Information no t available 08/18/2020 How Much Tobacco Do You Smoke? No [email or web address] Information not available 07/11/2014 General Stress Level Low [email or web address] Information not available 09/05/2015 Do You Use [...] is your level of alcohol consumption? None [email or web address] Information not available 07/11/2014 Do you or have you ever used smokeless tobacco? Never used smokeless tobacco Information not available 04/13/2019 Are you currently employed? Yes Information not available 11/18/2020 Are you able to care for yourself independently? 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 Never used electronic cigarettes Information not available 04/13/2019 What is your exercise level? Occasional [email or web address] Information not available 07/11/2014 Mental Status Question Answer Note LastModified by Organization D etails LastModified Time Do you feel stressed (tense, restless, nervous, or anxious, or unable to sleep at night)? [id number] Information not available 05/14/2022 Family History Relationship Description Onset Age of this Age Resolved Age Notes LastModified by Organization Details LastModified Time Sister Diabetes mellitus [email or web address] Not available 2015 15:01:39 Daughter Suicide 21 22 [email or web address] Not available 07/11/2017 16:12:07 Daughter Depressive disorder 21 [email or web address] Not available 2017 12:38:01 Notes:Mother giving bir th to him. Medical History Condition Response Diabetes Y Other High Blood Pressure Y Allergies Y High Cholesterol Y Immunizations Vaccine Type Date Status Note Provider Nam e and Address Organization Details Recorded Time COVID-19, mRNA, LNP-S, PF, 100 mcg/0.5mL dose or 50 mcg/0.25mL dose 2 completed Not Available [facility] 04/27/2023 22:50:17 Influenza, split virus, quadrivalent, preservative 6 completed Not Available [facility] 03/24/2019 02:42:30 Tdap 6 completed Not Available [facility] 03/24/2019 02:40:27 pneumococcal polysaccharide PPV23 2 completed Not Available [facility] 04/27/2023 22:50:17 Influenza, split virus, quadrivalent, preservative 7 completed Not Available [facility] 03/24/2019 02:33:58 Tdap 2 completed Not Available [facility] 01/15/2025 10:30:33 Influenza, split virus, quadrivalent, PF 8 completed Not Available [facility] 03/24/2019 02:35:59 Influenza, split virus, quadrivalent, preservative 9 completed Not Available [facility] 03/24/2019 02:42:38 Influenza, split virus, quadrivalent, preservative [...] 02/09/2022 17:41:16 Hep B, adult 3 completed KRISTINA Yu-BC Attn: Accounting,[address] [facility], [place], [place], [address] [place] [address], [facility] 08/24/2022 14:38:02 Hep B, adult 3 completed YU YuP-BC Attn: Accounting,[address] [facility], [place], [place], [address] [place] [address], [facility] - [facility] 12/16/2022 17:59:52 Influenza, split virus, quadrivalent, preservative 3 completed KRISTINA Yu-BC Attn: Accounting,[address] [facility], [place], [address], [facility] - [facility] 12/16/2022 17:59:52 Pneumococcal conjugate PCV 13 3 completed KRISTINA Yu-CHICO Attn: Accounting,[address] [facility], [place], [address], [facility] - [facility] 12/16/2022 17:59:52 Influenza, split virus, trivalent, preservative 4 completed [place]ERE [place], [place] - [facility] 12/06/2023 17:05:22 Influenza, split virus, trivalent, PF 5 completed [place] [facility] 11/14/2024 15:37:33 Past Encounters Encounter ID Performer Location Encounter Start Date Encounter Closed Date Diagnosis/Indication Diagnosis SNOMED-CT Code Diagnosis ICD10 Code Diagnosis IMO Codes Diagnosis Note [id number] Aleksander Diaz MD [facility] [address] [place] [address] 11/14/2024 14:40:30 11/16/2024 11:18:26 Body mass index 30+ - obesity 925876618 Z68.31 BMI 29.1Ht 5' 5 Healthy weight 115-149 Benign pro static hyperplasia 125381836 N40.0 continue Tamsulosin 0.4mg was started per urology has not returned to urology feels med helps himrefuses DRE05/20/19 24 PSA 0.6 Vitamin D deficiency 347 27411 E55.9 Vitamin D 42buy otc vitamin D3 1000 IU once daily Essential hypertension 08400568 I10 BP Goal: Less than 140/90BP Controlled : yes; per the JNC8 guidelines in the absence of renal disease and DMHealthy Weight: 5'5= 115-149 lbsDiscuss ed: Low sodium balanced diet, moderate exercise at least 3-4 times per week for an average of 40 minutesNex t Visit: 3month(s) Type 2 ab betes mellitus without complication 718754021 E11.9 HA1C 7.7worse continue to monitor blood sugars patient to continue metformin 1000 mg bid-- keep bs logswill continue jardiance 10mg daily Mixed hypercholesterolemia and hypertriglyceridemia 777690289 E78.2 06/15/2021 cho 157Trig 383HDL 35.3LDL 82 [...] e 160mg daily Gastroesop hageal reflux disease 891446613 K21.9 stable no need for pepcid nowHas noticed some nausea after taking medication sAdvised to take medication s with a cracker or something solidAdvis ed not to lay down immediatel y after taking medication s Obstructiv e sleep apnea of adult [id number] 103 G47.33 stable continue to use CPAP Has been on CPAP for 10 years same machine Has now seen [employer] [facility]-had new machine ordered Allergic rhinitis [id number] 04 J30.9 Pain of le ft shoulder joint [id number] 5234419 M25.512 deltoid area painwakes him up at nighthad a fall 9 months ago from a [place] er now Erectile dysfunction [id number] [id number] F52.21 Xerosis du e to atopic dermatitis [id number] L85.3 Body mass index 25-29 - overweight 591988145 Z68.28 BMI 29.1Health y Weight: 5'5= 115-149 lbs Pain of le ft shoulder region [id number] M25.512 Has resolved for nowdid not get xray Requires i nfluenza virus vaccination [id number] Z23 529394 Prostate s pecific antigen measurement 71567209 Z12.5 290530 05/20/2023 PSA 0.6 Scalp folliculitis 89621 8003 L73.8 return Seborrheic keratosis 394 428460 L82.1 [id number] Aleksander Diaz MD [facility] [address] [phone] 11/20/2024 09:51:16 11/22/2024 15:20:19 Essential hypertension 61575135 I10 80965 BP Goal: Less than 140/90BP Controlled : yes; per the JNC8 guidelines in the absence of renal disease and DMHealthy Weight: 5'5= 115-149 lbsDiscuss ed: Low sodium balanced diet, moderate exercise at least 3-4 times per week for an average of 40 minutesNex t Visit: 3month(s) Prostate s pecific antigen measurement 41766388 Z12.5 [id number] 05/20/2023 PSA 0.6 Health Concerns Section Related Observation LastModified by Organization Detai ls LastModified Time None Recorded Concern Status LastModified by Organization Details LastModified Time None Recorded Payers Encounter Date Sequence Insurance Name Policy Number Policy Marshall Covered Member ID Marshall Member ID Guarantor Name 11/20/2024 2 *SELF PAY* Zaira Gonzalez 11/20/2024 1 [facility] - DOS ON OR AFTER 20 (MEDICAID REPLACEMENT - HMO) Efrain Gonzalez [id number] Efrain Gonzalez
--- OUTSIDE RECORDS SUMMARY | 2025-02-10 15:44 | XMS_ITS | Data Portability ---
Author Organization Shirin CONNER Address [address] [facility] [place] [address] Care Team Providers Care Relaster Name Role Phone AJITH VERAS Primary Care Provider [phone] Assessment No assessment recorded. 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 VELVET-Bc Not available Not available Not available Lab CBC w/ auto diff 2024 025 [facility], [address] [facility], [address], [place], [address], 01/15/2025 22:08:16 CMP, serum or plasma 2024 025 [facility], [address] [facility], [address], [place], [address], 01/15/2025 22:08:15 urinal ysis, dipsti ck 2024 025 maria m In-Office Order, Internal Use Only DO Not Attach Compendium DO Not Attach Compendium, Do Not Delete/merge, [id number] 01/15/2025 11:23:52 cultur e, urine 2024 025 [facility], [address] [facility], [address], [place], [address], 01/17/2025 23:08:36 CBC w/ auto diff 2024 025 maria m [facility], [address] [facility] [address], [address], [place], [address], 11/21/2024 12:12:58 albumi n/crea tinine , mass ratio, urine 2024 025 [facility], [address] [place], [place] [address]don[address], [address], [place], [address], 11/21/2024 12:20:20 lipid panel, serum 2024 025 maria m [facility], [facility], [address], [place], [address], 11/21/2024 12:12:58 TSH, ultra- sensit lauri, serum 2024 025 [facility], [address] [place], [place] [address]don[address], [address], [place], [address], 11/21/2024 12:20:22 urinal ysis, comple te 2024 025 [facility], [facility] [address], [address], [place], [address], 11/21/2024 12:20:21 PSA, total, serum or plasma 2024 025 [facility], [address] [place], [place] [address]don[address], [address], [place], [address], 11/21/2024 12:20:23 CBC w/ auto diff 2024 025 brii [facility], [address], [address], [place], [address], 11/20/2024 13:17:24 albumi n/crea tinine , mass ratio, urine 2024 025 [facility], [address], [place], [address], 11/20/2024 13:17:52 lipid panel, serum 2024 025 [facility], [address], [place], [address], 11/20/2024 13:18:01 TSH, ultra- sensit lauri, serum 2024 025 [facility], [address], [place], [address], 11/20/2024 13:18:08 urinal ysis, comple te 2024 025 [facility], [address] [place], [place] [address]don[address], [address], [place], [address], 01/02/2025 11:25:12 HbA1c (hemog lobin A1c), blood 2024 025 maria m In-Office Order, Internal Use Only DO Not Attach Compendium DO Not Attach Compendium, Do Not Delete/merge, [id number] 11/14/2024 15:33:27 glucos e, finger stick, blood 2024 025 maria m In-Office Order, Internal Use Only DO Not Attach Compendium DO Not Attach Compendium, Do Not Delete/merge, [id number] 11/14/2024 15:33:27 PSA, total, serum or plasma 2024 025 [facility], [address], [place], [address], 11/20/2024 13:18:16 HbA1c (hemog lobin A1c), blood [...] Attach Compendium, Do Not Delete/merge, 03/09/2024 16:25:27 Referral None record ed. Procedures None record ed. Surgeries None record ed. Imaging None record ed. Medication Orders finast eride 5 mg tablet 2024 [facility] [address], [address] [place] [address], [id number], 01/15/2025 11:24:31 flutic asone propio gina 50 mcg/ac tuatio n nasal spray, suspen kinjal 2024 025 [facility], [facility] [place], [address], 11/14/2024 15:33:22 lorata dine 10 mg tablet 2024 025 [facility], [facility] [place], [address], 11/14/2024 15:33:23 fenofi brate 160 mg tablet 2024 025 [facility] [address], [address] [place] [address], [address], 11/14/2024 15:33:23 pravas tatin 20 mg tablet [address] [place] [address] 361, [address] [place] [address], [address], 11/14/2024 15:33:23 losart an 50 mg tablet [address] [place] [address] 361, [address] [place] [address], [address], 11/14/2024 15:33:22 tamsul osin 0.4 mg capsul e [address] [place] [address], [address] [place] [address], [address], 11/14/2024 15:33:22 seleni um sulfid e 2.5 % lotion [address] [place] [address], [address] [place] [address], [address], 11/14/2024 15:33:23 Bactri m DS 800 mg-160 mg tablet [address] [place] [address], [address] [place] [address], [address], 12/01/2024 05:02:00 fluoro uracil 5 % topica l cream [address] [place] [address] 361, [address] [place] [address], [address], 11/14/2024 15:33:23 silden afil 100 mg tablet [address] [place], [place] [address], [address] [place], [place], [id number], 11/14/2024 15:51:02 ammoni um lactat e 12 % lotion [address] [place] [address] 361, [facility] [place], [address], 11/14/2024 15:33:22 metfor min 1,000 mg tablet 2024 025 [facility], [address] [place], [address], 11/14/2024 15:33:23 Jardia nce 10 mg tablet 2024 025 [facility] [address], [address] [place] [address], [address], 11/14/2024 15:33:23 flutic asone propio gina 50 mcg/ac tuatio n nasal spray, suspen kinjal 2024 [facility] [address], [address] [place] [address], [address], 06/20/2024 15:57:11 lorata dine 10 mg tablet 2024 025 [facility] [address], [address] [place] [address], [address], 06/20/2024 15:57:12 hydroc ortiso ne 2.5 % topica l cream 2024 025 [facility] [address], [address] [place] [address], [address], 06/20/2024 15:57:12 fenofi brate 160 mg tablet 2024 025 [facility] [address], [address] [place] [address], [address], 06/20/2024 15:57:13 pravas tatin 20 mg tablet 2024 025 [facility] [address], [address] [place] [address], [address], 06/20/2024 15:57:09 losart an 50 mg tablet 2024 [facility] [address], [address] [place], [address], 06/20/2024 15:57:11 Jardia nce 10 mg tablet 2024 [facility] [address], [address] [place], [address], 06/20/2024 15:57:13 metfor min 1,000 mg tablet 2024 [facility] [address], [address] [place] [address], [address], 06/20/2024 15:57:11 tamsul osin 0.4 mg capsul e 2024 [facility] [address], [address] [place] [address], [address], 06/20/2024 15:57:13 flutic asone propio gina 50 mcg/ac tuatio n nasal spray, suspen kinjal 2024 [facility] [address], [address] [place] [address], [address], 03/09/2024 16:25:39 lorata dine 10 mg tablet 2024 [facility] [address], [address] [place] [address], [address], 03/09/2024 16:25:40 silden afil 100 mg tablet 2024 [facility], [address] [place], [place], [id number], 03/09/2024 17:01:16 fenofi brate 160 mg tablet 2024 [facility] [address], [address] [place] [address], [address], 03/09/2024 16:25:38 pravas tatin 20 mg tablet 2024 025 [facility] [address], [address] [place] [address], [address], 03/09/2024 16:25:36 ammoni um lactat e 12 % lotion 2024 025 [facility] [address], [address] [place] [address], [address], 03/09/2024 16:25:37 metfor min 1,000 mg tablet 2024 025 [facility] [address], [address] [place] [address], [address], 03/09/2024 16:25:41 Jardia nce 10 mg tablet 2024 025 [facility] [address], [address] [place] [address], [address], 03/09/2024 16:26:41 losart an 50 mg tablet 2024 025 [facility] [address], [address] [place] [address], [address], 03/09/2024 16:25:41 tamsul osin 0.4 mg capsul e 2024 025 [facility] [address], [address] [place] [address], [address], 03/09/2024 16:25:40 Patient TargetsNo targets recorded. Patient Instructions Encounter Date Encounter Id Patient Instructions Last Modified By Organization Details Last Modified Time 03/09/2024 [id number] enfermedad de reflujo gastroesof gico (GERD): instrucciones [...] dentist every 6 months make appointment with environmental law professor PHOTOGRAPHIC RESTORER [email or web address] Not available 03/09/2024 16:30:43 06/20/2024 [id number] aprenda sobre la presi n arterial jose [...] instructions] [email or web address] Not available 06/20/2024 15:57:02 11/14/2024 [id number] aprenda sobre la presi n arterial jose [...] dentist every 6 months make appointment with environmental law professor PHOTOGRAPHIC RESTORER yauz Not available 11/14/2024 15:08:54 01/15/2025 [id number] aprenda acerca del peso saludable - [learning about healthy weight] yarauz Not available 01/15/2025 17:35:48 drink more water [...] Abnormal Flag Note LastModifiedBy Organization Detail LastModifiedTime 03/09/1903/09/2024 HbA1c (hemo globi n A1c), blood [...] Attach Compendium, Do Not Delete/merge, 06/20/2024 15:25:05 06/21/1906/20/2024 gluco se, finge rstic k, blood Blood Glucose: mg/dl 177 Not Available In-Off ice Order Internal Use Only DO Not Attach Compendium DO Not Attach Compendium, Do Not Delete/merge, 06/20/2024 15:25:06 11/15/1911/14/2024 HbA1c (hemo globi n [...] total 153 mg/dL 100-19 9 Not Available [facility] [address] [place], [address], 11/20/2024 21:08:57 11/21/1911/20/2024 LIPID PANEL triglyceride s 150 mg/dL 0-149 above high normal Not Available [facility] [address] [place], [address], 11/20/2024 21:08:57 11/21/1911/20/2024 LIPID PANEL HDL cholesterol 40 mg/dL 40-[address] [facility] [address] [place], [address], 11/20/2024 21:08:57 11/21/1911/20/2024 LIPID PANEL VLDL cholesterol delfina 30 mg/dL 5-40 Not Available [facility] [address] [place], [address], 11/20/2024 21:08:57 11/21/1911/20/2024 LIPID PANEL LDL chol calc ([facility]) 105 mg/dL 0-99 above high normal Not Available [facility] [address] [place] [address], [address], 11/20/2024 21:08:57 11/21/1911/20/2024 CBC WITH DIFFE RENTI AL/PL ATELE T WBC 5.3 x10e3 /uL 3.4-10 .8 Not Available [facility] [address] [place], [address], 11/20/2024 21:08:58 11/21/1911/20/2024 CBC WITH DIFFE RENTI AL/PL ATELE T RBC 5.03 x10e6 /uL 4.14-5 .80 Not Available [facility] [address] [place], [address], 11/20/2024 21:08:58 11/21/1911/20/2024 CBC WITH DIFFE RENTI AL/PL ATELE T hemoglobin 15.6 g/dL 13.0-1 7.7 Not Available [facility] [address] [place], [address], 11/20/2024 21:08:58 11/21/19 25 11/20/2024 CBC WITH DIFFE RENTI AL/PL ATELE T hematocrit 46.4 % 37.5-5 1.0 Not Available [facility] [address] [place], [address], 11/20/2024 21:08:58 11/21/1911/20/2024 CBC WITH DIFFE RENTI AL/PL ATELE T MCV 92 fL 79-97 Not Available [facility] [address] [place], [address], 11/20/2024 21:08:58 11/21/1911/20/2024 CBC WITH DIFFE RENTI AL/PL ATELE T MCH 31.0 pg 26.6-3 3.0 Not Available [facility] [address] [place], [address], 11/20/2024 21:08:58 11/21/1911/20/2024 CBC WITH DIFFE RENTI AL/PL ATELE T MCHC 33.6 g/dL 31.5-3 5.7 Not Available [facility] [address] [place], [address], 11/20/2024 21:08:58 11/21/1911/20/2024 CBC WITH DIFFE RENTI AL/PL ATELE T RDW 12.2 % 11.5-1 4.5 Not Available [facility] [address] [place], [address], 11/20/2024 21:08:58 11/21/1911/20/2024 CBC WITH DIFFE RENTI AL/PL ATELE T platelets 218 x10e3 /uL 150-45 0 Not Available [facility] [address] [place], [address], 11/20/2024 21:08:58 11/21/1911/20/2024 CBC WITH DIFFE RENTI AL/PL ATELE T neutrophils 53 % notest b. Not Available [facility] [address] [place] [address], [address], 11/20/2024 21:08:58 11/21/1911/20/2024 CBC WITH DIFFE RENTI AL/PL ATELE T lymphs 35 % notest b. Not Available [facility] [address] [place], [address], 11/20/2024 21:08:58 11/21/1911/20/2024 CBC WITH DIFFE RENTI AL/PL ATELE T monocytes 8 % notest b. Not Available [facility] [address] [place] [address], [address], 11/20/2024 21:08:58 11/21/1911/20/2024 CBC WITH DIFFE RENTI AL/PL ATELE T eos 3 % notest b. Not Available [facility] [address] [place] [address], [address], 11/20/2024 21:08:58 11/21/1911/20/2024 CBC WITH DIFFE RENTI AL/PL ATELE T basos 1 % notest b. Not Available [facility] [address] [place], [address], 11/20/2024 21:08:58 11/21/1911/20/2024 CBC WITH DIFFE RENTI AL/PL ATELE T neutrophils (absolute) 2.8 x10e3 /uL 1.4-7. 0 Not Available [facility] [address] [place] [address], [address], 11/20/2024 21:08:58 11/21/1911/20/2024 CBC WITH DIFFE RENTI AL/PL ATELE T lymphs (absolute) 1.8 x10e3 /uL 0.7-3. 1 Not Available [facility] [address] [place], [address], 11/20/2024 21:08:58 11/21/1911/20/2024 CBC WITH DIFFE RENTI AL/PL ATELE T monocytes(ab solute) 0.4 x10e3 /uL 0.1-0. 9 Not Available [facility] [address] [place], [address], 11/20/2024 21:08:58 11/21/1911/20/2024 CBC WITH DIFFE RENTI AL/PL ATELE T eos (absolute) 0.2 x10e3 /uL 0.0-0. 4 Not Available [facility] [address] [place], [address], 11/20/2024 21:08:58 11/21/1911/20/2024 CBC WITH DIFFE RENTI AL/PL ATELE T baso (absolute) 0.1 x10e3 /uL 0.0-0. 2 Not Available [facility] [address] [place], [address], 11/20/2024 21:08:58 11/21/1911/20/2024 CBC WITH DIFFE RENTI AL/PL ATELE T immature granulocytes 0.4 % notest b. Not Available [facility] [address] [place], [address], 11/20/2024 21:08:58 11/21/1911/20/2024 CBC WITH DIFFE RENTI AL/PL ATELE T immature grans (abs) 0.0 x10e3 /uL 0.0-0. 1 Not Available [facility] [address] [place], [address], 11/20/2024 21:08:58 11/21/19 25 11/20/2024 CBC WITH DIFFE RENTI AL/PL ATELE T NRBC 0 % 0-0 Not Available [facility] [address] [place], [address], 11/20/2024 21:08:58 11/21/19 25 11/21/2024 ALBUM IN/CR EATIN INE RATIO ,URIN E creatinine, urine 132.8 mg/dL notest ab. Not Available [facility] ([facility]) [address] [place], [address], 11/21/2024 12:20:20 11/21/19 25 11/21/2024 ALBUM IN/CR EATIN INE RATIO ,URIN E albumin, urine 10.8 ug/mL notest ab. Not Available [facility] ([facility]) [address] [place], [address], 11/21/2024 12:20:20 11/21/19 25 11/21/2024 ALBUM IN/CR EATIN INE RATIO ,URIN E alb/creat ratio 8 mg/g_ creat 0-29 Celia l: 0 - 29 Moder ately incre ased: 30 - 300 Sever colton incre ased: >300 Not Available [facility] ([facility]) [address] [place], [address], 11/21/2024 12:20:20 11/21/19 25 11/21/2024 URINA LYSIS , COMPL ETE specific gravity 1.020 1.005- 1.030 Not Available [facility] ([facility]) [address] [place], [address], 11/21/2024 12:20:21 11/21/19 25 11/21/2024 URINA LYSIS , COMPL ETE pH 5.5 5.0-7. 5 Not Available [facility] ([facility]) [address] [place], [address], 11/21/2024 12:20:21 11/21/19 25 11/21/2024 URINA LYSIS , COMPL ETE urine-color YELLOW yellow Not Available [facility] ([facility]) [address] [place], [address], 11/21/2024 12:20:21 11/21/19 25 11/21/2024 URINA LYSIS , COMPL ETE appearance CLEAR clear Not Available [facility] ([facility]) [address] [place], [address], 11/21/2024 12:20:21 11/21/19 25 11/21/2024 URINA LYSIS , COMPL ETE WBC esterase NEGATI VE negati ve Not Available [facility] ([facility]) [address] [place], [address], 11/21/2024 12:20:21 11/21/19 25 11/21/2024 URINA LYSIS , COMPL ETE protein NEGATI VE negati ve/tra ce Not Available [facility] ([facility]) [address] [place], [address], 11/21/2024 12:20:21 11/21/19 25 11/21/2024 URINA LYSIS , COMPL ETE glucose NEGATI VE negati ve Not Available [facility] ([facility]) [address] [place], [address], 11/21/2024 12:20:21 11/21/19 25 11/21/2024 URINA LYSIS , COMPL ETE ketones NEGATI VE negati ve Not Available [facility] ([facility]) [address] [place], [address], 11/21/2024 12:20:21 11/21/19 25 11/21/2024 URINA LYSIS , COMPL ETE occult blood NEGATI VE negati ve Not Available [facility] ([facility]) [address] [place], [address], 11/21/2024 12:20:21 11/21/19 25 11/21/2024 URINA LYSIS , COMPL ETE bilirubin NEGATI VE negati ve Not Available [facility] ([facility]) [address] [facility], [place], [address], 11/21/2024 12:20:21 11/21/19 25 11/21/2024 URINA LYSIS , COMPL ETE urobilinogen ,semi-qn 0.2 mg/dL 0.2-1. 0 Not Available [facility] ([facility]) [address] [place], [address], 11/21/2024 12:20:21 11/21/19 25 11/21/2024 URINA LYSIS , COMPL ETE nitrite, urine NEGATI VE negati ve Not Available [facility] ([facility]) [address] [facility], [place], [address], 11/21/2024 12:20:21 11/21/19 25 11/21/2024 URINA LYSIS , COMPL ETE microscopic examination COMMEN T Micro scopi c follo ws if indic ated. Not Available [facility] ([facility]) [address] [facility], [place], [address], 11/21/2024 12:20:21 11/21/19 25 11/21/2024 URINA LYSIS , COMPL ETE microscopic examination SEE BELOW: Micro scopi c was indic ated and was perfo rmed. Not Available [facility] ([facility]) [address] [facility], [place], [address], 11/21/2024 12:20:21 11/21/19 25 11/21/2024 MICRO SCOPI C EXAMI NATIO N WBC NONE SEEN /hpf 0-5 Not Available [facility] ([facility]) [address] [facility], [place], [address], 11/21/2024 12:20:21 11/21/19 25 11/21/2024 MICRO SCOPI C EXAMI NATIO N RBC NONE SEEN /hpf 0-2 Not Available [facility] ([facility]) [address] [facility], [place], [address], 11/21/2024 12:20:21 11/21/19 25 11/21/2024 MICRO SCOPI C EXAMI NATIO N epithelial cells (non renal) NONE SEEN /hpf 0-10 Not Available [facility] ([facility]) [address] [facility], [place], [address], 11/21/2024 12:20:21 11/21/19 25 11/21/2024 MICRO SCOPI C EXAMI NATIO N casts NONE SEEN /lpf nonese en Not Available [facility] ([facility]) [address] [facility], [place], [address], 11/21/2024 12:20:21 11/21/1911/21/2024 MICRO SCOPI C EXAMI NATIO N bacteria NONE SEEN nonese en/few Not Available [facility] ([facility]) [address] [facility], [place], [address], 11/21/2024 12:20:21 11/21/1911/21/2024 TSH RFX ON ABNOR MAL TO FREE T4 TSH 1.590 uIU/m L 0.450- 4.500 Not Available [facility] ([facility]) [address] [facility], [place], [address], 11/21/2024 12:20:22 11/21/19 25 11/21/2024 PROST ATE-S [...] prese nce or absen ce of fortunato perkins se. Not Available [facility] ([facility]) [address] [facility], [place], [address], 11/21/2024 12:20:23 01/16/20 25 01/15/2025 COMP. METAB OLIC PANEL (14) glucose 185 mg/dL 70-99 above high normal Not Available [facility] [address] [place] [address], [address], 01/15/2025 22:08:15 01/16/20 25 01/15/2025 COMP. METAB OLIC PANEL (14) BUN 15 mg/dL 6-24 Not Available [facility] [address] [place], [address], 01/15/2025 22:08:15 01/16/20 25 01/15/2025 COMP. METAB OLIC PANEL (14) creatinine 0.81 mg/dL 0.76-1 .27 Not Available [facility] [address] [place], [address], 01/15/2025 22:08:15 01/16/20 25 01/15/2025 COMP. METAB OLIC PANEL (14) eGFR 104 >=60 Units for eGFR value s are mL/mi n/1.7 3 The eGFR Calcu latio n has not been valid ated for patie nts under the age of 18. If test resul ts are displ ayed for a patie nt under the age of 18, disre apolinar that value . Not Available [facility] [address] [place], [address], 01/15/2025 22:08:15 01/16/20 25 01/15/2025 COMP. METAB OLIC PANEL (14) BUN/creatini ne ratio 18 9-20 Not Available [facility] [address] [place], [address], 01/15/2025 22:08:15 01/16/20 25 01/15/2025 COMP. METAB OLIC PANEL (14) sodium 139 mmol/ L 134-14 4 Not Available [facility] [address] [place], [address], 01/15/2025 22:08:15 01/16/20 25 01/15/2025 COMP. METAB OLIC PANEL (14) potassium 5.1 mmol/ L 3.5-5. 9 Not Available [facility] [address] [place], [address], 01/15/2025 22:08:15 01/16/20 25 01/15/2025 COMP. METAB OLIC PANEL (14) chloride 101 mmol/ L 96-106 Not Available [facility] [address] [place], [address], 01/15/2025 22:08:15 01/16/20 25 01/15/2025 COMP. METAB OLIC PANEL (14) carbon dioxide, total 26 mmol/ L 20-29 Not Available [facility] [address] [place], [address], 01/15/2025 22:08:15 01/16/20 25 01/15/2025 COMP. METAB OLIC PANEL (14) calcium 9.5 mg/dL 8.7-10 .2 Not Available [facility] [address] [place], [address], 01/15/2025 22:08:15 01/16/20 25 01/15/2025 COMP. METAB OLIC PANEL (14) protein, total 7.3 g/dL 6.0-8. 5 Not Available [facility] [address] [place], [address], 01/15/2025 22:08:15 01/16/20 25 01/15/2025 COMP. METAB OLIC PANEL (14) albumin 4.4 g/dL 3.8-4. 9 Not Available [facility] [address] [place], [address], 01/15/2025 22:08:15 01/16/20 25 01/15/2025 COMP. METAB OLIC PANEL (14) globulin, total 2.9 g/dL 1.5-4. 5 Not Available [facility] [address] [place], [address], 01/15/2025 22:08:15 01/16/20 25 01/15/2025 COMP. METAB OLIC PANEL (14) A/G ratio 1.0 1.2-2. 2 below low normal Not Available [facility] [address] [place], [address], 01/15/2025 22:08:15 01/16/20 25 01/15/2025 COMP. METAB OLIC PANEL (14) bilirubin, total 1.1 mg/dL 0.0-1. 2 Not Available [facility] [address] [place], [address], 01/15/2025 22:08:15 01/16/20 25 01/15/2025 COMP. METAB OLIC PANEL (14) alkaline phosphatase 147 IU/L 44-121 above high normal Not Available [facility] [address] [place], [address], 01/15/2025 22:08:15 01/16/20 25 01/15/2025 COMP. METAB OLIC PANEL (14) AST (SGOT) 19 U/L 0-40 Not Available [facility] [address] [place], [address], 01/15/2025 22:08:15 01/16/20 25 01/15/2025 COMP. METAB OLIC PANEL (14) ALT (SGPT) 30 IU/L 0-44 Not Available [facility] [address] [place], [address], 01/15/2025 22:08:15 01/16/20 25 01/15/2025 CBC WITH DIFFE RENTI AL/PL ATELE T WBC 5.4 x10e3 /uL 3.4-10 .8 Not Available [facility] [address] [place], [address], 01/15/2025 22:08:16 01/16/20 25 01/15/2025 CBC WITH DIFFE RENTI AL/PL ATELE T RBC 4.73 x10e6 /uL 4.14-5 .80 Not Available [facility] Department [address] [place], [address], 01/15/2025 22:08:16 01/16/20 25 01/15/2025 CBC WITH DIFFE RENTI AL/PL ATELE T hemoglobin 14.6 g/dL 13.0-1 7.7 Not Available [facility] Department [address] [place], [address], 01/15/2025 22:08:16 01/16/20 25 01/15/2025 CBC WITH DIFFE RENTI AL/PL ATELE T hematocrit 43.1 % 37.5-5 1.0 Not Available [facility] Department [address] [place], [address], 01/15/2025 22:08:16 01/16/20 25 01/15/2025 CBC WITH DIFFE RENTI AL/PL ATELE T MCV 91 fL 79-97 Not Available [facility] Department [address] [place], [address], 01/15/2025 22:08:16 01/16/20 25 01/15/2025 CBC WITH DIFFE RENTI AL/PL ATELE T MCH 30.9 pg 26.6-3 3.0 Not Available [facility] Department [address] [place], [address], 01/15/2025 22:08:16 01/16/20 25 01/15/2025 CBC WITH DIFFE RENTI AL/PL ATELE T MCHC 33.9 g/dL 31.5-3 5.7 Not Available [facility] Department [address] [place], [address], 01/15/2025 22:08:16 01/16/20 25 01/15/2025 CBC WITH DIFFE RENTI AL/PL ATELE T RDW 12.2 % 11.5-1 4.5 Not Available [facility] [address] [place], [address], 01/15/2025 22:08:16 01/16/20 25 01/15/2025 CBC WITH DIFFE RENTI AL/PL ATELE T platelets 368 x10e3 /uL 150-45 0 Not Available [facility] [address] [place], [address], 01/15/2025 22:08:16 01/16/20 25 01/15/2025 CBC WITH DIFFE RENTI AL/PL ATELE T neutrophils 57 % notest b. Not Available [facility] [address] [place], [address], 01/15/2025 22:08:16 01/16/20 25 01/15/2025 CBC WITH DIFFE RENTI AL/PL ATELE T lymphs 29 % notest b. Not Available [facility] [address] [place], [address], 01/15/2025 22:08:16 01/16/20 25 01/15/2025 CBC WITH DIFFE RENTI AL/PL ATELE T monocytes 11 % notest b. Not Available [facility] [address] [place], [address], 01/15/2025 22:08:16 01/16/20 25 01/15/2025 CBC WITH DIFFE RENTI AL/PL ATELE T eos 2 % notest b. Not Available [facility] [address] [place], [address], 01/15/2025 22:08:16 01/16/20 25 01/15/2025 CBC WITH DIFFE RENTI AL/PL ATELE T basos 1 % notest b. Not Available [facility] [address] [place], [address], 01/15/2025 22:08:16 01/16/20 25 01/15/2025 CBC WITH DIFFE RENTI AL/PL ATELE T neutrophils (absolute) 3.1 x10e3 /uL 1.4-7. 0 Not Available [facility] [address] [place], [address], 01/15/2025 22:08:16 01/16/20 25 01/15/2025 CBC WITH DIFFE RENTI AL/PL ATELE T lymphs (absolute) 1.6 x10e3 /uL 0.7-3. 1 Not Available [facility] [address] [place], [address], 01/15/2025 22:08:16 01/16/20 25 01/15/2025 CBC WITH DIFFE RENTI AL/PL ATELE T monocytes(ab solute) 0.6 x10e3 /uL 0.1-0. 9 Not Available [facility] [address] [place], [address], 01/15/2025 22:08:16 01/16/20 25 01/15/2025 CBC WITH DIFFE RENTI AL/PL ATELE T eos (absolute) 0.1 x10e3 /uL 0.0-0. 4 Not Available [facility] [address] [place], [address], 01/15/2025 22:08:16 01/16/20 25 01/15/2025 CBC WITH DIFFE RENTI AL/PL ATELE T baso (absolute) 0.1 x10e3 /uL 0.0-0. 2 Not Available [facility] [address] [place], [address], 01/15/2025 22:08:16 01/16/20 25 01/15/2025 CBC WITH DIFFE RENTI AL/PL ATELE T immature granulocytes 0.4 % notest b. Not Available [facility] [address] [place], [address], 01/15/2025 22:08:16 01/16/20 25 01/15/2025 CBC WITH DIFFE RENTI AL/PL ATELE T immature grans (abs) 0.0 x10e3 /uL 0.0-0. 1 Not Available [facility] [address] [place], [address], 01/15/2025 22:08:16 01/16/20 25 01/15/2025 CBC WITH DIFFE RENTI AL/PL ATELE T NRBC 0 % 0-0 Not Available [facility] [address] [place], [address], 01/15/2025 22:08:16 01/16/20 25 01/17/2025 URINE CULTU RE, ROUTI NE urine culture, routine FINAL REPORT abnormal Not Available [facility] ([facility]) [address] [facility], [place], [address], 01/17/2025 23:08:36 01/16/20 25 01/17/2025 URINE CULTU RE, ROUTI NE result 1 CANDID A ALBICA NS abnormal 10,00 0-25, 000 colon y formi ng units per mL Not Available [facility] ([facility]) [address] [facility], [place], [address], 01/17/2025 23:08:36 01/16/20 25 01/15/2025 urina lysis , dipst ick Leukocytes Trace Not Available In-Offi ce Order Internal Use Only DO Not Attach Compendium DO Not Attach Compendium, Do Not Delete/merge, [id number] 01/15/2025 10:34:44 01/16/2001/15/2025 urina lysis , dipst ick Nitrite negati ve Not Available In-Office Order Internal Use Only DO Not Attach Compendium DO Not Attach Compendium, Do Not Delete/merge, [id number] 01/15/2025 10:34:44 01/16/2001/15/2025 urina lysis , dipst ick Urobilinogen .2 Not Available In-Of fice Order Internal Use Only DO Not Attach Compendium DO Not Attach Compendium, Do Not Delete/merge, 01/15/2025 10:34:44 01/16/2001/15/2025 urina lysis , dipst ick Protein Trace Not Available In-Office Order Internal Use Only DO Not Attach Compendium DO Not Attach Compendium, Do Not Delete/merge, [id number] 01/15/2025 10:34:44 01/16/2001/15/2025 urina lysis , dipst ick pH 5.5 Not Available In-Office Order Internal Use Only DO Not Attach Compendium DO Not Attach Compendium, Do Not Delete/merge, [id number] 01/15/2025 10:34:44 01/16/2001/15/2025 urina lysis , dipst ick Blood Negati ve Not Available In-Office Order Internal Use Only DO Not Attach Compendium DO Not Attach Compendium, Do Not Delete/merge, [id number] 01/15/2025 10:34:44 01/16/2001/15/2025 urina lysis , dipst ick Specific Soso 1.025 Not Available In-Off ice Order Internal Use Only DO Not Attach Compendium DO Not Attach Compendium, Do Not Delete/merge, [id number] 01/15/2025 10:34:44 01/16/2001/15/2025 urina lysis , dipst ick Ketone Negati ve Not Available In-Office Order Internal Use Only DO Not Attach Compendium DO Not Attach Compendium, Do Not Delete/merge, [id number] 01/15/2025 10:34:44 01/16/20 25 01/15/2025 urina lysis , dipst ick Bilirubin Negati ve Not Available In-Office Order Internal Use Only DO Not Attach Compendium DO Not Attach Compendium, Do Not Delete/merge, [id number] 01/15/2025 10:34:44 01/16/2001/15/2025 urina lysis , dipst ick Glucose Negati ve Not Available In-Office Order Internal Use Only DO Not Attach Compendium DO Not Attach Compendium, Do Not Delete/merge, [id number] 01/15/2025 10:34:44 01/16/2001/15/2025 urina lysis , dipst ick Appearance Clear Not Available In-Offi ce Order Internal Use Only DO Not Attach Compendium DO Not Attach Compendium, Do Not Delete/merge, [id number] 01/15/2025 10:34:44 01/16/20 25 01/15/2025 urina lysis , dipst ick Color Dark Yellow Not Available In-Office Order Internal Use Only DO Not Attach Compendium DO Not Attach Compendium, Do Not Delete/merge, [id number] 01/15/2025 10:34:44 03/16/19 25 03/16/2024 XR, chest , 2 view No observ ation record ed. [address], [address], 03/20/2024 10:57:06 01/03/20 25 01/01/2025 XR, chest , 2 view No observ ation record ed. [address], [address], 01/15/2025 10:56:44 01/05/20 25 01/03/2025 CT, chest + abdom en + pelvi s, w/ contr ast No observ ation record ed. [address], [address], 01/15/2025 10:56:43 01/05/20 25 01/04/2025 US, abdom en No observ ation record ed. [address] [place], [address], 01/15/2025 10:56:43 Result Notes None recorded. 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 61407272 Active Not Available [facility] 22:50:17 Neuropath y due to diabetes mellitus 065004861 Active Not Available [facility] 22:50:17 Gastroeso phageal reflux disease 371922843 Active Not Available [facility] 22:50:17 Serous otitis media 79774756 Completed 06/30/2016 Abbey Graham RN null, [place] [facility] 7 14:33:37 Complaini ng of nasal congestio n Completed 08/18/2020 Abbey [place] [facility] 16:25:44 Onychomyc osis 070916374 Completed 03/17/2018 SEBASTIAN P[place], [place] - [facility] 9 15:46:57 Backache 316139132 Completed 06/30/2016 SEBAST[place] [facility] 7 14:33:41 Reduced libido 5044250 Completed 201608/18/2020 SEBAST[place] [facility] 16:26:03 Testoster one level below reference range 944554690 Completed 201608/18/2020 Abbey Graham [place] [facility] 16:25:52 Benign prostatic hyperplas ia 879312512 Active 2017 Not Available [facility] 22:50:17 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 228675957 Active 2017 Not Available [facility] 4 22:50:17 Scalp folliculi tis 620649813 Active 2021 Not Available [facility] 4 22:50:17 Vitamin D deficienc y 85173290 Active 2021 Not Available [facility] 4 22:50:17 Body mass index 30+ - obesity 654236163 Active 2021 RAMU Yu Attn: Accounting ,[address] [facility], [place], [address] , [place] [facility] 4 16:02:43 Screening for malignant neoplasm of colon Active 2022 Not Available [facility] 4 22:50:17 Fall from ladder Active 2022 Not Available [facility] 4 22:50:17 Obesity 397046739 Active 2023 RAMU Yu Attn: Accounting ,[address] [place], [address] , [place] [facility] 4 16:50:40 Pain of left shoulder joint 28910657828 693402 Active 2023 RAMU Yu Attn: Accounting ,[address] [place], [address] , [place] [facility] 4 16:52:26 Acute bacterial prostatit is Active 2024 RAMU Yu Attn: Accounting ,[address] [place], [address] , [place] [facility] 5 11:27:32 Body mass index 25-29 - overweigh t 245558521 Active 2024 RAMU Yu Attn: Accounting ,[address] [place], [address] , [place] [facility] 5 17:35:45 Problem [...] DateTime 03/09/2024 165.1 cm Abbey Graham RN [facility] 2024 15:48:08 Date Recorded Body temperature Body mass index (BMI) Body weight Oxygen saturation Heart rate Systolic And Diastolic Provider Name and Address Organization Details Last Updated DateTime 5 98.3 [degF] 29.5 kg/m2 90707.6 5 g 98 % 68 /min 112/70 mm[Hg] Larissa pepper MA [facility] 16:00:04 Date Recorded Body height Body temperature Heart rate Oxygen saturation Body mass index (BMI) Body weight Systolic And Diastolic Provider Name and Address Organization Details Last Updated DateTime 5 165.1 cm 97.7 [degF] 68 /min 97 % 29.5 kg/m2 45267.6 5 g 110/74 mm[Hg] Abbey Graham RN [facility] 5 15:32:51 Date Recorded Body height Body mass index (BMI) Body weight Oxygen saturation Heart rate Body temperature Systolic And Diastolic Provider Name and Address Organization Details Last Updated DateTime 5 165.1 cm 29.1 kg/m2 29448.6 6 g 96 % 70 /min 98.5 [degF] 120/80 mm[Hg] Larissa pepper MA [facility] 5 14:51:40 Date Recorded Body height Provider Name an d Address Organization Details Last Updated DateTime 11/20/2024 165.1 cm Reynold mcguire MA [facility] 11/20/2024 13:15:25 Date Recorded Body mass index (BMI) Body weight Body temperature Oxygen saturation Heart rate Systolic And Diastolic Provider Name and Address Organization Details Last Updated DateTime 5 28 kg/m2 08815.3 2 g 97.8 [degF] 100 % 68 /min 120/82 mm[Hg] Reynold Cronin [place] [facility] 10:41:38 Date Recorded Body height Provider Name an d Address Organization Details Last Updated DateTime 01/15/2025 165.1 cm Larissa pepper MA [place] [facility] 01/15/2025 10:31:40 Social History Question Answer Notes LastModified by Organizat ion Details LastModified Time Tobacco Smoking Status Never Smoker Erik Prabhu DONNASummer saturnino, [place] [facility] 07/11/2014 16:23:26 Do You Have An Advance Directive? No Information not available 04/13/2019 Are You Blind Or Do You Have Difficulty Seeing? No Information not available 08/18/2020 What Is Your Level Of Caffeine Consumption? Occasional Information not available 07/11/2014 How Much Tobacco Do You Chew? None [email or web address] Information not available 07/11/2014 In The 14 Days Before Symptom Onset, Have You Had Close Contact With A Laboratory-confir med COVID-19 While That Case Was Ill? No Information not available 04/13/2019 If Patient Spent Time In [facility] - Does The Patient Live In [facility]? No Information not available 04/13/2019 In The 14 Days Before Symptom Onset, Have You Had Close Contact With A Person Who Is Under Investigation For COVID-19 While That Person Was Ill? No Information not available 04/13/2019 In The 14 Days Before Symptom Onset, Did The Patient Spend Time In [facility]? No Information not available 04/13/2019 Have You Been To An Area Known To Be High Risk For COVID-19? No Information not available 08/18/2020 Are You Deaf Or Do You Have Serious Difficulty Hearing? No Information not available 08/18/2020 What Type Of Diet Are You Following? REGULAR Information not available 07/11/2014 Education Less Than 8th Grade [email or web address] Information not available 07/11/2014 Are There Any Guns Present In Your Home? No [email or web address] Information not available 07/11/2014 Hard Of Hearing Or Deaf In One Or Both Ears? No [email or web address] Information not available 07/11/2014 Legally Blind In One Or Both Eyes? No Information no t available 07/11/2014 Marital Status Informatio n not available 07/11/2014 What Was The Date Of Your Most Recent Tobacco Screening? 01/15/2025 Information not available 01/15/2025 Do You Use Protection During Sex? No Information not available 05/14/2022 What Is Your Relationship Status? Information not available 11/18/2020 Do You Use Your Seat Belt Or Car Seat Routinely? Yes Information not available 08/18/2020 Seat Belts Used Routinely Yes [email or web address] Information not available 07/11/2014 Are You Sexually Active? Yes Information not available 05/14/2022 Smoke Alarm In Home Yes [email or web address] Information not available 07/11/2014 Do You Have Smoke And Carbon Monoxide Detectors In Your Home? Yes Information not available 08/18/2020 Are You Passively Exposed To Smoke? No Information no t available 08/18/2020 How Much Tobacco Do You Smoke? 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 Never used electronic cigarettes Information not available 04/13/2019 What is your exercise level? Occasional [email or web address] Information not available 07/11/2014 Mental Status Question Answer Note LastModified by Organization D etails LastModified Time Do you feel stressed (tense, restless, nervous, or anxious, or unable to sleep at night)? [id number] Information not available 05/14/2022 Family History Relationship Description Onset Age of this Age Resolved Age Notes LastModified by Organization Details LastModified Time Sister Diabetes mellitus [email or web address] Not available 2015 15:01:39 Daughter Suicide 22 [...] 50 mcg/0.25mL dose 2 completed Not Available [facility] 04/27/2023 22:50:17 Influenza, split virus, quadrivalent, preservative 6 completed Not Available [facility] 03/24/2019 02:42:30 Tdap 6 completed Not Available [facility] 03/24/2019 02:40:27 pneumococcal polysaccharide PPV23 2 completed Not Available [facility] 04/27/2023 22:50:17 Influenza, split virus, quadrivalent, preservative 7 completed Not Available [facility] 03/24/2019 02:33:58 Tdap 2 completed Not Available [facility] 01/15/2025 10:30:33 Influenza, split virus, quadrivalent, PF 8 completed Not Available [facility] 03/24/2019 02:35:59 Influenza, split virus, quadrivalent, preservative 9 completed Not Available [facility] 03/24/2019 02:42:38 Influenza, split virus, quadrivalent, preservative [...] 3 completed RAMU Yu Attn: Accounting[address] [place], [address], [place] [facility] 08/24/2022 14:38:02 Hep B, adult 3 completed RAMU Yu Attn: Accounting[address] [place], [address], [place] [facility] 12/16/2022 17:59:52 Influenza, split virus, quadrivalent, preservative 3 completed RAMU Yu Attn: Accounting,[address] [place], [address], [place] [facility] 12/16/2022 17:59:52 Pneumococcal conjugate PCV 13 3 completed RAMU Yu Attn: Accounting[address] [facility], [place], [address], [facility] 12/16/2022 17:59:52 Influenza, split virus, trivalent, preservative 4 completed Larissa Whittington, [place] null, [place] [facility] 12/06/2023 17:05:22 Influenza, split virus, trivalent, PF 5 completed Larissa Whitting[place], [place] null, [place] [facility] 11/14/2024 15:37:33 Past Encounters Encounter ID Performer Location Encounter Start Date Encounter Closed Date Diagnosis/Indication Diagnosis SNOMED-CT Code Diagnosis ICD10 Code Diagnosis IMO Codes Diagnosis Note [id number] Aleksander Diaz MD [facility] [address], [place] [address] 07/11/2014 16:07:54 07/19/2014 16:24:37 Obstructive sleep apnea of adult 6725759229 103 Essential hypertension 82987532 Type 2 ab betes mellitus without complication 902514358 Gastroesop hageal reflux disease 877821225 Has noticed some nausea after taking medication s Advised to take medication s with a cracker or something solid Advised not to lay down immediatel y after taking medication s Serous otitis media 56340818 Complainin g of nasal congestion 629200525 Neuropathy due to diabetes mellitus 838026094 He is not taking Gabapentin as it made him sleepy [id number] KRISTINA YuFormerly [facility] [address], [place] [address] 10/11/2014 15:09:30 10/18/2014 11:24:30 Essential hypertension 25692366 Neuropathy due to diabetes mellitus 260995477 Reolved for now, reports feeling well Type 2 ab betes mellitus without complication 359960291 see opthalmolo gist Complainin g of nasal congestion 513701119 Obstructiv e sleep apnea of adult 2073530076 103 stable Onychomycosis 201673371 no alcohol [id number] KRISTINA YuFormerly [facility] [address], [place] [address] 09/05/2015 14:40:09 09/09/2015 18:07:29 Essential hypertension 13234852 I10 Type 2 ab betes mellitus without complication 588097989 E11.9 see opthalmolo gist Complainin g of nasal congestion 136120848 R09.81 Obstructiv e sleep apnea of adult 8633342033 103 G47.33 stable Onychomycosis 693939230 B35.1 resolved Backache 956841977 M54.9 [id number] [facility] [address], [place] [address] 09/09/2015 09:41:03 09/09/2015 18:13:02 Type 2 diabetes mellitus without complication 128451699 E11.9 [id number] Aleksnader Diaz MD [facility] [address], [place] [address] 02/10/2016 16:02:30 02/13/2016 13:59:11 Essential hypertension 04508937 I10 Polyneurop athy due to diabetes mellitus 67954490 E11.42 maintain blood sugars wnl Type 2 ab betes mellitus without complication 656040365 E11.9 see eye doctor--gi ve eye list Gastroesop hageal reflux disease 979045400 K21.9 Has noticed some nausea after taking medication s Advised to take medication s with a cracker or something solid Advised not to lay down immediatel y after taking medication s Obstructiv e sleep apnea of adult 9538782730 103 G47.33 stable Tinea cruris 176687787 B 35.6 Reduced libido 9526708 R 68.82 Xerosis du e to atopic dermatitis 075067447 L85.3 Onychomycosis 209154582 B35.1 resolved Allergic rhinitis 197061 04 J30.9 Delay when starting to pass urine 1624057 R39.11 Patient agrees to Prostate screening [id number] Aleksander Diaz MD [facility] [address], [place] [address] 06/30/2016 14:23:49 07/02/2016 16:00:28 Obesity 777012390 E66.9 HIV screening 839775436 Z11.4 Reduced libido 5393163 R 68.82 patient to see Urology Testostero ne level below reference range 603405855 R79.89 patient to see Urology Obstructiv e sleep apnea of adult 7747598432 103 G47.33 stable Essential hypertension 17931178 I10 Type 2 ab betes mellitus without complication 233362477 E11.9 see eye doctor--gi ve eye list Allergic rhinitis 732129 04 J30.9 [id number] Aleksander Diaz MD [facility] [address] [place] [address] 11/05/2016 16:04:13 11/25/2016 14:25:39 Essential hypertension 69105073 I10 Obesity 522950971 E66.9 Type 2 ab betes mellitus without complication 796027834 E11.9 see eye doctor--gi ve eye list Reduced libido 8983583 R 68.82 patient to see Urology Testostero ne level below reference range 654402560 R79.89 patient to see Urology Obstructiv e sleep apnea of adult 9966476869 103 G47.33 stable Allergic rhinitis 214812 04 J30.9 Low back pain 378731958 M54.5 Dysuria 95708152 R30.0 [id number] Aleksander Diaz MD [facility] [address] [place] [address] 03/11/2017 15:03:04 03/11/2017 16:16:57 Xerosis due to atopic dermatitis 668969181 L85.3 Type 2 ab betes mellitus without complication 390525259 E11.9 continue to monitor blood sugars patient to continue Metformin 1000mg 1/2 tab daily keep bs logs Obstructiv e sleep apnea of adult 1351862423 103 G47.33 stable Essential hypertension 52660444 I10 Gastroesop hageal reflux disease 680149981 K21.9 Has noticed some nausea after taking medication s Advised to take medication s with a cracker or something solid Advised not to lay down immediatel y after taking medication s Allergic rhinitis 375716 04 J30.9 Benign pro static hyperplasia 774461907 N40.0 continue Tamsulosin 0.4mg per urology follow up with urology as directed Reduced libido 3310005 R 68.82 patient to see Urology T level is 244 will give patient urologists phone number to make f/u appt [phone] Dr. Brittany Thakkar Otitis media 19996823 H6 5.02 [id number] Aleksander Diaz MD [facility] [address] [place] [address] 07/11/2017 15:35:00 07/13/2017 12:46:07 Type 2 diabetes mellitus without complication 308666525 E11.9 continue to monitor blood sugars patient to continue Metformin 500mg tab daily keep bs logs Essential hypertension 20976822 I10 Gastroesop hageal reflux disease 172374653 K21.9 Has noticed some nausea after taking medication s Advised to take medication s with a cracker or something solid Advised not to lay down immediatel y after taking medication s Obstructiv e sleep apnea of adult 5506156935 103 G47.33 stable Testostero ne level below reference range 745429796 R79.89 patient voices feeling better will not return to Urology Benign pro static hyperplasia 241883095 N40.0 continue Tamsulosin 0.4mg per urology Allergic rhinitis 681585 04 J30.9 Xerosis du e to atopic dermatitis 813675267 L85.3 [id number] Aleksander Diaz MD [facility] [address], [place] [address] 11/17/2017 15:28:48 11/18/2017 17:45:57 Type 2 diabetes mellitus without complication 191003146 E11.9 last HA1C 7.1 continue to monitor blood sugars patient to continue Metformin 500mg tab twice daily keep bs logs Essential hypertension 24976041 I10 Gastroesop hageal reflux disease 696104358 K21.9 Has noticed some nausea after taking medication s Advised to take medication s with a cracker or something solid Advised not to lay down immediatel y after taking medication s Obstructiv e sleep apnea of adult 4107082142 103 G47.33 stable Testostero ne level below reference range 033100328 R79.89 patient voices feeling better will not return to Urology Benign pro static hyperplasia 048959638 N40.0 continue Tamsulosin 0.4mg per urology Allergic rhinitis 092307 04 J30.9 Xerosis du e to atopic dermatitis 401330044 L85.3 Mixed hypercholesterolemia and hypertriglyceridemia 610186052 E78.2 Hemorrhoids 67924737 K64 .9 [id number] Aleksander Diaz MD [facility] [address], [place] [address] 03/17/2018 15:34:03 03/24/2018 12:18:05 Type 2 diabetes mellitus without complication 438405555 E11.9 last HA1C 7.5 continue to monitor blood sugars patient to continue Metformin 500mg tab twice daily keep bs logs Obstructiv e sleep apnea of adult 6829709018 103 G47.33 stable continue to use CPAP Essential hypertension 94444003 I10 Gastroesop hageal reflux disease 602510044 K21.9 Has noticed some nausea after taking medication s Advised to take medication s with a cracker or something solid Advised not to lay down immediatel y after taking medication s Testostero ne level below reference range 062109553 R79.89 patient voices feeling better will not return to Urology Benign pro static hyperplasia 785897042 N40.0 continue Tamsulosin 0.4mg per urology Allergic rhinitis 363843 04 J30.9 Xerosis du e to atopic dermatitis 516068899 L85.3 Mixed hypercholesterolemia and hypertriglyceridemia 477633041 E78.2 Hemorrhoids 65217129 K64 .9 [id number] Aleksander Diaz MD [facility] [address], [place] [address] 07/14/2018 16:22:25 07/17/2018 10:22:50 Type 2 diabetes mellitus without complication 819079263 E11.9 last HA1C 8.7 continue to monitor blood sugars-was only taking one pill at noon patient to increase Metformin ER 500mg 2 tab once daily in the am keep bs logs Essential hypertension 12688005 I10 Obstructiv e sleep apnea of adult 5997988714 103 G47.33 stable continue to use CPAP Gastroesop hageal reflux disease 994908311 K21.9 Has noticed some nausea after taking medication s Advised to take medication s with a cracker or something solid Advised not to lay down immediatel y after taking medication s Benign pro static hyperplasia 211898151 N40.0 continue Tamsulosin 0.4mg per urology Allergic rhinitis 807178 04 J30.9 Xerosis du e to atopic dermatitis 593065306 L85.3 Mixed hypercholesterolemia and hypertriglyceridemia 549182255 E78.2 Diabetic p eripheral neuropathy 644086800 E11.40 Body mass index 30+ - obesity 655932935 Z68.31 BMI 31 [id number] Aleksander Diaz MD [facility] [address] [place] [address] 11/29/2018 14:42:07 11/30/2018 18:09:01 Essential hypertension 64041781 I10 Type 2 ab betes mellitus without complication 087448913 E11.9 last HA1C 6.9 continue to monitor blood sugars patient to continue Metformin ER 500mg 2 tab once daily in the am keep bs logs Gastroesop hageal reflux disease 868173932 K21.9 Has noticed some nausea after taking medication s Advised to take medication s with a cracker or something solid Advised not to lay down immediatel y after taking medication s Obstructiv e sleep apnea of adult 5536686623 103 G47.33 stable continue to use CPAP Benign pro static hyperplasia 259199490 N40.0 continue Tamsulosin 0.4mg per urology Allergic rhinitis 705264 04 J30.9 Xerosis du e to atopic dermatitis 257216051 L85.3 Mixed hypercholesterolemia and hypertriglyceridemia 283003211 E78.2 Hemorrhoids 86667744 K64 .9 [id number] Aleksander Diaz MD [facility] [address] [place] [address] 04/13/2019 15:10:48 04/16/2019 08:56:02 Mixed hypercholesterolemia and hypertriglyceridemia 024063966 E78.2 Type 2 ab betes mellitus without complication 861920134 E11.9 last HA1C 8.3 continue to monitor blood sugars patient to continue Metformin ER 500mg 2 tab once daily in the am keep bs logs Essential hypertension 84450806 I10 Gastroesop hageal reflux disease 382703861 K21.9 Has noticed some nausea after taking medication s Advised to take medication s with a cracker or something solid Advised not to lay down immediatel y after taking medication s Obstructiv e sleep apnea of adult 1871446684 103 G47.33 stable continue to use CPAP Has been on CPAP for 10 years same machine Benign pro static hyperplasia 888932632 N40.0 continue Tamsulosin 0.4mg per urology Allergic rhinitis 075453 04 J30.9 Xerosis du e to atopic dermatitis 178031788 L85.3 Hemorrhoids 74171859 K64 .9 [id number] Trey Razo MD [facility] [address] [place] [address] 07/16/2019 08:04:22 08/01/2019 15:41:30 Obstructive sleep apnea syndrome 68619767 G47.33 Continue using cpap nightlyOrd ering new cpap machine and compliancy reportCurr ently at 9 cm H2O, Cpap titration to assess if he requires a change in pressure Essential hypertension 35840281 I10 Managed in primary care. Continue to monitor blood pressure. Encourage low salt diet and exercise. Gastroesop hageal reflux disease 525328079 K21.9 Continue medication s as prescribed -Educated pt on importance of dietary modificati ons: Raise the head of the bed, avoid acid-reflu x inducing foods, avoid late meals. [id number] Aleksander Diaz MD [facility] [address] [place] [address] 10/10/2019 15:34:19 10/11/2019 07:04:18 Type 2 diabetes mellitus without complication 931105195 E11.9 last HA1C 8.3 continue to monitor blood sugars voices polyghagia patient to stop Metformin ER 500mg as pharmacy not covering it and start metformin 1000 mg bid-- keep bs logs Essential hypertension 04426754 I10 Mixed hypercholesterolemia and hypertriglyceridemia 967510068 E78.2 Gastroesop hageal reflux disease 589097948 K21.9 Has noticed some nausea after taking medication s Advised to take medication s with a cracker or something solid Advised not to lay down immediatel y after taking medication s Obstructiv e sleep apnea of adult 8427929421 103 G47.33 stable continue to use CPAP Has been on CPAP for 10 years same machine Has now seen PHOTOGRAPHIC RESTORER [facility]-had new machine ordered Benign pro static hyperplasia 805879048 N40.0 continue Tamsulosin 0.4mg per urology Allergic rhinitis 029357 04 J30.9 Xerosis du e to atopic dermatitis 825997952 L85.3 Hemorrhoids 44091735 K64 .9 [id number] Riya Da Silva MD [facility] [address], [place] [address] 02/13/2020 15:19:32 02/14/2020 14:54:12 Type 2 diabetes mellitus without complication 839656006 E11.9 last HA1C 8.3 continue to monitor blood sugars Essential hypertension 10161973 I10 Mixed hypercholesterolemia and hypertriglyceridemia 651984860 E78.2 Gastroesop hageal reflux disease 130133040 K21.9 Has noticed some nausea after taking medication s Advised to take medication s with a cracker or something solid Advised not to lay down immediatel y after taking medication s Benign pro static hyperplasia 653867930 N40.0 continue Tamsulosin 0.4mg per urology Allergic rhinitis 677932 04 J30.9 Needs infl uenza immunization 654282937 Z28.3 [id number] Riya Da Silva MD [facility] [address] [place] [address] 02/15/2020 10:12:34 02/19/2020 16:21:24 Type 2 diabetes mellitus without complication 932266411 E11.9 last HA1C 8.3 continue to monitor blood sugars Administra tion of influenza vaccine 01338717 Z23 [id number] Trey Razo MD [facility] [address] [place] [address] 03/14/2020 14:23:18 03/17/2020 10:49:47 Obstructive sleep apnea syndrome 93855461 G47.33 Continue using cpap nightly . Currently at 9 cm H2O, Clinically benefittin g from usage. Essential hypertension 25526878 I10 Managed in primary care. Continue to monitor blood pressure. Encourage low salt diet and exercise. Gastroesop hageal reflux disease 460742775 K21.9 Continue medication s as prescribed -Educated pt on importance of dietary modificati ons: Raise the head of the bed, avoid acid-reflu x inducing foods, avoid late meals. [id number] MD Jae Alonso 14 IM [address] [facility] [address] [place] [address] 05/27/2020 10:02:47 05/28/2020 12:48:24 Administration of SARS-CoV-2 antigen vaccine 128327945 Z23 [id number] MD Jae Alonso 14 IM [address] [facility] [address] [place] [address] 06/24/2020 15:40:57 06/25/2020 09:45:20 Administration of SARS-CoV-2 antigen vaccine 830697136 Z23 [id number] Aleksander Diaz MD [facility] [address] [place] [address] 08/18/2020 16:18:48 08/19/2020 14:11:49 Type 2 diabetes mellitus without complication 398651734 E11.9 last HA1C 6.9 continue to monitor blood sugars voices polyghagia patient to continue metformin 1000 mg bid-- keep bs logs Essential hypertension 74669124 I10 Mixed hypercholesterolemia and hypertriglyceridemia 433200395 E78.2 Gastroesop hageal reflux disease 978485512 K21.9 Has noticed some nausea after taking medication s Advised to take medication s with a cracker or something solid Advised not to lay down immediatel y after taking medication s Obstructiv e sleep apnea of adult 7416176695 103 G47.33 stable continue to use CPAP Has been on CPAP for 10 years same machine Has now seen PHOTOGRAPHIC RESTORER at [facility]-had new machine ordered Benign pro static hyperplasia 883989829 N40.0 continue Tamsulosin 0.4mg was started per urology has not returned to urology feels med helps him Allergic rhinitis 491147 04 J30.9 Xerosis du e to atopic dermatitis 882718076 L85.3 Hemorrhoids 32874917 K64 .9 Screening for malignant neoplasm of colon 767877951 Z12.11 50 y/o HM needs a screening colonoscop y . Depression screening 171 131659 Z13.31 negative [id number] Aleksander Diaz MD [facility] [address] [place] [address] 11/18/2020 16:01:54 11/19/2020 09:47:05 Essential hypertension 97233305 I10 BP Goal: Less than 150/90BP Controlled : yes; per the JNC8 guidelines in the absence of renal disease and DMHealthy Weight: 5'5= 115-149 lbsDiscuss ed: Low sodium balanced diet, moderate exercise at least 3-4 times per week for an average of 40 minutesNex t Visit: 3month(s) Type 2 ab betes mellitus without complication 888642397 E11.9 HA1C 7 continue to monitor blood sugars voices polyghagia patient to continue metformin 1000 mg bid-- keep bs logs Mixed hypercholesterolemia and hypertriglyceridemia 995259634 E78.2 Gastroesop hageal reflux disease 819886755 K21.9 Has noticed some nausea after taking medication s Advised to take medication s with a cracker or something solid Advised not to lay down immediatel y after taking medication s Obstructiv e sleep apnea of adult 3973264273 103 G47.33 stable continue to use CPAP Has been on CPAP for 10 years same machine Has now seen PHOTOGRAPHIC RESTORER at [facility]-had new machine ordered Benign pro static hyperplasia 190657809 N40.0 continue Tamsulosin 0.4mg was started per urology has not returned to urology feels med helps him Allergic rhinitis 042615 04 J30.9 Xerosis du e to atopic dermatitis 953341856 L85.3 Hemorrhoids 60978159 K64 .9 Screening for malignant neoplasm of colon 869196312 Z12.11 50 y/o HM needs a screening colonoscop y . Administra tion of influenza vaccine 03067831 Z23 Scalp folliculitis 49271 8003 L73.8 [id number] Aleksander Diaz MD [facility] [address] [place] [address] 02/02/2021 12:04:27 02/03/2021 06:34:56 Acute otitis media 5656465 H66.92 take tylenol 325mg 2 tabs every 4-6 hours for discomfort Acute gastroenteritis 69 086186 K52.9 [id number] MADHURI SIMONS [facility] [address] [place] [address] 03/18/2021 14:55:37 03/19/2021 06:06:21 Type 2 diabetes mellitus without complication 378496970 E11.9 -Most recent A1C: 7-Today's POC A1C: 7-Manageme nt as outlined-A 1C borderline ; Discussed TLCs during visit Essential hypertension 74577540 I10 BP Goal: Less than 140/90BP Controlled : yesHealthy Weight: 5'5= 115-149 lbsDiscuss ed: Low sodium balanced diet, moderate exercise at least 3-4 times per week for an average of 40 minutesNex t Visit: 3month(s) Mixed hypercholesterolemia and hypertriglyceridemia 484266223 E78.2 -Current regimen maintained -Pt reports symptoms controlled -Lipid panel to follow; ordered today Allergic rhinitis 918295 04 J30.9 -Current regimen maintained -Pt reports symptoms controlled -RFs as appropriat e [id number] Aleksander Diaz MD [facility] [address] [place] [address] 06/15/2021 15:37:55 06/16/2021 13:23:31 Essential hypertension 66053398 I10 BP Goal: Less than 150/90BP Controlled : yes; per the JNC8 guidelines in the absence of renal disease and DMHealthy Weight: 5'5= 115-149 lbsDiscuss ed: Low sodium balanced diet, moderate exercise at least 3-4 times per week for an average of 40 minutesNex t Visit: 3month(s) Type 2 ab betes mellitus without complication 213701434 E11.9 HA1C 7 continue to monitor blood sugars voices polyghagia patient to continue metformin 1000 mg bid-- keep bs logs Gastroesop hageal reflux disease 555356808 K21.9 Has noticed some nausea after taking medication s Advised to take medication s with a cracker or something solid Advised not to lay down immediatel y after taking medication s Mixed hypercholesterolemia and hypertriglyceridemia 974914484 E78.2 Obstructiv e sleep apnea of adult 0235039113 103 G47.33 stable continue to use CPAP Has been on CPAP for 10 years same machine Has now seen PHOTOGRAPHIC RESTORER at [facility]-had new machine ordered Benign pro static hyperplasia 928629367 N40.0 continue Tamsulosin 0.4mg was started per urology has not returned to urology feels med helps him Allergic rhinitis 572867 04 J30.9 Xerosis du e to atopic dermatitis 402902060 L85.3 Hemorrhoids 81297311 K64 .9 resolved for now Screening for malignant neoplasm of colon 041110489 Z12.11 50 y/o HM needs a screening colonoscop y .-sent at last visit Scalp folliculitis 21415 8003 L73.8 [id number] Aleksander Diaz MD [facility] [address] [place] [address] 09/14/2021 15:45:38 09/15/2021 14:51:43 Essential hypertension 73737214 I10 BP Goal: Less than 140/90BP Controlled : yes; per the JNC8 guidelines in the absence of renal disease and DMHealthy Weight: 5'5= 115-149 lbsDiscuss ed: Low sodium balanced diet, moderate exercise at least 3-4 times per week for an average of 40 minutesNex t Visit: 3month(s) Type 2 ab betes mellitus without complication 865548875 E11.9 HA1C 7.7 continue to monitor blood sugars voices polyphagia patient to continue metformin 1000 mg bid-- keep bs logswill add jardiance 10mg daily Gastroesop hageal reflux disease 273845285 K21.9 Has noticed some nausea after taking medication s Advised to take medication s with a cracker or something solid Advised not to lay down immediatel y after taking medication s Mixed hypercholesterolemia and hypertriglyceridemia 885378135 E78.2 06/15/2021 cho 157Trig 383HDL 35.3LDL 82Avoid [...] daily Obstructiv e sleep apnea of adult 7756062205 103 G47.33 stable continue to use CPAP Has been on CPAP for 10 years same machine Has now seen PHOTOGRAPHIC RESTORER at [facility]-had new machine ordered Benign pro static hyperplasia 415275500 N40.0 continue Tamsulosin 0.4mg was started per urology has not returned to urology feels med helps him Allergic rhinitis 355651 04 J30.9 Xerosis du e to atopic dermatitis 434536320 L85.3 Screening for malignant neoplasm of colon 779941844 Z12.11 51 y/o HM needs a screening colonoscop y .-sent at last visitPer GI office noteThank you for the referral to [facility]. We have called your patient three times and lvm, plus sent a letter asking them to call so that we can schedule. To date the patient has not returned our calls. Please contact your patient and ask them to call [facility] at and press option 1 to schedule. Scalp folliculitis 59468 8003 L73.8 Vitamin D deficiency 347 71971 E55.9 Vitamin D 14.8buy otc vitamin D3 1000 IU once daily Body mass index 30+ - obesity 873287169 Z68.31 BMI 30Ht 5' 5 Healthy weight 115-149 Acute cont act dermatitis 185388828 L25.9 [id number] Aleksander Diaz MD [facility] [address] [place] [address] 02/09/2022 15:03:01 02/10/2022 14:37:50 Type 2 diabetes mellitus without complication 221162919 E11.9 HA1C 7.2 continue to monitor blood sugars voices polyphagia patient to continue metformin 1000 mg bid-- keep bs logswill continue jardiance 10mg daily Essential hypertension 72246685 I10 BP Goal: Less than 140/90BP Controlled : yes; per the JNC8 guidelines in the absence of renal disease and DMHealthy Weight: 5'5= 115-149 lbsDiscuss ed: Low sodium balanced diet, moderate exercise at least 3-4 times per week for an average of 40 minutesNex t Visit: 3month(s) Mixed hypercholesterolemia and hypertriglyceridemia 634485322 E78.2 06/15/2021 cho 157Trig 383HDL 35.3LDL 82Avoid [...] e 160mg daily Gastroesop hageal reflux disease 461865714 K21.9 Has noticed some nausea after taking medication s Advised to take medication s with a cracker or something solid Advised not to lay down immediatel y after taking medication s Obstructiv e sleep apnea of adult 1729229977 103 G47.33 stable continue to use CPAP Has been on CPAP for 10 years same machine Has now seen PHOTOGRAPHIC RESTORER at [facility]-had new machine ordered Benign pro static hyperplasia 833317359 N40.0 continue Tamsulosin 0.4mg was started per urology has not returned to urology feels med helps him Allergic rhinitis 877989 04 J30.9 Xerosis du e to atopic dermatitis 783249677 L85.3 Vitamin D deficiency 347 57433 E55.9 Vitamin D 14.8buy otc vitamin D3 1000 IU once daily Screening for malignant neoplasm of colon 065128909 Z12.11 51 y/o HM needs a screening colonoscop y .-sent at last visitPer GI office noteThank you for the referral to [facility]. We have called your patient three times and lvm, plus sent a letter asking them to call so that we can schedule. To date the patient has not returned our calls. Please contact your patient and ask them to call [facility] at and press option 1 to schedule. Scalp folliculitis 30002 8003 L73.8 Body mass index 30+ - obesity 667101276 Z68.31 BMI 30Ht 5' 5 Healthy weight 115-149 Acute cont act dermatitis 205933016 L25.9 Administra tion of influenza vaccine 47341181 Z23 [id number] Aleksander Diaz MD [facility] [address] [place] [address] 05/14/2022 15:49:39 05/19/2022 14:18:17 Body mass index 30+ - obesity 294726615 Z68.31 BMI 30.5Ht 5' 5 Healthy weight 115-149 Type 2 ab betes mellitus without complication 999492249 E11.9 HA1C 7.6 continue to monitor blood sugars voices polyphagia patient to continue metformin 1000 mg bid-- keep bs logswill continue jardiance 10mg daily Essential hypertension 34981012 I10 BP Goal: Less than 140/90BP Controlled : yes; per the JNC8 guidelines in the absence of renal disease and DMHealthy Weight: 5'5= 115-149 lbsDiscuss ed: Low sodium balanced diet, moderate exercise at least 3-4 times per week for an average of 40 minutesNex t Visit: 3month(s) Obesity 130826491 E66.9 Mixed hypercholesterolemia and hypertriglyceridemia 748226722 E78.2 06/15/2021 cho 157Trig 383HDL 35.3LDL 82Avoid [...] e 160mg daily Gastroesop hageal reflux disease 975398666 K21.9 Has noticed some nausea after taking medication s Advised to take medication s with a cracker or something solid Advised not to lay down immediatel y after taking medication s Obstructiv e sleep apnea of adult 3524911802 103 G47.33 stable continue to use CPAP Has been on CPAP for 10 years same machine Has now seen PHOTOGRAPHIC RESTORER at [facility]-had new machine ordered Benign pro static hyperplasia 755334968 N40.0 continue Tamsulosin 0.4mg was started per urology has not returned to urology feels med helps him Allergic rhinitis 444510 04 J30.9 Xerosis du e to atopic dermatitis 265517624 L85.3 Vitamin D deficiency 347 06907 E55.9 Vitamin D 14.8buy otc vitamin D3 1000 IU once daily Scalp folliculitis 87216 8003 L73.8 Acute cont act dermatitis 396956061 L25.9 Depression screening 171 346336 Z13.31 negative Mental hea lth screening 891707204 Z13.39 negative [id number] Aleksander Diaz MD [facility] [address] [place] [address] 05/19/2022 09:59:44 05/20/2022 13:36:13 Mixed hypercholesterolemia and hypertriglyceridemia 535446337 E78.2 06/15/2021 cho 157Trig 383HDL 35.3LDL 82Avoid all breads, potatoes, cereal, pasta, rice, margarine, refined sugars, milk yogurt, ice cream, juices, soda (including diet), beer, and man-made or manufactur ed desserts. Enjoy steak, fish, chicken (no skin), pork, butter, vegetables , beans, nuts, whole eggs, cheese (low fat or skim), cream in your coffee.con tinue pravachol 20mg dailyconti nue fenofibrat e 160mg daily [id number] Aleksander Diaz MD [facility] [address], [place] [address] 08/17/2022 15:38:50 08/18/2022 13:35:53 Body mass index 30+ - obesity 618436132 Z68.31 BMI 30.5Ht 5' 5 Healthy weight 115-149 Type 2 ab betes mellitus without complication 288860064 E11.9 HA1C 7.6 continue to monitor blood sugars voices polyphagia patient to continue metformin 1000 mg bid-- keep bs logswill continue jardiance 10mg daily Vitamin D deficiency 347 80192 E55.9 Vitamin D 14.8buy otc vitamin D3 1000 IU once daily Essential hypertension 44562563 I10 BP Goal: Less than 140/90BP Controlled : yes; per the JNC8 guidelines in the absence of renal disease and DMHealthy Weight: 5'5= 115-149 lbsDiscuss ed: Low sodium balanced diet, moderate exercise at least 3-4 times per week for an average of 40 minutesNex t Visit: 3month(s) Obesity 277768439 E66.9 BMI 29.7Health y Weight: 5'5= 115-149 lbs Mixed hypercholesterolemia and hypertriglyceridemia 604712944 E78.2 06/15/2021 cho 157Trig 383HDL 35.3LDL 82 [...] e 160mg daily Gastroesop hageal reflux disease 272960093 K21.9 Has noticed some nausea after taking medication s Advised to take medication s with a cracker or something solid Advised not to lay down immediatel y after taking medication s Obstructiv e sleep apnea of adult 0063450639 103 G47.33 stable continue to use CPAP Has been on CPAP for 10 years same machine Has now seen PHOTOGRAPHIC RESTORER at [facility]-had new machine ordered Benign pro static hyperplasia 591094041 N40.0 continue Tamsulosin 0.4mg was started per urology has not returned to urology feels med helps himrefuses PEPE or PSA labs Allergic rhinitis 964116 04 J30.9 Xerosis du e to atopic dermatitis 395600047 L85.3 Scalp folliculitis 27222 8003 L73.8 Acute cont act dermatitis 603903677 L25.9 Depression screening 171 388946 Z13.31 negative Mental hea lth screening 547923659 Z13.39 negative Requires c ourse of hepatitis B vaccination 411395156 Z28.39 Patient has DM2Hep B1 08/17/2022 [id number] Aleksander Diaz MD [facility] [address], [place] [address] 12/16/2022 16:02:22 01/04/2023 11:29:56 Essential hypertension 34816867 I10 BP Goal: Less than 140/90BP Controlled : yes; per the JNC8 guidelines in the absence of renal disease and DMHealthy Weight: 5'5= 115-149 lbsDiscuss ed: Low sodium balanced diet, moderate exercise at least 3-4 times per week for an average of 40 minutesNex t Visit: 3month(s) Type 2 ab betes mellitus without complication 953317924 E11.9 HA1C 7.2 continue to monitor blood sugars voices polyphagia patient to continue metformin 1000 mg bid-- keep bs logswill continue jardiance 10mg daily Mixed hypercholesterolemia and hypertriglyceridemia 116579206 E78.2 06/15/2021 cho 157Trig 383HDL 35.3LDL 82 [...] daily Body mass index 30+ - obesity 249049773 Z68.31 BMI 30.5Ht 5' 5 Healthy weight 115-149 Benign pro static hyperplasia 499083437 N40.0 continue Tamsulosin 0.4mg was started per urology has not returned to urology feels med helps himrefuses PEPE or PSA labs Obesity 331002439 E66.9 BMI 29.7Health y Weight: 5'5= 115-149 lbs Vitamin D deficiency 347 55599 E55.9 Vitamin D 42buy otc vitamin D3 1000 IU once daily Gastroesop hageal reflux disease 498505287 K21.9 Has noticed some nausea after taking medication sAdvised to take medication s with a cracker or something solidAdvis ed not to lay down immediatel y after taking medication s Obstructiv e sleep apnea of adult 0706637235 103 G47.33 stable continue to use CPAP Has been on CPAP for 10 years same machine Has now seen PHOTOGRAPHIC RESTORER at [facility]-had new machine ordered Allergic rhinitis 339031 04 J30.9 Xerosis du e to atopic dermatitis 791004065 L85.3 Scalp folliculitis 69623 8003 L73.8 Acute cont act dermatitis 226219473 L25.9 Requires c ourse of hepatitis B vaccination 745136582 Z28.39 Patient has DM2Hep B1 08/17/2022 Depression screening 171 572619 Z13.31 negative Mental hea lth screening 313676662 Z13.39 negative Administra tion of influenza vaccine 00782781 Z23 Administra tion of pneumococcal vaccine 58342856 Z23 [id number] Aleksander Diaz MD [facility] [address] [place] [address] 02/15/2023 16:27:01 02/16/2023 12:28:34 Follow-up visit 531253774 Z09 52 y/o HM presents for follow [...] Reports pain is 3/10. Fall from ladder 1314355 8 W11.XXXD on 01/23/2023 while cleaning gutters and landed on chest Contusion of multiple sites 331660641 T07.XXXD Better Chest wall pain 77932927 6 R07.89 Better Abdominal pain 03820325 R10.9 resolved Facial swelling 01326217 6 R22.0 R cheek swelling and erythema Pain in ri ght lower limb 065526613 M79.604 resolved Bilateral shoulder joint pain 7588910933 2236787 M25.511 ongoing Depression screening 171 447992 Z13.31 negative Mental hea lt screening 553029093 Z13.39 negative [id number] Aleksander Diaz MD [facility] [address] [place] [address] 04/15/2023 16:12:40 04/18/2023 16:08:38 Type 2 diabetes mellitus without complication 873080980 E11.9 HA1C 9.2 was only taking Metformin 1000mg once daily and lost Jardiance bottle continue to monitor blood sugars voices polyphagia patient to continue metformin 1000 mg bid-- keep bs logswill continue jardiance 10mg daily Essential hypertension 01349736 I10 BP Goal: Less than 140/90BP Controlled : yes; per the JNC8 guidelines in the absence of renal disease and DMHealthy Weight: 5'5= 115-149 lbsDiscuss ed: Low sodium balanced diet, moderate exercise at least 3-4 times per week for an average of 40 minutesNex t Visit: 3month(s) Mixed hypercholesterolemia and hypertriglyceridemia 442508769 E78.2 06/15/2021 cho 157Trig 383HDL 35.3LDL 82 [...] e 160mg daily Gastroesop hageal reflux disease 202257437 K21.9 Has noticed some nausea after taking medication sAdvised to take medication s with a cracker or something solidAdvis ed not to lay down immediatel y after taking medication s Benign pro static hyperplasia 070401151 N40.0 continue Tamsulosin 0.4mg was started per urology has not returned to urology feels med helps himrefuses PEPE agrees to PSA lab test Obesity 279148664 E66.9 BMI 29.6Health y Weight: 5'5= 115-149 lbs Body mass index 30+ - obesity 150219496 Z68.31 BMI 29.6Ht 5' 5 Healthy weight 115-149 Vitamin D deficiency 347 57568 E55.9 Vitamin D 42buy otc vitamin D3 1000 IU once daily Obstructiv e sleep apnea of adult 4237541634 103 G47.33 stable continue to use CPAP Has been on CPAP for 10 years same machine Has now seen PHOTOGRAPHIC RESTORER at pulmonolog ist office-had new machine ordered Allergic rhinitis 546709 04 J30.9 Xerosis du e to atopic dermatitis 352738711 L85.3 Scalp folliculitis 09320 8003 L73.8 Acute cont act dermatitis 406530559 L25.9 Depression screening 171 326895 Z13.31 negative Mental hea lt screening 692983016 Z13.39 negative [id number] Aleksnader Diaz MD [facility] [address] [place] [address] 05/20/2023 10:18:37 05/30/2023 16:17:41 Mixed hypercholesterolemia and hypertriglyceridemia 765986152 E78.2 06/15/2021 cho 157Trig 383HDL 35.3LDL 82 [...] e 160mg daily Benign pro static hyperplasia 393787164 N40.0 continue Tamsulosin 0.4mg was started per urology has not returned to urology feels med helps himrefuses PEPE agrees to PSA lab test [id number] Aleksander Diaz MD [facility] [address], [place] [address] 08/05/2023 15:29:51 08/08/2023 11:28:13 Type 2 diabetes mellitus without complication 880895676 E11.9 HA1C 6.1 much better continue to monitor blood sugars patient to continue metformin 1000 mg bid-- keep bs logswill continue jardiance 10mg daily Essential hypertension 73001246 I10 BP Goal: Less than 140/90BP Controlled : yes; per the JNC8 guidelines in the absence of renal disease and DMHealthy Weight: 5'5= 115-149 lbsDiscuss ed: Low sodium balanced diet, moderate exercise at least 3-4 times per week for an average of 40 minutesNex t Visit: 3month(s) Vitamin D deficiency 347 38559 E55.9 Vitamin D 42buy otc vitamin D3 1000 IU once daily Mixed hypercholesterolemia and hypertriglyceridemia 362931329 E78.2 06/15/2021 cho 157Trig 383HDL 35.3LDL 82 [...] e 160mg daily Gastroesop hageal reflux disease 929069018 K21.9 Has noticed some nausea after taking medication sAdvised to take medication s with a cracker or something solidAdvis ed not to lay down immediatel y after taking medication s Benign pro static hyperplasia 275312303 N40.0 continue Tamsulosin 0.4mg was started per urology has not returned to urology feels med helps himrefuses DRE05/20/19 24 PSA 0.6 Obesity 135295800 E66.9 BMI 28.3Health y Weight: 5'5= 115-149 lbs Body mass index 30+ - obesity 864674766 Z68.31 BMI 28.3Ht 5' 5 Healthy weight 115-149 Obstructiv e sleep apnea of adult 3422665309 103 G47.33 stable continue to use CPAP Has been on CPAP for 10 years same machine Has now seen PHOTOGRAPHIC RESTORER at pulmonolog ist office-had new machine ordered Allergic rhinitis 953261 04 J30.9 Xerosis du e to atopic dermatitis 534210095 L85.3 Scalp folliculitis 73088 8003 L73.8 Acute cont act dermatitis 897046136 L25.9 Depression screening 171 144585 Z13.31 negative Screening for malignant neoplasm of colon 060968751 Z12.11 53 y/o HM needs a screening colonoscop y .-sent at last visitPer GI office noteThank you for the referral to [facility]. We have called your patient three times and lvm, plus sent a letter asking them to call so that we can schedule. To date the patient has not returned our calls. Please contact your patient and ask them to call [facility] at and press option 1 to schedule. Erectile dysfunction 802 435191 F52.59 [id number] MARIAH MONSIVAIS [facility] [address] [place] [address] 08/23/2023 09:29:48 08/26/2023 08:42:39 Screening for malignant neoplasm of colon 104283181 Z12.11 First colonoscop y. No FH of colon cancer.CBC and CMP in chart 05/20/2023 [id number] Aleksander Diaz MD [facility] [address] [place] [address] 12/06/2023 16:00:55 12/09/2023 14:12:56 Essential hypertension 25316833 I10 BP Goal: Less than 140/90BP Controlled : yes; per the JNC8 guidelines in the absence of renal disease and DMHealthy Weight: 5'5= 115-149 lbsDiscuss ed: Low sodium balanced diet, moderate exercise at least 3-4 times per week for an average of 40 minutesNex t Visit: 3month(s) Type 2 ab betes mellitus without complication 997898199 E11.9 HA1C 6.7much better continue to monitor blood sugars patient to continue metformin 1000 mg bid-- keep bs logswill continue jardiance 10mg daily Body mass index 30+ - obesity 658429963 Z68.31 BMI 28.1Ht 5' 5 Healthy weight 115-149 Benign pro static hyperplasia 413635774 N40.0 continue Tamsulosin 0.4mg was started per urology has not returned to urology feels med helps himrefuses DRE05/20/19 24 PSA 0.6 Mixed hypercholesterolemia and hypertriglyceridemia 270288746 E78.2 06/15/2021 cho 157Trig 383HDL 35.3LDL 82 [...] e 160mg daily Vitamin D deficiency 347 54218 E55.9 Vitamin D 42buy otc vitamin D3 1000 IU once daily Gastroesop hageal reflux disease 330549610 K21.9 stable no need for pepcid nowHas noticed some nausea after taking medication sAdvised to take medication s with a cracker or something solidAdvis ed not to lay down immediatel y after taking medication s Obstructiv e sleep apnea of adult 6465401384 103 G47.33 stable continue to use CPAP Has been on CPAP for 10 years same machine Has now seen PHOTOGRAPHIC RESTORER at pulmonolog ist office-had new machine ordered Allergic rhinitis 377876 04 J30.9 Xerosis du e to atopic dermatitis 578254937 L85.3 Scalp folliculitis 11682 8003 L73.8 resolved Erectile dysfunction 860 801132 F52.21 Pain of le ft shoulder joint 6932945515 9898702 M25.512 deltoid area painwakes him up at nighthad a fall 9 months ago from a ladder Body mass index 25-29 - overweight 555777649 Z68.28 BMI 28.3Health y Weight: 5'5= 115-149 lbs Candidal balanitis 26283 007 B37.42 Administra tion of influenza vaccine 84664233 Z23 [id number] Aleksander Diaz MD [facility] [address] [place] [address] 03/09/2024 15:36:14 03/12/2024 11:51:44 Essential hypertension 68544435 I10 BP Goal: Less than 140/90BP Controlled : yes; per the JNC8 guidelines in the absence of renal disease and DMHealthy Weight: 5'5= 115-149 lbsDiscuss ed: Low sodium balanced diet, moderate exercise at least 3-4 times per week for an average of 40 minutesNex t Visit: 3month(s) Type 2 ab betes mellitus without complication 434012717 E11.9 HA1C 6.7much better continue to monitor blood sugars patient to continue metformin 1000 mg bid-- keep bs logswill continue jardiance 10mg daily Body mass index 30+ - obesity 760418082 Z68.31 BMI 29.5Ht 5' 5 Healthy weight 115-149 Benign pro static hyperplasia 402588333 N40.0 continue Tamsulosin 0.4mg was started per urology has not returned to urology feels med helps himrefuses DRE05/20/19 24 PSA 0.6 Mixed hypercholesterolemia and hypertriglyceridemia 124641935 E78.2 06/15/2021 cho 157Trig 383HDL 35.3LDL 82 [...] e 160mg daily Vitamin D deficiency 347 50084 E55.9 Vitamin D 42buy otc vitamin D3 1000 IU once daily Gastroesop hageal reflux disease 663236751 K21.9 stable no need for pepcid nowHas noticed some nausea after taking medication sAdvised to take medication s with a cracker or something solidAdvis ed not to lay down immediatel y after taking medication s Obstructiv e sleep apnea of adult 5906067067 103 G47.33 stable continue to use CPAP Has been on CPAP for 10 years same machine Has now seen PHOTOGRAPHIC RESTORER at pulmonolog ist office-had new machine ordered Allergic rhinitis 351285 04 J30.9 Pain of le ft shoulder joint 8621598953 3969696 M25.512 deltoid area painwakes him up at nighthad a fall 9 months ago from a ladder Erectile dysfunction 860 229030 F52.21 Xerosis du e to atopic dermatitis 352236738 L85.3 Body mass index 25-29 - overweight 413417069 Z68.28 BMI 29.5Health y Weight: 5'5= 115-149 lbs Pain of le ft shoulder region 2315740014 M25.512 Has resolved for nowdid not get xray [id number] Zach Rios MD [facility] [address] [place] [address] 06/20/2024 15:20:39 06/21/2024 15:46:04 Body mass index 30+ - obesity 992524626 Z68.31 Type 2 ab betes mellitus without complication 357205306 E11.9 I stress the importance of taking medication [id number] is up from 7.3 to 7.7 Essential hypertension 12972424 I10 B/P 110/74 today Benign pro static hyperplasia 190054146 N40.0 continue Tamsulosin 0.4mg was started per urology Mixed hypercholesterolemia and hypertriglyceridemia 029665744 E78.2 Avoid all breads, potatoes, cereal, pasta, rice, margarine, refined sugars, milk yogurt, ice cream, juices, soda (including diet), beer, and man-made or manufactur ed desserts. Enjoy steak, fish, chicken (no skin), pork, butter, vegetables , beans, nuts, whole eggs, cheese (low fat or skim), cream in your coffee.con tinue pravachol 20mg dailyconti nue fenofibrat e 160mg daily Allergic rhinitis 098606 04 J30.9 Body mass index 25-29 - overweight 398866568 Z68.28 BMI 29.5Health y Weight: 5'5= 115-149 lbs Acute cont act dermatitis 847237419 L25.9 [id number] Aleksander Diaz MD [facility] [address], [place] [address] 11/14/2024 14:40:30 11/16/2024 11:18:26 Body mass index 30+ - obesity 947984552 Z68.31 BMI 29.1Ht 5' 5 Healthy weight 115-149 Benign pro static hyperplasia 309108799 N40.0 continue Tamsulosin 0.4mg was started per urology has not returned to urology feels med helps himrefuses DRE05/20/19 24 PSA 0.6 Vitamin D deficiency 347 29648 E55.9 Vitamin D 42buy otc vitamin D3 1000 IU once daily Essential hypertension 05061445 I10 BP Goal: Less than 140/90BP Controlled : yes; per the JNC8 guidelines in the absence of renal disease and DMHealthy Weight: 5'5= 115-149 lbsDiscuss ed: Low sodium balanced diet, moderate exercise at least 3-4 times per week for an average of 40 minutesNex t Visit: 3month(s) Type 2 ab betes mellitus without complication 818494278 E11.9 HA1C 7.7worse continue to monitor blood sugars patient to continue metformin 1000 mg bid-- keep bs logswill continue jardiance 10mg daily Mixed hypercholesterolemia and hypertriglyceridemia 934219972 E78.2 06/15/2021 cho 157Trig 383HDL 35.3LDL 82 [...] e 160mg daily Gastroesop hageal reflux disease 218769384 K21.9 stable no need for pepcid nowHas noticed some nausea after taking medication sAdvised to take medication s with a cracker or something solidAdvis ed not to lay down immediatel y after taking medication s Obstructiv e sleep apnea of adult 6162248712 103 G47.33 stable continue to use CPAP Has been on CPAP for 10 years same machine Has now seen PHOTOGRAPHIC RESTORER at pulmonolog ist office-had new machine ordered Allergic rhinitis 992664 04 J30.9 Pain of le ft shoulder joint 4278300938 3979131 M25.512 deltoid area painwakes him up at nighthad a fall 9 months ago from a ladderbett er now Erectile dysfunction 860 370211 F52.21 Xerosis du e to atopic dermatitis 600468792 L85.3 Body mass index 25-29 - overweight 557455874 Z68.28 BMI 29.1Health y Weight: 5'5= 115-149 lbs Pain of le ft shoulder region 0989581648 M25.512 Has resolved for nowdid not get xray Requires i nfluenza virus vaccination 790551767 Z23 895493 Prostate s pecific antigen measurement 59268492 Z12.5 693232 05/20/2023 PSA 0.6 Scalp folliculitis 96063 8003 L73.8 return Seborrheic keratosis 394 586038 L82.1 48731 [id number] Aleksander Diaz MD [facility] [address] [place] [address] 11/20/2024 09:51:16 11/22/2024 15:20:19 Essential hypertension 35289450 I10 74417 BP Goal: Less than 140/90BP Controlled : yes; per the JNC8 guidelines in the absence of renal disease and DMHealthy Weight: 5'5= 115-149 lbsDiscuss ed: Low sodium balanced diet, moderate exercise at least 3-4 times per week for an average of 40 minutesNex t Visit: 3month(s) Prostate s pecific antigen measurement 09717490 Z12.5 436786 05/20/2023 PSA 0.6 [id number] Aleksander Diaz MD [facility] [address] [place] [address] 01/15/2025 10:29:20 01/16/2025 13:12:50 Follow-up encounter 634796769 Z09 [id number] 54 y/o HM presents for follow up ER visit to [facility] on 01/01/2025 with complaints of weakness [...] and drink more water. Bacterial urinary infection 954066283 N39.0 A49.9 8109705 Bacteremia 8360594 R78.8 1 27932 Benign pro static hyperplasia without outflow obstruction 312155295 N40.6 5571005092 continue Tamsulosin 0.4mg was started per urology has not returned to urology feels med helps him started finasterid e 5mg daily per urology at [facility] Acute bact erial prostatitis 0795864991 N41.0 199517 treated with IV antibiotic s and 7 days of levaquin which pt has now completed Body mass index 25-29 - overweight 331347338 E66.3 073958 BMI 28Healthy Weight: 5'5= 115-149 lbs Health Concerns Section Related Observation LastModified by Organization Detai ls LastModified Time None Recorded Concern Status LastModified by Organization Details LastModified Time None Recorded Advance Directives Directive N: Payers Insurance Date Sequence Insurance Name Policy Number Policy Marshall Covered Member ID Marshall Member ID Guarantor Name 06/20/2024 3 MEDICAID-[place]: [facility] Efrain Gonzalez [id number] Efrain Gonzalez 01/15/2025 1 [facility] - DOS ON OR AFTER 20 (MEDICAID REPLACEMENT - HMO) Efrain Gonzalez [id number] Efrain Gonzalez 06/20/2024 [facility] (MEDICAID HMO) [facility] Efrain Gonzalez [id number] Efrain Gonzalez 02/15/2023 SLIDING FEE SCHEDULE - DISCOUNT Efrain Gonzalez 06/15/2021 2 *SELF PAY* Ro tyrese Gonzalez 06/20/2024 1 [employer] (MEDICAID REPLACEMENT - HMO) Efrain Gonzalez [id number] Efrain Gonzalez 06/20/2024 1 [facility] - DOS PRIOR TO 2020 (MEDICAID REPLACEMENT - HMO) Efrain Gonzalez [id number] Efrain Gonzalez 06/20/2024 1 [facility] (MEDICAID HMO) [facility] Efrain Gonzalez [id number] Efrain Gonzalez 06/20/2024 1 [facility] - DOS ON OR AFTER 2020 (MEDICAID REPLACEMENT - HMO) Efrain Gonzalez [id number] Efrain Gonzalez 06/20/2024 2 [facility] (MEDICAID HMO) [id number] Efrain Gonzalez [id number] Efrain Gonzalez 06/20/2024 2 MEDICAID-[place]: [facility] Efrain Gonzalez [id number] Efrain Gonzalez Notes Date Note Type Note [...] has crepitus of the L shoulder too. YU YuP- Attn: Accounting,[address] [facility], [place], [address], [facility] 03/09/2024 16:31:05 5 text/html Diabetes F/UReported by [...] stomach. ALESHA Land NP Attn: Accounting,[address] [facility], [place], [address], [facility] 06/20/2024 16:27:05 5 text/html Erectile [...] has no contraindications. His stuck on R yazidi area brown wart is growing. He wants to try cream and if it doesnt work he will go to derm. RAMU Yu Attn: Accounting,[address] [place], [address], [facility] 11/14/2024 15:34:47 5 text/html ROS as noted in the HPI 54 y/o HM presents for follow up ER visit to [facility] on 01/01/2025 with complaints of weakness [...] chills and fever and drink more water. Ajith Veras, [employer] Attn: Accounting,[address] [facility], [place], [address], [facility] 01/15/2025 17:36:02
[2025-02-10 15:45] VITALS: BP 141/79; PULSE 70; RESP 20; TEMP 36.4; O2SAT 100
--- NOTE | 2025-02-10 16:10 | ED.DENTAL ---
HPI - Dental/Oral General Chief complaint: Dental/Oral Stated complaint: mouth abcess Time Seen by Provider: 02/10/25 15:43 History of Present Illness HPI Narrative: Patient presents here with swelling to his gums, seems to be going down his chin, started on Tuesday; no fevers or chills, no pain with opening his mouth or difficulty with speech or breathing. Related Data Home Medications ?Medication ?Instructions ?Recorded ?Confirmed ?Last Taken ?Type losartan 50 mg tablet 50 mg PO DAILY 11/17/21 01/04/25 Unknown History metformin 1,000 mg tablet 1,000 mg PO BID 11/17/21 01/04/25 Unknown History fluticasone propionate 50 1 spray intranasal DAILY 03/16/24 01/04/25 Unknown History mcg/actuation nasal spray,suspension Allergies Allergy/AdvReac Type Severity Reaction Status Date / Time No Known Allergies Allergy Verified 02/10/25 15:50 Review of Systems Review of Systems: All systems reviewed & are unremarkable except as noted in HPI and below PMFSH Past Medical History Medical History (Updated 02/10/25 @ 16:04 by Barbara Anderson MD) Diabetes Essential hypertension Family History Family History Sibling Diabetes mellitus Social History Social History Smoking status: Never smoker Alcohol intake: never Substance use: never Substance use type: does not use Lack of Transportation: No Lack of Food: Never True Current Housing: I Have Housing Concerned About Future Housing: No Difficulty Paying Gas/Electric Bills: YES Difficulty Paying for Meds: No Currently Unemployed: No Education: Grade School Difficulty w/ Childcare or Family Care: No Spiritual care concerns: No Exam Narrative: EXAMINATION OF ORGAN SYSTEMS/BODY AREAS: Constitutional: Vital signs per nursing GENERAL:[No acute distress, non-toxic appearing.] HEAD: Normal with no signs of head trauma. EYES: EOMI, conjunctiva normal ENT: No trismus, no beefy woody neck or swelling; lower front teeth gingivae extremely inflamed, tender LUNGS: Nonlabored breathing. HEART: [Regular rate and rhythm] ABD: [Soft], [nontender to palpation] EXT: Normal range of motion SKIN: [No rashes or lesions.] NEURO: [Alert. No gross focal sensory or strength deficits.] PSYCH: Normal affect Course Vital Signs Vital signs: Vital Signs Temperature 97.6 F 02/10/25 15:45 Pulse Rate 70 02/10/25 15:45 Respiratory Rate 20 02/10/25 15:45 Blood Pressure 141/79 H 02/10/25 15:45 Pulse Oximetry 100 02/10/25 15:45 Oxygen Delivery Room Air 02/10/25 15:45 Temperature 97.6 F 02/10/25 15:45 Pulse Rate 70 02/10/25 15:45 Respiratory Rate 20 02/10/25 15:45 Blood Pressure 141/79 H 02/10/25 15:45 Pulse Oximetry 100 02/10/25 15:45 Oxygen Delivery Room Air 02/10/25 15:45 MDM MDM Narrative Medical decision making narrative: Patient presents with inflammation and swelling to lower gums, seems to be going down his chin with some swelling. On exam he does have slightly swollen submental lymph node and very inflamed gingiva with some necrotizing tissue consistent with acute necrotizing gingivitis, without any trismus, and with normal, have very low concern for Mo's angina at this time. Started on antibiotics with chlorhexidine swish, given strict return precautions, close follow-up to emergency dentist. Patient agreeable with plan Differential Diagnosis Differential Diagnosis: Alternative necrotizing gingivitis/periodontitis, abscess, Mo's angina Discharge Plan Discharge Clinical Impression: Acute necrotizing gingivitis Patient Disposition: Home Condition: Stable Instructions: Antibiotic Form, Trench Mouth (ED) Additional Instructions: Use the medications as prescribed and follow-up with a dentist. If you have increased swelling, if you are unable to open your mouth or if you feel like your throat is closing or anything else concerning, go straight to the emergency room. Patient Language: Wolof Prescriptions: New chlorhexidine gluconate 0.12 % mouthwash 15 ml mucous membrane BID 14 Days Qty: 120 0RF amoxicillin-pot clavulanate 875-125 mg tablet 1 tablet PO Q12H Qty: 14 0RF No Action losartan 50 mg tablet 50 mg PO DAILY metformin 1,000 mg tablet 1,000 mg PO BID fluticasone propionate 50 mcg/actuation spray,suspension 1 spray INTRANASAL DAILY finasteride [Proscar] 5 mg Tablet 5 mg PO QAM Qty: 30 0RF levofloxacin 500 mg tablet 500 mg PO DAILY Qty: 30 0RF Follow-up/Referrals: [place],DINAH Canseco [Primary Care Provider] Stand Alone Forms: Work/School Release IP
[2025-02-10] MEDS: CHLORHEXIDINE GLUCONATE 0.12% ORAL RINSE 473 ML BTL (*BKC) 15 ML SWISH/SPIT (16:32)
== END 2025-02-10 16:37 | disposition home or self-care (01) ==
PROVIDERS: Emergency Provider Emergency Medicine; PCP Registered Nurse
DX: A69.1 Other Vincent's infections (principal); E11.9 Type 2 diabetes mellitus without complications; I10 Essential (primary) hypertension; Z79.84 Long term (current) use of oral hypoglycemic drugs
CPT/HCPCS: 99283; A4248; A9270